=== PATIENT | female | born 1940 | race Caucasian/White ===

== ENCOUNTER 2017-05-02 11:04 | Emergency (ER) | payer MEDICARE ==
--- NOTE | 2017-05-02 12:51 | EDM.PDOC ---
ED HPI GENERAL MEDICAL PROBLEM - General Chief Complaint: Cardiovascular Problem Stated Complaint: HIGH BP/CHEST DISCOMFORT Time Seen by Provider: 05/02/17 11:45 Source of Information: Reports: Patient History Limitations: Reports: No Limitations - History of Present Illness INITIAL COMMENTS - FREE TEXT/NARRATIVE: 77-year-old female who is just had some mild generalized malaise over the past several weeks, having difficulty getting her blood pressure under control and some mild intermittent tinnitus as well as some mild intermittent chest discomfort which she's had for years was sent over from the clinic today because her blood pressure was elevated. She just had an angiogram 6 months ago. No intervention was done. She denies shortness of breath, denies nausea or vomiting, weight loss or weight gain. She was at the clinic this morning for labs including a CBC and Lyme's titer. Onset: Unknown/Unsure Severity: Mild Associated Symptoms: Reports: Chest Pain, Malaise, Weakness. Denies: Cough, Fever/Chills, Headaches, Shortness of Breath Debnies Pain Score (Numeric/FACES): 0 - Related Data Allergies Allergy/AdvReac Type Severity Reaction Status Date / Time venom-honey bee Allergy Difficulty Verified 05/02/17 11:16 [bee venom (honey bee)] Breathing *avocodo Allergy Difficulty Uncoded 05/02/17 11:16 Breathing *salmon Allergy Difficulty Uncoded 05/02/17 11:16 Breathing Home Meds: Home Meds Aspirin [Halfprin] 81 mg PO DAILY 06/18/14 [History] Digoxin 250 mcg PO BEDTIME 06/18/14 [History] Metoprolol Succinate [Toprol Xl] 100 mg PO DAILY 06/18/14 [History] atorvaSTATin [Lipitor] 40 mg PO BEDTIME 06/18/14 [History] Warfarin [Coumadin] 3 mg PO SUTUTHSA 06/19/14 [History] Warfarin [Coumadin] 4.5 mg PO MOWEFR 06/19/14 [History] Lisinopril [Prinivil] 20 mg PO DAILY 07/28/16 [History] Past Medical History HEENT History: Reports: Impaired Vision Cardiovascular History: Reports: Afib, High Cholesterol, Hypertension, [place] 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: Neurological History: Reports: TIA Psychiatric History: Reports: Anxiety - Infectious Disease History Infectious Disease History: Reports: Chicken Pox, Measles - Past Surgical History HEENT Surgical History: Reports: Cataract Surgery Cardiovascular Surgical History: Reports: Coronary Artery Bypass, Other (See Below) Other Cardiovascular Surgeries/Procedures: angiogram aprox 6 momths ago GI Surgical History: Reports: Cholecystectomy, Colonoscopy Female Surgical History: Reports: Hysterectomy Social & Family History - Tobacco Use Smoking Status *Q: Never Smoker Years of Tobacco use: 20 Used Tobacco, but Quit: Yes Month Tobacco Last Used: NOVEMBER Second Hand Smoke Exposure: No - Caffeine Use Caffeine Use: Reports: Coffee, Tea - Alcohol Use Days Per Week of Alcohol Use: 1 Number of Drinks Per Day: 2 Total Drinks Per Week: 2 - Recreational Drug Use Recreational Drug Use: No ED ROS GENERAL - Review of Systems Review Of Systems: See Below Constitutional: Reports: Malaise, Weakness. Denies: Fever, Chills HEENT: Reports: No Symptoms Respiratory: Denies: Shortness of Breath, Cough Cardiovascular: Reports: Chest Pain (Intermittent mild substernal burning, not a new symptom) GI/Abdominal: Denies: Abdominal Pain, Diarrhea, Nausea, Vomiting : Reports: No Symptoms Musculoskeletal: Reports: No Symptoms Skin: Reports: No Symptoms Neurological: Denies: Dizziness, Headache ED EXAM, GENERAL - Physical Exam Exam: See Below Exam Limited By: No Limitations General Appearance: Alert, No Apparent Distress Eye Exam: Bilateral Eye: Normal Inspection Neck: Normal Inspection Respiratory/Chest: No Respiratory Distress, Lungs Clear Cardiovascular: Irregularly Irregular GI/Abdominal: Soft, Non-Tender Extremities: Normal Inspection. No: Pedal Edema Neurological: Alert, Oriented Psychiatric: Normal Affect, Normal Mood Course - Vital Signs Last Recorded V/S: Last Vital Signs Temp 96.9 F 05/02/17 13:07 Pulse 59 L 05/02/17 11:36 Resp 15 05/02/17 13:07 BP 185/102 H 05/02/17 13:07 Pulse Ox 96 05/02/17 13:07 - Orders/Labs/Meds Labs: Laboratory Tests 05/02/17 Range/Units 12:11 Sodium 140 (140-148) mmol/L Potassium 4.4 (3.6-5.2) mmol/L Chloride 106 (100-108) mmol/L Carbon Dioxide 27 (21-32) mmol/L Anion Gap 6.7 (5.0-14.0) mmol/L BUN 14 (7-18) mg/dL Creatinine 0.9 (0.6-1.0) mg/dL Est Cr Clr Drug Dosing 41.74 mL/min Estimated GFR (MDRD) > 60 (>60) Glucose 111 H (74-106) mg/dL Calcium 9.3 (8.5-10.1) mg/dL Troponin I < 0.017 (0.000-0.056) ng/mL Digoxin 1.42 (0.90-2.00) ng/mL - Re-Assessments/Exams Free Text/Narrative Re-Assessment/Exam: 05/02/17 14:54 Patient already had a CBC done at the clinic which was normal. A BMP to check electrolytes, digoxin and troponin were obtained. Her initial blood pressure was 146/96. Her blood pressure at the clinic was somewhat higher with a systolic in the 160s. She did have systolic readings just over 200 several times while I was talking with her. She did not develop any chest pain while in the emergency room. Her BMP, troponin were normal and digoxin level was therapeutic. We reviewed her medications and decided to begin a small dose of diuretic along with her metoprolol and lisinopril, she was given 12.5 mg hydrochlorothiazide daily, 2 weeks' worth. I would like to have her recheck with Dr. Bliss in the next 7-10 days. She can return sooner if worsening or concerns. I strongly encouraged her to avoid any extra salt intake. Departure - Departure Time of Disposition: 13:01 Disposition: Home, Self-Care 01 Condition: Good Clinical Impression: Chest pain Hypertension Qualifiers: Hypertension type: essential hypertension Qualified Code(s): I10 - Essential ( primary) hypertension Instructions: Hypertension, [id number] Referrals: Cipriano Bliss MD [Primary Care Provider] - Forms: ED Department Discharge Care Plan Goals: Continue your current medications, and add the small dose HCTZ in the morning for the next 2 weeks as prescribed. Recheck with Dr. Bliss in 10-14 days or return sooner if worsening or concerns.
[2017-05-02 13:09] VITALS: BP 185/102
== END 2017-05-02 13:08 | disposition home or self-care (01) ==
LOC: JP.ED 11:04
DX: R07.9 Chest pain, unspecified (principal); I10 Essential (primary) hypertension; I48.91 Unspecified atrial fibrillation; E78.00 Pure hypercholesterolemia, unspecified; Z79.82 Long term (current) use of aspirin; Z79.899 Other long term (current) drug therapy; Z91.018 Allergy to other foods; Z91.030 Bee allergy status
CPT/HCPCS: 36415; 80048; 80162; 84484; 99284; 99285

== ENCOUNTER 2017-12-07 09:42 | Emergency (ER) | payer MEDICARE ==
[2017-12-07 10:06] VITALS: BP 190/92
--- NOTE | 2017-12-07 10:12 | EDM.PDOC ---
ED HPI GENERAL MEDICAL PROBLEM - General Chief Complaint: Upper Extremity Injury/Pain Stated Complaint: numbness in RIGHT HAND Time Seen by Provider: 12/07/17 10:00 Source of Information: Reports: Patient, Old Records, RN History Limitations: Reports: No Limitations - History of Present Illness INITIAL COMMENTS - FREE TEXT/NARRATIVE: 77 yo female presents with an hour's duration of pain in the L arm from the elbow to the fingers that began about an hour before arrival while mopping at work. Her pain was not relieved by stopping mopping. Is on warfarin for Afib, but has not had an INR in about 6 weeks. Hand feels cold. Onset: Today Onset Date: 12/07/17 Onset Time: 09:00 Duration: Hour(s): (1), Constant Location: Reports: Upper Extremity, Left Quality: Reports: Ache Severity: Moderate Improves with: Reports: None Worsens with: Reports: None Context: Reports: Other (Afib hx) Associated Symptoms: Reports: No Other Symptoms. 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 (see below) (none) Left Hand Pain Score (Numeric/FACES): 6 - Related Data Allergies Allergy/AdvReac Type Severity Reaction Status Date / Time venom-honey bee Allergy Difficulty Verified 12/07/17 09:53 [bee venom (honey bee)] Breathing *avocodo Allergy Difficulty Uncoded 12/07/17 09:53 Breathing *salmon Allergy Difficulty Uncoded 12/07/17 09:53 Breathing Home Meds: Home Meds Aspirin [Halfprin] 81 mg PO DAILY 06/18/14 [History] Digoxin 250 mcg PO BEDTIME 06/18/14 [History] Metoprolol Succinate [Toprol Xl] 100 mg PO DAILY 06/18/14 [History] atorvaSTATin [Lipitor] 40 mg PO BEDTIME 06/18/14 [History] Warfarin [Coumadin] 3 mg PO SUTUTHSA 06/19/14 [History] Warfarin [Coumadin] 4.5 mg PO MOWEFR 06/19/14 [History] Lisinopril [Prinivil] 20 mg PO DAILY 07/28/16 [History] Past Medical History HEENT History: Reports: Impaired Vision Cardiovascular History: Reports: Afib, High Cholesterol, Hypertension, [place] [employer]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: Neurological History: Reports: TIA Psychiatric History: Reports: Anxiety - Infectious Disease History Infectious Disease History: Reports: Chicken Pox, Measles - Past Surgical History HEENT Surgical History: Reports: Cataract Surgery Cardiovascular Surgical History: Reports: Coronary Artery Bypass, Other (See Below) Other Cardiovascular Surgeries/Procedures: angiogram aprox 6 momths ago GI Surgical History: Reports: Cholecystectomy, Colonoscopy Female Surgical History: Reports: Hysterectomy Social & Family History - Tobacco Use Smoking Status *Q: Never Smoker Second Hand Smoke Exposure: No - Caffeine Use Caffeine Use: Reports: Coffee, Tea - Alcohol Use Days Per Week of Alcohol Use: 2 Number of Drinks Per Day: 2 Total Drinks Per Week: 4 - Recreational Drug Use Recreational Drug Use: No Review of Systems - Review of Systems Review Of Systems: See Below Constitutional: Reports: No Symptoms Eyes: Reports: No Symptoms Ears: Reports: No Symptoms Nose: Reports: No Symptoms Mouth/Throat: Reports: No Symptoms Respiratory: Reports: No Symptoms Cardiovascular: Reports: Irregular Heart Rate (Hx of afib) GI/Abdominal: Reports: No Symptoms Genitourinary: Reports: No Symptoms Musculoskeletal: Reports: Arm Pain (L below the elbow), Hand Pain (Left) Skin: Reports: No Symptoms Neurological: Reports: No Symptoms ED EXAM, GENERAL - Physical Exam Exam: See Below Exam Limited By: No Limitations General Appearance: Alert, WD/WN, No Apparent Distress Eye Exam: Bilateral Eye: Normal Inspection Ears: Normal External Exam, Normal Canal, Hearing Grossly Normal Ear Exam: Bilateral Ear: Auricle Normal, Canal Normal Nose: Normal Inspection, Normal Mucosa, No Blood Throat/Mouth: Normal Inspection, Normal Lips, Normal Oropharynx, Normal Voice, No Airway Compromise Head: Atraumatic, Normocephalic Neck: Normal Inspection, Supple, Non-Tender Respiratory/Chest: No Respiratory Distress, Lungs Clear, Normal Breath Sounds, No Accessory Muscle Use Cardiovascular: Irregularly Irregular GI/Abdominal: Normal Bowel Sounds, Soft, Non-Tender, No Distention Back Exam: Normal Inspection Extremities: Normal Inspection, Normal Range of Motion, Non-Tender, No Pedal Edema, Arm Pain (left), Other (cap refill delayed L hand, no pulse at ulna or radial artery. Weak pulse at elbow. ) Neurological: Alert, Oriented, CN II-XII Intact, Normal Cognition, No Motor/ Sensory Deficits Psychiatric: Normal Affect, Normal Mood Skin Exam: Warm, Dry, Intact, Normal Color, No Rash Lymphatic: No Adenopathy Course - Vital Signs Text/Narrative:: Accepted in transfer by Dr. Marquez, interventional radiology, [facility] @ 1120h Last Recorded V/S: Last Vital Signs Temp 35.9 C 12/07/17 10:04 Pulse 68 12/07/17 10:04 Resp 14 12/07/17 10:04 BP 190/92 H 12/07/17 10:04 Pulse Ox 99 12/07/17 10:04 - Orders/Labs/Meds Orders: Active Orders 24 hr Category Date Time Status Cardiac Monitoring [RC] .As Directed Care 12/07/17 10:07 Active VL Duplex Upr Ext Art Ltd Lt [US] Stat Exams 12/07/17 10:19 Ordered Sodium Chloride 0.9% [Saline Flush] Med 12/07/17 10:07 Active 10 ml FLUSH ASDIRECTED PRN Saline Lock Insert [OM.PC] Routine Oth 12/07/17 10:07 Ordered Medication Orders Sodium Chloride (Saline Flush) 10 ml FLUSH ASDIRECTED PRN PRN Reason: Keep Vein Open Last Admin: 12/07/17 10:19 Dose: 10 ml Labs: Laboratory Tests 12/07/17 Range/Units 10:07 PT 14.4 H (9.5-12.0) sec INR 1.33 H (0.80-1.20) Meds: Medications Generic Name Dose Route Start Last Admin Trade Name Freq PRN Reason Stop Dose Admin Sodium Chloride 10 ml 12/07/17 10:07 12/07/17 10:19 Saline Flush FLUSH 10 ml ASDIRECTED PRN Administration Keep Vein Open - Radiology Interpretation Free Text/Narrative:: Ultrasound LUE vascular study- Departure - Departure Time of Disposition: 11:40 Disposition: DC/Tfer to Acute Hospital 02 Condition: Poor Clinical Impression: Subtherapeutic international normalized ratio (INR), Chronic atrial fibrillation, Arterial embolism of arm HTN (hypertension) Qualifiers: Hypertension type: essential hypertension Qualified Code(s): I10 - Essential ( primary) hypertension - Discharge Information Referrals: Cipriano Bliss MD [Primary Care Provider] - Forms: ED Department Discharge - My Orders Last 24 Hours: My Active Orders 12/07/17 10:07 Cardiac Monitoring [RC] .As Directed Sodium Chloride 0.9% [Saline Flush] 10 ml FLUSH ASDIRECTED PRN Saline Lock Insert [OM.PC] Routine 12/07/17 10:19 VL Duplex Upr Ext Art Ltd Lt [US] Stat - Assessment/Plan Last 24 Hours: My Active Orders 12/07/17 10:07 Cardiac Monitoring [RC] .As Directed Sodium Chloride 0.9% [Saline Flush] 10 ml FLUSH ASDIRECTED PRN Saline Lock Insert [OM.PC] Routine 12/07/17 10:19 VL Duplex Upr Ext Art Ltd Lt [US] Stat
[2017-12-07] MEDS: Sodium Chloride 0.9% 10 ML Syringe FLUSH PRN ×2 (10:19→11:47)
[2017-12-07] MEDS ORDERED: Heparin Sodium 5,000 Units/ML Vial IVPUSH ONE ×2 (11:21→11:48)
[2017-12-07] MEDS ORDERED: hydrALAZINE 20 MG/ML SDV IVPUSH ONE ×2 (11:23→11:56)
[2017-12-07] MEDS ORDERED: Heparin Sodium/D5W 25,000 UNITS/500 ML BAG IV SCH (11:30)
--- NOTE | 2017-12-07 11:31 | US ---
Left upper extremity arterial Doppler The left common carotid artery, left subclavian artery, axillary artery, and brachial artery are all patent. The radial artery is visualized distally at the wrist. The gutierrez arch is intact. The distal portion of the ulnar artery becomes attenuated without evidence of flow distally. No visualized throm bus is demonstrated. The waveform within the radial and gutierrez arteries are monophasic. Impression: 1. The ulnar artery tapers distally with lack of flow at the wrist. 2. The radial and gutierrez arteries are patent at the wrist and hand.
== END 2017-12-07 12:11 ==
LOC: JP.ED 09:42
DX: I74.2 Embolism and thrombosis of arteries of the upper extremities (principal); I10 Essential (primary) hypertension; I48.2 Chronic atrial fibrillation; I25.2 Old myocardial infarction; F41.9 Anxiety disorder, unspecified; R79.1 Abnormal coagulation profile; Z91.02 Food additives allergy status; Z79.82 Long term (current) use of aspirin; Z79.01 Long term (current) use of anticoagulants; Z79.899 Other long term (current) drug therapy; Z91.030 Bee allergy status
CPT/HCPCS: 36415; 85610; 93931; 96374; 96375; 99285; J0360; J1644; J7050

== ENCOUNTER 2017-12-11 14:16 | Emergency (ER) | payer MEDICARE ==
[2017-12-11] MEDS ORDERED: Labetalol 20 MG/4 ML Syringe IVPUSH ONE (15:14)
[2017-12-11] MEDS ORDERED: Sodium Chloride 0.9% 1,000 ML IV SCH (15:15)
[2017-12-11] MEDS ORDERED: Labetalol 100 MG in Sodium Chloride 0.9% 80 ML IV SCH (15:15)
--- NOTE | 2017-12-11 15:15 | EDM.PDOC ---
ED HPI GENERAL MEDICAL PROBLEM - General Chief Complaint: General Stated Complaint: WEAKNESS BLOOD PRESSURE HIGH Time Seen by Provider: 12/11/17 14:55 Source of Information: Reports: Patient, Family History Limitations: Reports: No Limitations - History of Present Illness INITIAL COMMENTS - FREE TEXT/NARRATIVE: pt arrived having a headache and dizziness. This started quite suddenly this afternoon. She was just hospitalized in [place] for a blood clot in her left arm. She is on lovenox shots and is trying to get her inr up. Onset: Today, Other ( Pt had the headche and dizziness. ) Duration: Hour(s): Location: Reports: Head Quality: Reports: Pressure Associated Symptoms: Reports: No Other Symptoms lower abdomen Pain Score (Numeric/FACES): 7 - Related Data Allergies Allergy/AdvReac Type Severity Reaction Status Date / Time venom-honey bee Allergy Difficulty Verified 12/11/17 15:11 [bee venom (honey bee)] Breathing *avocodo Allergy Difficulty Uncoded 12/11/17 15:11 Breathing *salmon Allergy Difficulty Uncoded 12/11/17 15:11 Breathing Home Meds: Home Meds Aspirin [Halfprin] 81 mg PO DAILY 06/18/14 [History] Digoxin 250 mcg PO BEDTIME 06/18/14 [History] Metoprolol Succinate [Toprol Xl] 100 mg PO DAILY 06/18/14 [History] Warfarin [Coumadin] 3 mg PO SUTUTHSA 06/19/14 [History] Warfarin [Coumadin] 4.5 mg PO MOWEFR 06/19/14 [History] Lisinopril [Prinivil] 20 mg PO DAILY 07/28/16 [History] Enoxaparin [Lovenox] 30 mg SUBCUT DAILY 12/11/17 [History] Past Medical History HEENT History: Reports: Impaired Vision Cardiovascular History: Reports: Afib, High Cholesterol, Hypertension, [place]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: Neurological History: Reports: TIA Psychiatric History: Reports: Anxiety - Infectious Disease History Infectious Disease History: Reports: Chicken Pox, Measles - Past Surgical History HEENT Surgical History: Reports: Cataract Surgery Cardiovascular Surgical History: Reports: Coronary Artery Bypass, Other (See Below) Other Cardiovascular Surgeries/Procedures: angiogram aprox 6 momths ago GI Surgical History: Reports: Cholecystectomy, Colonoscopy Female Surgical History: Reports: Hysterectomy Social & Family History - Caffeine Use Caffeine Use: Reports: Coffee, Tea ED ROS GENERAL - Review of Systems Review Of Systems: See Below Constitutional: Reports: No Symptoms HEENT: Reports: No Symptoms Respiratory: Reports: No Symptoms Cardiovascular: Reports: No Symptoms, Other ( She did have a twing of chest pain that was very brief) Endocrine: Reports: No Symptoms GI/Abdominal: Reports: No Symptoms : Reports: No Symptoms Musculoskeletal: Reports: No Symptoms Skin: Reports: No Symptoms Neurological: Reports: Dizziness, Headache, Other ( she felt very fuzzy headed. ) Psychiatric: Reports: No Symptoms ED EXAM, GENERAL - Physical Exam Exam: See Below Free Text/Narrative:: pt arrived with a headache and dizziness . Her bp was 220/110. Exam Limited By: No Limitations General Appearance: Alert, Moderate Distress, Other (pupils equal and reactive. ) Ears: Normal TMs Nose: Normal Inspection Throat/Mouth: Normal Inspection Head: Atraumatic Neck: Normal Inspection Respiratory/Chest: No Respiratory Distress Cardiovascular: Regular Rate, Rhythm, Other ( ekg looks normal. ) GI/Abdominal: Soft, Non-Tender (Female) Exam: Deferred Rectal (Female) Exam: Deferred Back Exam: Normal Inspection Extremities: Normal Inspection Neurological: Alert, Oriented, Normal Cognition Psychiatric: Normal Affect Course - Vital Signs Last Recorded V/S: Last Vital Signs Temp 35.8 C 12/11/17 14:52 Pulse 78 12/11/17 17:46 Resp 16 12/11/17 17:46 BP 165/101 H 12/11/17 17:46 Pulse Ox 98 12/11/17 17:46 Orthostatic Blood Pressure [ 169/112 Standing] Orthostatic Blood Pressure [ 163/111 Sitting] Orthostatic Blood Pressure [ 173/91 Supine] - Orders/Labs/Meds Orders: Active Orders 24 hr Category Date Time Status EKG Documentation Completion [RC] ASDIRECTED Care 12/11/17 17:07 Active Orthostatic Vital Signs [RC] ASDIRECTED Care 12/11/17 16:15 Active Head wo Cont [CT] Stat Exams 12/11/17 15:01 Taken UA W/MICROSCOPIC [URIN] Urgent Lab 12/11/17 15:09 Ordered Sodium Chloride 0.9% [Normal Saline] 1,000 ml Med 12/11/17 15:15 Active IV ASDIRECTED EKG 12 Lead [EK] Routine Ther 12/11/17 17:07 Ordered Medication Orders Sodium Chloride (Normal Saline) 1,000 mls @ 200 mls/hr IV ASDIRECTED [facility] Labs: Laboratory Tests 12/11/17 12/11/17 12/11/17 Range/Units 14:47 14:47 14:48 WBC 9.6 (4.5-11.0) K/uL RBC 4.57 (3.30-5.50) M/uL Hgb 13.8 (12.0-15.0) g/dL Hct 40.0 (36.0-48.0) % MCV 88 (80-98) fL MCH 30 (27-31) pg MCHC 35 (32-36) % Plt Count 198 (150-400) K/uL Neut % (Auto) 49 (36-66) % Lymph % (Auto) 36 (24-44) % Branch % (Auto) 11 H (2-6) % Eos % (Auto) 3 (2-4) % Baso % (Auto) 1 (0-1) % PT 17.4 H (9.5-12.0) sec INR 1.59 H (0.80-1.20) Sodium 140 (140-148) mmol/L Potassium 3.5 L (3.6-5.2) mmol/L Chloride 103 (100-108) mmol/L Carbon Dioxide 27 (21-32) mmol/L Anion Gap 13.5 (5.0-14.0) mmol/L BUN 10 (7-18) mg/dL Creatinine 0.8 (0.6-1.0) mg/dL Est Cr Clr Drug Dosing TNP Estimated GFR (MDRD) > 60 (>60) Glucose 97 (74-106) mg/dL Calcium 8.9 (8.5-10.1) mg/dL Total Bilirubin 0.8 D (0.2-1.0) mg/dL AST 30 (15-37) U/L ALT 35 (12-78) U/L Alkaline Phosphatase 70 (46-116) U/L Troponin I (0.000-0.056) ng/mL Total Protein 7.3 (6.4-8.2) g/dL Albumin 3.7 (3.4-5.0) g/dL Globulin 3.6 H (2.3-3.5) g/dL Albumin/Globulin Ratio 1.0 L (1.2-2.2) Urine Color Urine Appearance Urine pH (4.5-8.0) Ur Specific [place] (1.008-1.030) Urine Protein (NEGATIVE) mg/dL Urine Glucose (UA) (NEGATIVE) mg/dL Urine Ketones (NEGATIVE) mg/dL Urine Occult Blood (NEGATIVE) Urine Nitrite (NEGATIVE) Urine Bilirubin (NEGATIVE) Urine Urobilinogen (NORMAL) mg/dL Ur Leukocyte Esterase (NEGATIVE) Urine RBC (0-5) Urine WBC (0-5) Ur Epithelial Cells Amorphous Sediment Urine Bacteria Urine Mucus Digoxin (0.90-2.00) ng/mL 12/11/17 12/11/17 12/11/17 Range/Units 14:48 15:09 17:07 WBC (4.5-11.0) K/uL RBC (3.30-5.50) M/uL Hgb (12.0-15.0) g/dL Hct (36.0-48.0) % MCV (80-98) fL MCH (27-31) pg MCHC (32-36) % Plt Count (150-400) K/uL Neut % (Auto) (36-66) % Lymph % (Auto) (24-44) % Branch % (Auto) (2-6) % Eos % (Auto) (2-4) % Baso % (Auto) (0-1) % PT (9.5-12.0) sec INR (0.80-1.20) Sodium (140-148) mmol/L Potassium (3.6-5.2) mmol/L Chloride (100-108) mmol/L Carbon Dioxide (21-32) mmol/L Anion Gap (5.0-14.0) mmol/L BUN (7-18) mg/dL Creatinine (0.6-1.0) mg/dL Est Cr Clr Drug Dosing Estimated GFR (MDRD) (>60) Glucose (74-106) mg/dL Calcium (8.5-10.1) mg/dL Total Bilirubin (0.2-1.0) mg/dL AST (15-37) U/L ALT (12-78) U/L Alkaline Phosphatase (46-116) U/L Troponin I < 0.017 (0.000-0.056) ng/mL Total Protein (6.4-8.2) g/dL Albumin (3.4-5.0) g/dL Globulin (2.3-3.5) g/dL Albumin/Globulin Ratio (1.2-2.2) Urine Color Yellow Urine Appearance Clear Urine pH 8.0 (4.5-8.0) Ur Specific [place] 1.010 (1.008-1.030) Urine Protein Negative (NEGATIVE) mg/dL Urine Glucose (UA) Normal (NEGATIVE) mg/dL Urine Ketones Negative (NEGATIVE) mg/dL Urine Occult Blood Negative (NEGATIVE) Urine Nitrite Negative (NEGATIVE) Urine Bilirubin Negative (NEGATIVE) Urine Urobilinogen Normal (NORMAL) mg/dL Ur Leukocyte Esterase Negative (NEGATIVE) Urine RBC 0-5 (0-5) Urine WBC 0-5 (0-5) Ur Epithelial Cells Rare Amorphous Sediment Rare Urine Bacteria Not seen Urine Mucus Not seen Digoxin 0.75 L (0.90-2.00) ng/mL Meds: Medications Generic Name Dose Route Start Last Admin Trade Name Freq PRN Reason Stop Dose Admin Sodium Chloride 1,000 mls @ 200 mls/hr 12/11/17 15:15 Normal Saline IV ASDIRECTED MERCEDEZ Discontinued Medications Generic Name Dose Route Start Last Admin Trade Name Freq PRN Reason Stop Dose Admin Labetalol HCl 100 mg/ Sodium 100 mls @ 30 mls/hr 12/11/17 15:15 Chloride IV TITRATE MERCEDEZ Protocol 0.5 MG/MIN Labetalol HCl 20 mg 12/11/17 15:14 12/11/17 17:45 Normodyne IVPUSH 12/11/17 15:15 Not Given NOW ONE Protocol Lisinopril 5 mg 12/11/17 17:07 12/11/17 17:44 Prinivil PO 12/11/17 17:08 5 mg ONETIME ONE Administration - Re-Assessments/Exams Free Text/Narrative Re-Assessment/Exam: 12/11/17 17:55 ekg and trop are normal. A cat scan of the head was normal. Her bp has come down and is much better. Her lab work looks ok. Her Inr Is 1.56. Departure - Departure Time of Disposition: 17:57 Disposition: Home, Self-Care 01 Condition: Fair Clinical Impression: Hypertension, Arterial embolism of arm - Discharge Information Referrals: Cipriano Bliss MD [Primary Care Provider] - Forms: ED Department Discharge Care Plan Goals: increase lisinopril 20mg in am, lisinopril 5mg in the afternoon follow with regular Dr in 1 week. - My Orders Last 24 Hours: My Active Orders 12/11/17 15:01 Head wo Cont [CT] Stat 12/11/17 15:09 UA W/MICROSCOPIC [URIN] Urgent 12/11/17 15:15 Sodium Chloride 0.9% [Normal Saline] 1,000 ml IV ASDIRECTED 12/11/17 16:15 Orthostatic Vital Signs [RC] ASDIRECTED 12/11/17 17:07 EKG Documentation Completion [RC] ASDIRECTED EKG 12 Lead [EK] Routine - Assessment/Plan Last 24 Hours: My Active Orders 12/11/17 15:01 Head wo Cont [CT] Stat 12/11/17 15:09 UA W/MICROSCOPIC [URIN] Urgent 12/11/17 15:15 Sodium Chloride 0.9% [Normal Saline] 1,000 ml IV ASDIRECTED 12/11/17 16:15 Orthostatic Vital Signs [RC] ASDIRECTED 12/11/17 17:07 EKG Documentation Completion [RC] ASDIRECTED EKG 12 Lead [EK] Routine
[2017-12-11] MEDS ORDERED: Lisinopril 5 MG Tab PO ONE (17:07)
[2017-12-11 17:47] VITALS: BP 165/101
== END 2017-12-11 18:11 | disposition home or self-care (01) ==
LOC: JP.ED 14:16
DX: I10 Essential (primary) hypertension (principal); I74.2 Embolism and thrombosis of arteries of the upper extremities; E78.00 Pure hypercholesterolemia, unspecified; I48.91 Unspecified atrial fibrillation; Z79.82 Long term (current) use of aspirin; Z79.01 Long term (current) use of anticoagulants; Z79.899 Other long term (current) drug therapy; Z91.018 Allergy to other foods; Z91.030 Bee allergy status
CPT/HCPCS: 36415; 70450; 80053; 80162; 81001; 84484; 85025; 85610; 93005; 99285; A9270

== ENCOUNTER 2017-12-16 06:57 | Emergency (ER) | payer MEDICARE ==
--- NOTE | 2017-12-16 07:39 | EDM.PDOC ---
ED HPI GENERAL MEDICAL PROBLEM - General Chief Complaint: Upper Extremity Injury/Pain Stated Complaint: PAIN IN LEFT ARM HAD BLOOD CLOT Time Seen by Provider: 12/16/17 07:38 Source of Information: Reports: Patient History Limitations: Reports: No Limitations - History of Present Illness INITIAL COMMENTS - FREE TEXT/NARRATIVE: pt has increased pain and increased swelling in the left arm. Onset: Other ( The increased pain was in the middle of the nite and has been persistent. ) Duration: Hour(s): Location: Reports: Upper Extremity, Left Associated Symptoms: Reports: No Other Symptoms left; arm Pain Score (Numeric/FACES): 9 - Related Data Allergies Allergy/AdvReac Type Severity Reaction Status Date / Time venom-honey bee Allergy Difficulty Verified 12/16/17 07:22 [bee venom (honey bee)] Breathing *avocodo Allergy Difficulty Uncoded 12/16/17 07:22 Breathing *salmon Allergy Difficulty Uncoded 12/16/17 07:22 Breathing Home Meds: Home Meds Aspirin [Halfprin] 81 mg PO DAILY 06/18/14 [History] Digoxin 250 mcg PO BEDTIME 06/18/14 [History] Metoprolol Succinate [Toprol Xl] 100 mg PO DAILY 06/18/14 [History] Warfarin [Coumadin] 3 mg PO SUTUTHSA 06/19/14 [History] Warfarin [Coumadin] 4.5 mg PO MOWEFR 06/19/14 [History] Lisinopril [Prinivil] 20 mg PO DAILY 07/28/16 [History] Past Medical History HEENT History: Reports: Impaired Vision Cardiovascular History: Reports: Afib, Blood Clots/VTE/DVT, High Cholesterol, Hypertension, [place] [employer] History: Reports: Neurological History: Reports: TIA Psychiatric History: Reports: Anxiety - Infectious Disease History Infectious Disease History: Reports: Chicken Pox, Measles - Past Surgical History HEENT Surgical History: Reports: Cataract Surgery Cardiovascular Surgical History: Reports: Coronary Artery Bypass, Other (See Below) Other Cardiovascular Surgeries/Procedures: angiogram aprox 6 momths ago GI Surgical History: Reports: Cholecystectomy, Colonoscopy Female Surgical History: Reports: Hysterectomy Social & Family History - Tobacco Use Smoking Status *Q: Never Smoker - Caffeine Use Caffeine Use: Reports: Coffee - Recreational Drug Use Recreational Drug Use: No Review of Systems - Review of Systems Review Of Systems: See Below Constitutional: Reports: No Symptoms Eyes: Reports: No Symptoms Ears: Reports: No Symptoms Nose: Reports: No Symptoms Mouth/Throat: Reports: No Symptoms Respiratory: Reports: No Symptoms Cardiovascular: Reports: No Symptoms GI/Abdominal: Reports: No Symptoms Genitourinary: Reports: No Symptoms Musculoskeletal: Reports: Other (increased pain and swelling in the left arm. ) Skin: Reports: No Symptoms ED EXAM, GENERAL - Physical Exam Exam: See Below Free Text/Narrative:: pt arrived with increased pain and swelling in the left forearm. Exam Limited By: No Limitations General Appearance: Alert, Anxious Ears: Normal TMs Nose: Normal Inspection Throat/Mouth: Normal Inspection Head: Atraumatic Neck: Normal Inspection Respiratory/Chest: No Respiratory Distress Cardiovascular: Regular Rate, Rhythm GI/Abdominal: Soft, Non-Tender (Female) Exam: Deferred Rectal (Female) Exam: Deferred Back Exam: Normal Inspection Extremities: Other (Left lower arm is quite swollen and tight. It is very bruised. She does have a good radial pulse present. ) Neurological: Alert, Oriented, Normal Cognition Psychiatric: Normal Affect, Anxious Course - Vital Signs Last Recorded V/S: Last Vital Signs Temp 35.8 C 12/16/17 07:20 Pulse 64 12/16/17 07:20 Resp 16 12/16/17 07:20 BP 180/107 H 12/16/17 07:40 Pulse Ox 94 L 12/16/17 07:20 - Orders/Labs/Meds Orders: Active Orders 24 hr Category Date Time Status Elbow Min 3V Lt [CR] Stat Exams 12/16/17 07:39 Taken Forearm 2V Lt [CR] Stat Exams 12/16/17 07:39 Taken VL Duplex Upr Ext Art Ltd Lt [US] Stat Exams 12/16/17 07:41 Ordered Meds: Medications Discontinued Medications Generic Name Dose Route Start Last Admin Trade Name Freq PRN Reason Stop Dose Admin Hydromorphone HCl 0.5 mg 12/16/17 07:40 12/16/17 07:43 Dilaudid IM 12/16/17 07:41 0.5 mg ONETIME ONE Administration - Re-Assessments/Exams Free Text/Narrative Re-Assessment/Exam: 12/16/17 08:43 pt had a us of the arm which showed her arter\ies to be open . She had no dvt that could be seen. Xrays of the elbow were neg. She feels like she is getting some muscle spasms at nite and she does have tingling in her hand which could indicate that she has some nerve pressure. Departure - Departure Time of Disposition: 08:45 Disposition: Home, Self-Care 01 Condition: Fair Clinical Impression: Hematoma of arm - Discharge Information Referrals: Cipriano Bliss MD [Primary Care Provider] - Forms: ED Department Discharge Care Plan Goals: soak tid and do range of motion on the arm, flexeril 10mg 1/2 qam . and noon and 1 tab hs, norco 5/325 1/2 tab q6h prn for pain , inbetween use plain tylenol - My Orders Last 24 Hours: My Active Orders 12/16/17 07:39 Elbow Min 3V Lt [CR] Stat Forearm 2V Lt [CR] Stat 12/16/17 07:41 VL Duplex Upr Ext Art Ltd Lt [US] Stat - Assessment/Plan Last 24 Hours: My Active Orders 12/16/17 07:39 Elbow Min 3V Lt [CR] Stat Forearm 2V Lt [CR] Stat 12/16/17 07:41 VL Duplex Upr Ext Art Ltd Lt [US] Stat
[2017-12-16] MEDS ORDERED: HYDROmorphone 0.5 MG/0.5 ML Syringe IM ONE (07:40)
[2017-12-16 08:02] VITALS: BP 180/107
--- NOTE | 2017-12-16 08:55 | CR ---
Elbow Min 3V Lt CLINICAL HISTORY: Pain, trauma FINDINGS: No acute fracture or dislocation is noted. The fat pads are in normal position. There is so me minimal periarticular spurring. There is some soft tissue fullness in the antecubital region. Impression: Minimal osteophytic change Soft tissue fullness in the antecubital region may represent hematoma
--- NOTE | 2017-12-16 08:57 | CR ---
Forearm 2V Lt CLINICAL HISTORY: Pain and swelling FINDINGS: There is no acute fracture within the forearm. IMPRESSION: Negative left forearm.
--- NOTE | 2017-12-16 09:46 | US ---
VL Duplex Upr Ext Art Ltd Lt CLINICAL HISTORY: Left arm swelling, pain, absent pulse FINDINGS: Triphasic waveforms are seen in the left common carotid artery and proximal subclavian ubaldo ry. Biphasic waveforms are seen in the mid subclavian. Biphasic waveforms are seen in the axillary and the triphasic waveforms are seen in the brachial ubaldo prieto. Velocities show no significant change at these levels. There are triphasic waveforms in the left ulnar artery. There is a drop-off in velocity at 18.6 cm/s. There are monophasic waveforms in the radial artery with the diminished velocity at 11 cm/s. The pulm onary artery shows monophasic waveforms at 16.3 cm/s. In the left forearm in the region of trauma there is a 3.1 x 4.6 x 2.5 cm heterogeneous complex mass consistent with a hematoma. IMPRESSION: Forearm hematoma described above There is a drop off of velocity in both the radial and ulnar arteries. The possible ulnar artery has triphasic wave forms. Monophasic waveforms are seen in the radial and palmar arteries
== END 2017-12-16 09:01 | disposition home or self-care (01) ==
LOC: JP.ED 06:57
DX: S50.12XA Contusion of left forearm, initial encounter (principal); I10 Essential (primary) hypertension; E78.00 Pure hypercholesterolemia, unspecified; I25.2 Old myocardial infarction; I48.91 Unspecified atrial fibrillation; F41.9 Anxiety disorder, unspecified; Z79.82 Long term (current) use of aspirin; Z79.01 Long term (current) use of anticoagulants; Z79.899 Other long term (current) drug therapy; Z91.030 Bee allergy status; Z91.018 Allergy to other foods; Z86.718 Personal history of other venous thrombosis and embolism; X58.XXXA Exposure to other specified factors, initial encounter
CPT/HCPCS: 73080; 73090; 93931; 96372; 99284; J1170

== ENCOUNTER 2018-07-12 11:17 | Inpatient (IN) | payer MEDICARE ==
--- NOTE | 2018-07-12 12:22 | EDM.PDOC ---
ED HPI GENERAL MEDICAL PROBLEM - General Chief Complaint: Gastrointestinal Problem Stated Complaint: FLU LIKE SYMPTOMS Time Seen by Provider: 07/12/18 12:12 Source of Information: Reports: Patient, RN Notes Reviewed History Limitations: Reports: No Limitations - History of Present Illness INITIAL COMMENTS - FREE TEXT/NARRATIVE: 78-year-old female presents to the emergency department today with complaint of abdominal pain, she states he's had abdominal pain for the last 2 weeks however it is progressively getting worse seems to be located in the right lower quadrant she does have nausea no vomiting and has had diarrhea denies any fevers Right Lower Abdomen Pain Score (Numeric/FACES): 8 - Related Data Allergies Allergy/AdvReac Type Severity Reaction Status Date / Time venom-honey bee Allergy Difficulty Verified 07/12/18 11:29 [bee venom (honey bee)] Breathing *avocodo Allergy Difficulty Uncoded 07/12/18 11:29 Breathing *salmon Allergy Difficulty Uncoded 07/12/18 11:29 Breathing Home Meds: Home Meds Aspirin [Halfprin] 81 mg PO DAILY 06/18/14 [History] Metoprolol Succinate [Toprol Xl] 100 mg PO DAILY 06/18/14 [History] Warfarin [Coumadin] 3 mg PO SUTUTHSA 06/19/14 [History] Warfarin [Coumadin] 4.5 mg PO MOWEFR 06/19/14 [History] Lisinopril [Prinivil] 20 mg PO DAILY 07/28/16 [History] Past Medical History HEENT History: Reports: Impaired Vision Cardiovascular History: Reports: Afib, Blood Clots/VTE/DVT, CAD, High Cholesterol, Hypertension, [place] [employer] History: Reports: Neurological History: Reports: TIA Psychiatric History: Reports: Anxiety - Infectious Disease History Infectious Disease History: Reports: Chicken Pox, Measles, Mumps, Rheumatic Fever - Past Surgical History Head Surgeries/Procedures: Reports: None HEENT Surgical History: Reports: Cataract Surgery Cardiovascular Surgical History: Reports: Coronary Artery Bypass, Other (See Below) Other Cardiovascular Surgeries/Procedures: angiogram GI Surgical History: Reports: Cholecystectomy, Colonoscopy Female Surgical History: Reports: Hysterectomy Neurological Surgical History: Reports: None Dermatological Surgical History: Reports: None Social & Family History - Tobacco Use Smoking Status *Q: Former Smoker Years of Tobacco use: 20 Used Tobacco, but Quit: Yes Month/Year Tobacco Last Used: 1988 - Caffeine Use Caffeine Use: Reports: None - Recreational Drug Use Recreational Drug Use: No ED ROS GENERAL - Review of Systems Review Of Systems: See Below Constitutional: Reports: Decreased Appetite. Denies: Fever, Chills HEENT: Reports: No Symptoms Respiratory: Reports: No Symptoms Cardiovascular: Reports: No Symptoms GI/Abdominal: Reports: Abdominal Pain, Diarrhea, Nausea. Denies: Vomiting : Reports: No Symptoms Musculoskeletal: Reports: No Symptoms Skin: Reports: No Symptoms Neurological: Reports: No Symptoms ED EXAM, GI/ABD - Physical Exam Exam: See Below Exam Limited By: No Limitations General Appearance: Alert, WD/WN, No Apparent Distress Neck: Normal Inspection, Supple, Non-Tender, Full Range of Motion Respiratory/Chest: No Respiratory Distress, Lungs Clear, Normal Breath Sounds, No Accessory Muscle Use Cardiovascular: Regular Rate, Rhythm, No Murmur GI/Abdominal Exam: Soft, No Distention, Guarding, Tender (Tender right lower quadrant) Back Exam: No: CVA Tenderness (R), CVA Tenderness (L) Extremities: Normal Inspection, Normal Range of Motion, Non-Tender, No Pedal Edema Skin Exam: Warm, Dry Course - Vital Signs Last Recorded V/S: Last Vital Signs Temp 95.9 F 07/12/18 11:33 Pulse 94 07/12/18 11:33 Resp 16 07/12/18 11:33 BP 120/65 07/12/18 11:33 Pulse Ox 100 07/12/18 11:33 - Orders/Labs/Meds Orders: Active Orders 24 hr Category Date Time Status Peripheral IV Care [RC] . DIRECTED Care 07/12/18 14:06 Active Iopamidol [Isovue-300 (61%)] Med 07/12/18 14:23 Active 100 ml IV . DIRECTED PRN Lactated Ringers [Ringers, Lactated] 1,000 ml Med 07/12/18 14:06 Active IV BOLUS Sodium Chloride 0.9% [Normal Saline] 80 ml Med 07/12/18 14:30 Active IV ASDIRECTED Sodium Chloride 0.9% [Saline Flush] Med 07/12/18 14:06 Active 10 ml FLUSH ASDIRECTED PRN Peripheral IV Insertion Adult [OM.PC] Urgent Oth 07/12/18 14:06 Ordered Medication Orders Lactated Ringer's (Ringers, Lactated) 1,000 mls @ 999 mls/hr IV BOLUS ONE Stop: 07/12/18 15:06 Sodium Chloride (Normal Saline) 80 mls @ 3 mls/sec IV ASDIRECTED MERCEDEZ Last Admin: 07/12/18 14:36 Dose: 3 mls/sec Iopamidol (Isovue-300 (61%)) 100 ml IV . DIRECTED PRN PRN Reason: RADIOLOGY EXAM Stop: 07/13/18 14:24 Last Admin: 07/12/18 14:36 Dose: 100 ml Sodium Chloride (Saline Flush) 10 ml FLUSH ASDIRECTED PRN PRN Reason: Keep Vein Open Labs: Laboratory Tests 07/12/18 07/12/18 07/12/18 Range/Units 12:32 12:32 12:32 WBC 11.6 H (4.5-11.0) K/uL RBC 4.18 (3.30-5.50) M/uL Hgb 12.6 (12.0-15.0) g/dL Hct 36.6 (36.0-48.0) % MCV 88 (80-98) fL MCH 30 (27-31) pg MCHC 34 (32-36) % Plt Count 276 (150-400) K/uL Neut % (Auto) 72 H (36-66) % Lymph % (Auto) 17 L (24-44) % Day % (Auto) 10 H (2-6) % Eos % (Auto) 1 L (2-4) % Baso % (Auto) 0 (0-1) % PT 20.5 H (9.5-12.0) sec INR 1.93 H (0.80-1.20) Sodium 137 L (140-148) mmol/L Potassium 3.8 (3.6-5.2) mmol/L Chloride 102 (100-108) mmol/L Carbon Dioxide 25 (21-32) mmol/L Anion Gap 13.8 (5.0-14.0) mmol/L BUN 12 (7-18) mg/dL Creatinine 0.9 (0.6-1.0) mg/dL Est Cr Clr Drug Dosing 40.13 mL/min Estimated GFR (MDRD) > 60 (>60) Glucose 109 H (74-106) mg/dL Lactic Acid (0.4-2.0) mmol/L Calcium 9.0 (8.5-10.1) mg/dL Total Bilirubin 0.4 (0.2-1.0) mg/dL AST 18 (15-37) U/L ALT 23 (12-78) U/L Alkaline Phosphatase 85 (46-116) U/L Troponin I (0.000-0.056) ng/mL Total Protein 6.9 (6.4-8.2) g/dL Albumin 2.9 L (3.4-5.0) g/dL Globulin 4.0 H (2.3-3.5) g/dL Albumin/Globulin Ratio 0.7 L (1.2-2.2) Urine Color Urine Appearance Urine pH (4.5-8.0) Ur Specific [place] (1.008-1.030) Urine Protein (NEGATIVE) mg/dL Urine Glucose (UA) (NEGATIVE) mg/dL Urine Ketones (NEGATIVE) mg/dL Urine Occult Blood (NEGATIVE) Urine Nitrite (NEGATIVE) Urine Bilirubin (NEGATIVE) Urine Urobilinogen (NORMAL) mg/dL Ur Leukocyte Esterase (NEGATIVE) Urine RBC (0-5) Urine WBC (0-5) Ur Epithelial Cells Amorphous Sediment Urine Bacteria Urine Mucus 07/12/18 07/12/18 07/12/18 Range/Units 12:32 12:32 13:12 WBC (4.5-11.0) K/uL RBC (3.30-5.50) M/uL Hgb (12.0-15.0) g/dL Hct (36.0-48.0) % MCV (80-98) fL MCH (27-31) pg MCHC (32-36) % Plt Count (150-400) K/uL Neut % (Auto) (36-66) % Lymph % (Auto) (24-44) % Day % (Auto) (2-6) % Eos % (Auto) (2-4) % Baso % (Auto) (0-1) % PT (9.5-12.0) sec INR (0.80-1.20) Sodium (140-148) mmol/L Potassium (3.6-5.2) mmol/L Chloride (100-108) mmol/L Carbon Dioxide (21-32) mmol/L Anion Gap (5.0-14.0) mmol/L BUN (7-18) mg/dL Creatinine (0.6-1.0) mg/dL Est Cr Clr Drug Dosing mL/min Estimated GFR (MDRD) (>60) Glucose (74-106) mg/dL Lactic Acid 1.5 (0.4-2.0) mmol/L Calcium (8.5-10.1) mg/dL Total Bilirubin (0.2-1.0) mg/dL AST (15-37) U/L ALT (12-78) U/L Alkaline Phosphatase (46-116) U/L Troponin I < 0.017 (0.000-0.056) ng/mL Total Protein (6.4-8.2) g/dL Albumin (3.4-5.0) g/dL Globulin (2.3-3.5) g/dL Albumin/Globulin Ratio (1.2-2.2) Urine Color Yellow Urine Appearance Slightly cloudy Urine pH 5.0 (4.5-8.0) Ur Specific [place] 1.020 (1.008-1.030) Urine Protein Negative (NEGATIVE) mg/dL Urine Glucose (UA) Normal (NEGATIVE) mg/dL Urine Ketones Negative (NEGATIVE) mg/dL Urine Occult Blood Moderate (NEGATIVE) Urine Nitrite Negative (NEGATIVE) Urine Bilirubin Negative (NEGATIVE) Urine Urobilinogen Normal (NORMAL) mg/dL Ur Leukocyte Esterase Negative (NEGATIVE) Urine RBC 5-10 H (0-5) Urine WBC 0-5 (0-5) Ur Epithelial Cells Rare Amorphous Sediment Not seen Urine Bacteria Rare Urine Mucus Moderate Meds: Medications Generic Name Dose Route Start Last Admin Trade Name Freq PRN Reason Stop Dose Admin Lactated Ringer's 1,000 mls @ 999 mls/hr 07/12/18 14:06 Ringers, Lactated IV 07/12/18 15:06 BOLUS ONE Sodium Chloride 80 mls @ 3 mls/sec 07/12/18 14:30 07/12/18 14:36 Normal Saline IV 3 mls/sec ASDIRECTED MERCEDEZ Administration Iopamidol 100 ml 07/12/18 14:23 07/12/18 14:36 Isovue-300 (61%) IV 07/13/18 14:24 100 ml . DIRECTED PRN Administration RADIOLOGY EXAM Sodium Chloride 10 ml 07/12/18 14:06 Saline Flush FLUSH ASDIRECTED PRN Keep Vein Open Departure - Departure Time of Disposition: 15:06 Disposition: Admitted As Inpatient 68 Condition: Fair Clinical Impression: Acute appendicitis with appendiceal abscess - Discharge Information Referrals: Cipriano Bliss MD [Primary Care Provider] - Forms: ED Department Discharge - My Orders Last 24 Hours: My Active Orders 07/12/18 14:06 Peripheral IV Care [RC] . DIRECTED Lactated Ringers [Ringers, Lactated] 1,000 ml IV BOLUS Sodium Chloride 0.9% [Saline Flush] 10 ml FLUSH ASDIRECTED PRN Peripheral IV Insertion Adult [OM.PC] Urgent 07/12/18 14:23 Iopamidol [Isovue-300 (61%)] 100 ml IV . DIRECTED PRN 07/12/18 14:30 Sodium Chloride 0.9% [Normal Saline] 80 ml IV ASDIRECTED - Assessment/Plan Last 24 Hours: My Active Orders 07/12/18 14:06 Peripheral IV Care [RC] . DIRECTED Lactated Ringers [Ringers, Lactated] 1,000 ml IV BOLUS Sodium Chloride 0.9% [Saline Flush] 10 ml FLUSH ASDIRECTED PRN Peripheral IV Insertion Adult [OM.PC] Urgent 07/12/18 14:23 Iopamidol [Isovue-300 (61%)] 100 ml IV . DIRECTED PRN 07/12/18 14:30 Sodium Chloride 0.9% [Normal Saline] 80 ml IV ASDIRECTED Plan: Assessment Acuity = acute Site and laterality = acute appendicitis with appendiceal abscess complicated patient with history of anticoagulation for atrial fibrillation Etiology = unclear etiology Manifestations = abdominal pain Location of injury = Home Lab values = CBC CMP unremarkable urinalysis unremarkable CT scan demonstrates acute appendicitis with appendiceal abscess Plan Call discussed case with Dr. Pickard general surgery agreed to evaluate patient hospital, assess hospitalist service could do the admission I therefore discussed case with hospitalist able to evaluate the patient emergency department for admission antibiotics of Azactam and Unasyn have been initiated, hospitalist to manage INR This note was dictated using [employer] voice recognition software please call with any questions on syntax or grammar.
[2018-07-12] MEDS ORDERED: Lactated Ringers 1,000 ML IV ONE (14:06)
[2018-07-12] MEDS ORDERED: Sodium Chloride 0.9% 10 ML Syringe FLUSH PRN (14:06)
[2018-07-12] MEDS ORDERED: Iopamidol 612 MG/ML 100 ML Bottle IV PRN (14:23)
[2018-07-12] MEDS ORDERED: Sodium Chloride 0.9% 80 ML IV SCH (14:30)
--- NOTE | 2018-07-12 14:51 | CT ---
Abdomen Pelvis w Cont HISTORY: Right lower quadrant pain COMPARISON: CT scan 2013. FINDINGS: Fluid collection in the right lower quadrant adjacent to the cecum and just inferior to the ileocecal valve measuring 5.3 cm x 3.6 cm. This is in the region of the appendix. The appendix was seen on prior study. I believe the appendix is seen on axial image 98 and coronal image 24 measuring approximately 10 mm. This abuts the fluid collection favoring appendiceal abscess. There is no free air. No bowel obstruction. The liver, spleen, pancreas, abdominal aorta appear normal. Right adrenal gland appears normal. There is slight prominence to the left adrenal gland unchanged compatible with benign adenoma measuring 1.5 cm The remainder the pelvis is unremarkable. Impression: Findings most compatible with appendicitis with appendiceal abscess. No free air or obstruction seen. These findings were called to the emergency room physician at 2:46PM hours
[2018-07-12] MEDS ORDERED: Ampicillin/Sulbactam Na 3 GM in Sodium Chloride 0.9% 100 ML IV SCH (15:15)
[2018-07-12] MEDS: Aztreonam/Dextrose-Water 1 GM in Premix Bag 1 BAG IV SCH ×2 (16:01→23:24)
--- NOTE | 2018-07-12 16:15 | PCM.HP ---
H&P History of Present Illness - General Date of Service: 07/12/18 Admit Problem/Dx: Admission Diagnosis/Problem Admission Diagnosis/Problem Appendicitis Source of Information: Patient, Provider History Limitations: Reports: No Limitations - History of Present Illness Initial Comments - Free Text/Narative: Elton presents to the emergency room today with 2 weeks of progressive right lower quadrant and generalized abdominal pain. She first noticed a dull achy pain in the right lower quadrant about 2 weeks ago. She has been dealing with progressive pain since that time. The pain seems to wax and wane. The pain gets worse when she is up and moving around. She hasn't taken anything to make it better. She has never had pain like this before. The pain has been slowly getting worse so she thought she better come be evaluated today. She reports loose stools for the past 2 weeks. Pain seems to intensify slightly prior to bowel movements. She's had subjective fevers and chills at home. She has not measured any temperatures. She has not had much of an appetite and has had very little to eat or drink over the past few days. No complaints of chest pain or shortness of breath. Functional status has been good with no limitations in her activities of daily living or work. No complaints of dysuria but she has had increased urinary frequency. Workup in the emergency room revealed mild leukocytosis on blood testing and CT scan of the abdomen and pelvis revealed acute appendicitis with a abscess. Her INR is elevated at 1.9 with her chronic warfarin therapy. She'll be admitted for IV antibiotics and reversal of her INR with surgical intervention planned tomorrow morning. Right Lower Abdomen Pain Score (Numeric/FACES): 8 - Related Data Allergies/Adverse Reactions: Allergies Allergy/AdvReac Type Severity Reaction Status Date / Time venom-honey bee Allergy Difficulty Verified 07/12/18 11:29 [bee venom (honey bee)] Breathing *avocodo Allergy Difficulty Uncoded 07/12/18 11:29 Breathing *salmon Allergy Difficulty Uncoded 07/12/18 11:29 Breathing Home Medications: Home Meds Aspirin [Halfprin] 81 mg PO DAILY 06/18/14 [History] Metoprolol Succinate [Toprol Xl] 100 mg PO DAILY 06/18/14 [History] Warfarin [Coumadin] 3 mg PO SUTUTHSA 06/19/14 [History] Warfarin [Coumadin] 4.5 mg PO MOWEFR 06/19/14 [History] Lisinopril [Prinivil] 20 mg PO DAILY 07/28/16 [History] Past Medical History HEENT History: Reports: Impaired Vision Cardiovascular History: Reports: Afib, Blood Clots/VTE/DVT, CAD, High Cholesterol, Hypertension, [place] [employer] History: Reports: Neurological History: Reports: TIA Psychiatric History: Reports: Anxiety - Infectious Disease History Infectious Disease History: Reports: Chicken Pox, Measles, Mumps, Rheumatic Fever - Past Surgical History Head Surgeries/Procedures: Reports: None HEENT Surgical History: Reports: Cataract Surgery Cardiovascular Surgical History: Reports: Coronary Artery Bypass, Other (See Below) Other Cardiovascular Surgeries/Procedures: angiogram GI Surgical History: Reports: Cholecystectomy, Colonoscopy Female Surgical History: Reports: Hysterectomy Neurological Surgical History: Reports: None Dermatological Surgical History: Reports: None Social & Family History - Family History Cardiac: Reports: CAD (father) - Tobacco Use Smoking Status *Q: Former Smoker Years of Tobacco use: 20 Used Tobacco, but Quit: Yes Month/Year Tobacco Last Used: 1988 - Caffeine Use Caffeine Use: Reports: None - Alcohol Use Alcohol Use History: No - Recreational Drug Use Recreational Drug Use: No H&P Review of Systems - Review of Systems: Review Of Systems: See Below Free Text/Narrative: A complete 12 point review of systems was obtained. Pertinent positives and negatives are noted in the history of present illness. All other systems were reviewed and were negative except as noted. Exam - Exam Exam: See Below - Vital Signs Vital Signs: Last Vital Signs Temp 37.1 C 07/12/18 16:08 Pulse 100 07/12/18 16:08 Resp 16 07/12/18 16:08 BP 146/84 H 07/12/18 16:08 Pulse Ox 97 07/12/18 16:08 Weight: 57.3 kg - Exam Quality Assessment: No: Supplemental Oxygen General: Alert, Oriented, Cooperative. No: Mild Distress HEENT: Conjunctiva Clear, Mucosa Moist & Prien. No: Scleral Icterus Neck: Supple, Trachea Midline. No: Lymphadenopathy Lungs: Clear to Auscultation, Normal Respiratory Effort Cardiovascular: Regular Rate, Irregular Rhythm. No: Systolic Murmur GI/Abdominal Exam: Normal Bowel Sounds, Soft, No Distention, Guarding (Right lower quadrant), Tender (Moderately severe right lower quadrant tenderness) Back Exam: Normal Inspection, Full Range of Motion Extremities: No Pedal Edema. No: Increased Warmth Peripheral Pulses: 2+: Dorsalis Pedis (L), Dorsalis Pedis (R) Skin: Warm, Dry. No: Rash Neuro Extensive - Mental Status: Alert, Oriented x3, Nl Response to Commands Neuro Extensive - Motor, Sensory, Reflexes: CN II-XII Intact. No: Dysarthria, Abnormal Motor, Tremor Psychiatric: Alert, Normal Affect - Patient Data Lab Results Last 24 hrs: Laboratory Results - last 24 hr 07/12/18 07/12/18 07/12/18 Range/Units 12:32 12:32 12:32 WBC 11.6 H (4.5-11.0) K/uL RBC 4.18 (3.30-5.50) M/uL Hgb 12.6 (12.0-15.0) g/dL Hct 36.6 (36.0-48.0) % MCV 88 (80-98) fL MCH 30 (27-31) pg MCHC 34 (32-36) % Plt Count 276 (150-400) K/uL Neut % (Auto) 72 H (36-66) % Lymph % (Auto) 17 L (24-44) % [place] % (Auto) 10 H (2-6) % Eos % (Auto) 1 L (2-4) % Baso % (Auto) 0 (0-1) % PT 20.5 H (9.5-12.0) sec INR 1.93 H (0.80-1.20) Sodium 137 L (140-148) mmol/L Potassium 3.8 (3.6-5.2) mmol/L Chloride 102 (100-108) mmol/L Carbon Dioxide 25 (21-32) mmol/L Anion Gap 13.8 (5.0-14.0) mmol/L BUN 12 (7-18) mg/dL Creatinine 0.9 (0.6-1.0) mg/dL Est Cr Clr Drug Dosing 40.13 mL/min Estimated GFR (MDRD) > 60 (>60) Glucose 109 H (74-106) mg/dL Lactic Acid (0.4-2.0) mmol/L Calcium 9.0 (8.5-10.1) mg/dL Total Bilirubin 0.4 (0.2-1.0) mg/dL AST 18 (15-37) U/L ALT 23 (12-78) U/L Alkaline Phosphatase 85 (46-116) U/L Troponin I (0.000-0.056) ng/mL Total Protein 6.9 (6.4-8.2) g/dL Albumin 2.9 L (3.4-5.0) g/dL Globulin 4.0 H (2.3-3.5) g/dL Albumin/Globulin Ratio 0.7 L (1.2-2.2) Urine Color Urine Appearance Urine pH (4.5-8.0) Ur Specific [place] (1.008-1.030) Urine Protein (NEGATIVE) mg/dL Urine Glucose (UA) (NEGATIVE) mg/dL Urine Ketones (NEGATIVE) mg/dL Urine Occult Blood (NEGATIVE) Urine Nitrite (NEGATIVE) Urine Bilirubin (NEGATIVE) Urine Urobilinogen (NORMAL) mg/dL Ur Leukocyte Esterase (NEGATIVE) Urine RBC (0-5) Urine WBC (0-5) Ur Epithelial Cells Amorphous Sediment Urine Bacteria Urine Mucus 07/12/18 07/12/18 07/12/18 Range/Units 12:32 12:32 13:12 WBC (4.5-11.0) K/uL RBC (3.30-5.50) M/uL Hgb (12.0-15.0) g/dL Hct (36.0-48.0) % MCV (80-98) fL MCH (27-31) pg MCHC (32-36) % Plt Count (150-400) K/uL Neut % (Auto) (36-66) % Lymph % (Auto) (24-44) % [place] % (Auto) (2-6) % Eos % (Auto) (2-4) % Baso % (Auto) (0-1) % PT (9.5-12.0) sec INR (0.80-1.20) Sodium (140-148) mmol/L Potassium (3.6-5.2) mmol/L Chloride (100-108) mmol/L Carbon Dioxide (21-32) mmol/L Anion Gap (5.0-14.0) mmol/L BUN (7-18) mg/dL Creatinine (0.6-1.0) mg/dL Est Cr Clr Drug Dosing mL/min Estimated GFR (MDRD) (>60) Glucose (74-106) mg/dL Lactic Acid 1.5 (0.4-2.0) mmol/L Calcium (8.5-10.1) mg/dL Total Bilirubin (0.2-1.0) mg/dL AST (15-37) U/L ALT (12-78) U/L Alkaline Phosphatase (46-116) U/L Troponin I < 0.017 (0.000-0.056) ng/mL Total Protein (6.4-8.2) g/dL Albumin (3.4-5.0) g/dL Globulin (2.3-3.5) g/dL Albumin/Globulin Ratio (1.2-2.2) Urine Color Yellow Urine Appearance Slightly cloudy Urine pH 5.0 (4.5-8.0) Ur Specific [place] 1.020 (1.008-1.030) Urine Protein Negative (NEGATIVE) mg/dL Urine Glucose (UA) Normal (NEGATIVE) mg/dL Urine Ketones Negative (NEGATIVE) mg/dL Urine Occult Blood Moderate (NEGATIVE) Urine Nitrite Negative (NEGATIVE) Urine Bilirubin Negative (NEGATIVE) Urine Urobilinogen Normal (NORMAL) mg/dL Ur Leukocyte Esterase Negative (NEGATIVE) Urine RBC 5-10 H (0-5) Urine WBC 0-5 (0-5) Ur Epithelial Cells Rare Amorphous Sediment Not seen Urine Bacteria Rare Urine Mucus Moderate Result Diagrams: 07/12/18 12:32 07/12/18 12:32 Imaging Impressions Last 24 hrs: CT scan of the abdomen and pelvis - images personally reviewed - there is evidence for probable appendicitis with abscess noted in the right lower quadrant. There is no free air noted. No evidence for bowel obstruction. No other pathology seen. *Q Meaningful Use (ADM) - VTE *Q VTE Pharmacological Contraindications *Q: Patient Scheduled Surgery - VTE Risk Assess *Q Each Risk Factor Represents 1 Point: None Total Score 1 Point Risk Factors: 0 Each Risk Factor Represents 2 Points: Major surgery greater than 45 minutes Total Score 2 Point Risk Factors: 2 Each Risk Factor Represents 3 Points: Age 75 Years or Greater, History of DVT/PE Total Score 3 Point Risk Factors: 6 Each Risk Factor Represents 5 Points: None Total Score 5 Point Risk Factors: 0 Venous Thromboembolism Risk Factor Score *Q: 8 - Problem List (1) Acute appendicitis with appendiceal abscess SNOMED Code(s): 342270369 ICD Code: K35.33 - ACUTE APPENDICITIS WITH PERF AND LOC PERITONITIS, WITH ABSCS Status: Acute Current Visit: Yes (2) Coronary artery disease SNOMED Code(s): 51377664 ICD Code: I25.10 - ATHSCL HEART DISEASE OF [place] CORONARY ARTERY W/O ANG PCTRS Status: Chronic Current Visit: Yes Qualifiers: Coronary Disease-Associated Artery/Lesion type: [place] artery [place] vs. transplanted heart: [place] heart Associated angina: without angina Qualified Code(s): I25.10 - Atherosclerotic heart disease of [place] coronary artery without angina pectoris (3) Chronic atrial fibrillation SNOMED Code(s): 607124992 ICD Code: I48.2 - CHRONIC ATRIAL FIBRILLATION Status: Chronic Current Visit: No Problem List Initiated/Reviewed/Updated: Yes Orders Last 24hrs: Active Orders 24 hr Category Date Time Status Patient Status Manage Transfer [TRANSFER] Routine ADT 07/12/18 16:04 Ordered Peripheral IV Care [RC] . DIRECTED Care 07/12/18 14:06 Active Ampicillin/Sulbactam Na [Unasyn] 3 gm Med 07/12/18 15:15 Active Sodium Chloride 0.9% [Normal Saline] 100 ml IV Q6H Ampicillin/Sulbactam Na [Unasyn] 3 gm Med 07/12/18 22:00 Active Sodium Chloride 0.9% [Normal Saline] 100 ml IV Q6H Aztreonam/Dextrose-Water [Azactam in Dextrose,Iso- Med 07/12/18 15:30 Active Osmotic 1 GM/50 ML] 1 gm Premix Bag 1 bag IV Q8H Sodium Chloride 0.9% [Saline Flush] Med 07/12/18 14:06 Active 10 ml FLUSH ASDIRECTED PRN Peripheral IV Insertion Adult [OM.PC] Urgent Oth 07/12/18 14:06 Ordered Resuscitation Status Routine Resus Stat 07/12/18 16:05 Ordered Medication Orders Ampicillin Sodium/Sulbactam (Sodium 3 gm/ Sodium Chloride) 100 mls @ 200 mls/ hr IV Q6H [id number] Stop: 07/12/18 17:00 Last Admin: 07/12/18 15:26 Dose: 200 mls/hr Aztreonam/Dextrose 1 gm/ (Premix) 50 mls @ 100 mls/hr IV Q8H [facility] Last Admin: 07/12/18 16:01 Dose: 100 mls/hr Ampicillin Sodium/Sulbactam (Sodium 3 gm/ Sodium Chloride) 100 mls @ 200 mls/ hr IV Q6H [facility] Sodium Chloride (Saline Flush) 10 ml FLUSH ASDIRECTED PRN PRN Reason: Keep Vein Open Last Admin: 07/12/18 15:09 Dose: 10 ml Assessment/Plan Comment:: ASSESSMENT AND PLAN - Acute appendicitis with abscess - symptoms started 2 weeks ago and she has had progressive pain and subjective fevers. CT scan revealed evidence for appendicitis with abscess formation. Her INR is 1.93. Proceed no obvious contraindications for surgery. She has a good functional status. No active cardiopulmonary complaints. No history of difficulty with anesthesia. -IV vitamin K now and recheck INR in the morning -IV antibiotic therapy with Amp/Sulbactam and aztreoman -Pain and nausea control as needed -Surgical consultation for intervention planned in the morning Coronary artery disease status post CABG - Remote history of coronary disease with good functional status and no active anginal symptoms. She is on medical therapy with lisinopril and metoprolol as well as a daily aspirin. -Continue home medications Chronic atrial fibrillation - She is chronically anticoagulated. Excellent rate control at this time. -Discontinue anticoagulation and reverse INR as above -Continue beta bethel Maintenance issues - - DVT prophylaxis - mechanical with planned surgery - GI prophylaxis - not indicated - Nutrition - full liquids this evening and nothing by mouth after midnight - Wood catheter - not indicated CODE STATUS - full code Admission justification - This patient will be admitted for inpatient services and is medically appropriate meeting medical necessity for inpatient admission as outlined in my documentation. I reasonably expect the patient will require inpatient services that span a period time over 2 midnights. I reasonably expect this patient to be discharged or transferred within 96 hours after admission to the [facility]. Disposition - I would anticipate discharge to home after the hospital stay Primary care physician - Dr Izaiah Red M.D.
[2018-07-12] MEDS ORDERED: Ondansetron 4 MG Tab.DIS PO PRN (16:28)
[2018-07-12] MEDS ORDERED: Morphine 2 MG/ML Syringe IVPUSH PRN (16:28)
[2018-07-12] MEDS ORDERED: Lactated Ringers 1,000 ML IV SCH (16:28)
[2018-07-12] MEDS ORDERED: Acetaminophen 325 MG Tab PO PRN (16:28)
[2018-07-12] MEDS ORDERED: Ondansetron 4 MG/2 ML SDV IV PRN (16:28)
[2018-07-12] MEDS ORDERED: oxyCODONE 5 MG Tab PO PRN (16:28)
[2018-07-12] MEDS ORDERED: Phytonadione 5 MG in Sodium Chloride 0.9% 50 ML IV ONE (16:30)
[2018-07-12] MEDS ORDERED: Lisinopril 20 MG Tab PO SCH (21:00)
[2018-07-12] MEDS: Ampicillin/Sulbactam Na 3 GM in Sodium Chloride 0.9% 100 ML IV SCH (21:13)
[2018-07-13] MEDS: Ampicillin/Sulbactam Na 3 GM in Sodium Chloride 0.9% 100 ML IV SCH ×4 (03:51→22:21)
[2018-07-13] MEDS ORDERED: Metoprolol Succinate 50 MG Tab.ER PO SCH (06:00)
[2018-07-13] MEDS ORDERED: HYDROmorphone/Normal Saline 15 MG/30 ML PCA IV PRN (07:04)
[2018-07-13] MEDS ORDERED: Naloxone 0.4 MG/ML SDV IV PRN (07:04)
[2018-07-13] MEDS ORDERED: Tap Block 1 ML BAG NERVRT ONE (07:30)
[2018-07-13] MEDS: Aztreonam/Dextrose-Water 1 GM in Premix Bag 1 BAG IV SCH ×3 (07:38→23:41)
[2018-07-13] MEDS ORDERED: Propofol 200 MG/20 ML SDV ONE (08:31)
[2018-07-13] MEDS ORDERED: Rocuronium 50 MG/5 ML Vial ONE (08:31)
[2018-07-13] MEDS ORDERED: Ondansetron 4 MG/2 ML SDV ONE (08:31)
[2018-07-13] MEDS ORDERED: Glycopyrrolate 0.2 MG/ML 5 ML MDV ONE (08:31)
[2018-07-13] MEDS ORDERED: Neostigmine Methylsulfate 1 MG/ML 5 ML Syringe ONE (08:31)
[2018-07-13] MEDS ORDERED: Dexamethasone 4 MG/ML SDV ONE (08:31)
[2018-07-13] MEDS ORDERED: Succinylcholine 200 MG/10 ML MDV ONE (08:31)
[2018-07-13] MEDS ORDERED: fentaNYL 250 MCG/5 ML SDV ONE ×2 (08:32→12:41)
[2018-07-13] MEDS ORDERED: Meropenem 500 MG SDV ONE (08:38)
[2018-07-13] MEDS: Aspirin 81 MG Tab.EC PO SCH ×2 (09:14→16:03)
--- NOTE | 2018-07-13 10:11 | PCM.PN ---
- General Info Date of Service: 07/13/18 Subjective Update: there were no acute events overnight. She did not have any fevers. Abdominal pain persists but has improved a fair amount since yesterday. She still has mild right lower quadrant pain. No bloody stools overnight. Plan is for surgical intervention early afternoon.INR is down to 1.27. Functional Status: Reports: Pain Controlled - Review of Systems General: Denies: Fever Gastrointestinal: Reports: Abdominal Pain - Patient Data Vitals - Most Recent: Last Vital Signs Temp 36.4 C 07/13/18 07:38 Pulse 80 07/13/18 07:38 Resp 16 07/13/18 07:38 BP 133/81 07/13/18 07:38 Pulse Ox 99 07/13/18 07:38 Weight - Most Recent: 57.289 kg I&O - Last 24 Hours: Intake & Output 07/12/18 07/13/18 07/13/18 22:59 06:59 14:59 Intake Total 150 1214 Output Total 300 1100 Balance -150 114 Lab Results Last 24 Hours: Laboratory Results - last 24 hr 07/12/18 07/12/18 07/12/18 Range/Units 12:32 12:32 12:32 WBC 11.6 H (4.5-11.0) K/uL RBC 4.18 (3.30-5.50) M/uL Hgb 12.6 (12.0-15.0) g/dL Hct 36.6 (36.0-48.0) % MCV 88 (80-98) fL MCH 30 (27-31) pg MCHC 34 (32-36) % Plt Count 276 (150-400) K/uL Neut % (Auto) 72 H (36-66) % Lymph % (Auto) 17 L (24-44) % [place] % (Auto) 10 H (2-6) % Eos % (Auto) 1 L (2-4) % Baso % (Auto) 0 (0-1) % PT 20.5 H (9.5-12.0) sec INR 1.93 H (0.80-1.20) Sodium 137 L (140-148) mmol/L Potassium 3.8 (3.6-5.2) mmol/L Chloride 102 (100-108) mmol/L Carbon Dioxide 25 (21-32) mmol/L Anion Gap 13.8 (5.0-14.0) mmol/L BUN 12 (7-18) mg/dL Creatinine 0.9 (0.6-1.0) mg/dL Est Cr Clr Drug Dosing 40.13 mL/min Estimated GFR (MDRD) > 60 (>60) Glucose 109 H (74-106) mg/dL Lactic Acid (0.4-2.0) mmol/L Calcium 9.0 (8.5-10.1) mg/dL Total Bilirubin 0.4 (0.2-1.0) mg/dL AST 18 (15-37) U/L ALT 23 (12-78) U/L Alkaline Phosphatase 85 (46-116) U/L Troponin I (0.000-0.056) ng/mL Total Protein 6.9 (6.4-8.2) g/dL Albumin 2.9 L (3.4-5.0) g/dL Globulin 4.0 H (2.3-3.5) g/dL Albumin/Globulin Ratio 0.7 L (1.2-2.2) Urine Color Urine Appearance Urine pH (4.5-8.0) Ur Specific [place] (1.008-1.030) Urine Protein (NEGATIVE) mg/dL Urine Glucose (UA) (NEGATIVE) mg/dL Urine Ketones (NEGATIVE) mg/dL Urine Occult Blood (NEGATIVE) Urine Nitrite (NEGATIVE) Urine Bilirubin (NEGATIVE) Urine Urobilinogen (NORMAL) mg/dL Ur Leukocyte Esterase (NEGATIVE) Urine RBC (0-5) Urine WBC (0-5) Ur Epithelial Cells Amorphous Sediment Urine Bacteria Urine Mucus 07/12/18 07/12/18 07/12/18 Range/Units 12:32 12:32 13:12 WBC (4.5-11.0) K/uL RBC (3.30-5.50) M/uL Hgb (12.0-15.0) g/dL Hct (36.0-48.0) % MCV (80-98) fL MCH (27-31) pg MCHC (32-36) % Plt Count (150-400) K/uL Neut % (Auto) (36-66) % Lymph % (Auto) (24-44) % [place] % (Auto) (2-6) % Eos % (Auto) (2-4) % Baso % (Auto) (0-1) % PT (9.5-12.0) sec INR (0.80-1.20) Sodium (140-148) mmol/L Potassium (3.6-5.2) mmol/L Chloride (100-108) mmol/L Carbon Dioxide (21-32) mmol/L Anion Gap (5.0-14.0) mmol/L BUN (7-18) mg/dL Creatinine (0.6-1.0) mg/dL Est Cr Clr Drug Dosing mL/min Estimated GFR (MDRD) (>60) Glucose (74-106) mg/dL Lactic Acid 1.5 (0.4-2.0) mmol/L Calcium (8.5-10.1) mg/dL Total Bilirubin (0.2-1.0) mg/dL AST (15-37) U/L ALT (12-78) U/L Alkaline Phosphatase (46-116) U/L Troponin I < 0.017 (0.000-0.056) ng/mL Total Protein (6.4-8.2) g/dL Albumin (3.4-5.0) g/dL Globulin (2.3-3.5) g/dL Albumin/Globulin Ratio (1.2-2.2) Urine Color Yellow Urine Appearance Slightly cloudy Urine pH 5.0 (4.5-8.0) Ur Specific [place] 1.020 (1.008-1.030) Urine Protein Negative (NEGATIVE) mg/dL Urine Glucose (UA) Normal (NEGATIVE) mg/dL Urine Ketones Negative (NEGATIVE) mg/dL Urine Occult Blood Moderate (NEGATIVE) Urine Nitrite Negative (NEGATIVE) Urine Bilirubin Negative (NEGATIVE) Urine Urobilinogen Normal (NORMAL) mg/dL Ur Leukocyte Esterase Negative (NEGATIVE) Urine RBC 5-10 H (0-5) Urine WBC 0-5 (0-5) Ur Epithelial Cells Rare Amorphous Sediment Not seen Urine Bacteria Rare Urine Mucus Moderate 07/13/18 07/13/18 07/13/18 Range/Units 04:50 04:50 04:50 WBC 11.3 H (4.5-11.0) K/uL RBC 4.16 (3.30-5.50) M/uL Hgb 12.3 (12.0-15.0) g/dL Hct 36.4 (36.0-48.0) % MCV 88 (80-98) fL MCH 30 (27-31) pg MCHC 34 (32-36) % Plt Count 251 (150-400) K/uL Neut % (Auto) (36-66) % Lymph % (Auto) (24-44) % [place] % (Auto) (2-6) % Eos % (Auto) (2-4) % Baso % (Auto) (0-1) % PT 13.8 H (9.5-12.0) sec INR 1.27 H (0.80-1.20) Sodium 139 L (140-148) mmol/L Potassium 3.8 (3.6-5.2) mmol/L Chloride 104 (100-108) mmol/L Carbon Dioxide 24 (21-32) mmol/L Anion Gap 14.8 H (5.0-14.0) mmol/L BUN 8 (7-18) mg/dL Creatinine 0.8 (0.6-1.0) mg/dL Est Cr Clr Drug Dosing 45.14 mL/min Estimated GFR (MDRD) > 60 (>60) Glucose 98 (74-106) mg/dL Lactic Acid (0.4-2.0) mmol/L Calcium 9.0 (8.5-10.1) mg/dL Total Bilirubin (0.2-1.0) mg/dL AST (15-37) U/L ALT (12-78) U/L Alkaline Phosphatase (46-116) U/L Troponin I (0.000-0.056) ng/mL Total Protein (6.4-8.2) g/dL Albumin (3.4-5.0) g/dL Globulin (2.3-3.5) g/dL Albumin/Globulin Ratio (1.2-2.2) Urine Color Urine Appearance Urine pH (4.5-8.0) Ur Specific [place] (1.008-1.030) Urine Protein (NEGATIVE) mg/dL Urine Glucose (UA) (NEGATIVE) mg/dL Urine Ketones (NEGATIVE) mg/dL Urine Occult Blood (NEGATIVE) Urine Nitrite (NEGATIVE) Urine Bilirubin (NEGATIVE) Urine Urobilinogen (NORMAL) mg/dL Ur Leukocyte Esterase (NEGATIVE) Urine RBC (0-5) Urine WBC (0-5) Ur Epithelial Cells Amorphous Sediment Urine Bacteria Urine Mucus Med Orders - Current: Current Medications Acetaminophen (Tylenol) 650 mg PO Q4H PRN PRN Reason: Pain (Mild 1-3)/fever Last Admin: 07/13/18 03:31 Dose: 325 mg Aspirin (Halfprin) 81 mg PO DAILY [facility] Ropivacaine 28 ml/Dexamethasone 8 mg/Epinephrine HCl 0.4 mg/ Sodium Chloride 49.6 ml 0 ml NERVRT ASDIRECTED [facility] Hydromorphone HCl (Dilaudid Property Underwriter 15 Mg In Ns 30 Ml) 0 mg IV ASDIRECTED PRN; Protocol PRN Reason: [employer] SUPER[employer]OR PAIN CONTROL Aztreonam/Dextrose 1 gm/ (Premix) 50 mls @ 100 mls/hr IV Q8H [facility] Last Admin: 07/13/18 07:38 Dose: 100 mls/hr Ampicillin Sodium/Sulbactam (Sodium 3 gm/ Sodium Chloride) 100 mls @ 200 mls/ hr IV Q6H [facility] Last Admin: 07/13/18 09:14 Dose: 200 mls/hr Lactated Ringer's (Ringers, Lactated) 1,000 mls @ 75 mls/hr IV ASDIRECTED [facility] Last Admin: 07/13/18 03:33 Dose: 75 mls/hr Lisinopril (Prinivil) 20 mg PO BEDTIME [facility] Last Admin: 07/12/18 21:12 Dose: 20 mg Metoprolol Succinate (Toprol Xl) 100 mg PO DAILY [facility] Morphine Sulfate (Morphine) 2 mg IVPUSH Q2H PRN PRN Reason: Pain (severe 7-10) Naloxone HCl (Narcan) 0.1 mg IV ASDIRECTED PRN PRN Reason: decreased respiratory rate Ondansetron HCl (Zofran Odt) 4 mg PO Q6H PRN PRN Reason: Nausea able to take PO Ondansetron HCl (Zofran) 4 mg IV Q6H PRN PRN Reason: Nausea/Vomiting Oxycodone HCl (Oxycodone) 5 mg PO Q4H PRN PRN Reason: Pain (moderate 4-6) Sodium Chloride (Saline Flush) 10 ml FLUSH ASDIRECTED PRN PRN Reason: Keep Vein Open Last Admin: 07/12/18 15:09 Dose: 10 ml Discontinued Medications Dexamethasone (Dexamethasone) Confirm Administered Dose 4 mg .ROUTE .STK-MED ONE Stop: 07/13/18 08:32 Fentanyl (Sublimaze) Confirm Administered Dose 250 mcg .ROUTE .STK-MED ONE Stop: 07/13/18 08:33 Glycopyrrolate (Robinul) Confirm Administered Dose 1 mg .ROUTE .STK-MED ONE Stop: 07/13/18 08:32 Lactated Ringer's (Ringers, Lactated) 1,000 mls @ 999 mls/hr IV BOLUS ONE Stop: 07/12/18 15:06 Last Admin: 07/12/18 15:08 Dose: 999 mls/hr Sodium Chloride (Normal Saline) 80 mls @ 3 mls/sec IV ASDIRECTED [facility] Last Admin: 07/12/18 14:36 Dose: 3 mls/sec Ampicillin Sodium/Sulbactam (Sodium 3 gm/ Sodium Chloride) 100 mls @ 200 mls/ hr IV Q6H [facility] Stop: 07/12/18 17:00 Last Admin: 07/12/18 15:26 Dose: 200 mls/hr Aztreonam 1 gm/ Sodium (Chloride) 50 mls @ 100 mls/hr IV Q8H [facility] Phytonadione 5 mg/ Sodium (Chloride) 50.5 mls @ 100 mls/hr IV NOW ONE Stop: 07/12/18 17:00 Last Admin: 07/12/18 17:47 Dose: 100 mls/hr Iopamidol (Isovue-300 (61%)) 100 ml IV . DIRECTED PRN PRN Reason: RADIOLOGY EXAM Stop: 07/13/18 14:24 Last Admin: 07/12/18 14:36 Dose: 100 ml Meropenem (Merrem) Confirm Administered Dose 500 mg .ROUTE .STK-MED ONE Stop: 07/13/18 08:39 Metoprolol Succinate (Toprol Xl) 100 mg PO DAILY [facility] Stop: 07/13/18 06:01 Last Admin: 07/13/18 05:58 Dose: 100 mg Neostigmine Methylsulfate (Neostigmine) Confirm Administered Dose 5 mg .ROUTE .STK-MED ONE Stop: 07/13/18 08:32 Non-Formulary Medication (Tap Block, Pharmacy To Dose) 0 ml NERVRT ONETIME ONE Stop: 07/13/18 07:31 Ondansetron HCl (Zofran) Confirm Administered Dose 4 mg .ROUTE .STK-MED ONE Stop: 07/13/18 08:32 Propofol (Diprivan 20 Ml) Confirm Administered Dose 200 mg .ROUTE .STK-MED ONE Stop: 07/13/18 08:32 Rocuronium [place] (Zemuron) Confirm Administered Dose 50 mg .ROUTE .STK-MED ONE Stop: 07/13/18 08:32 Succinylcholine Chloride (Quelicin) Confirm Administered Dose 200 mg .ROUTE .STK -MED ONE Stop: 07/13/18 08:32 - Exam Quality Assessment: No: Supplemental Oxygen General: Alert, Oriented, Cooperative, No Acute Distress Lungs: Normal Respiratory Effort GI/Abdominal Exam: Soft, No Distention, Tender (mild/mod RLQ). No: Guarding Extremities: No Pedal Edema Skin: Warm, Dry Psy/Mental Status: Alert, Normal Affect - Problem List & Annotations (1) Acute appendicitis with appendiceal abscess SNOMED Code(s): 867260140 Code(s): K35.33 - ACUTE APPENDICITIS WITH PERF AND LOC PERITONITIS, WITH ABSCS Status: Acute Current Visit: Yes (2) Coronary artery disease SNOMED Code(s): 76779599 Code(s): I25.10 - ATHSCL HEART DISEASE OF [place] CORONARY ARTERY W/O ANG PCTRS Status: Chronic Current Visit: Yes Qualifiers: Coronary Disease-Associated Artery/Lesion type: [place] artery [place] vs. transplanted heart: [place] heart Associated angina: without angina Qualified Code(s): I25.10 - Atherosclerotic heart disease of [place] coronary artery without angina pectoris (3) Chronic atrial fibrillation SNOMED Code(s): 257648172 Code(s): I48.2 - CHRONIC ATRIAL FIBRILLATION Status: Chronic Current Visit: No - Problem List Review Problem List Initiated/Reviewed/Updated: Yes - My Orders Last 24 Hours: My Active Orders 07/12/18 16:05 Resuscitation Status Routine 07/12/18 16:28 Patient Status [ADT] Routine Antiembolic Devices [RC] .Routine Intake and Output [RC] ASDIRECTED Notify Provider Consults [RC] ASDIRECTED Notify Provider Vital Signs [RC] ASDIRECTED Oxygen Therapy [RC] .PRN Up With Assistance [RC] ASDIRECTED VTE/DVT Education [RC] Per Unit Routine Vital Signs [RC] Q4H Consult to Physician [CONS] Routine Acetaminophen [Tylenol] 650 mg PO Q4H PRN Lactated Ringers [Ringers, Lactated] 1,000 ml IV ASDIRECTED Morphine 2 mg IVPUSH Q2H PRN Ondansetron [Zofran ODT] 4 mg PO Q6H PRN Ondansetron [Zofran] 4 mg IV Q6H PRN oxyCODONE 5 mg PO Q4H PRN Sequential Compression Device [OM.PC] Per Unit Routine VTE Pharmacological Contraindications [AST] Per Unit Routine 07/12/18 21:00 Lisinopril [Prinivil] 20 mg PO BEDTIME 07/13/18 09:00 Aspirin [Halfprin] 81 mg PO DAILY 07/13/18 Breakfast Nothing per Oral After Midnight Diet [DIET] 07/14/18 05:00 BASIC METABOLIC PANEL,BMP [CHEM] Timed CBC W/O DIFF,HEMOGRAM [HEME] Timed (1) INR,PT,PROTHROMBIN TIME [COAG] Timed 07/14/18 09:00 Metoprolol Succinate [Toprol XL] 100 mg PO DAILY - Plan Plan:: ASSESSMENT AND PLAN - Acute appendicitis with abscess - symptoms started 2 weeks ago and she has had progressive pain and subjective fevers. CT scan revealed evidence for appendicitis with abscess formation. Her INR is down to 1.27. no fevers overnight. Surgical intervention planned later today. -IV antibiotic therapy with Amp/Sulbactam and aztreoman -Pain and nausea control as needed -Surgical consultation for intervention planned later today Coronary artery disease status post CABG - Remote history of coronary disease with good functional status and no active anginal symptoms. She is on medical therapy with lisinopril and metoprolol as well as a daily aspirin. -Continue home medications Chronic atrial fibrillation - Excellent rate control at this time. -Discontinue anticoagulation and reverse INR as above -Continue beta bethel Maintenance issues - - DVT prophylaxis - mechanical with planned surgery - GI prophylaxis - not indicated - Nutrition - nothing by mouth Disposition - I would anticipate discharge to home after the hospital stay Girish Red M.D.
[2018-07-13] MEDS ORDERED: Ropivacaine 28 ML, Dexamethasone 8 MG, EPINEPHrine 0.4 MG, Sodium Chloride 0.9% 49.6 ML NERVRT SCH ×4 (10:15)
--- NOTE | 2018-07-13 10:31 | PN ---
DATE OF SERVICE: 07/13/2018 SUBJECTIVE: Elton is a 78-year-old female who was admitted to the hospital on 07/12/2018 with right lower quadrant abdominal pain for approximately 2 [address] scan did show an abscess with possible mass in right lower quadrant. She is n.p.o. Vital signs have been stable. Pain is, she states, a 2/10, but has not needed to use any pain medication. REVIEW OF SYSTEMS: Remainder of review of systems negative for any pertinent positives or negatives. OBJECTIVE: GENERAL: Elton is a pleasant 78-year-old female. VITAL SIGNS: TPR is 97.5, 80, 16, and blood pressure is 133/81. HEENT: Negative. NECK: Supple. HEART: Regular rate and rhythm. LUNGS: Clear. ABDOMEN: Exam by Dr. Pickard revealed minimal right lower quadrant tenderness. EXTREMITIES: Without peripheral edema. ASSESSMENT: [id number] appendicitis with abscess, right lower quadrant. PLAN: 1. Schedule and have consent signed for exploratory laparotomy with drainage of abscess. 2. Appendectomy with possible bowel resection, general and TAP block. 3. Case to follow, 07/13/2018. Surgeon, Baldomero Pickard MD. After preoperative evaluation and discussion of possible risks and possible complications, the patient wishes to proceed with surgical procedure. Debra Juarez PA-C /[id number]
[2018-07-13] MEDS ORDERED: Labetalol 20 MG/4 ML Syringe ONE (12:44)
[2018-07-13] MEDS ORDERED: Lactated Ringers 1,000 ML ONE (12:45)
[2018-07-13] MEDS: Tranexamic Acid 1,000 MG in Sodium Chloride 0.9% 50 ML IV SCH ×2 (14:44→17:47)
[2018-07-13] MEDS: Pantoprazole 40 MG Vial IVPUSH SCH (16:30)
[2018-07-13] MEDS: Metoprolol Tartrate 5 MG/5 ML SDV IV SCH ×2 (16:47→22:12)
[2018-07-13] MEDS ORDERED: Labetalol 20 MG/4 ML Syringe IVPUSH PRN (17:00)
[2018-07-13] MEDS ORDERED: diphenhydrAMINE 50 MG/ML SDV IVPUSH PRN (17:00)
[2018-07-13] MEDS ORDERED: hydrOXYzine HCl 100 MG/2 ML SDV IM PRN (17:00)
[2018-07-13] MEDS ORDERED: Metoclopramide 10 MG/2 ML SDV IVPUSH PRN (17:00)
[2018-07-13] MEDS ORDERED: MVI, Adult with Vitamin K 10 ML, Thiamine 200 MG, Chromium/Copper/Mang/Selen/Zn 1 ML in... IV SCH ×4 (17:30)
[2018-07-13] MEDS: Ondansetron 4 MG/2 ML SDV IV PRN (19:38)
[2018-07-13] MEDS: Diltiazem 100 MG in Sodium Chloride 0.9% 100 ML IV SCH (23:42)
[2018-07-14] MEDS: Dextrose 5%-Lactated Ringers 1,000 ML IV SCH ×2 (01:11→06:57)
[2018-07-14] MEDS: Ampicillin/Sulbactam Na 3 GM in Sodium Chloride 0.9% 100 ML IV SCH ×4 (04:21→22:18)
[2018-07-14] MEDS: Metoprolol Tartrate 5 MG/5 ML SDV IV SCH (04:28)
[2018-07-14] MEDS: Aztreonam/Dextrose-Water 1 GM in Premix Bag 1 BAG IV SCH ×3 (07:42→23:01)
[2018-07-14] MEDS ORDERED: Metoprolol Succinate 50 MG Tab.ER PO SCH (09:00)
--- NOTE | 2018-07-14 10:30 | PCM.PN ---
- General Info Date of Service: 07/14/18 Subjective Update: Yesterday afternoon the patient had surgery to drain the abscess in the right lower quadrant. There was an inflammatory mass in the area that was resected and resulted in a partial small bowel resection as well as a right hemicolectomy. Postoperatively she went into a rapid atrial fibrillation and ended up in the intensive care unit. She was started on a diltiazem infusion yesterday evening. This morning she is reporting a moderate abdominal pain but better than last night. Heart rate has been fairly well-controlled using the diltiazem infusion. No complaints of nausea. No complaints of shortness of breath. Functional Status: Reports: Pain Controlled - Review of Systems General: Denies: Fever Gastrointestinal: Reports: Abdominal Pain - Patient Data Vitals - Most Recent: Last Vital Signs Temp 36.6 C 07/14/18 07:00 Pulse 110 H 07/14/18 10:00 Resp 19 07/14/18 10:00 BP 162/77 H 07/14/18 10:00 Pulse Ox 99 07/14/18 10:00 Weight - Most Recent: 57.289 kg I&O - Last 24 Hours: Intake & Output 07/13/18 07/14/18 07/14/18 22:59 06:59 14:59 Intake Total 412 2077 50 Output Total 945 910 145 Balance -533 1167 -95 Lab Results Last 24 Hours: Laboratory Results - last 24 hr 07/14/18 07/14/18 07/14/18 Range/Units 04:30 04:30 04:30 WBC 14.8 H (4.5-11.0) K/uL RBC 3.91 (3.30-5.50) M/uL Hgb 11.5 L (12.0-15.0) g/dL Hct 33.9 L (36.0-48.0) % MCV 87 (80-98) fL MCH 29 (27-31) pg MCHC 34 (32-36) % Plt Count 298 (150-400) K/uL PT 12.1 H (9.5-12.0) sec INR 1.11 (0.80-1.20) Sodium 137 L (140-148) mmol/L Potassium 4.0 (3.6-5.2) mmol/L Chloride 103 (100-108) mmol/L Carbon Dioxide 22 (21-32) mmol/L Anion Gap 16.0 H (5.0-14.0) mmol/L BUN 10 (7-18) mg/dL Creatinine 1.0 (0.6-1.0) mg/dL Est Cr Clr Drug Dosing 36.15 mL/min Estimated GFR (MDRD) 54 L (>60) Glucose 305 H (74-106) mg/dL Calcium 8.6 (8.5-10.1) mg/dL Phosphorus 3.0 (2.5-4.9) mg/dL Magnesium 1.7 L (1.8-2.4) mg/dL Total Bilirubin 0.4 (0.2-1.0) mg/dL AST 18 (15-37) U/L ALT 19 (12-78) U/L Alkaline Phosphatase 74 (46-116) U/L NT-Pro-B Natriuret Pep 502 H (5-450) pg/mL Total Protein 6.2 L (6.4-8.2) g/dL Albumin 2.4 L (3.4-5.0) g/dL Globulin 3.8 H (2.3-3.5) g/dL Albumin/Globulin Ratio 0.6 L (1.2-2.2) Lei Results Last 24 Hours: Microbiology 07/13/18 14:11 Gram Stain - Final Abdomen - Abscess Med Orders - Current: Current Medications Diphenhydramine HCl (Benadryl) 50 mg IVPUSH Q4H PRN PRN Reason: ITCHING Hydromorphone HCl (Dilaudid Client Delivery Specialist 15 Mg In Ns 30 Ml) 0 mg IV ASDIRECTED PRN; Protocol 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 Last Admin: 07/13/18 15:11 Dose: 0.2 mg Hydroxyzine HCl (Vistaril) 100 mg IM Q4H PRN PRN Reason: pain Aztreonam/Dextrose 1 gm/ (Premix) 50 mls @ 100 mls/hr IV Q8H [facility] Last Admin: 07/14/18 07:42 Dose: 100 mls/hr Ampicillin Sodium/Sulbactam (Sodium 3 gm/ Sodium Chloride) 100 mls @ 200 mls/ hr IV Q6H [facility] Last Admin: 07/14/18 04:21 Dose: 200 mls/hr Dextrose/Lactated Ringer's (Dextrose 5%-Lactated Ringers) 1,000 mls @ 175.004 mls/hr IV ASDIRECTED [facility] Last Admin: 07/14/18 06:57 Dose: 175.004 mls/hr Multivitamins/Minerals 10 ml/Thiamine HCl 200 mg/ Chromium/Copper/Manganese/ Seleni/Zn 1 ml/ Dextrose/Lactated Ringer's 1,013 mls @ 174.999 mls/hr IV DAILY@ 1600 [facility] Last Admin: 07/13/18 17:47 Dose: 174.999 mls/hr Diltiazem HCl 100 mg/ Sodium (Chloride) 100 mls @ 5 mls/hr IV TITRATE [facility]; Protocol Last Admin: 07/13/18 23:42 Dose: 5 mg/hr, 5 mls/hr Metoclopramide HCl (Reglan) 10 mg IVPUSH Q6H PRN PRN Reason: NAUSEA NOT CONTROL BY ZOFRAN Metoprolol Tartrate (Lopressor) 50 mg PO Q12H [facility] Naloxone HCl (Narcan) 0.1 mg IV ASDIRECTED PRN PRN Reason: decreased respiratory rate Ondansetron HCl (Zofran) 4 mg IV Q4H PRN PRN Reason: Nausea/Vomiting Last Admin: 07/13/18 19:38 Dose: 4 mg Pantoprazole Sodium (Protonix Iv) 40 mg IVPUSH Q24H [facility] Last Admin: 07/13/18 16:30 Dose: 40 mg Discontinued Medications Acetaminophen (Tylenol) 650 mg PO Q4H PRN PRN Reason: Pain (Mild 1-3)/fever Last Admin: 07/13/18 03:31 Dose: 325 mg Aspirin (Halfprin) 81 mg PO DAILY [facility] Last Admin: 07/13/18 16:03 Dose: Not Given Ropivacaine 28 ml/Dexamethasone 8 mg/Epinephrine HCl 0.4 mg/ Sodium Chloride 49.6 ml 0 ml NERVRT ASDIRECTED [facility] Last Admin: 07/13/18 12:40 Dose: 80 syringe Dexamethasone (Dexamethasone) Confirm Administered Dose 4 mg .ROUTE .STK-MED ONE Stop: 07/13/18 08:32 Fentanyl (Sublimaze) Confirm Administered Dose 250 mcg .ROUTE .STK-MED ONE Stop: 07/13/18 08:33 Fentanyl (Sublimaze) Confirm Administered Dose 250 mcg .ROUTE .STK-MED ONE Stop: 07/13/18 12:42 Glycopyrrolate (Robinul) Confirm Administered Dose 1 mg .ROUTE .[facility] ONE Stop: 07/13/18 08:32 Lactated Ringer's (Ringers, Lactated) 1,000 mls @ 999 mls/hr IV BOLUS ONE Stop: 07/12/18 15:06 Last Admin: 07/12/18 15:08 Dose: 999 mls/hr Sodium Chloride (Normal Saline) 80 mls @ 3 mls/sec IV ASDIRECTED [facility] Last Admin: 07/12/18 14:36 Dose: 3 mls/sec Ampicillin Sodium/Sulbactam (Sodium 3 gm/ Sodium Chloride) 100 mls @ 200 mls/ hr IV Q6H [facility] Stop: 07/12/18 17:00 Last Admin: 07/12/18 15:26 Dose: 200 mls/hr Aztreonam 1 gm/ Sodium (Chloride) 50 mls @ 100 mls/hr IV Q8H [facility] Lactated Ringer's (Ringers, Lactated) 1,000 mls @ 75 mls/hr IV ASDIRECTED [facility] Last Admin: 07/13/18 03:33 Dose: 75 mls/hr Phytonadione 5 mg/ Sodium (Chloride) 50.5 mls @ 100 mls/hr IV NOW ONE Stop: 07/12/18 17:00 Last Admin: 07/12/18 17:47 Dose: 100 mls/hr Lactated Ringer's (Ringers, Lactated) Confirm Administered Dose 1,000 mls @ as directed .ROUTE .[facility] ONE Stop: 07/13/18 12:46 Tranexamic Acid 1,000 mg/ (Sodium Chloride) 60 mls @ 240 mls/hr IV Q3H [facility] Stop: 07/13/18 18:14 Last Admin: 07/13/18 17:47 Dose: 240 mls/hr Iopamidol (Isovue-300 (61%)) 100 ml IV . DIRECTED PRN PRN Reason: RADIOLOGY EXAM Stop: 07/13/18 14:24 Last Admin: 07/12/18 14:36 Dose: 100 ml Labetalol HCl (Normodyne) Confirm Administered Dose 20 mg .ROUTE .[facility]-MED ONE Stop: 07/13/18 12:45 Labetalol HCl (Normodyne) 5 mg IVPUSH Q5M PRN PRN Reason: SBP over 160 OR DBP over 95 Last Admin: 07/13/18 19:46 Dose: 5 mg Lisinopril (Prinivil) 20 mg PO BEDTIME [facility] Last Admin: 07/12/18 21:12 Dose: 20 mg Meropenem (Merrem) Confirm Administered Dose 500 mg .ROUTE .STK-MED ONE Stop: 07/13/18 08:39 Last Admin: 07/13/18 13:00 Dose: 500 mg Metoprolol Succinate (Toprol Xl) 100 mg PO DAILY [facility] Stop: 07/13/18 06:01 Last Admin: 07/13/18 05:58 Dose: 100 mg Metoprolol Succinate (Toprol Xl) 100 mg PO DAILY [facility] Metoprolol Tartrate (Lopressor) 5 mg IV Q6H [facility] Last Admin: 07/14/18 04:28 Dose: 5 mg Morphine Sulfate (Morphine) 2 mg IVPUSH Q2H PRN PRN Reason: Pain (severe 7-10) Neostigmine Methylsulfate (Neostigmine) Confirm Administered Dose 5 mg .ROUTE .STK-MED ONE Stop: 07/13/18 08:32 Non-Formulary Medication (Tap Block, Pharmacy To Dose) 0 ml NERVRT ONETIME ONE Stop: 07/13/18 07:31 Last Admin: 07/13/18 13:06 Dose: Not Given Ondansetron HCl (Zofran Odt) 4 mg PO Q6H PRN PRN Reason: Nausea able to take PO Ondansetron HCl (Zofran) 4 mg IV Q6H PRN PRN Reason: Nausea/Vomiting Last Admin: 07/13/18 15:58 Dose: 4 mg Ondansetron HCl (Zofran) Confirm Administered Dose 4 mg .ROUTE .STK-MED ONE Stop: 07/13/18 08:32 Oxycodone HCl (Oxycodone) 5 mg PO Q4H PRN PRN Reason: Pain (moderate 4-6) Propofol (Diprivan 20 Ml) Confirm Administered Dose 200 mg .ROUTE .STK-MED ONE Stop: 07/13/18 08:32 Rocuronium Mcdaniel (Zemuron) Confirm Administered Dose 50 mg .ROUTE .STK-MED ONE Stop: 07/13/18 08:32 Sodium Chloride (Saline Flush) 10 ml FLUSH ASDIRECTED PRN PRN Reason: Keep Vein Open Last Admin: 07/12/18 15:09 Dose: 10 ml Succinylcholine Chloride (Quelicin) Confirm Administered Dose 200 mg .ROUTE .STK -MED ONE Stop: 07/13/18 08:32 - Exam Quality Assessment: No: Supplemental Oxygen General: Alert, Oriented, Cooperative, No Acute Distress Lungs: Clear to Auscultation, Normal Respiratory Effort Cardiovascular: Irregular Rhythm, Tachycardia GI/Abdominal Exam: Soft, No Distention Extremities: No Pedal Edema. No: Increased Warmth Skin: Warm, Dry Psy/Mental Status: Alert, Normal Affect - Problem List & Annotations (1) Acute appendicitis with appendiceal abscess SNOMED Code(s): 294699078 Code(s): K35.33 - ACUTE APPENDICITIS WITH PERF AND LOC PERITONITIS, WITH ABSCS Status: Acute Current Visit: Yes (2) Coronary artery disease SNOMED Code(s): 58715768 Code(s): I25.10 - ATHSCL HEART DISEASE OF [place] CORONARY ARTERY W/O ANG PCTRS Status: Chronic Current Visit: Yes Qualifiers: Coronary Disease-Associated Artery/Lesion type: [place] artery [place] vs. transplanted heart: [place] heart Associated angina: without angina Qualified Code(s): I25.10 - Atherosclerotic heart disease of [place] coronary artery without angina pectoris (3) Chronic atrial fibrillation SNOMED Code(s): 511960821 Code(s): I48.2 - CHRONIC ATRIAL FIBRILLATION Status: Chronic Current Visit: No - Problem List Review Problem List Initiated/Reviewed/Updated: Yes - My Orders Last 24 Hours: My Active Orders 07/13/18 20:00 Ondansetron [Zofran] 4 mg IV Q4H PRN 07/13/18 22:00 Diltiazem [Cardizem] 100 mg Sodium Chloride 0.9% [Normal Saline] 100 ml IV TITRATE 07/14/18 10:30 Metoprolol Tartrate [Lopressor] 50 mg PO Q12H 07/15/18 05:00 BASIC METABOLIC PANEL,BMP [CHEM] Timed CBC W/O DIFF,HEMOGRAM [HEME] Timed (1) - Plan Plan:: ASSESSMENT AND PLAN - Acute appendicitis with abscess - status post surgical drainage that required right hemicolectomy and partial small bowel resection because of a large inflammatory mass surrounding the infection. Cultures are pending. -IV antibiotic therapy with Amp/Sulbactam and aztreoman -Pain and nausea control as needed -Additional postoperative care per surgical team Atrial fibrillation with rapid ventricular response -patient has long-standing history of atrial fibrillation but now has a rapid rate. No significant symptoms and rate control has improved with diltiazem infusion. Metoprolol will be restarted in the oral form rather than the IV form but I plan to use short acting until bowel function returns. Hopefully we can discontinue the diltiazem infusion later today. She is receiving twice daily enoxaparin at a therapeutic level. -Discontinue IV metoprolol and start metoprolol tartrate every 12 hours -Plan to discontinue diltiazem infusion later, may need some oral doses if rate control is suboptimal -Continue systemic anticoagulation and restart warfarin when able postoperatively Coronary artery disease status post CABG - Remote history of coronary disease with good functional status and no active anginal symptoms. She is on medical therapy with lisinopril and metoprolol as well as a daily aspirin. -Continue home medications Maintenance issues - - DVT prophylaxis - enoxaparin - GI prophylaxis - not indicated - Nutrition - nothing by mouth Disposition - I would anticipate discharge to home after the hospital stay Girish Red M.D.
[2018-07-14] MEDS: Metoprolol Tartrate 50 MG Tab PO SCH ×2 (10:36→20:35)
[2018-07-14] MEDS ORDERED: Dextrose 5%-Lactated Ringers 1,000 ML IV SCH (12:15)
[2018-07-14] MEDS: Enoxaparin 60 MG/0.6 ML Syringe SUBCUT SCH (12:44)
[2018-07-14] MEDS: Aspirin 81 MG Tab.EC PO SCH (12:44)
[2018-07-14] MEDS: Lisinopril 20 MG Tab PO SCH (12:44)
[2018-07-14] MEDS: Magnesium Sulfate/Water 2 GM in Premix Bag 1 BAG IV SCH ×2 (14:01→20:33)
[2018-07-14] MEDS: Diltiazem 100 MG in Sodium Chloride 0.9% 100 ML IV SCH (14:39)
[2018-07-14] MEDS ORDERED: MVI, Adult with Vitamin K 10 ML, Thiamine 200 MG, Chromium/Copper/Mang/Zinc 1 ML in Dex... IV SCH ×4 (16:00)
[2018-07-14] MEDS: Pantoprazole 40 MG Vial IVPUSH SCH (16:24)
[2018-07-15] MEDS: Enoxaparin 60 MG/0.6 ML Syringe SUBCUT SCH ×2 (01:05→13:07)
[2018-07-15] MEDS: Magnesium Sulfate/Water 2 GM in Premix Bag 1 BAG IV SCH ×4 (01:05→20:26)
[2018-07-15] MEDS: Ampicillin/Sulbactam Na 3 GM in Sodium Chloride 0.9% 100 ML IV SCH ×4 (03:07→21:45)
[2018-07-15] MEDS ORDERED: Meropenem 500 MG SDV ONE (06:42)
[2018-07-15] MEDS ORDERED: Bupivacaine 0.5% 30 ML SDV ONE (06:43)
[2018-07-15] MEDS ORDERED: Lidocaine 1% with EPINEPHrine 1:100,000 50 ML MDV ONE (06:43)
[2018-07-15] MEDS: Metoprolol Tartrate 50 MG Tab PO SCH ×3 (06:46→20:30)
[2018-07-15] MEDS ORDERED: Propofol 200 MG/20 ML SDV ONE ×2 (07:20→07:57)
[2018-07-15] MEDS ORDERED: fentaNYL 100 MCG/2 ML SDV ONE (07:20)
[2018-07-15] MEDS ORDERED: Ropivacaine 28 ML, Dexamethasone 8 MG, EPINEPHrine 0.4 MG, Sodium Chloride 0.9% 49.6 ML NERVRT SCH ×4 (07:45)
[2018-07-15] MEDS ORDERED: Lactated Ringers 1,000 ML ONE (07:54)
[2018-07-15] MEDS: Aztreonam/Dextrose-Water 1 GM in Premix Bag 1 BAG IV SCH ×3 (08:34→22:57)
[2018-07-15] MEDS ORDERED: Furosemide 20 MG/2 ML VIAL IV ONE (10:00)
[2018-07-15] MEDS: Potassium Chloride 20 MEQ, Lidocaine 1% 2 ML in Sodium Chloride 0.9% 100 ML IV SCH ×3 (10:05→14:17)
--- NOTE | 2018-07-15 10:54 | PCM.PN ---
- General Info Date of Service: 07/15/18 Subjective Update: There were no acute events overnight. Patient did have a slight rise in her heart rate this morning and has been more tachycardic after her delayed primary closure. She is still somewhat sleepy from the anesthesia. Moderate abdominal pain is reported. Some nausea is reported. She does not feel short of breath but does feel some palpitations. She has not had any fevers. She is tolerating her antibiotics. Not passing gas. Functional Status: Reports: Pain Controlled - Review of Systems General: Denies: Fever Gastrointestinal: Reports: Abdominal Pain, Nausea - Patient Data Vitals - Most Recent: Last Vital Signs Temp 35.8 C 07/15/18 08:45 Pulse 135 H 07/15/18 08:45 Resp 11 L 07/15/18 10:30 BP 171/98 H 07/15/18 10:30 Pulse Ox 93 L 07/15/18 10:30 Weight - Most Recent: 57.289 kg I&O - Last 24 Hours: Intake & Output 07/14/18 07/15/18 07/15/18 22:59 06:59 14:59 Intake Total 1317 1850 Output Total 870 1615 950 Balance 447 235 -950 Lab Results Last 24 Hours: Laboratory Results - last 24 hr 07/15/18 07/15/18 Range/Units 05:15 05:15 WBC 21.7 H (4.5-11.0) K/uL RBC 3.91 (3.30-5.50) M/uL Hgb 11.7 L (12.0-15.0) g/dL Hct 34.3 L (36.0-48.0) % MCV 88 (80-98) fL MCH 30 (27-31) pg MCHC 34 (32-36) % Plt Count 337 (150-400) K/uL Sodium 141 (140-148) mmol/L Potassium 3.4 L (3.6-5.2) mmol/L Chloride 104 (100-108) mmol/L Carbon Dioxide 26 (21-32) mmol/L Anion Gap 14.4 H (5.0-14.0) mmol/L BUN 6 L (7-18) mg/dL Creatinine 0.7 (0.6-1.0) mg/dL Est Cr Clr Drug Dosing 51.65 mL/min Estimated GFR (MDRD) > 60 (>60) Glucose 148 H (74-106) mg/dL Calcium 8.4 L (8.5-10.1) mg/dL Lei Results Last 24 Hours: Microbiology 07/13/18 14:11 Gram Stain - Final Abdomen - Abscess Wound Culture - Preliminary Anaerobic Culture - Preliminary NO GROWTH AFTER 1 DAY Med Orders - Current: Current Medications Aspirin (Halfprin) 81 mg PO DAILY [facility] Last Admin: 07/14/18 12:44 Dose: 81 mg Bisacodyl (Dulcolax) 10 mg PO BID [facility] Diltiazem HCl (Cardizem) 45 mg PO Q6HR [facility] Diphenhydramine HCl (Benadryl) 50 mg IVPUSH Q4H PRN PRN Reason: ITCHING Docusate Sodium (Colace) 100 mg PO BID [facility] Enoxaparin Sodium (Lovenox) 60 mg SUBCUT Q12H [facility] Last Admin: 07/15/18 01:05 Dose: 60 mg Hydromorphone HCl (Dilaudid Event Staff Member 15 Mg In Ns 30 Ml) 0 mg IV ASDIRECTED PRN; Protocol PRN Reason: [employer]OL Last Admin: 07/13/18 15:11 Dose: 0.2 mg Hydroxyzine HCl (Vistaril) 100 mg IM Q4H PRN PRN Reason: pain Aztreonam/Dextrose 1 gm/ (Premix) 50 mls @ 100 mls/hr IV Q8H [facility] Last Admin: 07/15/18 08:34 Dose: 100 mls/hr Ampicillin Sodium/Sulbactam (Sodium 3 gm/ Sodium Chloride) 100 mls @ 200 mls/ hr IV Q6H [facility] Last Admin: 07/15/18 10:01 Dose: 200 mls/hr Dextrose/Lactated Ringer's (Dextrose 5%-Lactated Ringers) 1,000 mls @ 125 mls/ hr IV ASDIRECTED [facility] Last Admin: 07/15/18 01:05 Dose: 125 mls/hr Magnesium Sulfate 2 gm/ Premix 50 mls @ 25 mls/hr IV Q6H [facility] Stop: 07/16/18 09:59 Last Admin: 07/15/18 08:46 Dose: 25 mls/hr Multivitamins/Minerals 10 ml/Thiamine HCl 200 mg/ Chromium/Copper/Manganese/ Zinc 1 ml/Dextrose/Lactated Ringer's 1,013 mls @ 125 mls/hr IV DAILY@1600 [facility] Last Admin: 07/14/18 16:17 Dose: 125 mls/hr Potassium Chloride 20 meq/Lidocaine HCl 2 ml/ Sodium Chloride 112 mls @ 56 mls/ hr IV Q2H [facility] Stop: 07/15/18 15:59 Last Admin: 07/15/18 10:05 Dose: 56 mls/hr Lisinopril (Prinivil) 20 mg PO DAILY [facility] Last Admin: 07/14/18 12:44 Dose: 20 mg Metoclopramide HCl (Reglan) 10 mg IVPUSH Q6H PRN PRN Reason: NAUSEA NOT CONTROL BY ZOFRAN Metoprolol Tartrate (Lopressor) 50 mg PO BID [facility] Last Admin: 07/15/18 10:06 Dose: Not Given Naloxone HCl (Narcan) 0.1 mg IV ASDIRECTED PRN PRN Reason: decreased respiratory rate Ondansetron HCl (Zofran) 4 mg IV Q4H PRN PRN Reason: Nausea/Vomiting Last Admin: 07/13/18 19:38 Dose: 4 mg Pantoprazole Sodium (Protonix Iv) 40 mg IVPUSH Q24H [facility] Last Admin: 07/14/18 16:24 Dose: 40 mg Warfarin Sodium 5 mg/ Warfarin (Sodium 1 mg) 6 mg PO ONETIME ONE Stop: 07/15/18 11:01 Discontinued Medications Acetaminophen (Tylenol) 650 mg PO Q4H PRN PRN Reason: Pain (Mild 1-3)/fever Last Admin: 07/13/18 03:31 Dose: 325 mg Aspirin (Halfprin) 81 mg PO DAILY [facility] Last Admin: 07/13/18 16:03 Dose: Not Given Bupivacaine HCl (Marcaine 0.5%) Confirm Administered Dose 30 ml .ROUTE .STK-MED ONE Stop: 07/15/18 06:44 Last Admin: 07/15/18 07:58 Dose: 5 ml Ropivacaine 28 ml/Dexamethasone 8 mg/Epinephrine HCl 0.4 mg/ Sodium Chloride 49.6 ml 0 ml NERVRT ASDIRECTED [facility] Last Admin: 07/13/18 12:40 Dose: 80 syringe Ropivacaine 28 ml/Dexamethasone 8 mg/Epinephrine HCl 0.4 mg/ Sodium Chloride 49.6 ml 0 ml NERVRT ASDIRECTED [facility] Last Admin: 07/15/18 07:14 Dose: 2 syringe Dexamethasone (Dexamethasone) Confirm Administered Dose 4 mg .ROUTE .ST-MED ONE Stop: 07/13/18 08:32 Fentanyl (Sublimaze) Confirm Administered Dose 250 mcg .ROUTE .[facility] ONE Stop: 07/13/18 08:33 Fentanyl (Sublimaze) Confirm Administered Dose 250 mcg .ROUTE .[facility] ONE Stop: 07/13/18 12:42 Fentanyl (Sublimaze) Confirm Administered Dose 100 mcg .ROUTE .[facility] ONE Stop: 07/15/18 07:21 Furosemide (Lasix) 20 mg IV ONETIME ONE Stop: 07/15/18 10:01 Last Admin: 07/15/18 09:37 Dose: 20 mg Glycopyrrolate (Robinul) Confirm Administered Dose 1 mg .ROUTE .[facility] ONE Stop: 07/13/18 08:32 Lactated Ringer's (Ringers, Lactated) 1,000 mls @ 999 mls/hr IV BOLUS ONE Stop: 07/12/18 15:06 Last Admin: 07/12/18 15:08 Dose: 999 mls/hr Sodium Chloride (Normal Saline) 80 mls @ 3 mls/sec IV ASDIRECTED [facility] Last Admin: 07/12/18 14:36 Dose: 3 mls/sec Ampicillin Sodium/Sulbactam (Sodium 3 gm/ Sodium Chloride) 100 mls @ 200 mls/ hr IV Q6H [facility] Stop: 07/12/18 17:00 Last Admin: 07/12/18 15:26 Dose: 200 mls/hr Aztreonam 1 gm/ Sodium (Chloride) 50 mls @ 100 mls/hr IV Q8H [facility] Lactated Ringer's (Ringers, Lactated) 1,000 mls @ 75 mls/hr IV ASDIRECTED [facility] Last Admin: 07/13/18 03:33 Dose: 75 mls/hr Phytonadione 5 mg/ Sodium (Chloride) 50.5 mls @ 100 mls/hr IV NOW ONE Stop: 07/12/18 17:00 Last Admin: 07/12/18 17:47 Dose: 100 mls/hr Lactated Ringer's (Ringers, Lactated) Confirm Administered Dose 1,000 mls @ as directed .ROUTE .[facility]-MED ONE Stop: 07/13/18 12:46 Tranexamic Acid 1,000 mg/ (Sodium Chloride) 60 mls @ 240 mls/hr IV Q3H [facility] Stop: 07/13/18 18:14 Last Admin: 07/13/18 17:47 Dose: 240 mls/hr Dextrose/Lactated Ringer's (Dextrose 5%-Lactated Ringers) 1,000 mls @ 175.004 mls/hr IV ASDIRECTED [facility] Last Admin: 07/14/18 06:57 Dose: 175.004 mls/hr Multivitamins/Minerals 10 ml/Thiamine HCl 200 mg/ Chromium/Copper/Manganese/ Seleni/Zn 1 ml/ Dextrose/Lactated Ringer's 1,013 mls @ 174.999 mls/hr IV DAILY@ 1600 [facility] Last Admin: 07/13/18 17:47 Dose: 174.999 mls/hr Diltiazem HCl 100 mg/ Sodium (Chloride) 100 mls @ 5 mls/hr IV TITRATE [facility]; Protocol Last Admin: 07/14/18 14:39 Dose: 5 mg/hr, 5 mls/hr Lactated Ringer's (Ringers, Lactated) Confirm Administered Dose 1,000 mls @ as directed .ROUTE .STK-MED ONE Stop: 07/15/18 07:55 Iopamidol (Isovue-300 (61%)) 100 ml IV . DIRECTED PRN PRN Reason: RADIOLOGY EXAM Stop: 07/13/18 14:24 Last Admin: 07/12/18 14:36 Dose: 100 ml Labetalol HCl (Normodyne) Confirm Administered Dose 20 mg .ROUTE .STK-MED ONE Stop: 07/13/18 12:45 Labetalol HCl (Normodyne) 5 mg IVPUSH Q5M PRN PRN Reason: SBP over 160 OR DBP over 95 Last Admin: 07/13/18 19:46 Dose: 5 mg Lidocaine/Epinephrine (Xylocaine 1% With Epinephrine 1:100,000) Confirm Administered Dose 50 ml .ROUTE .STK-MED ONE Stop: 07/15/18 06:44 Last Admin: 07/15/18 07:58 Dose: 5 ml Lisinopril (Prinivil) 20 mg PO BEDTIME [facility] Last Admin: 07/12/18 21:12 Dose: 20 mg Meropenem (Merrem) Confirm Administered Dose 500 mg .ROUTE .STK-MED ONE Stop: 07/13/18 08:39 Last Admin: 07/13/18 13:00 Dose: 500 mg Meropenem (Merrem) Confirm Administered Dose 500 mg .ROUTE .STK-MED ONE Stop: 07/15/18 06:43 Last Admin: 07/15/18 07:58 Dose: 500 mg Metoprolol Succinate (Toprol Xl) 100 mg PO DAILY [facility] Stop: 07/13/18 06:01 Last Admin: 07/13/18 05:58 Dose: 100 mg Metoprolol Succinate (Toprol Xl) 100 mg PO DAILY [facility] Metoprolol Tartrate (Lopressor) 5 mg IV Q6H [facility] Last Admin: 07/14/18 04:28 Dose: 5 mg Morphine Sulfate (Morphine) 2 mg IVPUSH Q2H PRN PRN Reason: Pain (severe 7-10) Neostigmine Methylsulfate (Neostigmine) Confirm Administered Dose 5 mg .ROUTE .STK-MED ONE Stop: 07/13/18 08:32 Non-Formulary Medication (Tap Block, Pharmacy To Dose) 0 ml NERVRT ONETIME ONE Stop: 07/13/18 07:31 Last Admin: 07/13/18 13:06 Dose: Not Given Ondansetron HCl (Zofran Odt) 4 mg PO Q6H PRN PRN Reason: Nausea able to take PO Ondansetron HCl (Zofran) 4 mg IV Q6H PRN PRN Reason: Nausea/Vomiting Last Admin: 07/13/18 15:58 Dose: 4 mg Ondansetron HCl (Zofran) Confirm Administered Dose 4 mg .ROUTE .STK-MED ONE Stop: 07/13/18 08:32 Oxycodone HCl (Oxycodone) 5 mg PO Q4H PRN PRN Reason: Pain (moderate 4-6) Propofol (Diprivan 20 Ml) Confirm Administered Dose 200 mg .ROUTE .STK-MED ONE Stop: 07/13/18 08:32 Propofol (Diprivan 20 Ml) Confirm Administered Dose 200 mg .ROUTE .STK-MED ONE Stop: 07/15/18 07:21 Propofol (Diprivan 20 Ml) Confirm Administered Dose 200 mg .ROUTE .STK-MED ONE Stop: 07/15/18 07:58 Rocuronium [place] (Zemuron) Confirm Administered Dose 50 mg .ROUTE .[facility] ONE Stop: 07/13/18 08:32 Sodium Chloride (Saline Flush) 10 ml FLUSH ASDIRECTED PRN PRN Reason: Keep Vein Open Last Admin: 07/12/18 15:09 Dose: 10 ml Succinylcholine Chloride (Quelicin) Confirm Administered Dose 200 mg .ROUTE .[facility] ONE Stop: 07/13/18 08:32 - Exam Quality Assessment: No: Supplemental Oxygen General: Alert, Oriented, Cooperative, No Acute Distress Lungs: Clear to Auscultation, Normal Respiratory Effort Cardiovascular: Irregular Rhythm, Tachycardia GI/Abdominal Exam: Soft, No Distention, Tender, Abnormal Bowel Sounds (mildly hypoactive) Extremities: No Pedal Edema, Other (mild left arm swelling ) Skin: Warm, Dry Psy/Mental Status: Alert, Normal Affect - Problem List & Annotations (1) Acute appendicitis with appendiceal abscess SNOMED Code(s): 477825544 Code(s): K35.33 - ACUTE APPENDICITIS WITH PERF AND LOC PERITONITIS, WITH ABSCS Status: Acute Current Visit: Yes (2) Coronary artery disease SNOMED Code(s): 47347723 Code(s): I25.10 - ATHSCL HEART DISEASE OF [place] CORONARY ARTERY W/O ANG PCTRS Status: Chronic Current Visit: Yes Qualifiers: Coronary Disease-Associated Artery/Lesion type: crow artery [place] vs. transplanted heart: crow heart Associated angina: without angina Qualified Code(s): I25.10 - Atherosclerotic heart disease of [place] coronary artery without angina pectoris (3) Chronic atrial fibrillation SNOMED Code(s): 306556269 Code(s): I48.2 - CHRONIC ATRIAL FIBRILLATION Status: Chronic Current Visit: No - Problem List Review Problem List Initiated/Reviewed/Updated: Yes - My Orders Last 24 Hours: My Active Orders 07/14/18 10:30 Metoprolol Tartrate [Lopressor] 50 mg PO BID 07/15/18 10:30 Diltiazem IR [Cardizem] 45 mg PO Q6HR 07/15/18 16:00 Pantoprazole [ProTONIX] 40 mg PO ACDINNER - Plan Plan:: ASSESSMENT AND PLAN - Acute appendicitis with abscess - status post surgical drainage that required right hemicolectomy and partial small bowel resection because of a large inflammatory mass surrounding the infection. Cultures are pending. -IV antibiotic therapy with Amp/Sulbactam and aztreoman -Pain and nausea control as needed -Additional postoperative care per surgical team Atrial fibrillation with rapid ventricular response - good control with metoprolol until early this morning. She is now more tachycardic after her delayed primary closure. -Continue short acting metoprolol for now, restart long-acting when bowel function returns -Oral diltiazem every 6 hours, titrate as needed -Continue systemic anticoagulation until INR therapeutic -continue cardiac monitoring Hypokalemia - being supplemented this morning. Coronary artery disease status post CABG - Remote history of coronary disease with good functional status and no active anginal symptoms. She is on medical therapy with lisinopril and metoprolol as well as a daily aspirin. -Continue home medications Maintenance issues - - DVT prophylaxis - enoxaparin - GI prophylaxis - not indicated - Nutrition - nothing by mouth Disposition - I would anticipate discharge to home after the hospital stay Girish Red M.D.
[2018-07-15] MEDS: Diltiazem IR 30 MG Tab PO SCH ×3 (11:07→21:45)
[2018-07-15] MEDS: Lisinopril 20 MG Tab PO SCH (11:08)
[2018-07-15] MEDS: Aspirin 81 MG Tab.EC PO SCH (11:08)
[2018-07-15] MEDS: Bisacodyl 5 MG Tab PO SCH ×3 (11:08→20:35)
[2018-07-15] MEDS: Docusate Sodium 100 MG Cap PO SCH ×3 (11:08→20:35)
[2018-07-15] MEDS ORDERED: Dextrose 5%-Lactated Ringers 1,000 ML IV SCH (13:00)
[2018-07-15] MEDS ORDERED: Pantoprazole 40 MG Tab.CR PO SCH (16:00)
[2018-07-15] MEDS: Melatonin 3 MG Tab PO SCH ×2 (20:31→20:36)
[2018-07-16] MEDS: Enoxaparin 60 MG/0.6 ML Syringe SUBCUT SCH ×2 (01:00→12:50)
[2018-07-16] MEDS ORDERED: Metoclopramide 10 MG/2 ML SDV IVPUSH SCH (01:00)
[2018-07-16] MEDS: Magnesium Sulfate/Water 2 GM in Premix Bag 1 BAG IV SCH ×2 (01:42→08:17)
[2018-07-16] MEDS ORDERED: Diltiazem 25 MG/5 ML SDV IVPUSH ONE ×2 (01:56→04:11)
[2018-07-16] MEDS: Diltiazem 100 MG in Sodium Chloride 0.9% 100 ML IV SCH ×3 (02:43→16:18)
[2018-07-16] MEDS: Diltiazem IR 30 MG Tab PO SCH (03:14)
[2018-07-16] MEDS: Ampicillin/Sulbactam Na 3 GM in Sodium Chloride 0.9% 100 ML IV SCH ×2 (03:14→09:34)
[2018-07-16] MEDS ORDERED: Digoxin 500 MCG/2 ML Amp IVPUSH ONE (05:29)
[2018-07-16] MEDS ORDERED: Haloperidol Lactate 5 MG/ML SDV IVPUSH ONE (06:33)
[2018-07-16] MEDS ORDERED: Haloperidol Lactate 5 MG/ML SDV IV PRN (08:14)
[2018-07-16] MEDS: Aztreonam/Dextrose-Water 1 GM in Premix Bag 1 BAG IV SCH ×3 (08:16→22:51)
[2018-07-16] MEDS: Metoclopramide 10 MG/2 ML SDV IVPUSH SCH ×3 (08:21→19:38)
[2018-07-16] MEDS ORDERED: Multivitamins with Iron/Calcium/Folic Acid/Minerals Tab PO SCH (09:00)
--- NOTE | 2018-07-16 09:34 | PCM.PN ---
- General Info Date of Service: 07/16/18 Subjective Update: The patient was admitted on July 12 after an abscess near her appendix was identified on CT scan. She underwent exploratory laparotomy with drainage of the abscess as well as right colectomy and partial small bowel obstruction for inflammatory mass around the appendix abscess on July 13. Her postop course has been complicated by rapid atrial fibrillation. Overnight she had difficulty with nausea and vomiting. She also had difficulty with rapid atrial fibrillation. The nausea and vomiting have resolved now that an NG tube has been replaced. Brownish fluid is being removed via the continuous suction. She does not endorse abdominal pain at this time as long as she is sitting still. She was started on a diltiazem infusion for the atrial fibrillation and has had improvement in her rate control overnight. She has not had any fevers. White blood cell count is elevated again today from yesterday. Functional Status: Reports: Pain Controlled. Denies: Tolerating Diet - Review of Systems General: Denies: Fever Gastrointestinal: Reports: Nausea. Denies: Abdominal Pain, Flatus - Patient Data Vitals - Most Recent: Last Vital Signs Temp 35.9 C 07/16/18 07:00 Pulse 106 H 07/16/18 07:00 Resp 14 07/16/18 09:00 BP 151/95 H 07/16/18 09:00 Pulse Ox 97 07/16/18 09:00 Weight - Most Recent: 57.289 kg I&O - Last 24 Hours: Intake & Output 07/15/18 07/16/18 07/16/18 22:59 06:59 14:59 Intake Total 1052 500 Output Total 251 505 Balance 801 -5 Lab Results Last 24 Hours: Laboratory Results - last 24 hr 07/16/18 07/16/18 Range/Units 04:00 05:20 WBC 25.5 H (4.5-11.0) K/uL RBC 3.81 (3.30-5.50) M/uL Hgb 11.4 L (12.0-15.0) g/dL Hct 32.9 L (36.0-48.0) % MCV 86 (80-98) fL MCH 30 (27-31) pg MCHC 35 (32-36) % Plt Count 530 H (150-400) K/uL Sodium 138 L (140-148) mmol/L Potassium 3.5 L (3.6-5.2) mmol/L Chloride 100 (100-108) mmol/L Carbon Dioxide 26 (21-32) mmol/L Anion Gap 15.5 H (5.0-14.0) mmol/L BUN 21 H D (7-18) mg/dL Creatinine 0.9 (0.6-1.0) mg/dL Est Cr Clr Drug Dosing 40.17 mL/min Estimated GFR (MDRD) > 60 (>60) Glucose 181 H (74-106) mg/dL Calcium 8.8 (8.5-10.1) mg/dL Phosphorus 3.5 (2.5-4.9) mg/dL Total Bilirubin 0.6 (0.2-1.0) mg/dL AST 28 (15-37) U/L ALT 29 (12-78) U/L Alkaline Phosphatase 83 (46-116) U/L NT-Pro-B Natriuret Pep 613 H (5-450) pg/mL Total Protein 7.0 (6.4-8.2) g/dL Albumin 2.8 L (3.4-5.0) g/dL Globulin 4.2 H (2.3-3.5) g/dL Albumin/Globulin Ratio 0.7 L (1.2-2.2) Lei Results Last 24 Hours: Microbiology 07/13/18 14:11 Gram Stain - Final Abdomen - Abscess Wound Culture - Final Viridans Streptococcus Anaerobic Culture - Preliminary NO GROWTH AFTER 2 DAYS Med Orders - Current: Current Medications Diphenhydramine HCl (Benadryl) 50 mg IVPUSH Q4H PRN PRN Reason: ITCHING Enoxaparin Sodium (Lovenox) 60 mg SUBCUT Q12H [facility] Last Admin: 07/16/18 01:00 Dose: Not Given Haloperidol Lactate (Haldol) 2.5 mg IV Q6H PRN PRN Reason: ANXIETY/HALLUCINATIONS Hydromorphone HCl (Dilaudid Associate Application Developer 15 Mg In Ns 30 Ml) 0 mg IV ASDIRECTED PRN; Protocol PRN Reason: [employer] PAIN CONTROL Last Admin: 07/13/18 15:11 Dose: 0.2 mg Hydroxyzine HCl (Vistaril) 100 mg IM Q4H PRN PRN Reason: pain Aztreonam/Dextrose 1 gm/ (Premix) 50 mls @ 100 mls/hr IV Q8H [facility] Last Admin: 07/16/18 08:16 Dose: 100 mls/hr Ampicillin Sodium/Sulbactam (Sodium 3 gm/ Sodium Chloride) 100 mls @ 200 mls/ hr IV Q6H [facility] Last Admin: 07/16/18 03:14 Dose: Not Given Magnesium Sulfate 2 gm/ Premix 50 mls @ 25 mls/hr IV Q6H [facility] Stop: 07/16/18 09:59 Last Admin: 07/16/18 08:17 Dose: 25 mls/hr Dextrose/Lactated Ringer's (Dextrose 5%-Lactated Ringers) 1,000 mls @ 25 mls/ hr IV ASDIRECTED [facility] Diltiazem HCl 100 mg/ Sodium (Chloride) 100 mls @ 5 mls/hr IV TITRATE [facility]; Protocol Last Titration: 07/16/18 04:35 Dose: 15 mg/hr, 15 mls/hr Potassium Phosphate 22.5 mmole (/ Sodium Chloride) 257.5 mls @ 65 mls/hr IV Q4H [facility] Stop: 07/16/18 17:28 Metoclopramide HCl (Reglan) 10 mg IVPUSH Q6H [facility] Last Admin: 07/16/18 08:21 Dose: 10 mg Naloxone HCl (Narcan) 0.1 mg IV ASDIRECTED PRN PRN Reason: decreased respiratory rate Ondansetron HCl (Zofran) 4 mg IV Q4H PRN PRN Reason: Nausea/Vomiting Last Admin: 07/13/18 19:38 Dose: 4 mg Discontinued Medications Acetaminophen (Tylenol) 650 mg PO Q4H PRN PRN Reason: Pain (Mild 1-3)/fever Last Admin: 07/13/18 03:31 Dose: 325 mg Aspirin (Halfprin) 81 mg PO DAILY [facility] Last Admin: 07/13/18 16:03 Dose: Not Given Aspirin (Halfprin) 81 mg PO DAILY [facility] Last Admin: 07/15/18 11:08 Dose: 81 mg Bisacodyl (Dulcolax) 10 mg PO BID [facility] Last Admin: 07/15/18 20:35 Dose: Not Given Bupivacaine HCl (Marcaine 0.5%) Confirm Administered Dose 30 ml .ROUTE .STK-MED ONE Stop: 07/15/18 06:44 Last Admin: 07/15/18 07:58 Dose: 15 ml Ropivacaine 28 ml/Dexamethasone 8 mg/Epinephrine HCl 0.4 mg/ Sodium Chloride 49.6 ml 0 ml NERVRT ASDIRECTED [facility] Last Admin: 07/13/18 12:40 Dose: 80 syringe Ropivacaine 28 ml/Dexamethasone 8 mg/Epinephrine HCl 0.4 mg/ Sodium Chloride 49.6 ml 0 ml NERVRT ASDIRECTED [facility] Last Admin: 07/15/18 07:14 Dose: 2 syringe Dexamethasone (Dexamethasone) Confirm Administered Dose 4 mg .ROUTE .STK-MED ONE Stop: 07/13/18 08:32 Digoxin (Lanoxin) 125 mcg IVPUSH ONETIME ONE Stop: 07/16/18 05:30 Last Admin: 07/16/18 05:46 Dose: 125 mcg Diltiazem HCl (Cardizem) 45 mg PO Q6HR [facility] Last Admin: 07/16/18 03:14 Dose: Not Given Diltiazem HCl (Diltiazem) 15 mg IVPUSH ONETIME ONE Stop: 07/16/18 01:57 Last Admin: 07/16/18 02:13 Dose: 15 mg Diltiazem HCl (Diltiazem) 5 mg IVPUSH ONETIME ONE Stop: 07/16/18 04:12 Last Admin: 07/16/18 04:24 Dose: 5 mg Docusate Sodium (Colace) 100 mg PO BID [facility] Last Admin: 07/15/18 20:35 Dose: Not Given Fentanyl (Sublimaze) Confirm Administered Dose 250 mcg .ROUTE .STK-MED ONE Stop: 07/13/18 08:33 Fentanyl (Sublimaze) Confirm Administered Dose 250 mcg .ROUTE .STK-MED ONE Stop: 07/13/18 12:42 Fentanyl (Sublimaze) Confirm Administered Dose 100 mcg .ROUTE .STK-MED ONE Stop: 07/15/18 07:21 Furosemide (Lasix) 20 mg IV ONETIME ONE Stop: 07/15/18 10:01 Last Admin: 07/15/18 09:37 Dose: 20 mg Glycopyrrolate (Robinul) Confirm Administered Dose 1 mg .ROUTE .STK-MED ONE Stop: 07/13/18 08:32 Haloperidol Lactate (Haldol) 2.5 mg IVPUSH ONETIME ONE Stop: 07/16/18 06:34 Last Admin: 07/16/18 06:51 Dose: 2.5 mg Lactated Ringer's (Ringers, Lactated) 1,000 mls @ 999 mls/hr IV BOLUS ONE Stop: 07/12/18 15:06 Last Admin: 07/12/18 15:08 Dose: 999 mls/hr Sodium Chloride (Normal Saline) 80 mls @ 3 mls/sec IV ASDIRECTED [facility] Last Admin: 07/12/18 14:36 Dose: 3 mls/sec Ampicillin Sodium/Sulbactam (Sodium 3 gm/ Sodium Chloride) 100 mls @ 200 mls/ hr IV Q6H [facility] Stop: 07/12/18 17:00 Last Admin: 07/12/18 15:26 Dose: 200 mls/hr Aztreonam 1 gm/ Sodium (Chloride) 50 mls @ 100 mls/hr IV Q8H [facility] Lactated Ringer's (Ringers, Lactated) 1,000 mls @ 75 mls/hr IV ASDIRECTED [facility] Last Admin: 07/13/18 03:33 Dose: 75 mls/hr Phytonadione 5 mg/ Sodium (Chloride) 50.5 mls @ 100 mls/hr IV NOW ONE Stop: 07/12/18 17:00 Last Admin: 07/12/18 17:47 Dose: 100 mls/hr Lactated Ringer's (Ringers, Lactated) Confirm Administered Dose 1,000 mls @ as directed .ROUTE .STK-MED ONE Stop: 07/13/18 12:46 Tranexamic Acid 1,000 mg/ (Sodium Chloride) 60 mls @ 240 mls/hr IV Q3H [facility] Stop: 07/13/18 18:14 Last Admin: 07/13/18 17:47 Dose: 240 mls/hr Dextrose/Lactated Ringer's (Dextrose 5%-Lactated Ringers) 1,000 mls @ 175.004 mls/hr IV ASDIRECTED [facility] Last Admin: 07/14/18 06:57 Dose: 175.004 mls/hr Multivitamins/Minerals 10 ml/Thiamine HCl 200 mg/ Chromium/Copper/Manganese/ Seleni/Zn 1 ml/ Dextrose/Lactated Ringer's 1,013 mls @ 174.999 mls/hr IV DAILY@ 1600 [facility] Last Admin: 07/13/18 17:47 Dose: 174.999 mls/hr Diltiazem HCl 100 mg/ Sodium (Chloride) 100 mls @ 5 mls/hr IV TITRATE [facility]; Protocol Last Admin: 07/14/18 14:39 Dose: 5 mg/hr, 5 mls/hr Dextrose/Lactated Ringer's (Dextrose 5%-Lactated Ringers) 1,000 mls @ 125 mls/ hr IV ASDIRECTED [facility] Last Admin: 07/15/18 01:05 Dose: 125 mls/hr Multivitamins/Minerals 10 ml/Thiamine HCl 200 mg/ Chromium/Copper/Manganese/ Zinc 1 ml/Dextrose/Lactated Ringer's 1,013 mls @ 125 mls/hr IV DAILY@1600 [facility] Last Admin: 07/14/18 16:17 Dose: 125 mls/hr Lactated Ringer's (Ringers, Lactated) Confirm Administered Dose 1,000 mls @ as directed .ROUTE .STK-MED ONE Stop: 07/15/18 07:55 Potassium Chloride 20 meq/Lidocaine HCl 2 ml/ Sodium Chloride 112 mls @ 56 mls/ hr IV Q2H [facility] Stop: 07/15/18 15:59 Last Admin: 07/15/18 14:17 Dose: 56 mls/hr Iopamidol (Isovue-300 (61%)) 100 ml IV . DIRECTED PRN PRN Reason: RADIOLOGY EXAM Stop: 07/13/18 14:24 Last Admin: 07/12/18 14:36 Dose: 100 ml Labetalol HCl (Normodyne) Confirm Administered Dose 20 mg .ROUTE .STK-MED ONE Stop: 07/13/18 12:45 Labetalol HCl (Normodyne) 5 mg IVPUSH Q5M PRN PRN Reason: SBP over 160 OR DBP over 95 Last Admin: 07/13/18 19:46 Dose: 5 mg Lidocaine/Epinephrine (Xylocaine 1% With Epinephrine 1:100,000) Confirm Administered Dose 50 ml .ROUTE .STK-MED ONE Stop: 07/15/18 06:44 Last Admin: 07/15/18 07:58 Dose: 15 ml Lisinopril (Prinivil) 20 mg PO BEDTIME [facility] Last Admin: 07/12/18 21:12 Dose: 20 mg Lisinopril (Prinivil) 20 mg PO DAILY [facility] Last Admin: 07/15/18 11:08 Dose: 20 mg Melatonin (Melatonin) 9 mg PO BEDTIME [facility] Last Admin: 07/15/18 20:36 Dose: Not Given Meropenem (Merrem) Confirm Administered Dose 500 mg .ROUTE .[facility] ONE Stop: 07/13/18 08:39 Last Admin: 07/13/18 13:00 Dose: 500 mg Meropenem (Merrem) Confirm Administered Dose 500 mg .ROUTE .[facility] ONE Stop: 07/15/18 06:43 Last Admin: 07/15/18 07:58 Dose: 500 mg Metoclopramide HCl (Reglan) 10 mg IVPUSH Q6H PRN PRN Reason: NAUSEA NOT CONTROL BY ZOFRAN Metoclopramide HCl (Reglan) 10 mg IVPUSH Q6H [facility] Last Admin: 07/16/18 01:10 Dose: 10 mg Metoprolol Succinate (Toprol Xl) 100 mg PO DAILY [facility] Stop: 07/13/18 06:01 Last Admin: 07/13/18 05:58 Dose: 100 mg Metoprolol Succinate (Toprol Xl) 100 mg PO DAILY [facility] Metoprolol Tartrate (Lopressor) 5 mg IV Q6H [facility] Last Admin: 07/14/18 04:28 Dose: 5 mg Metoprolol Tartrate (Lopressor) 50 mg PO BID [facility] Last Admin: 07/15/18 20:30 Dose: 50 mg Metoprolol Tartrate (Lopressor) 5 mg IV Q6H [facility] Morphine Sulfate (Morphine) 2 mg IVPUSH Q2H PRN PRN Reason: Pain (severe 7-10) Multivitamins/Minerals (Thera M Plus) 1 tab PO DAILY [facility] Neostigmine Methylsulfate (Neostigmine) Confirm Administered Dose 5 mg .ROUTE .[facility] ONE Stop: 07/13/18 08:32 Non-Formulary Medication (Tap Block, Pharmacy To Dose) 0 ml NERVRT ONETIME ONE Stop: 07/13/18 07:31 Last Admin: 07/13/18 13:06 Dose: Not Given Ondansetron HCl (Zofran Odt) 4 mg PO Q6H PRN PRN Reason: Nausea able to take PO Ondansetron HCl (Zofran) 4 mg IV Q6H PRN PRN Reason: Nausea/Vomiting Last Admin: 07/13/18 15:58 Dose: 4 mg Ondansetron HCl (Zofran) Confirm Administered Dose 4 mg .ROUTE .STK-MED ONE Stop: 07/13/18 08:32 Oxycodone HCl (Oxycodone) 5 mg PO Q4H PRN PRN Reason: Pain (moderate 4-6) Pantoprazole Sodium (Protonix Iv) 40 mg IVPUSH Q24H [facility] Last Admin: 07/14/18 16:24 Dose: 40 mg Pantoprazole Sodium (Protonix) 40 mg PO ACDINNER [facility] Last Admin: 07/15/18 15:14 Dose: 40 mg Propofol (Diprivan 20 Ml) Confirm Administered Dose 200 mg .ROUTE .STK-MED ONE Stop: 07/13/18 08:32 Propofol (Diprivan 20 Ml) Confirm Administered Dose 200 mg .ROUTE .STK-MED ONE Stop: 07/15/18 07:21 Propofol (Diprivan 20 Ml) Confirm Administered Dose 200 mg .ROUTE .STK-MED ONE Stop: 07/15/18 07:58 Rocuronium [place] (Zemuron) Confirm Administered Dose 50 mg .ROUTE .STK-MED ONE Stop: 07/13/18 08:32 Sodium Chloride (Saline Flush) 10 ml FLUSH ASDIRECTED PRN PRN Reason: Keep Vein Open Last Admin: 07/12/18 15:09 Dose: 10 ml Succinylcholine Chloride (Quelicin) Confirm Administered Dose 200 mg .ROUTE .STK -MED ONE Stop: 07/13/18 08:32 Warfarin Sodium 5 mg/ Warfarin (Sodium 1 mg) 6 mg PO ONETIME ONE Stop: 07/15/18 11:01 Last Admin: 07/15/18 11:08 Dose: 6 mg - Exam Quality Assessment: No: Supplemental Oxygen General: Alert, Oriented, Cooperative, No Acute Distress Neck: Other (NG in place) Lungs: Clear to Auscultation, Normal Respiratory Effort Cardiovascular: Irregular Rhythm, Tachycardia GI/Abdominal Exam: Soft, Distended (mild), Abnormal Bowel Sounds (absent) Extremities: No Pedal Edema. No: Increased Warmth Skin: Warm, Dry Psy/Mental Status: Alert, Normal Affect - Problem List & Annotations (1) Acute appendicitis with appendiceal abscess SNOMED Code(s): 942682744 Code(s): K35.33 - ACUTE APPENDICITIS WITH PERF AND LOC PERITONITIS, WITH ABSCS Status: Acute Current Visit: Yes (2) Coronary artery disease SNOMED Code(s): 46733057 Code(s): I25.10 - ATHSCL HEART DISEASE OF [place] CORONARY ARTERY W/O ANG PCTRS Status: Chronic Current Visit: Yes Qualifiers: Coronary Disease-Associated Artery/Lesion type: [place] artery [place] vs. transplanted heart: [place] heart Associated angina: without angina Qualified Code(s): I25.10 - Atherosclerotic heart disease of [place] coronary artery without angina pectoris (3) Chronic atrial fibrillation SNOMED Code(s): 009254765 Code(s): I48.2 - CHRONIC ATRIAL FIBRILLATION Status: Chronic Current Visit: No - Problem List Review Problem List Initiated/Reviewed/Updated: Yes - My Orders Last 24 Hours: My Active Orders 07/15/18 13:00 Dextrose 5%-Lactated Ringers 1,000 ml IV ASDIRECTED 07/16/18 02:00 Diltiazem [Cardizem] 100 mg Sodium Chloride 0.9% [Normal Saline] 100 ml IV TITRATE - Plan Plan:: ASSESSMENT AND PLAN - Acute appendicitis with abscess - status post surgical drainage that required right hemicolectomy and partial small bowel resection because of a large inflammatory mass surrounding the infection. Cultures are growing out strep viridans. Postop course complicated by ileus with vomiting that started overnight. She is feeling better after the NG tube was placed this morning. -IV antibiotic therapy with Mefoxin and aztreonam -Pain and nausea control as needed -Additional postoperative care per surgical team -Flat and upright planned in the morning Atrial fibrillation with rapid ventricular response - suboptimal rate control overnight but better now that a diltiazem infusion has been started. IV metoprolol was considered but blood pressure is too low to allow as of this morning. May not be necessary with the adequate rate control at this time. -Continue diltiazem infusion -IV metoprolol if blood pressure allows and heart rate control is suboptimal -Continue systemic anticoagulation -Warfarin on hold due to nothing by mouth status -continue cardiac monitoring Hypokalemia - being supplemented again this morning. Coronary artery disease status post CABG - Remote history of coronary disease with good functional status and no active anginal symptoms. She is on medical therapy with lisinopril and metoprolol as well as a daily aspirin. -Continue home medications Maintenance issues - - DVT prophylaxis - enoxaparin - GI prophylaxis - PPI - Nutrition - nothing by mouth Disposition - I would anticipate discharge to home after the hospital stay Girish Red M.D.
[2018-07-16] MEDS ORDERED: Metoprolol Tartrate 5 MG/5 ML SDV IV SCH (10:00)
[2018-07-16] MEDS: Potassium Phosphates 22.5 MMOLE in Sodium Chloride 0.9% 250 ML IV SCH ×2 (10:10→14:09)
[2018-07-16] MEDS ORDERED: cefOXitin 1 GM Vial IV SCH (14:30)
[2018-07-17] MEDS: Diltiazem 100 MG in Sodium Chloride 0.9% 100 ML IV SCH ×2 (00:03→06:50)
[2018-07-17] MEDS: Enoxaparin 60 MG/0.6 ML Syringe SUBCUT SCH ×2 (00:06→13:38)
[2018-07-17] MEDS: Metoclopramide 10 MG/2 ML SDV IVPUSH SCH ×4 (01:20→19:44)
[2018-07-17] MEDS: Aztreonam/Dextrose-Water 1 GM in Premix Bag 1 BAG IV SCH ×3 (07:36→22:57)
[2018-07-17] MEDS ORDERED: Digoxin 500 MCG/2 ML Amp IVPUSH ONE ×2 (09:45→15:15)
[2018-07-17] MEDS ORDERED: Lactated Ringers 1,000 ML IV SCH (09:45)
[2018-07-17] MEDS: Potassium Phosphates 20 MMOLE in Sodium Chloride 0.9% 250 ML IV SCH ×3 (10:28→16:35)
--- NOTE | 2018-07-17 10:36 | PCM.PN ---
- General Info Date of Service: 07/17/18 Subjective Update: Ms. Mcdonald is a 78-year-old woman who was admitted with abscess in the right lower quadrant related to appendicitis. She underwent exploratory laparotomy and required partial small and large bowel resection. Course has been complicated by atrial fibrillation with rapid ventricular response. Heart rate has remained intermittently elevated despite ongoing use of IV diltiazem. White blood cell count remained significantly elevated, she has been afebrile and otherwise hemodynamically stable except for the elevated heart rate. - Review of Systems General: Reports: Weakness. Denies: Fever, Chills Pulmonary: Reports: No Symptoms. Denies: Shortness of Breath Cardiovascular: Reports: Palpitations. Denies: Chest Pain, Dyspnea on Exertion , Orthopnea, PND, Edema Gastrointestinal: Reports: Abdominal Pain, Flatus. Denies: Difficulty Swallowing, Nausea, Vomiting - Patient Data Vitals - Most Recent: Last Vital Signs Temp 96.2 F 07/17/18 07:00 Pulse 144 H 07/17/18 09:54 Resp 17 07/17/18 10:00 BP 132/78 07/17/18 10:00 Pulse Ox 95 07/17/18 10:00 Weight - Most Recent: 126 lb 4.81 oz I&O - Last 24 Hours: Intake & Output 07/16/18 07/17/18 07/17/18 22:59 06:59 14:59 Intake Total 1224 550 Output Total 1400 1625 1100 Balance -176 -0385 -1100 Lab Results Last 24 Hours: Laboratory Results - last 24 hr 07/17/18 07/17/18 Range/Units 05:03 05:03 WBC 25.2 H (4.5-11.0) K/uL RBC 3.23 L (3.30-5.50) M/uL Hgb 9.7 L (12.0-15.0) g/dL Hct 28.8 L (36.0-48.0) % MCV 89 (80-98) fL MCH 30 (27-31) pg MCHC 34 (32-36) % Plt Count 474 H (150-400) K/uL Sodium 142 (140-148) mmol/L Potassium 3.4 L (3.6-5.2) mmol/L Chloride 106 (100-108) mmol/L Carbon Dioxide 28 (21-32) mmol/L Anion Gap 11.4 (5.0-14.0) mmol/L BUN 32 H D (7-18) mg/dL Creatinine 0.9 (0.6-1.0) mg/dL Est Cr Clr Drug Dosing 40.17 mL/min Estimated GFR (MDRD) > 60 (>60) Glucose 162 H (74-106) mg/dL Calcium 8.3 L (8.5-10.1) mg/dL Phosphorus 3.0 (2.5-4.9) mg/dL Total Bilirubin 0.4 (0.2-1.0) mg/dL AST 35 (15-37) U/L ALT 36 (12-78) U/L Alkaline Phosphatase 71 (46-116) U/L NT-Pro-B Natriuret Pep 180 (5-450) pg/mL Total Protein 6.2 L (6.4-8.2) g/dL Albumin 2.5 L (3.4-5.0) g/dL Globulin 3.7 H (2.3-3.5) g/dL Albumin/Globulin Ratio 0.7 L (1.2-2.2) Lei Results Last 24 Hours: Microbiology 07/13/18 14:11 Gram Stain - Final Abdomen - Abscess Wound Culture - Final Viridans Streptococcus Anaerobic Culture - Final NO GROWTH AFTER 3 DAYS Med Orders - Current: Current Medications Diphenhydramine HCl (Benadryl) 50 mg IVPUSH Q4H PRN PRN Reason: ITCHING Enoxaparin Sodium (Lovenox) 60 mg SUBCUT Q12H [facility] Last Admin: 07/17/18 00:06 Dose: 60 mg Haloperidol Lactate (Haldol) 2.5 mg IV Q6H PRN PRN Reason: ANXIETY/HALLUCINATIONS Hydromorphone HCl (Dilaudid Bookmaker'S Clerk 15 Mg In Ns 30 Ml) 0 mg IV ASDIRECTED PRN; Protocol PRN Reason: ANTHROPOLOGY PROFESSOR PAIN CONTROL Last Admin: 07/13/18 15:11 Dose: 0.2 mg Hydroxyzine HCl (Vistaril) 100 mg IM Q4H PRN PRN Reason: pain Aztreonam/Dextrose 1 gm/ (Premix) 50 mls @ 100 mls/hr IV Q8H [facility] Last Admin: 07/17/18 07:36 Dose: 100 mls/hr Dextrose/Lactated Ringer's (Dextrose 5%-Lactated Ringers) 1,000 mls @ 25 mls/ hr IV ASDIRECTED [facility] Last Admin: 07/16/18 10:44 Dose: 25 mls/hr Diltiazem HCl 100 mg/ Sodium (Chloride) 100 mls @ 5 mls/hr IV TITRATE [facility]; Protocol Last Admin: 07/17/18 06:50 Dose: 15 mg/hr, 15 mls/hr Cefoxitin Sodium 1 gm/ Sodium (Chloride) 50 mls @ 100 mls/hr IV Q8H [facility] Last Admin: 07/17/18 08:15 Dose: 100 mls/hr Potassium Phosphate 20 mmole/ (Sodium Chloride) 256.6667 mls @ 85 mls/hr IV Q3H [facility] Stop: 07/17/18 18:59 Last Admin: 07/17/18 10:28 Dose: 85 mls/hr Lactated Ringer's (Ringers, Lactated) 1,000 mls @ 500 mls/hr IV ASDIRECTED [facility] Stop: 07/17/18 10:46 Last Admin: 07/17/18 09:41 Dose: 500 mls/hr Metoclopramide HCl (Reglan) 10 mg IVPUSH Q6H [facility] Last Admin: 07/17/18 07:58 Dose: 10 mg Naloxone HCl (Narcan) 0.1 mg IV ASDIRECTED PRN PRN Reason: decreased respiratory rate Ondansetron HCl (Zofran) 4 mg IV Q4H PRN PRN Reason: Nausea/Vomiting Last Admin: 07/13/18 19:38 Dose: 4 mg Discontinued Medications Acetaminophen (Tylenol) 650 mg PO Q4H PRN PRN Reason: Pain (Mild 1-3)/fever Last Admin: 07/13/18 03:31 Dose: 325 mg Aspirin (Halfprin) 81 mg PO DAILY [facility] Last Admin: 07/13/18 16:03 Dose: Not Given Aspirin (Halfprin) 81 mg PO DAILY [facility] Last Admin: 07/15/18 11:08 Dose: 81 mg Bisacodyl (Dulcolax) 10 mg PO BID [facility] Last Admin: 07/15/18 20:35 Dose: Not Given Bupivacaine HCl (Marcaine 0.5%) Confirm Administered Dose 30 ml .ROUTE .[facility] ONE Stop: 07/15/18 06:44 Last Admin: 07/15/18 07:58 Dose: 15 ml Ropivacaine 28 ml/Dexamethasone 8 mg/Epinephrine HCl 0.4 mg/ Sodium Chloride 49.6 ml 0 ml NERVRT ASDIRECTED [facility] Last Admin: 07/13/18 12:40 Dose: 80 syringe Ropivacaine 28 ml/Dexamethasone 8 mg/Epinephrine HCl 0.4 mg/ Sodium Chloride 49.6 ml 0 ml NERVRT ASDIRECTED [facility] Last Admin: 07/15/18 07:14 Dose: 2 syringe Dexamethasone (Dexamethasone) Confirm Administered Dose 4 mg .ROUTE .STK-MED ONE Stop: 07/13/18 08:32 Digoxin (Lanoxin) 125 mcg IVPUSH ONETIME ONE Stop: 07/16/18 05:30 Last Admin: 07/16/18 05:46 Dose: 125 mcg Digoxin (Lanoxin) 250 mcg IVPUSH ONETIME ONE Stop: 07/17/18 09:46 Last Admin: 07/17/18 09:54 Dose: 250 mcg Diltiazem HCl (Cardizem) 45 mg PO Q6HR [facility] Last Admin: 07/16/18 03:14 Dose: Not Given Diltiazem HCl (Diltiazem) 15 mg IVPUSH ONETIME ONE Stop: 07/16/18 01:57 Last Admin: 07/16/18 02:13 Dose: 15 mg Diltiazem HCl (Diltiazem) 5 mg IVPUSH ONETIME ONE Stop: 07/16/18 04:12 Last Admin: 07/16/18 04:24 Dose: 5 mg Docusate Sodium (Colace) 100 mg PO BID [facility] Last Admin: 07/15/18 20:35 Dose: Not Given Fentanyl (Sublimaze) Confirm Administered Dose 250 mcg .ROUTE .STK-MED ONE Stop: 07/13/18 08:33 Fentanyl (Sublimaze) Confirm Administered Dose 250 mcg .ROUTE .STK-MED ONE Stop: 07/13/18 12:42 Fentanyl (Sublimaze) Confirm Administered Dose 100 mcg .ROUTE .STK-MED ONE Stop: 07/15/18 07:21 Furosemide (Lasix) 20 mg IV ONETIME ONE Stop: 07/15/18 10:01 Last Admin: 07/15/18 09:37 Dose: 20 mg Glycopyrrolate (Robinul) Confirm Administered Dose 1 mg .ROUTE .STK-MED ONE Stop: 07/13/18 08:32 Haloperidol Lactate (Haldol) 2.5 mg IVPUSH ONETIME ONE Stop: 07/16/18 06:34 Last Admin: 07/16/18 06:51 Dose: 2.5 mg Lactated Ringer's (Ringers, Lactated) 1,000 mls @ 999 mls/hr IV BOLUS ONE Stop: 07/12/18 15:06 Last Admin: 07/12/18 15:08 Dose: 999 mls/hr Sodium Chloride (Normal Saline) 80 mls @ 3 mls/sec IV ASDIRECTED [facility] Last Admin: 07/12/18 14:36 Dose: 3 mls/sec Ampicillin Sodium/Sulbactam (Sodium 3 gm/ Sodium Chloride) 100 mls @ 200 mls/ hr IV Q6H [facility] Stop: 07/12/18 17:00 Last Admin: 07/12/18 15:26 Dose: 200 mls/hr Aztreonam 1 gm/ Sodium (Chloride) 50 mls @ 100 mls/hr IV Q8H [facility] Ampicillin Sodium/Sulbactam (Sodium 3 gm/ Sodium Chloride) 100 mls @ 200 mls/ hr IV Q6H [facility] Last Admin: 07/16/18 09:34 Dose: 200 mls/hr Lactated Ringer's (Ringers, Lactated) 1,000 mls @ 75 mls/hr IV ASDIRECTED [facility] Last Admin: 07/13/18 03:33 Dose: 75 mls/hr Phytonadione 5 mg/ Sodium (Chloride) 50.5 mls @ 100 mls/hr IV NOW ONE Stop: 07/12/18 17:00 Last Admin: 07/12/18 17:47 Dose: 100 mls/hr Lactated Ringer's (Ringers, Lactated) Confirm Administered Dose 1,000 mls @ as directed .ROUTE .STK-MED ONE Stop: 07/13/18 12:46 Tranexamic Acid 1,000 mg/ (Sodium Chloride) 60 mls @ 240 mls/hr IV Q3H [facility] Stop: 07/13/18 18:14 Last Admin: 07/13/18 17:47 Dose: 240 mls/hr Dextrose/Lactated Ringer's (Dextrose 5%-Lactated Ringers) 1,000 mls @ 175.004 mls/hr IV ASDIRECTED [facility] Last Admin: 07/14/18 06:57 Dose: 175.004 mls/hr Multivitamins/Minerals 10 ml/Thiamine HCl 200 mg/ Chromium/Copper/Manganese/ Seleni/Zn 1 ml/ Dextrose/Lactated Ringer's 1,013 mls @ 174.999 mls/hr IV DAILY@ 1600 [facility] Last Admin: 07/13/18 17:47 Dose: 174.999 mls/hr Diltiazem HCl 100 mg/ Sodium (Chloride) 100 mls @ 5 mls/hr IV TITRATE [facility]; Protocol Last Admin: 07/14/18 14:39 Dose: 5 mg/hr, 5 mls/hr Dextrose/Lactated Ringer's (Dextrose 5%-Lactated Ringers) 1,000 mls @ 125 mls/ hr IV ASDIRECTED [facility] Last Admin: 07/15/18 01:05 Dose: 125 mls/hr Magnesium Sulfate 2 gm/ Premix 50 mls @ 25 mls/hr IV Q6H [facility] Stop: 07/16/18 09:59 Last Admin: 07/16/18 08:17 Dose: 25 mls/hr Multivitamins/Minerals 10 ml/Thiamine HCl 200 mg/ Chromium/Copper/Manganese/ Zinc 1 ml/Dextrose/Lactated Ringer's 1,013 mls @ 125 mls/hr IV DAILY@1600 [facility] Last Admin: 07/14/18 16:17 Dose: 125 mls/hr Lactated Ringer's (Ringers, Lactated) Confirm Administered Dose 1,000 mls @ as directed .ROUTE .STK-MED ONE Stop: 07/15/18 07:55 Potassium Chloride 20 meq/Lidocaine HCl 2 ml/ Sodium Chloride 112 mls @ 56 mls/ hr IV Q2H [facility] Stop: 07/15/18 15:59 Last Admin: 07/15/18 14:17 Dose: 56 mls/hr Potassium Phosphate 22.5 mmole (/ Sodium Chloride) 257.5 mls @ 65 mls/hr IV Q4H [facility] Stop: 07/16/18 17:28 Last Admin: 07/16/18 14:09 Dose: 65 mls/hr Iopamidol (Isovue-300 (61%)) 100 ml IV . DIRECTED PRN PRN Reason: RADIOLOGY EXAM Stop: 07/13/18 14:24 Last Admin: 07/12/18 14:36 Dose: 100 ml Labetalol HCl (Normodyne) Confirm Administered Dose 20 mg .ROUTE .[facility] ONE Stop: 07/13/18 12:45 Labetalol HCl (Normodyne) 5 mg IVPUSH Q5M PRN PRN Reason: SBP over 160 OR DBP over 95 Last Admin: 07/13/18 19:46 Dose: 5 mg Lidocaine/Epinephrine (Xylocaine 1% With Epinephrine 1:100,000) Confirm Administered Dose [address] .[facility] ONE Stop: 07/15/18 06:44 Last Admin: 07/15/18 07:58 Dose: 15 ml Lisinopril (Prinivil) 20 mg PO BEDTIME [facility] Last Admin: 07/12/18 21:12 Dose: 20 mg Lisinopril (Prinivil) 20 mg PO DAILY [facility] Last Admin: 07/15/18 11:08 Dose: 20 mg Melatonin (Melatonin) 9 mg PO BEDTIME [facility] Last Admin: 07/15/18 20:36 Dose: Not Given Meropenem (Merrem) Confirm Administered Dose [address] .[facility] ONE Stop: 07/13/18 08:39 Last Admin: 07/13/18 13:00 Dose: 500 mg Meropenem (Merrem) Confirm Administered Dose [address] ONE Stop: 07/15/18 06:43 Last Admin: 07/15/18 07:58 Dose: 500 mg Metoclopramide HCl (Reglan) 10 mg IVPUSH Q6H PRN PRN Reason: NAUSEA NOT CONTROL BY ZOFRAN Metoclopramide HCl (Reglan) 10 mg IVPUSH Q6H [facility] Last Admin: 07/16/18 01:10 Dose: 10 mg Metoprolol Succinate (Toprol Xl) 100 mg PO DAILY [facility] Stop: 07/13/18 06:01 Last Admin: 07/13/18 05:58 Dose: 100 mg Metoprolol Succinate (Toprol Xl) 100 mg PO DAILY [facility] Metoprolol Tartrate (Lopressor) 5 mg IV Q6H [facility] Last Admin: 07/14/18 04:28 Dose: 5 mg Metoprolol Tartrate (Lopressor) 50 mg PO BID [facility] Last Admin: 07/15/18 20:30 Dose: 50 mg Metoprolol Tartrate (Lopressor) 5 mg IV Q6H [facility] Morphine Sulfate (Morphine) 2 mg IVPUSH Q2H PRN PRN Reason: Pain (severe 7-10) Multivitamins/Minerals (Thera M Plus) 1 tab PO DAILY [facility] Neostigmine Methylsulfate (Neostigmine) Confirm Administered Dose 5 mg .ROUTE .STK-MED ONE Stop: 07/13/18 08:32 Non-Formulary Medication (Tap Block, Pharmacy To Dose) 0 ml NERVRT ONETIME ONE Stop: 07/13/18 07:31 Last Admin: 07/13/18 13:06 Dose: Not Given Ondansetron HCl (Zofran Odt) 4 mg PO Q6H PRN PRN Reason: Nausea able to take PO Ondansetron HCl (Zofran) 4 mg IV Q6H PRN PRN Reason: Nausea/Vomiting Last Admin: 07/13/18 15:58 Dose: 4 mg Ondansetron HCl (Zofran) Confirm Administered Dose 4 mg .ROUTE .STK-MED ONE Stop: 07/13/18 08:32 Oxycodone HCl (Oxycodone) 5 mg PO Q4H PRN PRN Reason: Pain (moderate 4-6) Pantoprazole Sodium (Protonix Iv) 40 mg IVPUSH Q24H [facility] Last Admin: 07/14/18 16:24 Dose: 40 mg Pantoprazole Sodium (Protonix) 40 mg PO ACDINNER [facility] Last Admin: 07/15/18 15:14 Dose: 40 mg Propofol (Diprivan 20 Ml) Confirm Administered Dose 200 mg .ROUTE .STK-MED ONE Stop: 07/13/18 08:32 Propofol (Diprivan 20 Ml) Confirm Administered Dose 200 mg .ROUTE .STK-MED ONE Stop: 07/15/18 07:21 Propofol (Diprivan 20 Ml) Confirm Administered Dose 200 mg .ROUTE .STK-MED ONE Stop: 07/15/18 07:58 Rocuronium [place] (Zemuron) Confirm Administered Dose 50 mg .ROUTE .STK-MED ONE Stop: 07/13/18 08:32 Sodium Chloride (Saline Flush) 10 ml FLUSH ASDIRECTED PRN PRN Reason: Keep Vein Open Last Admin: 07/12/18 15:09 Dose: 10 ml Succinylcholine Chloride (Quelicin) Confirm Administered Dose 200 mg .ROUTE .STK -MED ONE Stop: 07/13/18 08:32 Warfarin Sodium 5 mg/ Warfarin (Sodium 1 mg) 6 mg PO ONETIME ONE Stop: 07/15/18 11:01 Last Admin: 07/15/18 11:08 Dose: 6 mg - Exam Quality Assessment: Supplemental Oxygen, DVT Prophylaxis General: Alert, Oriented, Cooperative, Moderate Distress Lungs: Clear to Auscultation, Normal Respiratory Effort, Decreased Breath Sounds. No: Wheezing Cardiovascular: Irregular Rhythm, Tachycardia. No: Murmurs, Gallops GI/Abdominal Exam: Soft, No Organomegaly, Tender. No: Distended, Guarding, Rigid, Rebound Extremities: Non-Tender, No Pedal Edema Skin: Warm, Dry - Problem List Review Problem List Initiated/Reviewed/Updated: Yes - My Orders Last 24 Hours: My Active Orders 07/17/18 09:45 Lactated Ringers [Ringers, Lactated] 1,000 ml IV ASDIRECTED - Plan Plan:: ASSESSMENT AND PLAN - Acute appendicitis with abscess - status post surgical drainage that required right hemicolectomy and partial small bowel resection because of a large inflammatory mass surrounding the infection. Cultures are growing out strep viridans. Postop course complicated by ileus, NG tube remains in place -IV antibiotic therapy with Mefoxin and aztreonam -Pain and nausea control as needed -Additional postoperative care per surgical team -Flat and upright planned in the morning Atrial fibrillation with rapid ventricular response - suboptimal rate control overnight, despite ongoing use of IV diltiazem. The line is elevated disproportionately to creatinine suggesting possible intravascular volume depletion. -Continue diltiazem infusion -Lactated Ringer's 500 mL IV now -Digoxin 0.25 mg IV now -Continue systemic anticoagulation -Warfarin on hold due to nothing by mouth status -continue cardiac monitoring Hypokalemia - being supplemented again this morning. Coronary artery disease status post CABG - Remote history of coronary disease with good functional status and no active anginal symptoms. She is on medical therapy with lisinopril and metoprolol as well as a daily aspirin. -Continue home medications Maintenance issues - - DVT prophylaxis - enoxaparin - GI prophylaxis - PPI - Nutrition - nothing by mouth Disposition - I would anticipate discharge to home after the hospital stay
[2018-07-17] MEDS ORDERED: Lactated Ringers 1,000 ML IV ONE (11:40)
--- NOTE | 2018-07-17 12:54 | CR ---
2 view abdomen There is a nasogastric tube with the tip in the region of the stomach. Surgical sutures are seen in the right lower quadrant. There are mildly prominent loops of large and small bowel. There are a few air-fluid levels seen within the large bowel. There is no free air. The findings are most consistent with a probable postoperative ileus.
[2018-07-17] MEDS: Diltiazem 125 MG in Sodium Chloride 0.9% 100 ML IV SCH ×2 (13:36→22:03)
[2018-07-17] MEDS: Meropenem 1 GM in Sodium Chloride 0.9% 100 ML IV SCH ×2 (14:39→21:58)
[2018-07-17] MEDS: Esmolol/Normal Saline 2.5 GM/250 ML BAG IV SCH (17:43)
[2018-07-18] MEDS: Enoxaparin 60 MG/0.6 ML Syringe SUBCUT SCH ×2 (00:05→12:30)
[2018-07-18] MEDS: Metoclopramide 10 MG/2 ML SDV IVPUSH SCH ×4 (01:54→19:57)
[2018-07-18] MEDS: Meropenem 1 GM in Sodium Chloride 0.9% 100 ML IV SCH ×3 (05:36→22:37)
[2018-07-18] MEDS: Diltiazem 125 MG in Sodium Chloride 0.9% 100 ML IV SCH (06:18)
[2018-07-18] MEDS ORDERED: Lactated Ringers 500 ML IV ONE (07:30)
[2018-07-18] MEDS: Aztreonam/Dextrose-Water 1 GM in Premix Bag 1 BAG IV SCH ×3 (07:53→23:43)
[2018-07-18] MEDS: Esmolol/Normal Saline 2.5 GM/250 ML BAG IV SCH (08:46)
--- NOTE | 2018-07-18 09:38 | CR ---
NG tube with distal tip in the stomach. Side-port at GE junction. Would consider advancement. There is some mild gaseous distention of colon on the left without dilated loops of small bowel.
--- NOTE | 2018-07-18 09:42 | PCM.PN ---
- General Info Date of Service: 07/18/18 Subjective Update: Ms. Mcdonald has improved since yesterday, heart rate under better control with use of IV Esmolol and white blood cell count has normalized. She feels improved, NG tube removed, and she has been started on a clear liquid diet. Functional Status: Reports: Pain Controlled, Tolerating Diet, Urinating - Review of Systems General: Reports: Weakness. Denies: Fever, Chills Pulmonary: Reports: No Symptoms Cardiovascular: Reports: No Symptoms Gastrointestinal: Reports: Abdominal Pain, Flatus. Denies: Difficulty Swallowing, Nausea, Vomiting - Patient Data Vitals - Most Recent: Last Vital Signs Temp 98.1 F 07/18/18 07:00 Pulse 107 H 07/18/18 08:00 Resp 25 H 07/18/18 07:00 BP 166/77 H 07/18/18 07:00 Pulse Ox 93 L 07/18/18 06:00 Weight - Most Recent: 126 lb 4.81 oz I&O - Last 24 Hours: Intake & Output 07/17/18 07/18/18 07/18/18 22:59 06:59 14:59 Intake Total 3136 1195 Output Total 1925 2125 Balance 1211 -930 Lab Results Last 24 Hours: Laboratory Results - last 24 hr 07/17/18 07/17/18 07/18/18 Range/Units 16:52 16:52 04:32 WBC 21.4 H 8.4 (4.5-11.0) K/uL RBC 2.92 L 3.35 (3.30-5.50) M/uL Hgb 8.7 L 9.6 L (12.0-15.0) g/dL Hct 26.2 L 29.9 L (36.0-48.0) % MCV 90 89 (80-98) fL MCH 30 29 (27-31) pg MCHC 33 32 (32-36) % Plt Count 419 H 314 (150-400) K/uL Neut % (Auto) 74 H (36-66) % Lymph % (Auto) 16 L (24-44) % Wilkin % (Auto) 8 H (2-6) % Eos % (Auto) 2 (2-4) % Baso % (Auto) 0 (0-1) % Sodium 146 (140-148) mmol/L Potassium 4.0 (3.6-5.2) mmol/L Chloride 110 H (100-108) mmol/L Carbon Dioxide 26 (21-32) mmol/L Anion Gap 14.0 (5.0-14.0) mmol/L BUN 24 H (7-18) mg/dL Creatinine 0.7 (0.6-1.0) mg/dL Est Cr Clr Drug Dosing 51.65 mL/min Estimated GFR (MDRD) > 60 (>60) Glucose 122 H (74-106) mg/dL Calcium 8.1 L (8.5-10.1) mg/dL Phosphorus (2.5-4.9) mg/dL Magnesium (1.8-2.4) mg/dL Total Bilirubin (0.2-1.0) mg/dL AST (15-37) U/L ALT (12-78) U/L Alkaline Phosphatase (46-116) U/L NT-Pro-B Natriuret Pep (5-450) pg/mL Total Protein (6.4-8.2) g/dL Albumin (3.4-5.0) g/dL Globulin (2.3-3.5) g/dL Albumin/Globulin Ratio (1.2-2.2) Digoxin (0.90-2.00) ng/mL 07/18/18 07/18/18 Range/Units 04:32 04:32 WBC (4.5-11.0) K/uL RBC (3.30-5.50) M/uL Hgb (12.0-15.0) g/dL Hct (36.0-48.0) % MCV (80-98) fL MCH (27-31) pg MCHC (32-36) % Plt Count (150-400) K/uL Neut % (Auto) (36-66) % Lymph % (Auto) (24-44) % Wilkin % (Auto) (2-6) % Eos % (Auto) (2-4) % Baso % (Auto) (0-1) % Sodium 145 (140-148) mmol/L Potassium 4.1 (3.6-5.2) mmol/L Chloride 110 H (100-108) mmol/L Carbon Dioxide 26 (21-32) mmol/L Anion Gap 13.1 (5.0-14.0) mmol/L BUN 22 H (7-18) mg/dL Creatinine 0.7 (0.6-1.0) mg/dL Est Cr Clr Drug Dosing 51.65 mL/min Estimated GFR (MDRD) > 60 (>60) Glucose 134 H (74-106) mg/dL Calcium 8.2 L (8.5-10.1) mg/dL Phosphorus 3.0 (2.5-4.9) mg/dL Magnesium 1.9 (1.8-2.4) mg/dL Total Bilirubin 0.3 (0.2-1.0) mg/dL AST 30 (15-37) U/L ALT 38 (12-78) U/L Alkaline Phosphatase 60 (46-116) U/L NT-Pro-B Natriuret Pep 650 H (5-450) pg/mL Total Protein 5.5 L (6.4-8.2) g/dL Albumin 2.3 L (3.4-5.0) g/dL Globulin 3.2 (2.3-3.5) g/dL Albumin/Globulin Ratio 0.7 L (1.2-2.2) Digoxin 0.68 L (0.90-2.00) ng/mL Lei Results Last 24 Hours: Microbiology 07/13/18 14:11 Gram Stain - Final Abdomen - Abscess Wound Culture - Final Viridans Streptococcus Anaerobic Culture - Final NO GROWTH AFTER 3 DAYS Med Orders - Current: Current Medications Diphenhydramine HCl (Benadryl) 50 mg IVPUSH Q4H PRN PRN Reason: ITCHING Enoxaparin Sodium (Lovenox) 60 mg SUBCUT Q12H [facility] Last Admin: 07/18/18 00:05 Dose: 60 mg Haloperidol Lactate (Haldol) 2.5 mg IV Q6H PRN PRN Reason: ANXIETY/HALLUCINATIONS Hydromorphone HCl (Dilaudid Proof Load Mechanic 15 Mg In Ns 30 Ml) 0 mg IV ASDIRECTED PRN; Protocol PRN Reason: [employer] PAIN CONTROL Last Admin: 07/13/18 15:11 Dose: 0.2 mg Hydroxyzine HCl (Vistaril) 100 mg IM Q4H PRN PRN Reason: pain Aztreonam/Dextrose 1 gm/ (Premix) 50 mls @ 100 mls/hr IV Q8H [facility] Last Admin: 07/18/18 07:53 Dose: 100 mls/hr Diltiazem HCl 125 mg/ Sodium (Chloride) 125 mls @ 5 mls/hr IV TITRATE [facility]; Protocol Last Titration: 07/18/18 06:19 Dose: 5 mg/hr, 5 mls/hr Meropenem 1 gm/ Sodium (Chloride) 100 mls @ 200 mls/hr IV Q8H [facility] Last Admin: 07/18/18 05:36 Dose: 200 mls/hr Potassium Phosphate 15 mmole/ (Sodium Chloride) 255 mls @ 125 mls/hr IV Q2H [facility] Stop: 07/18/18 13:59 Dextrose/Lactated Ringer's (Dextrose 5%-Lactated Ringers) 1,000 mls @ 100 mls/ hr IV ASDIRECTED [facility] Metoclopramide HCl (Reglan) 10 mg IVPUSH Q6H [facility] Last Admin: 07/18/18 07:54 Dose: 10 mg Metoprolol Succinate (Toprol Xl) 100 mg PO DAILY [facility] Naloxone HCl (Narcan) 0.1 mg IV ASDIRECTED PRN PRN Reason: decreased respiratory rate Ondansetron HCl (Zofran) 4 mg IV Q4H PRN PRN Reason: Nausea/Vomiting Last Admin: 07/13/18 19:38 Dose: 4 mg Discontinued Medications Acetaminophen (Tylenol) 650 mg PO Q4H PRN PRN Reason: Pain (Mild 1-3)/fever Last Admin: 07/13/18 03:31 Dose: 325 mg Aspirin (Halfprin) 81 mg PO DAILY [facility] Last Admin: 07/13/18 16:03 Dose: Not Given Aspirin (Halfprin) 81 mg PO DAILY [facility] Last Admin: 07/15/18 11:08 Dose: 81 mg Bisacodyl (Dulcolax) 10 mg PO BID [facility] Last Admin: 07/15/18 20:35 Dose: Not Given Bupivacaine HCl (Marcaine 0.5%) Confirm Administered Dose 30 ml .ROUTE .STK-MED ONE Stop: 07/15/18 06:44 Last Admin: 07/15/18 07:58 Dose: 15 ml Ropivacaine 28 ml/Dexamethasone 8 mg/Epinephrine HCl 0.4 mg/ Sodium Chloride 49.6 ml 0 ml NERVRT ASDIRECTED [facility] Last Admin: 07/13/18 12:40 Dose: 80 syringe Ropivacaine 28 ml/Dexamethasone 8 mg/Epinephrine HCl 0.4 mg/ Sodium Chloride 49.6 ml 0 ml NERVRT ASDIRECTED [facility] Last Admin: 07/15/18 07:14 Dose: 2 syringe Dexamethasone (Dexamethasone) Confirm Administered Dose 4 mg .ROUTE .STK-MED ONE Stop: 07/13/18 08:32 Digoxin (Lanoxin) 125 mcg IVPUSH ONETIME ONE Stop: 07/16/18 05:30 Last Admin: 07/16/18 05:46 Dose: 125 mcg Digoxin (Lanoxin) 250 mcg IVPUSH ONETIME ONE Stop: 07/17/18 09:46 Last Admin: 07/17/18 09:54 Dose: 250 mcg Digoxin (Lanoxin) 250 mcg IVPUSH ONETIME ONE Stop: 07/17/18 15:16 Last Admin: 07/17/18 15:15 Dose: 250 mcg Diltiazem HCl (Cardizem) 45 mg PO Q6HR [facility] Last Admin: 07/16/18 03:14 Dose: Not Given Diltiazem HCl (Diltiazem) 15 mg IVPUSH ONETIME ONE Stop: 07/16/18 01:57 Last Admin: 07/16/18 02:13 Dose: 15 mg Diltiazem HCl (Diltiazem) 5 mg IVPUSH ONETIME ONE Stop: 07/16/18 04:12 Last Admin: 07/16/18 04:24 Dose: 5 mg Docusate Sodium (Colace) 100 mg PO BID [facility] Last Admin: 07/15/18 20:35 Dose: Not Given Fentanyl (Sublimaze) Confirm Administered Dose 250 mcg .ROUTE .STK-MED ONE Stop: 07/13/18 08:33 Fentanyl (Sublimaze) Confirm Administered Dose 250 mcg .ROUTE .STK-MED ONE Stop: 07/13/18 12:42 Fentanyl (Sublimaze) Confirm Administered Dose 100 mcg .ROUTE .STK-MED ONE Stop: 07/15/18 07:21 Furosemide (Lasix) 20 mg IV ONETIME ONE Stop: 07/15/18 10:01 Last Admin: 07/15/18 09:37 Dose: 20 mg Glycopyrrolate (Robinul) Confirm Administered Dose 1 mg .ROUTE .STK-MED ONE Stop: 07/13/18 08:32 Haloperidol Lactate (Haldol) 2.5 mg IVPUSH ONETIME ONE Stop: 07/16/18 06:34 Last Admin: 07/16/18 06:51 Dose: 2.5 mg Lactated Ringer's (Ringers, Lactated) 1,000 mls @ 999 mls/hr IV BOLUS ONE Stop: 07/12/18 15:06 Last Admin: 07/12/18 15:08 Dose: 999 mls/hr Sodium Chloride (Normal Saline) 80 mls @ 3 mls/sec IV ASDIRECTED [facility] Last Admin: 07/12/18 14:36 Dose: 3 mls/sec Ampicillin Sodium/Sulbactam (Sodium 3 gm/ Sodium Chloride) 100 mls @ 200 mls/ hr IV Q6H [facility] Stop: 07/12/18 17:00 Last Admin: 07/12/18 15:26 Dose: 200 mls/hr Aztreonam 1 gm/ Sodium (Chloride) 50 mls @ 100 mls/hr IV Q8H [facility] Ampicillin Sodium/Sulbactam (Sodium 3 gm/ Sodium Chloride) 100 mls @ 200 mls/ hr IV Q6H [facility] Last Admin: 07/16/18 09:34 Dose: 200 mls/hr Lactated Ringer's (Ringers, Lactated) 1,000 mls @ 75 mls/hr IV ASDIRECTED [facility] Last Admin: 07/13/18 03:33 Dose: 75 mls/hr Phytonadione 5 mg/ Sodium (Chloride) 50.5 mls @ 100 mls/hr IV NOW ONE Stop: 07/12/18 17:00 Last Admin: 07/12/18 17:47 Dose: 100 mls/hr Lactated Ringer's (Ringers, Lactated) Confirm Administered Dose 1,000 mls @ as directed .ROUTE .STK-MED ONE Stop: 07/13/18 12:46 Tranexamic Acid 1,000 mg/ (Sodium Chloride) 60 mls @ 240 mls/hr IV Q3H [facility] Stop: 07/13/18 18:14 Last Admin: 07/13/18 17:47 Dose: 240 mls/hr Dextrose/Lactated Ringer's (Dextrose 5%-Lactated Ringers) 1,000 mls @ 175.004 mls/hr IV ASDIRECTED [facility] Last Admin: 07/14/18 06:57 Dose: 175.004 mls/hr Multivitamins/Minerals 10 ml/Thiamine HCl 200 mg/ Chromium/Copper/Manganese/ Seleni/Zn 1 ml/ Dextrose/Lactated Ringer's 1,013 mls @ 174.999 mls/hr IV DAILY@ 1600 [facility] Last Admin: 07/13/18 17:47 Dose: 174.999 mls/hr Diltiazem HCl 100 mg/ Sodium (Chloride) 100 mls @ 5 mls/hr IV TITRATE [facility]; Protocol Last Admin: 07/14/18 14:39 Dose: 5 mg/hr, 5 mls/hr Dextrose/Lactated Ringer's (Dextrose 5%-Lactated Ringers) 1,000 mls @ 125 mls/ hr IV ASDIRECTED [facility] Last Admin: 07/15/18 01:05 Dose: 125 mls/hr Magnesium Sulfate 2 gm/ Premix 50 mls @ 25 mls/hr IV Q6H [facility] Stop: 07/16/18 09:59 Last Admin: 07/16/18 08:17 Dose: 25 mls/hr Multivitamins/Minerals 10 ml/Thiamine HCl 200 mg/ Chromium/Copper/Manganese/ Zinc 1 ml/Dextrose/Lactated Ringer's 1,013 mls @ 125 mls/hr IV DAILY@1600 [facility] Last Admin: 07/14/18 16:17 Dose: 125 mls/hr Lactated Ringer's (Ringers, Lactated) Confirm Administered Dose 1,000 mls @ as directed .ROUTE .STK-MED ONE Stop: 07/15/18 07:55 Potassium Chloride 20 meq/Lidocaine HCl 2 ml/ Sodium Chloride 112 mls @ 56 mls/ hr IV Q2H [facility] Stop: 07/15/18 15:59 Last Admin: 07/15/18 14:17 Dose: 56 mls/hr Dextrose/Lactated Ringer's (Dextrose 5%-Lactated Ringers) 1,000 mls @ 25 mls/ hr IV ASDIRECTED [facility] Last Admin: 07/16/18 10:44 Dose: 25 mls/hr Diltiazem HCl 100 mg/ Sodium (Chloride) 100 mls @ 5 mls/hr IV TITRATE [facility]; Protocol Stop: 07/17/18 12:55 Last Admin: 07/17/18 06:50 Dose: 15 mg/hr, 15 mls/hr Potassium Phosphate 22.5 mmole (/ Sodium Chloride) 257.5 mls @ 65 mls/hr IV Q4H [facility] Stop: 07/16/18 17:28 Last Admin: 07/16/18 14:09 Dose: 65 mls/hr Cefoxitin Sodium 1 gm/ Sodium (Chloride) 50 mls @ 100 mls/hr IV Q8H [facility] Last Admin: 07/17/18 08:15 Dose: 100 mls/hr Potassium Phosphate 20 mmole/ (Sodium Chloride) 256.6667 mls @ 85 mls/hr IV Q3H [facility] Stop: 07/17/18 18:59 Last Admin: 07/17/18 16:35 Dose: 85 mls/hr Lactated Ringer's (Ringers, Lactated) 1,000 mls @ 500 mls/hr IV ASDIRECTED [facility] Stop: 07/17/18 10:46 Last Admin: 07/17/18 09:41 Dose: 500 mls/hr Lactated Ringer's (Ringers, Lactated) 1,000 mls @ 250 mls/hr IV ONETIME ONE Stop: 07/17/18 15:39 Last Admin: 07/17/18 11:37 Dose: 250 mls/hr Esmolol HCl (Brevibloc In Ns Premix) 2.5 gm in 250 mls @ 17.187 mls/hr IV TITRATE [facility]; Protocol Last Admin: 07/18/18 08:46 Dose: 50 mcg/kg/min, 17.187 mls/hr Lactated Ringer's (Ringers, Lactated) 500 mls @ 500 mls/hr IV ONETIME ONE Stop: 07/18/18 08:29 Last Admin: 07/18/18 07:44 Dose: 500 mls/hr Iopamidol (Isovue-300 (61%)) 100 ml IV . DIRECTED PRN PRN Reason: RADIOLOGY EXAM Stop: 07/13/18 14:24 Last Admin: 07/12/18 14:36 Dose: 100 ml Labetalol HCl (Normodyne) Confirm Administered Dose 20 mg .ROUTE .STK-MED ONE Stop: 07/13/18 12:45 Labetalol HCl (Normodyne) 5 mg IVPUSH Q5M PRN PRN Reason: SBP over 160 OR DBP over 95 Last Admin: 07/13/18 19:46 Dose: 5 mg Lidocaine/Epinephrine (Xylocaine 1% With Epinephrine 1:100,000) Confirm Administered Dose 50 ml .ROUTE .[facility] Stop: 07/15/18 06:44 Last Admin: 07/15/18 07:58 Dose: 15 ml Lisinopril (Prinivil) 20 mg PO BEDTIME [facility] Last Admin: 07/12/18 21:12 Dose: 20 mg Lisinopril (Prinivil) 20 mg PO DAILY [facility] Last Admin: 07/15/18 11:08 Dose: 20 mg Melatonin (Melatonin) 9 mg PO BEDTIME [facility] Last Admin: 07/15/18 20:36 Dose: Not Given Meropenem (Merrem) Confirm Administered Dose 500 mg .ROUTE .[facility] Stop: 07/13/18 08:39 Last Admin: 07/13/18 13:00 Dose: 500 mg Meropenem (Merrem) Confirm Administered Dose 500 mg .ROUTE .[facility] ONE Stop: 07/15/18 06:43 Last Admin: 07/15/18 07:58 Dose: 500 mg Metoclopramide HCl (Reglan) 10 mg IVPUSH Q6H PRN PRN Reason: NAUSEA NOT CONTROL BY ZOFRAN Metoclopramide HCl (Reglan) 10 mg IVPUSH Q6H [facility] Last Admin: 07/16/18 01:10 Dose: 10 mg Metoprolol Succinate (Toprol Xl) 100 mg PO DAILY [facility] Stop: 07/13/18 06:01 Last Admin: 07/13/18 05:58 Dose: 100 mg Metoprolol Succinate (Toprol Xl) 100 mg PO DAILY [facility] Metoprolol Tartrate (Lopressor) 5 mg IV Q6H [facility] Last Admin: 07/14/18 04:28 Dose: 5 mg Metoprolol Tartrate (Lopressor) 50 mg PO BID [facility] Last Admin: 07/15/18 20:30 Dose: 50 mg Metoprolol Tartrate (Lopressor) 5 mg IV Q6H [facility] Morphine Sulfate (Morphine) 2 mg IVPUSH Q2H PRN PRN Reason: Pain (severe 7-10) Multivitamins/Minerals (Thera M Plus) 1 tab PO DAILY [facility] Neostigmine Methylsulfate (Neostigmine) Confirm Administered Dose 5 mg .ROUTE .[facility] ONE Stop: 07/13/18 08:32 Non-Formulary Medication (Tap Block, Pharmacy To Dose) 0 ml NERVRT ONETIME ONE Stop: 07/13/18 07:31 Last Admin: 07/13/18 13:06 Dose: Not Given Ondansetron HCl (Zofran Odt) 4 mg PO Q6H PRN PRN Reason: Nausea able to take PO Ondansetron HCl (Zofran) 4 mg IV Q6H PRN PRN Reason: Nausea/Vomiting Last Admin: 07/13/18 15:58 Dose: 4 mg Ondansetron HCl (Zofran) Confirm Administered Dose 4 mg .ROUTE .STK-MED ONE Stop: 07/13/18 08:32 Oxycodone HCl (Oxycodone) 5 mg PO Q4H PRN PRN Reason: Pain (moderate 4-6) Pantoprazole Sodium (Protonix Iv) 40 mg IVPUSH Q24H [facility] Last Admin: 07/14/18 16:24 Dose: 40 mg Pantoprazole Sodium (Protonix) 40 mg PO ACDINNER [facility] Last Admin: 07/15/18 15:14 Dose: 40 mg Propofol (Diprivan 20 Ml) Confirm Administered Dose 200 mg .ROUTE .STK-MED ONE Stop: 07/13/18 08:32 Propofol (Diprivan 20 Ml) Confirm Administered Dose 200 mg .ROUTE .STK-MED ONE Stop: 07/15/18 07:21 Propofol (Diprivan 20 Ml) Confirm Administered Dose 200 mg .ROUTE .STK-MED ONE Stop: 07/15/18 07:58 Rocuronium [place] (Zemuron) Confirm Administered Dose 50 mg .ROUTE .STK-MED ONE Stop: 07/13/18 08:32 Sodium Chloride (Saline Flush) 10 ml FLUSH ASDIRECTED PRN PRN Reason: Keep Vein Open Last Admin: 07/12/18 15:09 Dose: 10 ml Succinylcholine Chloride (Quelicin) Confirm Administered Dose 200 mg .ROUTE .STK -MED ONE Stop: 07/13/18 08:32 Warfarin Sodium 5 mg/ Warfarin (Sodium 1 mg) 6 mg PO ONETIME ONE Stop: 07/15/18 11:01 Last Admin: 07/15/18 11:08 Dose: 6 mg - Exam Quality Assessment: DVT Prophylaxis General: Alert, Oriented, Cooperative, Mild Distress Lungs: Clear to Auscultation, Normal Respiratory Effort Cardiovascular: Regular Rate, No Murmurs, Irregular Rhythm GI/Abdominal Exam: Soft, Non-Tender, No Organomegaly, No Distention - Problem List Review Problem List Initiated/Reviewed/Updated: Yes - My Orders Last 24 Hours: My Active Orders 07/17/18 14:30 Meropenem [Merrem] 1 gm Sodium Chloride 0.9% [Normal Saline] 100 ml IV Q8H 07/18/18 09:45 Metoprolol Succinate [Toprol XL] 100 mg PO DAILY - Plan Plan:: ASSESSMENT AND PLAN - Acute appendicitis with abscess - status post surgical drainage that required right hemicolectomy and partial small bowel resection because of a large inflammatory mass surrounding the infection. Cultures are growing out strep viridans. She has been passing gas and stool, NG tube removed, started on a clear liquid diet. -IV antibiotic therapy with meropenem and aztreonam -Pain and nausea control as needed -Additional postoperative care per surgical team -Flat and upright planned in the morning Atrial fibrillation with rapid ventricular response - rate control improved in the last 24 hours with use of Esmolol in addition to diltiazem -Continue diltiazem infusion -Discontinue IV Esmolol -Resume metoprolol XL 100 mg by mouth daily -Continue systemic anticoagulation -Warfarin on hold due to nothing by mouth status -continue cardiac monitoring Hypokalemia Coronary artery disease status post CABG - Remote history of coronary disease with good functional status and no active anginal symptoms. She is on medical therapy with lisinopril and metoprolol as well as a daily aspirin. -Continue home medications Maintenance issues - - DVT prophylaxis - enoxaparin - GI prophylaxis - PPI - Nutrition - nothing by mouth Disposition - I would anticipate discharge to home after the hospital stay
[2018-07-18] MEDS: Metoprolol Succinate 50 MG Tab.ER PO SCH (10:01)
[2018-07-18] MEDS: Potassium Phosphates 15 MMOLE in Sodium Chloride 0.9% 250 ML IV SCH ×2 (10:01→12:27)
[2018-07-18] MEDS: Dextrose 5%-Lactated Ringers 1,000 ML IV SCH (17:24)
[2018-07-18] MEDS: Ondansetron 4 MG/2 ML SDV IV PRN ×2 (18:39→23:49)
[2018-07-19] MEDS: Metoclopramide 10 MG/2 ML SDV IVPUSH SCH (01:42)
[2018-07-19] MEDS: Enoxaparin 60 MG/0.6 ML Syringe SUBCUT SCH ×2 (01:43→12:46)
[2018-07-19] MEDS: ESMOLOL IV SCH ×2 (02:04→16:47)
[2018-07-19] MEDS: Dextrose 5%-Lactated Ringers 1,000 ML IV SCH ×2 (03:42→19:14)
[2018-07-19] MEDS: Meropenem 1 GM in Sodium Chloride 0.9% 100 ML IV SCH ×3 (05:54→22:04)
[2018-07-19] MEDS: Diltiazem 125 MG in Sodium Chloride 0.9% 100 ML IV SCH (05:55)
[2018-07-19] MEDS ORDERED: Sodium Chloride 0.9% 10 ML Syringe FLUSH PRN (08:19)
[2018-07-19] MEDS ORDERED: Iopamidol 612 MG/ML 100 ML Bottle IV PRN (08:19)
[2018-07-19] MEDS: Aztreonam/Dextrose-Water 1 GM in Premix Bag 1 BAG IV SCH ×3 (08:26→23:09)
[2018-07-19] MEDS: Ondansetron 4 MG/2 ML SDV IV PRN ×2 (08:28→13:19)
--- NOTE | 2018-07-19 09:19 | CR ---
Findings: Increasing dilated loops of large and small bowel with air-fluid levels concerning for obstruction.
[2018-07-19] MEDS: Metoprolol Succinate 50 MG Tab.ER PO SCH (09:32)
--- NOTE | 2018-07-19 09:35 | CT ---
CT abdomen and pelvis with contrast. Indication: Right colectomy. Comparison: 07/12/2018. Findings: 9-10 nodular density directly above the right hemidiaphragm which is increased compared to 06/18/2014. No other focal consolidation. Bilateral indeterminate adrenal gland nodules that have increased in size compared to 06/18/2014. Largest the left is 14 mm. Fatty infiltration of the liver. Prior cholecystectomy change pancreas within normal limits. Spleen within normal limits. Numerous tiny hypodensities scattered within both kidneys with the no evidence for contrast enhancing mass. No hydronephrosis. Mild-moderate amount of ascites fluid right upper quadrant. Diffuse dilatation of small bowel loops with air-fluid levels throughout the abdomen and pelvis. There is some postsurgical change to small bowel loops within the right upper quadrant. Posterior changes of a left hemicolectomy. Fluid-filled colon distal to the anastomosis. There is only some decompression of the descending colon. There is some narrowing at the anastomosis at the right hemicolectomy site. No gross evidence for ring-enhancing fluid collection. There is air within the bladder. No bladder wall thickening. Atherosclerotic, nonaneurysmal aorta. Air within the bladder anteriorly. Impression: 1. Numerous dilated loops of small bowel. Distal to the right hemicolectomy anastomosis the colon is distended with fluid. Only some decompression. Would favor ileus cannot exclude a partial obstruction at the right hemicolectomy site. Consider CT follow-up. 2. No evidence for abscess collection. 3. Nodular density right lung base. Consider CT follow-up in 3-[address] follow-up. 4. Adrenal adenomas could be confirmed with a CT abdomen and adrenal gland protocol. 5. Air within the bladder likely relates to instrumentation and catheterization however correlate for infection.
[2018-07-19] MEDS: Magnesium Sulfate/Water 2 GM in Premix Bag 1 BAG IV SCH ×3 (09:36→21:24)
--- NOTE | 2018-07-19 09:40 | PCM.PN ---
- General Info Date of Service: 07/19/18 Subjective Update: Ms. Mcdonald is been hemodynamically stable and afebrile over the last 24 hours. She remains fairly weak and has had difficulty tolerating liquids because of ongoing symptoms of nausea. In the last 24 hours is also developed diarrhea, C. difficile has been obtained and found to be negative. Rate remains well controlled with use of IV diltiazem and Esmolol. - Review of Systems General: Reports: Weakness. Denies: Fever, Chills Pulmonary: Reports: No Symptoms Cardiovascular: Reports: No Symptoms Gastrointestinal: Reports: Decreased Appetite, Diarrhea, Flatus, Nausea. Denies : Abdominal Pain, Constipation, Vomiting - Patient Data Vitals - Most Recent: Last Vital Signs Temp 97.4 F 07/19/18 07:00 Pulse 97 07/19/18 09:32 Resp 19 07/19/18 07:00 BP 150/90 H 07/19/18 09:32 Pulse Ox 98 07/19/18 07:00 Weight - Most Recent: 126 lb 4.81 oz I&O - Last 24 Hours: Intake & Output 07/18/18 07/19/18 07/19/18 22:59 06:59 14:59 Intake Total 2404 1513 Output Total 102 550 Balance 2302 963 Lab Results Last 24 Hours: Laboratory Results - last 24 hr 07/19/18 07/19/18 Range/Units 04:36 04:36 WBC 25.7 H (4.5-11.0) K/uL RBC 2.64 L (3.30-5.50) M/uL Hgb 8.2 L (12.0-15.0) g/dL Hct 24.7 L (36.0-48.0) % MCV 94 (80-98) fL MCH 31 (27-31) pg MCHC 33 (32-36) % Plt Count 439 H (150-400) K/uL Sodium 142 (140-148) mmol/L Potassium 4.0 (3.6-5.2) mmol/L Chloride 108 (100-108) mmol/L Carbon Dioxide 25 (21-32) mmol/L Anion Gap 9.0 (5.0-14.0) mmol/L BUN 16 (7-18) mg/dL Creatinine 0.8 (0.6-1.0) mg/dL Est Cr Clr Drug Dosing 45.19 mL/min Estimated GFR (MDRD) > 60 (>60) Glucose 185 H (74-106) mg/dL Calcium 8.4 L (8.5-10.1) mg/dL Phosphorus 2.8 (2.5-4.9) mg/dL Magnesium 1.7 L (1.8-2.4) mg/dL Total Bilirubin 0.3 (0.2-1.0) mg/dL AST 27 (15-37) U/L ALT 40 (12-78) U/L Alkaline Phosphatase 65 (46-116) U/L NT-Pro-B Natriuret Pep 929 H (5-450) pg/mL Total Protein 5.8 L (6.4-8.2) g/dL Albumin 2.4 L (3.4-5.0) g/dL Globulin 3.4 (2.3-3.5) g/dL Albumin/Globulin Ratio 0.7 L (1.2-2.2) Lei Results Last 24 Hours: Microbiology 07/19/18 02:08 Clostridium difficile (PCR) - Final Stool / Feces - Stool, Liquid NEGATIVE CDIFF TOXIN Med Orders - Current: Current Medications Diphenhydramine HCl (Benadryl) 50 mg IVPUSH Q4H PRN PRN Reason: ITCHING Enoxaparin Sodium (Lovenox) 60 mg SUBCUT Q12H [facility] Last Admin: 07/19/18 01:43 Dose: 60 mg Furosemide (Lasix) 10 mg IVPUSH ONETIME ONE Stop: 07/19/18 12:01 Haloperidol Lactate (Haldol) 2.5 mg IV Q6H PRN PRN Reason: ANXIETY/HALLUCINATIONS Hydroxyzine HCl (Vistaril) 100 mg IM Q4H PRN PRN Reason: pain Aztreonam/Dextrose 1 gm/ (Premix) 50 mls @ 100 mls/hr IV Q8H [facility] Last Admin: 07/19/18 08:26 Dose: 100 mls/hr Diltiazem HCl 125 mg/ Sodium (Chloride) 125 mls @ 5 mls/hr IV TITRATE [facility]; Protocol Last Admin: 07/19/18 05:55 Dose: 5 mg/hr, 5 mls/hr Meropenem 1 gm/ Sodium (Chloride) 100 mls @ 200 mls/hr IV Q8H [facility] Last Admin: 07/19/18 05:54 Dose: 200 mls/hr Dextrose/Lactated Ringer's (Dextrose 5%-Lactated Ringers) 1,000 mls @ 100 mls/ hr IV ASDIRECTED [facility] Last Admin: 07/19/18 03:42 Dose: 100 mls/hr Esmolol HCl 2,500 mg/ Premix 250 mls @ 17.18 mls/hr IV TITRATE [facility]; Protocol Last Admin: 07/19/18 02:04 Dose: 50 mcg/kg/min, 17.18 mls/hr Potassium Phosphate 22.5 mmole (/ Sodium Chloride) 257.5 mls @ 65 mls/hr IV Q4H [facility] Stop: 07/19/18 17:58 Magnesium Sulfate 2 gm/ Premix 50 mls @ 25 mls/hr IV Q6H [facility] Stop: 07/21/18 05:59 Sodium Chloride (Normal Saline) 70 mls @ 3 mls/sec IV ASDIRECTED [facility] Last Admin: 07/19/18 08:49 Dose: 3 mls/sec Iopamidol (Isovue-300 (61%)) 86 ml IV . DIRECTED PRN PRN Reason: RADIOLOGY EXAM Stop: 07/20/18 08:20 Last Admin: 07/19/18 08:49 Dose: 86 ml Metoprolol Succinate (Toprol Xl) 100 mg PO DAILY [facility] Last Admin: 07/19/18 09:32 Dose: 100 mg Ondansetron HCl (Zofran) 4 mg IV Q4H PRN PRN Reason: Nausea/Vomiting Last Admin: 07/19/18 08:28 Dose: 4 mg Sodium Chloride (Saline Flush) 10 ml FLUSH ONETIME PRN PRN Reason: per radiology protocol Last Admin: 07/19/18 08:49 Dose: 10 ml Discontinued Medications Acetaminophen (Tylenol) 650 mg PO Q4H PRN PRN Reason: Pain (Mild 1-3)/fever Last Admin: 07/13/18 03:31 Dose: 325 mg Aspirin (Halfprin) 81 mg PO DAILY [facility] Last Admin: 07/13/18 16:03 Dose: Not Given Aspirin (Halfprin) 81 mg PO DAILY [facility] Last Admin: 07/15/18 11:08 Dose: 81 mg Bisacodyl (Dulcolax) 10 mg PO BID [facility] Last Admin: 07/15/18 20:35 Dose: Not Given Bupivacaine HCl (Marcaine 0.5%) Confirm Administered Dose 30 ml .ROUTE .STK-MED ONE Stop: 07/15/18 06:44 Last Admin: 07/15/18 07:58 Dose: 15 ml Ropivacaine 28 ml/Dexamethasone 8 mg/Epinephrine HCl 0.4 mg/ Sodium Chloride 49.6 ml 0 ml NERVRT ASDIRECTED [facility] Last Admin: 07/13/18 12:40 Dose: 80 syringe Ropivacaine 28 ml/Dexamethasone 8 mg/Epinephrine HCl 0.4 mg/ Sodium Chloride 49.6 ml 0 ml NERVRT ASDIRECTED [facility] Last Admin: 07/15/18 07:14 Dose: 2 syringe Dexamethasone (Dexamethasone) Confirm Administered Dose 4 mg .ROUTE .STK-MED ONE Stop: 07/13/18 08:32 Digoxin (Lanoxin) 125 mcg IVPUSH ONETIME ONE Stop: 07/16/18 05:30 Last Admin: 07/16/18 05:46 Dose: 125 mcg Digoxin (Lanoxin) 250 mcg IVPUSH ONETIME ONE Stop: 07/17/18 09:46 Last Admin: 07/17/18 09:54 Dose: 250 mcg Digoxin (Lanoxin) 250 mcg IVPUSH ONETIME ONE Stop: 07/17/18 15:16 Last Admin: 07/17/18 15:15 Dose: 250 mcg Diltiazem HCl (Cardizem) 45 mg PO Q6HR [facility] Last Admin: 07/16/18 03:14 Dose: Not Given Diltiazem HCl (Diltiazem) 15 mg IVPUSH ONETIME ONE Stop: 07/16/18 01:57 Last Admin: 07/16/18 02:13 Dose: 15 mg Diltiazem HCl (Diltiazem) 5 mg IVPUSH ONETIME ONE Stop: 07/16/18 04:12 Last Admin: 07/16/18 04:24 Dose: 5 mg Docusate Sodium (Colace) 100 mg PO BID [facility] Last Admin: 07/15/18 20:35 Dose: Not Given Fentanyl (Sublimaze) Confirm Administered Dose 250 mcg .ROUTE .STK-MED ONE Stop: 07/13/18 08:33 Fentanyl (Sublimaze) Confirm Administered Dose 250 mcg .ROUTE .STK-MED ONE Stop: 07/13/18 12:42 Fentanyl (Sublimaze) Confirm Administered Dose 100 mcg .ROUTE .STK-MED ONE Stop: 07/15/18 07:21 Furosemide (Lasix) 20 mg IV ONETIME ONE Stop: 07/15/18 10:01 Last Admin: 07/15/18 09:37 Dose: 20 mg Glycopyrrolate (Robinul) Confirm Administered Dose 1 mg .ROUTE .STK-MED ONE Stop: 07/13/18 08:32 Haloperidol Lactate (Haldol) 2.5 mg IVPUSH ONETIME ONE Stop: 07/16/18 06:34 Last Admin: 07/16/18 06:51 Dose: 2.5 mg Hydromorphone HCl (Dilaudid Assigner 15 Mg In Ns 30 Ml) 0 mg IV ASDIRECTED PRN; Protocol PRN Reason: [employer] MACHINE [employer] PAIN CONTROL Last Admin: 07/13/18 15:11 Dose: 0.2 mg Lactated Ringer's (Ringers, Lactated) 1,000 mls @ 999 mls/hr IV BOLUS ONE Stop: 07/12/18 15:06 Last Admin: 07/12/18 15:08 Dose: 999 mls/hr Sodium Chloride (Normal Saline) 80 mls @ 3 mls/sec IV ASDIRECTED [facility] Last Admin: 07/12/18 14:36 Dose: 3 mls/sec Ampicillin Sodium/Sulbactam (Sodium 3 gm/ Sodium Chloride) 100 mls @ 200 mls/ hr IV Q6H [facility] Stop: 07/12/18 17:00 Last Admin: 07/12/18 15:26 Dose: 200 mls/hr Aztreonam 1 gm/ Sodium (Chloride) 50 mls @ 100 mls/hr IV Q8H [facility] Ampicillin Sodium/Sulbactam (Sodium 3 gm/ Sodium Chloride) 100 mls @ 200 mls/ hr IV Q6H [facility] Last Admin: 07/16/18 09:34 Dose: 200 mls/hr Lactated Ringer's (Ringers, Lactated) 1,000 mls @ 75 mls/hr IV ASDIRECTED [facility] Last Admin: 07/13/18 03:33 Dose: 75 mls/hr Phytonadione 5 mg/ Sodium (Chloride) 50.5 mls @ 100 mls/hr IV NOW ONE Stop: 07/12/18 17:00 Last Admin: 07/12/18 17:47 Dose: 100 mls/hr Lactated Ringer's (Ringers, Lactated) Confirm Administered Dose 1,000 mls @ as directed .ROUTE .STK-MED ONE Stop: 07/13/18 12:46 Tranexamic Acid 1,000 mg/ (Sodium Chloride) 60 mls @ 240 mls/hr IV Q3H [facility] Stop: 07/13/18 18:14 Last Admin: 07/13/18 17:47 Dose: 240 mls/hr Dextrose/Lactated Ringer's (Dextrose 5%-Lactated Ringers) 1,000 mls @ 175.004 mls/hr IV ASDIRECTED [facility] Last Admin: 07/14/18 06:57 Dose: 175.004 mls/hr Multivitamins/Minerals 10 ml/Thiamine HCl 200 mg/ Chromium/Copper/Manganese/ Seleni/Zn 1 ml/ Dextrose/Lactated Ringer's 1,013 mls @ 174.999 mls/hr IV DAILY@ 1600 [facility] Last Admin: 07/13/18 17:47 Dose: 174.999 mls/hr Diltiazem HCl 100 mg/ Sodium (Chloride) 100 mls @ 5 mls/hr IV TITRATE [facility]; Protocol Last Admin: 07/14/18 14:39 Dose: 5 mg/hr, 5 mls/hr Dextrose/Lactated Ringer's (Dextrose 5%-Lactated Ringers) 1,000 mls @ 125 mls/ hr IV ASDIRECTED [facility] Last Admin: 07/15/18 01:05 Dose: 125 mls/hr Magnesium Sulfate 2 gm/ Premix 50 mls @ 25 mls/hr IV Q6H [facility] Stop: 07/16/18 09:59 Last Admin: 07/16/18 08:17 Dose: 25 mls/hr Multivitamins/Minerals 10 ml/Thiamine HCl 200 mg/ Chromium/Copper/Manganese/ Zinc 1 ml/Dextrose/Lactated Ringer's 1,013 mls @ 125 mls/hr IV DAILY@1600 [facility] Last Admin: 07/14/18 16:17 Dose: 125 mls/hr Lactated Ringer's (Ringers, Lactated) Confirm Administered Dose 1,000 mls @ as directed .ROUTE .STK-MED ONE Stop: 07/15/18 07:55 Potassium Chloride 20 meq/Lidocaine HCl 2 ml/ Sodium Chloride 112 mls @ 56 mls/ hr IV Q2H [facility] Stop: 07/15/18 15:59 Last Admin: 07/15/18 14:17 Dose: 56 mls/hr Dextrose/Lactated Ringer's (Dextrose 5%-Lactated Ringers) 1,000 mls @ 25 mls/ hr IV ASDIRECTED [facility] Last Admin: 07/16/18 10:44 Dose: 25 mls/hr Diltiazem HCl 100 mg/ Sodium (Chloride) 100 mls @ 5 mls/hr IV TITRATE [facility]; Protocol Stop: 07/17/18 12:55 Last Admin: 07/17/18 06:50 Dose: 15 mg/hr, 15 mls/hr Potassium Phosphate 22.5 mmole (/ Sodium Chloride) 257.5 mls @ 65 mls/hr IV Q4H [facility] Stop: 07/16/18 17:28 Last Admin: 07/16/18 14:09 Dose: 65 mls/hr Cefoxitin Sodium 1 gm/ Sodium (Chloride) 50 mls @ 100 mls/hr IV Q8H [facility] Last Admin: 07/17/18 08:15 Dose: 100 mls/hr Potassium Phosphate 20 mmole/ (Sodium Chloride) 256.6667 mls @ 85 mls/hr IV Q3H [facility] Stop: 07/17/18 18:59 Last Admin: 07/17/18 16:35 Dose: 85 mls/hr Lactated Ringer's (Ringers, Lactated) 1,000 mls @ 500 mls/hr IV ASDIRECTED [facility] Stop: 07/17/18 10:46 Last Admin: 07/17/18 09:41 Dose: 500 mls/hr Lactated Ringer's (Ringers, Lactated) 1,000 mls @ 250 mls/hr IV ONETIME ONE Stop: 07/17/18 15:39 Last Admin: 07/17/18 11:37 Dose: 250 mls/hr Esmolol HCl (Brevibloc In Ns Premix) 2.5 gm in 250 mls @ 17.187 mls/hr IV TITRATE [facility]; Protocol Last Admin: 07/18/18 08:46 Dose: 50 mcg/kg/min, 17.187 mls/hr Potassium Phosphate 15 mmole/ (Sodium Chloride) 255 mls @ 125 mls/hr IV Q2H [facility] Stop: 07/18/18 13:59 Last Admin: 07/18/18 12:27 Dose: 125 mls/hr Lactated Ringer's (Ringers, Lactated) 500 mls @ 500 mls/hr IV ONETIME ONE Stop: 07/18/18 08:29 Last Admin: 07/18/18 07:44 Dose: 500 mls/hr Iopamidol (Isovue-300 (61%)) 100 ml IV . DIRECTED PRN PRN Reason: RADIOLOGY EXAM Stop: 07/13/18 14:24 Last Admin: 07/12/18 14:36 Dose: 100 ml Labetalol HCl (Normodyne) Confirm Administered Dose 20 mg .ROUTE .STK-MED ONE Stop: 07/13/18 12:45 Labetalol HCl (Normodyne) 5 mg IVPUSH Q5M PRN PRN Reason: SBP over 160 OR DBP over 95 Last Admin: 07/13/18 19:46 Dose: 5 mg Lidocaine/Epinephrine (Xylocaine 1% With Epinephrine 1:100,000) Confirm Administered Dose 50 ml .ROUTE .STK-MED ONE Stop: 07/15/18 06:44 Last Admin: 07/15/18 07:58 Dose: 15 ml Lisinopril (Prinivil) 20 mg PO BEDTIME [facility] Last Admin: 07/12/18 21:12 Dose: 20 mg Lisinopril (Prinivil) 20 mg PO DAILY [facility] Last Admin: 07/15/18 11:08 Dose: 20 mg Melatonin (Melatonin) 9 mg PO BEDTIME [facility] Last Admin: 07/15/18 20:36 Dose: Not Given Meropenem (Merrem) Confirm Administered Dose 500 mg .ROUTE .STK-MED ONE Stop: 07/13/18 08:39 Last Admin: 07/13/18 13:00 Dose: 500 mg Meropenem (Merrem) Confirm Administered Dose 500 mg .ROUTE .STK-MED ONE Stop: 07/15/18 06:43 Last Admin: 07/15/18 07:58 Dose: 500 mg Metoclopramide HCl (Reglan) 10 mg IVPUSH Q6H PRN PRN Reason: NAUSEA NOT CONTROL BY ZOFRAN Metoclopramide HCl (Reglan) 10 mg IVPUSH Q6H [facility] Last Admin: 07/16/18 01:10 Dose: 10 mg Metoclopramide HCl (Reglan) 10 mg IVPUSH Q6H [facility] Last Admin: 07/19/18 01:42 Dose: 10 mg Metoprolol Succinate (Toprol Xl) 100 mg PO DAILY [facility] Stop: 07/13/18 06:01 Last Admin: 07/13/18 05:58 Dose: 100 mg Metoprolol Succinate (Toprol Xl) 100 mg PO DAILY [facility] Metoprolol Tartrate (Lopressor) 5 mg IV Q6H [facility] Last Admin: 07/14/18 04:28 Dose: 5 mg Metoprolol Tartrate (Lopressor) 50 mg PO BID [facility] Last Admin: 07/15/18 20:30 Dose: 50 mg Metoprolol Tartrate (Lopressor) 5 mg IV Q6H [facility] Morphine Sulfate (Morphine) 2 mg IVPUSH Q2H PRN PRN Reason: Pain (severe 7-10) Multivitamins/Minerals (Thera M Plus) 1 tab PO DAILY [facility] Naloxone HCl (Narcan) 0.1 mg IV ASDIRECTED PRN PRN Reason: decreased respiratory rate Neostigmine Methylsulfate (Neostigmine) Confirm Administered Dose 5 mg .ROUTE .STK-MED ONE Stop: 07/13/18 08:32 Non-Formulary Medication (Tap Block, Pharmacy To Dose) 0 ml NERVRT ONETIME ONE Stop: 07/13/18 07:31 Last Admin: 07/13/18 13:06 Dose: Not Given Ondansetron HCl (Zofran Odt) 4 mg PO Q6H PRN PRN Reason: Nausea able to take PO Ondansetron HCl (Zofran) 4 mg IV Q6H PRN PRN Reason: Nausea/Vomiting Last Admin: 07/13/18 15:58 Dose: 4 mg Ondansetron HCl (Zofran) Confirm Administered Dose 4 mg .ROUTE .STK-MED ONE Stop: 07/13/18 08:32 Oxycodone HCl (Oxycodone) 5 mg PO Q4H PRN PRN Reason: Pain (moderate 4-6) Pantoprazole Sodium (Protonix Iv) 40 mg IVPUSH Q24H [facility] Last Admin: 07/14/18 16:24 Dose: 40 mg Pantoprazole Sodium (Protonix) 40 mg PO ACDINNER [facility] Last Admin: 07/15/18 15:14 Dose: 40 mg Propofol (Diprivan 20 Ml) Confirm Administered Dose 200 mg .ROUTE .STK-MED ONE Stop: 07/13/18 08:32 Propofol (Diprivan 20 Ml) Confirm Administered Dose 200 mg .ROUTE .STK-MED ONE Stop: 07/15/18 07:21 Propofol (Diprivan 20 Ml) Confirm Administered Dose 200 mg .ROUTE .STK-MED ONE Stop: 07/15/18 07:58 Rocuronium [place] (Zemuron) Confirm Administered Dose 50 mg .ROUTE .STK-MED ONE Stop: 07/13/18 08:32 Sodium Chloride (Saline Flush) 10 ml FLUSH ASDIRECTED PRN PRN Reason: Keep Vein Open Last Admin: 07/12/18 15:09 Dose: 10 ml Succinylcholine Chloride (Quelicin) Confirm Administered Dose 200 mg .ROUTE .STK -MED ONE Stop: 07/13/18 08:32 Warfarin Sodium 5 mg/ Warfarin (Sodium 1 mg) 6 mg PO ONETIME ONE Stop: 07/15/18 11:01 Last Admin: 07/15/18 11:08 Dose: 6 mg - Exam Quality Assessment: DVT Prophylaxis General: Alert, Oriented, Cooperative, Mild Distress Lungs: Clear to Auscultation, Normal Respiratory Effort Cardiovascular: Regular Rate, No Murmurs, Irregular Rhythm GI/Abdominal Exam: Soft, No Organomegaly, Tender. No: Distended, Guarding, Rigid, Rebound Extremities: Non-Tender, No Pedal Edema - Problem List Review Problem List Initiated/Reviewed/Updated: Yes - My Orders Last 24 Hours: My Active Orders 07/18/18 09:45 Metoprolol Succinate [Toprol XL] 100 mg PO DAILY 07/18/18 16:30 Esmolol 2,500 mg Premix Bag 1 bag IV TITRATE - Plan Plan:: ASSESSMENT AND PLAN - Acute appendicitis with abscess - status post surgical drainage that required right hemicolectomy and partial small bowel resection because of a large inflammatory mass surrounding the infection. Cultures are growing out strep viridans. She has been passing gas and stool, NG tube removed, started on a clear liquid diet. Ongoing difficulty with nausea and diarrhea. White blood count elevated again today and CT scan of the abdomen and pelvis has been ordered -IV antibiotic therapy with meropenem and aztreonam -CT scan abdomen pelvis pending -Pain and nausea control as needed -Additional postoperative care per surgical team -Flat and upright planned in the morning Atrial fibrillation with rapid ventricular response - rate control stable over the past 24 hours -Toprolol XL 100 mg by mouth daily -Continue IV esmolol, pending CT results -Continue IV diltiazem pending CT results -Continue systemic anticoagulation -Warfarin on hold due to nothing by mouth status -continue cardiac monitoring Hypokalemia Coronary artery disease status post CABG - Remote history of coronary disease with good functional status and no active anginal symptoms. She is on medical therapy with lisinopril and metoprolol as well as a daily aspirin. -Continue home medications Maintenance issues - - DVT prophylaxis - enoxaparin - GI prophylaxis - PPI - Nutrition - nothing by mouth Disposition - I would anticipate discharge to home after the hospital stay
[2018-07-19] MEDS: Potassium Phosphates 22.5 MMOLE in Sodium Chloride 0.9% 250 ML IV SCH ×2 (09:52→14:16)
[2018-07-19] MEDS: Lactobacillus Rhamnosus GG (Probiotic) Cap PO SCH ×2 (09:59→20:29)
[2018-07-19] MEDS ORDERED: Furosemide 20 MG/2 ML VIAL IVPUSH ONE (12:00)
--- NOTE | 2018-07-19 12:31 | LETTER ---
07/19/2018 Family Member of Patient, Carlos Manuel Mdconald RE: CARLOS MANUEL MCDONALD : 1940 To Whom It May Concern: This letter regards statement of the patient's condition and description of appropriate medical care for a family medical leave requested by Bessie Lewis. Ms. Lewis's mother is Carlos Manuel Mcdonald, who is currently hospitalized in [facility] in [place], [place]. Ms. Mcdonald was admitted on the 12 of July with appendicitis and probable abscess. 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 Her postoperative course has been complicated by weakness, as well as atrial fibrillation with rapid ventricular response and persistent elevation in white blood cell count at the time of this dictation. CT scan has been performed, and it is expected that she will require several more days of hospitalization. If there are any further questions concerning this issue, please feel free to contact me. Sincerely, Michael Yarbrough M.D. /[id number] MTDD
[2018-07-20] MEDS: Enoxaparin 60 MG/0.6 ML Syringe SUBCUT SCH ×2 (00:07→13:07)
[2018-07-20] MEDS: Magnesium Sulfate/Water 2 GM in Premix Bag 1 BAG IV SCH ×4 (03:02→22:01)
[2018-07-20] MEDS: Meropenem 1 GM in Sodium Chloride 0.9% 100 ML IV SCH ×3 (05:32→22:33)
[2018-07-20] MEDS ORDERED: LORazepam 2 MG/ML SDV IVPUSH ONE ×2 (06:24→07:30)
[2018-07-20] MEDS: Diltiazem 125 MG in Sodium Chloride 0.9% 100 ML IV SCH (07:11)
[2018-07-20] MEDS: ESMOLOL IV SCH (07:51)
[2018-07-20] MEDS: Aztreonam/Dextrose-Water 1 GM in Premix Bag 1 BAG IV SCH ×3 (07:57→23:24)
[2018-07-20] MEDS ORDERED: Furosemide 20 MG/2 ML VIAL IVPUSH ONE (09:00)
--- NOTE | 2018-07-20 09:13 | PCM.PN ---
- General Info Date of Service: 07/20/18 Subjective Update: Ms. Mcdonald has had ongoing difficulty with nausea and evidence of persistent ileus. NG tube has been placed this morning and a PICC line will be placed later in the morning to initiate TPN. CT scan showed no evidence of significant abscess or other source of infection within the abdomen. She denies any increase in abdominal pain and has not had significant shortness of breath. Heart rate remains under good control with current management. Functional Status: Reports: Pain Controlled, Urinating - Review of Systems General: Reports: Weakness. Denies: Fever, Chills Pulmonary: Reports: No Symptoms Cardiovascular: Reports: No Symptoms Gastrointestinal: Reports: Abdominal Pain, Diarrhea, Flatus, Nausea. Denies: Difficulty Swallowing, Vomiting - Patient Data Vitals - Most Recent: Last Vital Signs Temp 97.1 F 07/20/18 04:00 Pulse 84 07/20/18 05:58 Resp 11 L 07/20/18 05:58 BP 101/61 07/20/18 05:58 Pulse Ox 92 L 07/20/18 05:58 Weight - Most Recent: 126 lb 4.81 oz I&O - Last 24 Hours: Intake & Output 07/19/18 07/20/18 07/20/18 22:59 06:59 14:59 Intake Total 1849 1688 Output Total 2650 300 Balance -801 1388 Lab Results Last 24 Hours: Laboratory Results - last 24 hr 07/19/18 07/20/18 07/20/18 Range/Units 07:55 04:00 04:00 WBC 30.5 H* (4.5-11.0) K/uL RBC 3.19 L (3.30-5.50) M/uL Hgb 9.6 L (12.0-15.0) g/dL Hct 28.4 L (36.0-48.0) % MCV 89 (80-98) fL MCH 30 (27-31) pg MCHC 34 (32-36) % Plt Count 419 H (150-400) K/uL Sodium 137 L (140-148) mmol/L Potassium 3.4 L (3.6-5.2) mmol/L Chloride 102 (100-108) mmol/L Carbon Dioxide 25 (21-32) mmol/L Anion Gap 13.4 (5.0-14.0) mmol/L BUN 11 (7-18) mg/dL Creatinine 0.7 (0.6-1.0) mg/dL Est Cr Clr Drug Dosing 51.65 mL/min Estimated GFR (MDRD) > 60 (>60) Glucose 145 H (74-106) mg/dL Calcium 8.1 L (8.5-10.1) mg/dL Phosphorus 2.5 (2.5-4.9) mg/dL Total Bilirubin 0.5 D (0.2-1.0) mg/dL AST 36 (15-37) U/L ALT 47 (12-78) U/L Alkaline Phosphatase 65 (46-116) U/L NT-Pro-B Natriuret Pep 1140 H (5-450) pg/mL Total Protein 5.7 L (6.4-8.2) g/dL Albumin 2.5 L (3.4-5.0) g/dL Globulin 3.2 (2.3-3.5) g/dL Albumin/Globulin Ratio 0.8 L (1.2-2.2) Blood Type A NEGATIVE Gel Antibody Screen Negative Crossmatch See Detail Lei Results Last 24 Hours: Microbiology 07/19/18 02:08 Clostridium difficile (PCR) - Final Stool / Feces - Stool, Liquid NEGATIVE CDIFF TOXIN Med Orders - Current: Current Medications Diphenhydramine HCl (Benadryl) 50 mg IVPUSH Q4H PRN PRN Reason: ITCHING Enoxaparin Sodium (Lovenox) 60 mg SUBCUT Q12H [facility] Last Admin: 07/20/18 00:07 Dose: 60 mg Haloperidol Lactate (Haldol) 2.5 mg IV Q6H PRN PRN Reason: ANXIETY/HALLUCINATIONS Hydroxyzine HCl (Vistaril) 100 mg IM Q4H PRN PRN Reason: pain Aztreonam/Dextrose 1 gm/ (Premix) 50 mls @ 100 mls/hr IV Q8H [facility] Last Admin: 07/20/18 07:57 Dose: 100 mls/hr Diltiazem HCl 125 mg/ Sodium (Chloride) 125 mls @ 5 mls/hr IV TITRATE [facility]; Protocol Last Admin: 07/20/18 07:11 Dose: 5 mg/hr, 5 mls/hr Meropenem 1 gm/ Sodium (Chloride) 100 mls @ 200 mls/hr IV Q8H [facility] Last Admin: 07/20/18 05:32 Dose: 200 mls/hr Dextrose/Lactated Ringer's (Dextrose 5%-Lactated Ringers) 1,000 mls @ 100 mls/ hr IV ASDIRECTED [facility] Last Admin: 07/19/18 19:14 Dose: 100 mls/hr Esmolol HCl 2,500 mg/ Premix 250 mls @ 17.18 mls/hr IV TITRATE [facility]; Protocol Last Admin: 07/20/18 07:51 Dose: 50 mcg/kg/min, 17.18 mls/hr Magnesium Sulfate 2 gm/ Premix 50 mls @ 25 mls/hr IV Q6H [facility] Stop: 07/21/18 05:59 Last Admin: 07/20/18 03:02 Dose: 25 mls/hr Sodium Chloride (Normal Saline) 70 mls @ 3 mls/sec IV ASDIRECTED [facility] Last Admin: 07/19/18 08:49 Dose: 3 mls/sec Lactobacillus Rhamnosus (Culturelle) 2 cap PO BID [facility] Last Admin: 07/19/18 20:29 Dose: Not Given Metoprolol Succinate (Toprol Xl) 100 mg PO DAILY [facility] Last Admin: 07/19/18 09:32 Dose: 100 mg Ondansetron HCl (Zofran) 4 mg IV Q4H PRN PRN Reason: Nausea/Vomiting Last Admin: 07/19/18 13:19 Dose: 4 mg Sodium Chloride (Saline Flush) 10 ml FLUSH ONETIME PRN PRN Reason: per radiology protocol Last Admin: 07/19/18 08:49 Dose: 10 ml Discontinued Medications Acetaminophen (Tylenol) 650 mg PO Q4H PRN PRN Reason: Pain (Mild 1-3)/fever Last Admin: 07/13/18 03:31 Dose: 325 mg Aspirin (Halfprin) 81 mg PO DAILY [facility] Last Admin: 07/13/18 16:03 Dose: Not Given Aspirin (Halfprin) 81 mg PO DAILY [facility] Last Admin: 07/15/18 11:08 Dose: 81 mg Bisacodyl (Dulcolax) 10 mg PO BID [facility] Last Admin: 07/15/18 20:35 Dose: Not Given Bupivacaine HCl (Marcaine 0.5%) Confirm Administered Dose 30 ml .ROUTE .STK-MED ONE Stop: 07/15/18 06:44 Last Admin: 07/15/18 07:58 Dose: 15 ml Ropivacaine 28 ml/Dexamethasone 8 mg/Epinephrine HCl 0.4 mg/ Sodium Chloride 49.6 ml 0 ml NERVRT ASDIRECTED [facility] Last Admin: 07/13/18 12:40 Dose: 80 syringe Ropivacaine 28 ml/Dexamethasone 8 mg/Epinephrine HCl 0.4 mg/ Sodium Chloride 49.6 ml 0 ml NERVRT ASDIRECTED [facility] Last Admin: 07/15/18 07:14 Dose: 2 syringe Dexamethasone (Dexamethasone) Confirm Administered Dose 4 mg .ROUTE .STK-MED ONE Stop: 07/13/18 08:32 Digoxin (Lanoxin) 125 mcg IVPUSH ONETIME ONE Stop: 07/16/18 05:30 Last Admin: 07/16/18 05:46 Dose: 125 mcg Digoxin (Lanoxin) 250 mcg IVPUSH ONETIME ONE Stop: 07/17/18 09:46 Last Admin: 07/17/18 09:54 Dose: 250 mcg Digoxin (Lanoxin) 250 mcg IVPUSH ONETIME ONE Stop: 07/17/18 15:16 Last Admin: 07/17/18 15:15 Dose: 250 mcg Diltiazem HCl (Cardizem) 45 mg PO Q6HR [facility] Last Admin: 07/16/18 03:14 Dose: Not Given Diltiazem HCl (Diltiazem) 15 mg IVPUSH ONETIME ONE Stop: 07/16/18 01:57 Last Admin: 07/16/18 02:13 Dose: 15 mg Diltiazem HCl (Diltiazem) 5 mg IVPUSH ONETIME ONE Stop: 07/16/18 04:12 Last Admin: 07/16/18 04:24 Dose: 5 mg Docusate Sodium (Colace) 100 mg PO BID [facility] Last Admin: 07/15/18 20:35 Dose: Not Given Fentanyl (Sublimaze) Confirm Administered Dose 250 mcg .ROUTE .STK-MED ONE Stop: 07/13/18 08:33 Fentanyl (Sublimaze) Confirm Administered Dose 250 mcg .ROUTE .STK-MED ONE Stop: 07/13/18 12:42 Fentanyl (Sublimaze) Confirm Administered Dose 100 mcg .ROUTE .STK-MED ONE Stop: 07/15/18 07:21 Furosemide (Lasix) 20 mg IV ONETIME ONE Stop: 07/15/18 10:01 Last Admin: 07/15/18 09:37 Dose: 20 mg Furosemide (Lasix) 10 mg IVPUSH ONETIME ONE Stop: 07/19/18 12:01 Last Admin: 07/19/18 14:25 Dose: 10 mg Furosemide (Lasix) 10 mg IVPUSH ONETIME ONE Stop: 07/20/18 09:01 Glycopyrrolate (Robinul) Confirm Administered Dose 1 mg .ROUTE .STK-MED ONE Stop: 07/13/18 08:32 Haloperidol Lactate (Haldol) 2.5 mg IVPUSH ONETIME ONE Stop: 07/16/18 06:34 Last Admin: 07/16/18 06:51 Dose: 2.5 mg Hydromorphone HCl (Dilaudid Globe Tester 15 Mg In Ns 30 Ml) 0 mg IV ASDIRECTED PRN; Protocol PRN Reason: TAX EXAMINER 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 Last Admin: 07/13/18 15:11 Dose: 0.2 mg Lactated Ringer's (Ringers, Lactated) 1,000 mls @ 999 mls/hr IV BOLUS ONE Stop: 07/12/18 15:06 Last Admin: 07/12/18 15:08 Dose: 999 mls/hr Sodium Chloride (Normal Saline) 80 mls @ 3 mls/sec IV ASDIRECTED [facility] Last Admin: 07/12/18 14:36 Dose: 3 mls/sec Ampicillin Sodium/Sulbactam (Sodium 3 gm/ Sodium Chloride) 100 mls @ 200 mls/ hr IV Q6H [facility] Stop: 07/12/18 17:00 Last Admin: 07/12/18 15:26 Dose: 200 mls/hr Aztreonam 1 gm/ Sodium (Chloride) 50 mls @ 100 mls/hr IV Q8H [facility] Ampicillin Sodium/Sulbactam (Sodium 3 gm/ Sodium Chloride) 100 mls @ 200 mls/ hr IV Q6H [facility] Last Admin: 07/16/18 09:34 Dose: 200 mls/hr Lactated Ringer's (Ringers, Lactated) 1,000 mls @ 75 mls/hr IV ASDIRECTED [facility] Last Admin: 07/13/18 03:33 Dose: 75 mls/hr Phytonadione 5 mg/ Sodium (Chloride) 50.5 mls @ 100 mls/hr IV NOW ONE Stop: 07/12/18 17:00 Last Admin: 07/12/18 17:47 Dose: 100 mls/hr Lactated Ringer's (Ringers, Lactated) Confirm Administered Dose 1,000 mls @ as directed .ROUTE .STK-MED ONE Stop: 07/13/18 12:46 Tranexamic Acid 1,000 mg/ (Sodium Chloride) 60 mls @ 240 mls/hr IV Q3H [facility] Stop: 07/13/18 18:14 Last Admin: 07/13/18 17:47 Dose: 240 mls/hr Dextrose/Lactated Ringer's (Dextrose 5%-Lactated Ringers) 1,000 mls @ 175.004 mls/hr IV ASDIRECTED [facility] Last Admin: 07/14/18 06:57 Dose: 175.004 mls/hr Multivitamins/Minerals 10 ml/Thiamine HCl 200 mg/ Chromium/Copper/Manganese/ Seleni/Zn 1 ml/ Dextrose/Lactated Ringer's 1,013 mls @ 174.999 mls/hr IV DAILY@ 1600 [facility] Last Admin: 07/13/18 17:47 Dose: 174.999 mls/hr Diltiazem HCl 100 mg/ Sodium (Chloride) 100 mls @ 5 mls/hr IV TITRATE [facility]; Protocol Last Admin: 07/14/18 14:39 Dose: 5 mg/hr, 5 mls/hr Dextrose/Lactated Ringer's (Dextrose 5%-Lactated Ringers) 1,000 mls @ 125 mls/ hr IV ASDIRECTED [facility] Last Admin: 07/15/18 01:05 Dose: 125 mls/hr Magnesium Sulfate 2 gm/ Premix 50 mls @ 25 mls/hr IV Q6H [facility] Stop: 07/16/18 09:59 Last Admin: 07/16/18 08:17 Dose: 25 mls/hr Multivitamins/Minerals 10 ml/Thiamine HCl 200 mg/ Chromium/Copper/Manganese/ Zinc 1 ml/Dextrose/Lactated Ringer's 1,013 mls @ 125 mls/hr IV DAILY@1600 [facility] Last Admin: 07/14/18 16:17 Dose: 125 mls/hr Lactated Ringer's (Ringers, Lactated) Confirm Administered Dose 1,000 mls @ as directed .ROUTE .STK-MED ONE Stop: 07/15/18 07:55 Potassium Chloride 20 meq/Lidocaine HCl 2 ml/ Sodium Chloride 112 mls @ 56 mls/ hr IV Q2H [facility] Stop: 07/15/18 15:59 Last Admin: 07/15/18 14:17 Dose: 56 mls/hr Dextrose/Lactated Ringer's (Dextrose 5%-Lactated Ringers) 1,000 mls @ 25 mls/ hr IV ASDIRECTED [facility] Last Admin: 07/16/18 10:44 Dose: 25 mls/hr Diltiazem HCl 100 mg/ Sodium (Chloride) 100 mls @ 5 mls/hr IV TITRATE [facility]; Protocol Stop: 07/17/18 12:55 Last Admin: 07/17/18 06:50 Dose: 15 mg/hr, 15 mls/hr Potassium Phosphate 22.5 mmole (/ Sodium Chloride) 257.5 mls @ 65 mls/hr IV Q4H [facility] Stop: 07/16/18 17:28 Last Admin: 07/16/18 14:09 Dose: 65 mls/hr Cefoxitin Sodium 1 gm/ Sodium (Chloride) 50 mls @ 100 mls/hr IV Q8H [facility] Last Admin: 07/17/18 08:15 Dose: 100 mls/hr Potassium Phosphate 20 mmole/ (Sodium Chloride) 256.6667 mls @ 85 mls/hr IV Q3H [facility] Stop: 07/17/18 18:59 Last Admin: 07/17/18 16:35 Dose: 85 mls/hr Lactated Ringer's (Ringers, Lactated) 1,000 mls @ 500 mls/hr IV ASDIRECTED [facility] Stop: 07/17/18 10:46 Last Admin: 07/17/18 09:41 Dose: 500 mls/hr Lactated Ringer's (Ringers, Lactated) 1,000 mls @ 250 mls/hr IV ONETIME ONE Stop: 07/17/18 15:39 Last Admin: 07/17/18 11:37 Dose: 250 mls/hr Esmolol HCl (Brevibloc In Ns Premix) 2.5 gm in 250 mls @ 17.187 mls/hr IV TITRATE [facility]; Protocol Last Admin: 07/18/18 08:46 Dose: 50 mcg/kg/min, 17.187 mls/hr Potassium Phosphate 15 mmole/ (Sodium Chloride) 255 mls @ 125 mls/hr IV Q2H [facility] Stop: 07/18/18 13:59 Last Admin: 07/18/18 12:27 Dose: 125 mls/hr Lactated Ringer's (Ringers, Lactated) 500 mls @ 500 mls/hr IV ONETIME ONE Stop: 07/18/18 08:29 Last Admin: 07/18/18 07:44 Dose: 500 mls/hr Potassium Phosphate 22.5 mmole (/ Sodium Chloride) 257.5 mls @ 65 mls/hr IV Q4H [facility] Stop: 07/19/18 17:58 Last Admin: 07/19/18 14:16 Dose: 65 mls/hr Iopamidol (Isovue-300 (61%)) 100 ml IV . DIRECTED PRN PRN Reason: RADIOLOGY EXAM Stop: 07/13/18 14:24 Last Admin: 07/12/18 14:36 Dose: 100 ml Iopamidol (Isovue-300 (61%)) 86 ml IV . DIRECTED PRN PRN Reason: RADIOLOGY EXAM Stop: 07/20/18 08:20 Last Admin: 07/19/18 08:49 Dose: 86 ml Labetalol HCl (Normodyne) Confirm Administered Dose 20 mg .ROUTE .STK-MED ONE Stop: 07/13/18 12:45 Labetalol HCl (Normodyne) 5 mg IVPUSH Q5M PRN PRN Reason: SBP over 160 OR DBP over 95 Last Admin: 07/13/18 19:46 Dose: 5 mg Lidocaine/Epinephrine (Xylocaine 1% With Epinephrine 1:100,000) Confirm Administered Dose 50 ml .ROUTE .STK-MED ONE Stop: 07/15/18 06:44 Last Admin: 07/15/18 07:58 Dose: 15 ml Lisinopril (Prinivil) 20 mg PO BEDTIME [facility] Last Admin: 07/12/18 21:12 Dose: 20 mg Lisinopril (Prinivil) 20 mg PO DAILY [facility] Last Admin: 07/15/18 11:08 Dose: 20 mg Lorazepam (Ativan) 0.5 mg IVPUSH ONETIME ONE Stop: 07/20/18 06:25 Last Admin: 07/20/18 08:34 Dose: Not Given Lorazepam (Ativan) 0.5 mg IVPUSH ONETIME ONE Stop: 07/20/18 07:31 Last Admin: 07/20/18 08:24 Dose: 0.5 mg Melatonin (Melatonin) 9 mg PO BEDTIME [facility] Last Admin: 07/15/18 20:36 Dose: Not Given Meropenem (Merrem) Confirm Administered Dose 500 mg .ROUTE .STK-MED ONE Stop: 07/13/18 08:39 Last Admin: 07/13/18 13:00 Dose: 500 mg Meropenem (Merrem) Confirm Administered Dose 500 mg .ROUTE .STK-MED ONE Stop: 07/15/18 06:43 Last Admin: 07/15/18 07:58 Dose: 500 mg Metoclopramide HCl (Reglan) 10 mg IVPUSH Q6H PRN PRN Reason: NAUSEA NOT CONTROL BY ZOFRAN Metoclopramide HCl (Reglan) 10 mg IVPUSH Q6H [facility] Last Admin: 07/16/18 01:10 Dose: 10 mg Metoclopramide HCl (Reglan) 10 mg IVPUSH Q6H [facility] Last Admin: 07/19/18 01:42 Dose: 10 mg Metoprolol Succinate (Toprol Xl) 100 mg PO DAILY [facility] Stop: 07/13/18 06:01 Last Admin: 07/13/18 05:58 Dose: 100 mg Metoprolol Succinate (Toprol Xl) 100 mg PO DAILY [facility] Metoprolol Tartrate (Lopressor) 5 mg IV Q6H [facility] Last Admin: 07/14/18 04:28 Dose: 5 mg Metoprolol Tartrate (Lopressor) 50 mg PO BID [facility] Last Admin: 07/15/18 20:30 Dose: 50 mg Metoprolol Tartrate (Lopressor) 5 mg IV Q6H [facility] Morphine Sulfate (Morphine) 2 mg IVPUSH Q2H PRN PRN Reason: Pain (severe 7-10) Multivitamins/Minerals (Thera M Plus) 1 tab PO DAILY [facility] Naloxone HCl (Narcan) 0.1 mg IV ASDIRECTED PRN PRN Reason: decreased respiratory rate Neostigmine Methylsulfate (Neostigmine) Confirm Administered Dose 5 mg .ROUTE .STK-MED ONE Stop: 07/13/18 08:32 Non-Formulary Medication (Tap Block, Pharmacy To Dose) 0 ml NERVRT ONETIME ONE Stop: 07/13/18 07:31 Last Admin: 07/13/18 13:06 Dose: Not Given Ondansetron HCl (Zofran Odt) 4 mg PO Q6H PRN PRN Reason: Nausea able to take PO Ondansetron HCl (Zofran) 4 mg IV Q6H PRN PRN Reason: Nausea/Vomiting Last Admin: 07/13/18 15:58 Dose: 4 mg Ondansetron HCl (Zofran) Confirm Administered Dose 4 mg .ROUTE .STK-MED ONE Stop: 07/13/18 08:32 Oxycodone HCl (Oxycodone) 5 mg PO Q4H PRN PRN Reason: Pain (moderate 4-6) Pantoprazole Sodium (Protonix Iv) 40 mg IVPUSH Q24H [facility] Last Admin: 07/14/18 16:24 Dose: 40 mg Pantoprazole Sodium (Protonix) 40 mg PO ACDINNER [facility] Last Admin: 07/15/18 15:14 Dose: 40 mg Propofol (Diprivan 20 Ml) Confirm Administered Dose 200 mg .ROUTE .STK-MED ONE Stop: 07/13/18 08:32 Propofol (Diprivan 20 Ml) Confirm Administered Dose 200 mg .ROUTE .STK-MED ONE Stop: 07/15/18 07:21 Propofol (Diprivan 20 Ml) Confirm Administered Dose 200 mg .ROUTE .STK-MED ONE Stop: 07/15/18 07:58 Rocuronium [place] (Zemuron) Confirm Administered Dose 50 mg .ROUTE .STK-MED ONE Stop: 07/13/18 08:32 Sodium Chloride (Saline Flush) 10 ml FLUSH ASDIRECTED PRN PRN Reason: Keep Vein Open Last Admin: 07/12/18 15:09 Dose: 10 ml Succinylcholine Chloride (Quelicin) Confirm Administered Dose 200 mg .ROUTE .STK -MED ONE Stop: 07/13/18 08:32 Warfarin Sodium 5 mg/ Warfarin (Sodium 1 mg) 6 mg PO ONETIME ONE Stop: 07/15/18 11:01 Last Admin: 07/15/18 11:08 Dose: 6 mg - Exam Quality Assessment: DVT Prophylaxis General: Alert, Oriented, Cooperative, Mild Distress Lungs: Clear to Auscultation, Normal Respiratory Effort Cardiovascular: Regular Rate, Regular Rhythm, No Murmurs GI/Abdominal Exam: Soft, No Organomegaly, Tender. No: Distended, Guarding, Rigid, Rebound Extremities: Non-Tender, No Pedal Edema - Problem List Review Problem List Initiated/Reviewed/Updated: Yes - My Orders Last 24 Hours: My Active Orders 07/19/18 10:00 Lactobacillus Rhamnosus GG [Culturelle] 2 cap PO BID - Plan Plan:: ASSESSMENT AND PLAN - Acute appendicitis with abscess - status post surgical drainage that required right hemicolectomy and partial small bowel resection because of a large inflammatory mass surrounding the infection. Cultures are growing out strep viridans. She has been passing gas and stool, NG tube removed, started on a clear liquid diet. CT scan shows evidence of ileus versus possible obstruction at the anastomosis. No obvious intra-abdominal source of infection has been identified. -IV antibiotic therapy with meropenem and aztreonam -Pain and nausea control as needed -Additional postoperative care per surgical team Atrial fibrillation with rapid ventricular response - rate control stable over the past 24 hours -Toprolol XL 100 mg by mouth daily -Continue IV esmolol, pending CT results -Continue IV diltiazem pending CT results -Continue systemic anticoagulation -Warfarin on hold due to nothing by mouth status -continue cardiac monitoring Hypokalemia Coronary artery disease status post CABG - Remote history of coronary disease with good functional status and no active anginal symptoms. She is on medical therapy with lisinopril and metoprolol as well as a daily aspirin. -Continue home medications Maintenance issues - - DVT prophylaxis - enoxaparin - GI prophylaxis - PPI - Nutrition - nothing by mouth Disposition - I would anticipate discharge to home after the hospital stay
--- NOTE | 2018-07-20 09:42 | CR ---
Abdomen. Findings: NG tube with distal tip near the GE junction. Would advance 7-8 cm.
[2018-07-20] MEDS: Lactobacillus Rhamnosus GG (Probiotic) Cap PO SCH ×2 (10:00→21:46)
[2018-07-20] MEDS: Metoprolol Succinate 50 MG Tab.ER PO SCH (10:10)
[2018-07-20] MEDS: Potassium Phosphates 20 MMOLE in Sodium Chloride 0.9% 100 ML IV SCH ×2 (15:59→18:58)
[2018-07-20] MEDS: 1: AA 5%/Calcium/D15W/Lytes 1,000 ML with MVI, Adult with Vitamin K 10 ML, Chromium/Copp IV SCH ×3 (17:33)
[2018-07-20] MEDS: Esmolol/Normal Saline 2.5 GM/250 ML BAG IV SCH (21:53)
[2018-07-21] MEDS: Potassium Phosphates 20 MMOLE in Sodium Chloride 0.9% 100 ML IV SCH (00:12)
[2018-07-21] MEDS: Enoxaparin 60 MG/0.6 ML Syringe SUBCUT SCH ×2 (02:09→13:13)
[2018-07-21] MEDS: Dextrose 5%-Lactated Ringers 1,000 ML IV SCH (02:35)
[2018-07-21] MEDS: Magnesium Sulfate/Water 2 GM in Premix Bag 1 BAG IV SCH (04:42)
[2018-07-21] MEDS: Meropenem 1 GM in Sodium Chloride 0.9% 100 ML IV SCH ×3 (07:00→22:15)
[2018-07-21] MEDS: 1: AA 5%/Calcium/D15W/Lytes 1,000 ML with MVI, Adult with Vitamin K 10 ML, Chromium/Copp IV SCH ×6 (07:01→19:59)
[2018-07-21] MEDS: Aztreonam/Dextrose-Water 1 GM in Premix Bag 1 BAG IV SCH ×3 (08:25→22:55)
--- NOTE | 2018-07-21 09:02 | PN ---
DATE OF SERVICE: 07/14/2018 The patient has been afebrile with stable vital signs. Urine output has been satisfactory. Has no significant problems, other than slightly low magnesium. The plan will be to discontinue the NG tube, as the output has been quite negligible. We will restart some of her oral pain medicine. Continue the IV metoprolol as replacement of the Toprol XL to ensure that is on board. With her history of DVT, we will begin some Lovenox today as well. Didn't start Coumadin as of yet and will probably begin that tomorrow. She will have delayed primary closure of abdominal incision tomorrow as well. We will take the Wood catheter out at that time. Baldomero Pickard MD /[id number]
[2018-07-21] MEDS: Diltiazem 125 MG in Sodium Chloride 0.9% 100 ML IV SCH ×2 (09:17→16:55)
[2018-07-21] MEDS: Lactobacillus Rhamnosus GG (Probiotic) Cap PO SCH ×2 (09:25→20:25)
[2018-07-21] MEDS: Metoprolol Succinate 50 MG Tab.ER PO SCH (09:26)
--- NOTE | 2018-07-21 09:32 | PCM.PN ---
- General Info Date of Service: 07/21/18 Subjective Update: Crep is improved over the last 24 hours, NG output is been relatively low and diarrhea seems to be improved. White blood cell count has improved to 17, 000 and she has remained afebrile. Heart rate remains under good control and energy level seems to be improving. Functional Status: Reports: Pain Controlled, Urinating - Review of Systems General: Reports: Weakness. Denies: Fever, Chills Pulmonary: Reports: No Symptoms Cardiovascular: Reports: No Symptoms Gastrointestinal: Reports: Diarrhea, Flatus. Denies: Abdominal Pain, Difficulty Swallowing, Nausea, Vomiting - Patient Data Vitals - Most Recent: Last Vital Signs Temp 96.6 F 07/21/18 09:20 Pulse 90 07/21/18 09:26 Resp 14 07/21/18 09:20 BP 119/74 07/21/18 09:26 Pulse Ox 94 L 07/21/18 06:00 Weight - Most Recent: 126 lb 4.81 oz I&O - Last 24 Hours: Intake & Output 07/20/18 07/21/18 07/21/18 22:59 06:59 14:59 Intake Total 1972 2499 40 Output Total 500 Balance 1472 2499 40 Lab Results Last 24 Hours: Laboratory Results - last 24 hr 07/19/18 07/21/18 07/21/18 Range/Units 07:55 04:00 04:31 WBC 17.0 H (4.5-11.0) K/uL RBC 2.68 L (3.30-5.50) M/uL Hgb 8.1 L (12.0-15.0) g/dL Hct 24.6 L (36.0-48.0) % MCV 92 (80-98) fL MCH 30 (27-31) pg MCHC 33 (32-36) % Plt Count 295 (150-400) K/uL Neut % (Auto) 70 H (36-66) % Lymph % (Auto) 17 L (24-44) % Jay % (Auto) 9 H (2-6) % Eos % (Auto) 4 (2-4) % Baso % (Auto) 0 (0-1) % Sodium (140-148) mmol/L Potassium (3.6-5.2) mmol/L Chloride (100-108) mmol/L Carbon Dioxide (21-32) mmol/L Anion Gap (5.0-14.0) mmol/L BUN (7-18) mg/dL Creatinine (0.6-1.0) mg/dL Est Cr Clr Drug Dosing mL/min Estimated GFR (MDRD) (>60) Glucose (74-106) mg/dL Calcium (8.5-10.1) mg/dL Phosphorus (2.5-4.9) mg/dL Total Bilirubin (0.2-1.0) mg/dL AST (15-37) U/L ALT (12-78) U/L Alkaline Phosphatase (46-116) U/L NT-Pro-B Natriuret Pep (5-450) pg/mL Total Protein (6.4-8.2) g/dL Albumin (3.4-5.0) g/dL Globulin (2.3-3.5) g/dL Albumin/Globulin Ratio (1.2-2.2) TSH, Ultra Sensitive 1.651 (0.358-3.740) uIU/mL Blood Type A NEGATIVE Gel Antibody Screen Negative Crossmatch See Detail 07/21/18 Range/Units 04:31 WBC (4.5-11.0) K/uL RBC (3.30-5.50) M/uL Hgb (12.0-15.0) g/dL Hct (36.0-48.0) % MCV (80-98) fL MCH (27-31) pg MCHC (32-36) % Plt Count (150-400) K/uL Neut % (Auto) (36-66) % Lymph % (Auto) (24-44) % Jay % (Auto) (2-6) % Eos % (Auto) (2-4) % Baso % (Auto) (0-1) % Sodium 140 (140-148) mmol/L Potassium 3.5 L (3.6-5.2) mmol/L Chloride 105 (100-108) mmol/L Carbon Dioxide 27 (21-32) mmol/L Anion Gap 11.5 (5.0-14.0) mmol/L BUN 12 (7-18) mg/dL Creatinine 0.7 (0.6-1.0) mg/dL Est Cr Clr Drug Dosing 51.65 mL/min Estimated GFR (MDRD) > 60 (>60) Glucose 143 H (74-106) mg/dL Calcium 7.5 L (8.5-10.1) mg/dL Phosphorus 3.2 (2.5-4.9) mg/dL Total Bilirubin 0.4 (0.2-1.0) mg/dL AST 24 (15-37) U/L ALT 38 (12-78) U/L Alkaline Phosphatase 53 (46-116) U/L NT-Pro-B Natriuret Pep 396 (5-450) pg/mL Total Protein 4.7 L (6.4-8.2) g/dL Albumin 2.0 L (3.4-5.0) g/dL Globulin 2.7 (2.3-3.5) g/dL Albumin/Globulin Ratio 0.7 L (1.2-2.2) TSH, Ultra Sensitive (0.358-3.740) uIU/mL Blood Type Gel Antibody Screen Crossmatch Med Orders - Current: Current Medications Diphenhydramine HCl (Benadryl) 50 mg IVPUSH Q4H PRN PRN Reason: ITCHING Enoxaparin Sodium (Lovenox) 60 mg SUBCUT Q12H [facility] Last Admin: 07/21/18 02:09 Dose: 60 mg Furosemide (Lasix) 10 mg IVPUSH ONETIME ONE Stop: 07/21/18 11:01 Haloperidol Lactate (Haldol) 2.5 mg IV Q6H PRN PRN Reason: ANXIETY/HALLUCINATIONS Hydroxyzine HCl (Vistaril) 100 mg IM Q4H PRN PRN Reason: pain Aztreonam/Dextrose 1 gm/ (Premix) 50 mls @ 100 mls/hr IV Q8H [facility] Last Admin: 07/21/18 08:25 Dose: 100 mls/hr Diltiazem HCl 125 mg/ Sodium (Chloride) 125 mls @ 5 mls/hr IV TITRATE [facility]; Protocol Last Admin: 07/21/18 09:17 Dose: 5 mg/hr, 5 mls/hr Meropenem 1 gm/ Sodium (Chloride) 100 mls @ 200 mls/hr IV Q8H [facility] Last Admin: 07/21/18 07:00 Dose: 200 mls/hr Multivitamins/Minerals 10 ml/Chromium/Copper/Manganese/Seleni/Zn 1 ml/ Amino Ac/ Electrol/Dextrose/Calcium 1,011 mls @ 75 mls/hr IV .BY DURATION [facility] Last Admin: 07/20/18 17:33 Dose: 75 mls/hr Amino Ac/Electrol/Dextrose/Calcium (Clinimix E 11/22) 1,000 mls @ 75 mls/hr IV .BY DURATION [facility] Last Admin: 07/21/18 07:01 Dose: 75 mls/hr Dextrose/Lactated Ringer's (Dextrose 5%-Lactated Ringers) 1,000 mls @ 30 mls/ hr IV ASDIRECTED [facility] Last Admin: 07/21/18 02:35 Dose: 30 mls/hr Esmolol HCl (Brevibloc In Ns Premix) 2.5 gm in 250 mls @ 17.187 mls/hr IV TITRATE [facility]; Protocol Last Admin: 07/20/18 21:53 Dose: 50 mcg/kg/min, 17.187 mls/hr Potassium Phosphate 22.5 mmole (/ Sodium Chloride) 107.5 mls @ 20 mls/hr IV Q6H [facility] Stop: 07/21/18 21:23 Lactobacillus Rhamnosus (Culturelle) 2 cap PO BID [facility] Last Admin: 07/21/18 09:25 Dose: 2 cap Metoprolol Succinate (Toprol Xl) 100 mg PO DAILY [facility] Last Admin: 07/21/18 09:26 Dose: 100 mg Ondansetron HCl (Zofran) 4 mg IV Q4H PRN PRN Reason: Nausea/Vomiting Last Admin: 07/19/18 13:19 Dose: 4 mg Discontinued Medications Acetaminophen (Tylenol) 650 mg PO Q4H PRN PRN Reason: Pain (Mild 1-3)/fever Last Admin: 07/13/18 03:31 Dose: 325 mg Aspirin (Halfprin) 81 mg PO DAILY [facility] Last Admin: 07/13/18 16:03 Dose: Not Given Aspirin (Halfprin) 81 mg PO DAILY [facility] Last Admin: 07/15/18 11:08 Dose: 81 mg Bisacodyl (Dulcolax) 10 mg PO BID [facility] Last Admin: 07/15/18 20:35 Dose: Not Given Bupivacaine HCl (Marcaine 0.5%) Confirm Administered Dose 30 ml .ROUTE .STK-MED ONE Stop: 07/15/18 06:44 Last Admin: 07/15/18 07:58 Dose: 15 ml Ropivacaine 28 ml/Dexamethasone 8 mg/Epinephrine HCl 0.4 mg/ Sodium Chloride 49.6 ml 0 ml NERVRT ASDIRECTED [facility] Last Admin: 07/13/18 12:40 Dose: 80 syringe Ropivacaine 28 ml/Dexamethasone 8 mg/Epinephrine HCl 0.4 mg/ Sodium Chloride 49.6 ml 0 ml NERVRT ASDIRECTED [facility] Last Admin: 07/15/18 07:14 Dose: 2 syringe Dexamethasone (Dexamethasone) Confirm Administered Dose 4 mg .ROUTE .STK-MED ONE Stop: 07/13/18 08:32 Digoxin (Lanoxin) 125 mcg IVPUSH ONETIME ONE Stop: 07/16/18 05:30 Last Admin: 07/16/18 05:46 Dose: 125 mcg Digoxin (Lanoxin) 250 mcg IVPUSH ONETIME ONE Stop: 07/17/18 09:46 Last Admin: 07/17/18 09:54 Dose: 250 mcg Digoxin (Lanoxin) 250 mcg IVPUSH ONETIME ONE Stop: 07/17/18 15:16 Last Admin: 07/17/18 15:15 Dose: 250 mcg Diltiazem HCl (Cardizem) 45 mg PO Q6HR [facility] Last Admin: 07/16/18 03:14 Dose: Not Given Diltiazem HCl (Diltiazem) 15 mg IVPUSH ONETIME ONE Stop: 07/16/18 01:57 Last Admin: 07/16/18 02:13 Dose: 15 mg Diltiazem HCl (Diltiazem) 5 mg IVPUSH ONETIME ONE Stop: 07/16/18 04:12 Last Admin: 07/16/18 04:24 Dose: 5 mg Docusate Sodium (Colace) 100 mg PO BID [facility] Last Admin: 07/15/18 20:35 Dose: Not Given Fentanyl (Sublimaze) Confirm Administered Dose 250 mcg .ROUTE .STK-MED ONE Stop: 07/13/18 08:33 Fentanyl (Sublimaze) Confirm Administered Dose 250 mcg .ROUTE .STK-MED ONE Stop: 07/13/18 12:42 Fentanyl (Sublimaze) Confirm Administered Dose 100 mcg .ROUTE .STK-MED ONE Stop: 07/15/18 07:21 Furosemide (Lasix) 20 mg IV ONETIME ONE Stop: 07/15/18 10:01 Last Admin: 07/15/18 09:37 Dose: 20 mg Furosemide (Lasix) 10 mg IVPUSH ONETIME ONE Stop: 07/19/18 12:01 Last Admin: 07/19/18 14:25 Dose: 10 mg Furosemide (Lasix) 10 mg IVPUSH ONETIME ONE Stop: 07/20/18 09:01 Last Admin: 07/20/18 09:50 Dose: 10 mg Glycopyrrolate (Robinul) Confirm Administered Dose 1 mg .ROUTE .STK-MED ONE Stop: 07/13/18 08:32 Haloperidol Lactate (Haldol) 2.5 mg IVPUSH ONETIME ONE Stop: 07/16/18 06:34 Last Admin: 07/16/18 06:51 Dose: 2.5 mg Hydromorphone HCl (Dilaudid [employer] 15 Mg In Ns 30 Ml) 0 mg IV ASDIRECTED PRN; Protocol PRN Reason: ANIME ARTIST PAIN CONTROL Last Admin: 07/13/18 15:11 Dose: 0.2 mg Lactated Ringer's (Ringers, Lactated) 1,000 mls @ 999 mls/hr IV BOLUS ONE Stop: 07/12/18 15:06 Last Admin: 07/12/18 15:08 Dose: 999 mls/hr Sodium Chloride (Normal Saline) 80 mls @ 3 mls/sec IV ASDIRECTED [facility] Last Admin: 07/12/18 14:36 Dose: 3 mls/sec Ampicillin Sodium/Sulbactam (Sodium 3 gm/ Sodium Chloride) 100 mls @ 200 mls/ hr IV Q6H [facility] Stop: 07/12/18 17:00 Last Admin: 07/12/18 15:26 Dose: 200 mls/hr Aztreonam 1 gm/ Sodium (Chloride) 50 mls @ 100 mls/hr IV Q8H [facility] Ampicillin Sodium/Sulbactam (Sodium 3 gm/ Sodium Chloride) 100 mls @ 200 mls/ hr IV Q6H [facility] Last Admin: 07/16/18 09:34 Dose: 200 mls/hr Lactated Ringer's (Ringers, Lactated) 1,000 mls @ 75 mls/hr IV ASDIRECTED [facility] Last Admin: 07/13/18 03:33 Dose: 75 mls/hr Phytonadione 5 mg/ Sodium (Chloride) 50.5 mls @ 100 mls/hr IV NOW ONE Stop: 07/12/18 17:00 Last Admin: 07/12/18 17:47 Dose: 100 mls/hr Lactated Ringer's (Ringers, Lactated) Confirm Administered Dose 1,000 mls @ as directed .ROUTE .STK-MED ONE Stop: 07/13/18 12:46 Tranexamic Acid 1,000 mg/ (Sodium Chloride) 60 mls @ 240 mls/hr IV Q3H [facility] Stop: 07/13/18 18:14 Last Admin: 07/13/18 17:47 Dose: 240 mls/hr Dextrose/Lactated Ringer's (Dextrose 5%-Lactated Ringers) 1,000 mls @ 175.004 mls/hr IV ASDIRECTED [facility] Last Admin: 07/14/18 06:57 Dose: 175.004 mls/hr Multivitamins/Minerals 10 ml/Thiamine HCl 200 mg/ Chromium/Copper/Manganese/ Seleni/Zn 1 ml/ Dextrose/Lactated Ringer's 1,013 mls @ 174.999 mls/hr IV DAILY@ 1600 [facility] Last Admin: 07/13/18 17:47 Dose: 174.999 mls/hr Diltiazem HCl 100 mg/ Sodium (Chloride) 100 mls @ 5 mls/hr IV TITRATE [facility]; Protocol Last Admin: 07/14/18 14:39 Dose: 5 mg/hr, 5 mls/hr Dextrose/Lactated Ringer's (Dextrose 5%-Lactated Ringers) 1,000 mls @ 125 mls/ hr IV ASDIRECTED [facility] Last Admin: 07/15/18 01:05 Dose: 125 mls/hr Magnesium Sulfate 2 gm/ Premix 50 mls @ 25 mls/hr IV Q6H [facility] Stop: 07/16/18 09:59 Last Admin: 07/16/18 08:17 Dose: 25 mls/hr Multivitamins/Minerals 10 ml/Thiamine HCl 200 mg/ Chromium/Copper/Manganese/ Zinc 1 ml/Dextrose/Lactated Ringer's 1,013 mls @ 125 mls/hr IV DAILY@1600 [facility] Last Admin: 07/14/18 16:17 Dose: 125 mls/hr Lactated Ringer's (Ringers, Lactated) Confirm Administered Dose 1,000 mls @ as directed .ROUTE .STK-MED ONE Stop: 07/15/18 07:55 Potassium Chloride 20 meq/Lidocaine HCl 2 ml/ Sodium Chloride 112 mls @ 56 mls/ hr IV Q2H [facility] Stop: 07/15/18 15:59 Last Admin: 07/15/18 14:17 Dose: 56 mls/hr Dextrose/Lactated Ringer's (Dextrose 5%-Lactated Ringers) 1,000 mls @ 25 mls/ hr IV ASDIRECTED [facility] Last Admin: 07/16/18 10:44 Dose: 25 mls/hr Diltiazem HCl 100 mg/ Sodium (Chloride) 100 mls @ 5 mls/hr IV TITRATE [facility]; Protocol Stop: 07/17/18 12:55 Last Admin: 07/17/18 06:50 Dose: 15 mg/hr, 15 mls/hr Potassium Phosphate 22.5 mmole (/ Sodium Chloride) 257.5 mls @ 65 mls/hr IV Q4H [facility] Stop: 07/16/18 17:28 Last Admin: 07/16/18 14:09 Dose: 65 mls/hr Cefoxitin Sodium 1 gm/ Sodium (Chloride) 50 mls @ 100 mls/hr IV Q8H [facility] Last Admin: 07/17/18 08:15 Dose: 100 mls/hr Potassium Phosphate 20 mmole/ (Sodium Chloride) 256.6667 mls @ 85 mls/hr IV Q3H [facility] Stop: 07/17/18 18:59 Last Admin: 07/17/18 16:35 Dose: 85 mls/hr Lactated Ringer's (Ringers, Lactated) 1,000 mls @ 500 mls/hr IV ASDIRECTED [facility] Stop: 07/17/18 10:46 Last Admin: 07/17/18 09:41 Dose: 500 mls/hr Lactated Ringer's (Ringers, Lactated) 1,000 mls @ 250 mls/hr IV ONETIME ONE Stop: 07/17/18 15:39 Last Admin: 07/17/18 11:37 Dose: 250 mls/hr Esmolol HCl (Brevibloc In Ns Premix) 2.5 gm in 250 mls @ 17.187 mls/hr IV TITRATE [facility]; Protocol Last Admin: 07/18/18 08:46 Dose: 50 mcg/kg/min, 17.187 mls/hr Potassium Phosphate 15 mmole/ (Sodium Chloride) 255 mls @ 125 mls/hr IV Q2H [facility] Stop: 07/18/18 13:59 Last Admin: 07/18/18 12:27 Dose: 125 mls/hr Dextrose/Lactated Ringer's (Dextrose 5%-Lactated Ringers) 1,000 mls @ 100 mls/ hr IV ASDIRECTED [facility] Stop: 07/20/18 17:59 Last Admin: 07/19/18 19:14 Dose: 100 mls/hr Lactated Ringer's (Ringers, Lactated) 500 mls @ 500 mls/hr IV ONETIME ONE Stop: 07/18/18 08:29 Last Admin: 07/18/18 07:44 Dose: 500 mls/hr Esmolol HCl 2,500 mg/ Premix 250 mls @ 17.18 mls/hr IV TITRATE [facility]; Protocol Stop: 07/20/18 21:59 Last Admin: 07/20/18 07:51 Dose: 50 mcg/kg/min, 17.18 mls/hr Potassium Phosphate 22.5 mmole (/ Sodium Chloride) 257.5 mls @ 65 mls/hr IV Q4H [facility] Stop: 07/19/18 17:58 Last Admin: 07/19/18 14:16 Dose: 65 mls/hr Magnesium Sulfate 2 gm/ Premix 50 mls @ 25 mls/hr IV Q6H [facility] Stop: 07/21/18 05:59 Last Admin: 07/21/18 04:42 Dose: 25 mls/hr Sodium Chloride (Normal Saline) 70 mls @ 3 mls/sec IV ASDIRECTED [facility] Last Admin: 07/19/18 08:49 Dose: 3 mls/sec Potassium Phosphate 20 mmole/ (Sodium Chloride) 106.6667 mls @ 36 mls/hr IV Q3H [facility] Stop: 07/21/18 00:58 Last Admin: 07/21/18 00:12 Dose: 36 mls/hr Iopamidol (Isovue-300 (61%)) 100 ml IV . DIRECTED PRN PRN Reason: RADIOLOGY EXAM Stop: 07/13/18 14:24 Last Admin: 07/12/18 14:36 Dose: 100 ml Iopamidol (Isovue-300 (61%)) 86 ml IV . DIRECTED PRN PRN Reason: RADIOLOGY EXAM Stop: 07/20/18 08:20 Last Admin: 07/19/18 08:49 Dose: 86 ml Labetalol HCl (Normodyne) Confirm Administered Dose 20 mg .ROUTE .STK-MED ONE Stop: 07/13/18 12:45 Labetalol HCl (Normodyne) 5 mg IVPUSH Q5M PRN PRN Reason: SBP over 160 OR DBP over 95 Last Admin: 07/13/18 19:46 Dose: 5 mg Lidocaine/Epinephrine (Xylocaine 1% With Epinephrine 1:100,000) Confirm Administered Dose 50 ml .ROUTE .STK-MED ONE Stop: 07/15/18 06:44 Last Admin: 07/15/18 07:58 Dose: 15 ml Lisinopril (Prinivil) 20 mg PO BEDTIME [facility] Last Admin: 07/12/18 21:12 Dose: 20 mg Lisinopril (Prinivil) 20 mg PO DAILY [facility] Last Admin: 07/15/18 11:08 Dose: 20 mg Lorazepam (Ativan) 0.5 mg IVPUSH ONETIME ONE Stop: 07/20/18 06:25 Last Admin: 07/20/18 08:34 Dose: Not Given Lorazepam (Ativan) 0.5 mg IVPUSH ONETIME ONE Stop: 07/20/18 07:31 Last Admin: 07/20/18 08:24 Dose: 0.5 mg Melatonin (Melatonin) 9 mg PO BEDTIME [facility] Last Admin: 07/15/18 20:36 Dose: Not Given Meropenem (Merrem) Confirm Administered Dose 500 mg .ROUTE .STK-MED ONE Stop: 07/13/18 08:39 Last Admin: 07/13/18 13:00 Dose: 500 mg Meropenem (Merrem) Confirm Administered Dose 500 mg .ROUTE .STK-MED ONE Stop: 07/15/18 06:43 Last Admin: 07/15/18 07:58 Dose: 500 mg Metoclopramide HCl (Reglan) 10 mg IVPUSH Q6H PRN PRN Reason: NAUSEA NOT CONTROL BY ZOFRAN Metoclopramide HCl (Reglan) 10 mg IVPUSH Q6H [facility] Last Admin: 07/16/18 01:10 Dose: 10 mg Metoclopramide HCl (Reglan) 10 mg IVPUSH Q6H [facility] Last Admin: 07/19/18 01:42 Dose: 10 mg Metoprolol Succinate (Toprol Xl) 100 mg PO DAILY [facility] Stop: 07/13/18 06:01 Last Admin: 07/13/18 05:58 Dose: 100 mg Metoprolol Succinate (Toprol Xl) 100 mg PO DAILY [facility] Metoprolol Tartrate (Lopressor) 5 mg IV Q6H [facility] Last Admin: 07/14/18 04:28 Dose: 5 mg Metoprolol Tartrate (Lopressor) 50 mg PO BID [facility] Last Admin: 07/15/18 20:30 Dose: 50 mg Metoprolol Tartrate (Lopressor) 5 mg IV Q6H [facility] Morphine Sulfate (Morphine) 2 mg IVPUSH Q2H PRN PRN Reason: Pain (severe 7-10) Multivitamins/Minerals (Thera M Plus) 1 tab PO DAILY [facility] Naloxone HCl (Narcan) 0.1 mg IV ASDIRECTED PRN PRN Reason: decreased respiratory rate Neostigmine Methylsulfate (Neostigmine) Confirm Administered Dose 5 mg .ROUTE .STK-MED ONE Stop: 07/13/18 08:32 Non-Formulary Medication (Tap Block, Pharmacy To Dose) 0 ml NERVRT ONETIME ONE Stop: 07/13/18 07:31 Last Admin: 07/13/18 13:06 Dose: Not Given Ondansetron HCl (Zofran Odt) 4 mg PO Q6H PRN PRN Reason: Nausea able to take PO Ondansetron HCl (Zofran) 4 mg IV Q6H PRN PRN Reason: Nausea/Vomiting Last Admin: 07/13/18 15:58 Dose: 4 mg Ondansetron HCl (Zofran) Confirm Administered Dose 4 mg .ROUTE .STK-MED ONE Stop: 07/13/18 08:32 Oxycodone HCl (Oxycodone) 5 mg PO Q4H PRN PRN Reason: Pain (moderate 4-6) Pantoprazole Sodium (Protonix Iv) 40 mg IVPUSH Q24H [facility] Last Admin: 07/14/18 16:24 Dose: 40 mg Pantoprazole Sodium (Protonix) 40 mg PO ACDINNER [facility] Last Admin: 07/15/18 15:14 Dose: 40 mg Propofol (Diprivan 20 Ml) Confirm Administered Dose 200 mg .ROUTE .STK-MED ONE Stop: 07/13/18 08:32 Propofol (Diprivan 20 Ml) Confirm Administered Dose 200 mg .ROUTE .STK-MED ONE Stop: 07/15/18 07:21 Propofol (Diprivan 20 Ml) Confirm Administered Dose 200 mg .ROUTE .STK-MED ONE Stop: 07/15/18 07:58 Rocuronium [place] (Zemuron) Confirm Administered Dose 50 mg .ROUTE .STK-MED ONE Stop: 07/13/18 08:32 Sodium Chloride (Saline Flush) 10 ml FLUSH ASDIRECTED PRN PRN Reason: Keep Vein Open Last Admin: 07/12/18 15:09 Dose: 10 ml Sodium Chloride (Saline Flush) 10 ml FLUSH ONETIME PRN PRN Reason: per radiology protocol Last Admin: 07/19/18 08:49 Dose: 10 ml Succinylcholine Chloride (Quelicin) Confirm Administered Dose 200 mg .ROUTE .STK -MED ONE Stop: 07/13/18 08:32 Warfarin Sodium 5 mg/ Warfarin (Sodium 1 mg) 6 mg PO ONETIME ONE Stop: 07/15/18 11:01 Last Admin: 07/15/18 11:08 Dose: 6 mg - Exam Quality Assessment: DVT Prophylaxis General: Alert, Oriented, Cooperative, Mild Distress Lungs: Clear to Auscultation, Normal Respiratory Effort Cardiovascular: Regular Rate, Regular Rhythm, No Murmurs GI/Abdominal Exam: Soft, Non-Tender, No Organomegaly, No Distention Extremities: Non-Tender, No Pedal Edema - Problem List Review Problem List Initiated/Reviewed/Updated: Yes - My Orders Last 24 Hours: My Active Orders 07/20/18 14:47 OR PCXR-No Charge-PICC/Central [CR] Routine 07/20/18 14:57 OR PCXR-No Charge-PICC/Central [CR] Routine 07/20/18 15:02 OR PCXR-No Charge-PICC/Central [CR] Routine 07/20/18 15:12 OR PCXR-No Charge-PICC/Central [CR] Routine 07/20/18 22:00 Esmolol/Normal Saline [Brevibloc in NS Premix] 2.5 gm in 250 ml IV TITRATE 07/21/18 Breakfast Nothing Per Oral Diet [DIET] - Plan Plan:: ASSESSMENT AND PLAN - Acute appendicitis with abscess - improvement noted over the last 24 hours, white blood cell count better and she has remained afebrile with stable vital signs. NG tube remains in place but output has been relatively low. -IV antibiotic therapy with meropenem and aztreonam -Pain and nausea control as needed -Additional postoperative care per surgical team Atrial fibrillation with rapid ventricular response - rate control stable over the past 24 hours -Toprolol XL 100 mg by mouth daily -Continue IV esmolol, pending CT results -Continue IV diltiazem pending CT results -Continue systemic anticoagulation -Warfarin on hold due to nothing by mouth status -continue cardiac monitoring Hypokalemia Coronary artery disease status post CABG - Remote history of coronary disease with good functional status and no active anginal symptoms. She is on medical therapy with lisinopril and metoprolol as well as a daily aspirin. -Continue home medications Maintenance issues - - DVT prophylaxis - enoxaparin - GI prophylaxis - PPI - Nutrition - nothing by mouth Disposition - I would anticipate discharge to home after the hospital stay
[2018-07-21] MEDS: Potassium Phosphates 22.5 MMOLE in Sodium Chloride 0.9% 100 ML IV SCH ×2 (09:43→16:19)
--- NOTE | 2018-07-21 10:09 | CR ---
Abdomen 2V AP Flat Upright INDICATION: Follow-up ileus. FINDINGS: There is a nasogastric tube positioned within the stomach. There continues to be mild gaseous distention of loops of large and small bowel. There are scattered air-fluid levels. There is no free air. There is no significant interval change from the previous day. Impression: 1. NG tube advanced into the stomach. 2. Postoperative ileus without significant change in appearance.
--- NOTE | 2018-07-21 10:48 | PN ---
DATE OF SERVICE: 07/21/2018 The patient has been afebrile with stable vital signs overnight with esmolol and a low-dose Cardizem. Heart rates in the upper 60s to 80s with continuation of atrial fibrillation. She did have the NG tube placed yesterday and had around 300 out for the dayshift and 200 for the nightshift, which is a quite a bit less than what it had been previously. She still has a fair bit of dilated small bowel loops in the right upper and mid abdomen, which is probably proximal to the small bowel to colon anastomosis, but there is also a large amount of air in the remainder of the colon and rectum, and she continues to move her bowels. We did check her TSH today. We will make sure that is not something referring with her GERD or her GI motility (potential hypothyroidism) that was 1.65, which is in the normal range. Otherwise, she is up and moving and quite comfortable with actual white count down to 17,000 from 30,500 yesterday. Hemoglobin was down to 8.1. I am not seeing any signs of bleeding, and there is probably some fluid shifting primary, but we will give 1 unit of packed RBCs today. Otherwise, potassium and phosphate are marginally low and we will supplement those. Her BNP is down to 396 today. We will give her one dose of Lasix after the transfusion. I think we leave the NG tube in for today. We will recheck abdominal x-rays tomorrow and perhaps get that out tomorrow. She does have the TPN started with the PICC line placed after placement of the tip in the upper right atrium. We will continue the TPN today as well and, otherwise, maximize activity. Continue with present antibiotics. Baldomero Pickard MD /[id number]
--- NOTE | 2018-07-21 10:48 | PN ---
DATE OF SERVICE: 07/20/2018 The patient remains afebrile. The heart rate now, with a small infusion in a relatively low dose of Cardizem, is running in primarily the 70s to 80s. Blood pressure is satisfactory, and again she has been afebrile. She is alert and easily communicative. Overnight, the patient did have some emesis. We attempted to convince her to have an NG tube placed yesterday evening, but she refused. This morning, she is agreeable, and an NG tube will be placed. This I think will be helpful in terms of decompressing the GI tract, and the CT scan yesterday showed more of an ileus pattern with there only being some degree of narrowing at the small bowel colon anastomosis, but quite a bit of air and fluid distal to that, indicating lack of overt obstruction, and she continues to move her bowels. Respiratory status appears to be fairly good. Abdomen is mildly to moderately distended but without significant tenderness away from the incision. Somewhat bothersome is her white count, as it remains high at 30,500. Hemoglobin is up to 9.6 after the transfusion yesterday. The chemistries show marginally low potassium and phosphate at the lower end of normal, and we will replace some potassium and phosphate. She continues to receive magnesium replacement. Again, we will place the NG tube, continue the present antibiotics, and we will place a PICC line and start some TPN later today as well. I met with the patient's daughter yesterday, who appears to understand the overall course. The patient's clinical course is somewhat puzzling. It is possible there may be some focal infection at the anastomosis, which at this point is not obstructive per se, and one would expect, if that were the case, that it would reasonably heal, as a focal diverticulitis would with antibiotics. We will continue the present management as above. Recheck some abdominal x-rays tomorrow morning as well, along with followup labs. Baldomero Pickard MD /[id number]
[2018-07-21] MEDS ORDERED: Furosemide 20 MG/2 ML VIAL IVPUSH ONE (11:00)
--- NOTE | 2018-07-21 11:03 | PN ---
DATE OF SERVICE: 07/17/2018 The patient has been afebrile. Her heart rate remains fairly high at times. The patient is on a Cardizem drip along with the IV metoprolol with the underlying atrial fib. Her mental status has improved dramatically, and she has been cooperative. NG output remains quite high, although she has moved her bowels, which couple of bowel movements were somewhat bloody. I suspect there is some old blood. Otherwise, abdominal x-ray and exam are consistent with some degree of persistent ileus. With the high NG output, we will leave that in place for today. Her potassium and phosphate remain marginally low, those will be supplemented today. We will ask Dr. Yarbrough to follow up on the patient regarding the heart rate. She may benefit from a little high beta-bethel dose. She has more or less maxed out on the Cardizem drip at this point, but maintaining adequate blood pressures. Continue the present antibiotics based on the cultures. Baldomero Pickard MD /[id number]
--- NOTE | 2018-07-21 11:15 | PN ---
DATE OF SERVICE: 07/15/2018 The patient has been afebrile. She is still having some issues of intermittent tachycardia with underlying atrial fibrillation with heart rates in the 100-130 range. This has not been associated with any significant hemodynamic instability. She did have a fairly high pulse pressure, and we gave her a single dose of Lasix this morning as well. Then, I asked Dr. Red to look at the medical regimen. We may need to be increasing the Toprol dose somewhat. Her wound was closed without event and otherwise begin some bowel stimulation today. Continue present antibiotics. Nothing is growing out on the cultures thus far, so with the mixed gram-positive cocci and gram negative rods, we will continue the Unasyn- Azactam combination. We will continue the Lovenox today as well and then begin coumadinizing the patient today. When she initially moves her bowels, we will begin some diet and recheck some labs in the morning. Baldomero Pickard MD /[id number]
--- NOTE | 2018-07-21 11:17 | PN ---
DATE OF SERVICE: 07/19/2018 The patient has been afebrile and, otherwise, stable vital signs. Heart rate with the esmolol infusion is around 100. She still complains of nausea, but she is having frequent loose bowel movements. She has C. difficile enterotoxin which was tested, which was negative. She is on Reglan, which may be contributing to this. We will discontinue Reglan. Her abdominal x-ray and then subsequent CT scan were consistent with some degree of an ileus with there being some air fluid levels in both the large and small bowel. The majority of the ileus is in the large bowel and at this point, we will just simply go with kind of a relatively minimal clear liquid diet, adding some Ensure Clear. Her hemoglobin has dropped a little bit, which I think is probably due to fluid shifting. CT scan did not show any evidence of postoperative bleeding with hemoglobin of 8.2 and some underlying obvious cardiovascular disease. We will give her 1 unit of packed RBCs, followed by a single dose of Lasix today. Otherwise, potassium and phosphate are marginally low. We will supplement once again and magnesium also is low and that will be supplemented. We will recheck some labs tomorrow. Baldomero Pickard MD /[id number]
--- NOTE | 2018-07-21 11:20 | OR ---
DATE OF PROCEDURE: 07/15/2018 PREOPERATIVE DIAGNOSIS: Open abdominal incision. POSTOPERATIVE DIAGNOSIS: Open abdominal incision. PROCEDURE: Delayed primary closure of open abdominal incision. ANESTHESIA: Local plus IV sedation. 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 Pathology on this is still pending. Because of the contamination inherent in the procedure, she was felt to be high risk for wound infection if primary closure was undertaken. Given this, a delayed primary closure will be done at this time. Potential risks including bleeding and infection were reviewed, and the patient wishes to proceed. DETAILS OF PROCEDURE: The patient was taken to the operating room and was placed in the supine position, sitting the patient somewhat upward to minimize aspiration risk. Bilateral transversus abdominis plane blocks were then placed using ultrasound guidance, and the abdomen was then prepped and draped. After the wound was inspected and found to be clean, the wound was irrigated with antibiotic-containing saline solution and then anesthetized with 1% lidocaine mixed with Marcaine. This was a long midline incision and was closed at the subcutaneous tissue level with 3-0 Vicryl stitch and the skin with tammy. Dressing was applied. The patient was taken to the recovery room in satisfactory condition. Baldomero Pickard MD /[id number]
--- NOTE | 2018-07-21 12:15 | PN ---
DATE OF SERVICE: 07/18/2018 The patient has been afebrile with stable vital signs. She has had 2 episodes of V-tach briefly overnight. Electrolytes do not look too abnormal with potasium being 4.1, chloride 110, bicarb of 26, magnesium 1.9, and phosphate of 3.0. We will give her some K-Phos to bump the potassium up a little bit presently. Otherwise, her heart rate is running around 100 with now esmolol infusion and Cardizem with the Cardizem being weaned down presently. She was also digitalized yesterday, as dig level was 0.68. Otherwise, her NG output was adequate. She has been taking in quite a bit of liquids, but I think she is probably a little bit dry, and will give her LR bolus and then increase her IV rate somewhat this morning. Her abdominal x-ray looks quite good with virtually no air in the small bowel, and the transverse and left colon and the rectum all have a large amount of air. She is continuing to move her bowels, so we will discontinue the NG tube and then try to back down a little bit in terms of how much oral intake she is taking. We will repeat abdominal x-ray tomorrow and I think we will probably be able to begin feeding her tomorrow. Otherwise, continue present antibiotics, which were altered somewhat per Dr. Yarbrough yesterday. It is notable that her white count today has come down to 8.4, so I think from a sepsis standpoint, things are quite a bit improved. Baldomero Pickard MD /[id number]
[2018-07-21] MEDS: Esmolol/Normal Saline 2.5 GM/250 ML BAG IV SCH (12:19)
--- NOTE | 2018-07-21 13:03 | CR ---
Portable chests for PICC line placement. The final image demonstrates the tip of the right-sided PICC line to be descending down into the SVC. The tip is located near the junction of the SVC and right atrium. There is a nasogastric tube extending into the stomach. There are no infiltrates or effusions.
--- NOTE | 2018-07-21 13:20 | PN ---
DATE OF SERVICE: 07/16/2018 SUBJECTIVE: The patient has been afebrile. Did develop quite a bit of confusion during the night, was willing to take her oral medications, but then began having some emesis and clinically probably has a degree of ileus. She does have a fair bit of abdominal distention. Given this, we will place an NG tube. She has some Haldol IV to help with management of the mental status and switch over to IV metoprolol, and the patient is on a Cardizem drip, which is likely to control the heart rate reasonably well. Her white count is up a little bit this morning, but I think that is probably a reaction to the overall process ongoing, and potassium and phosphate are in the low levels, and we will supplement those today. Check an abdominal x-ray tomorrow morning. Baldomero Pickard MD /[id number]
[2018-07-22] MEDS: Enoxaparin 60 MG/0.6 ML Syringe SUBCUT SCH ×2 (00:28→13:51)
[2018-07-22] MEDS: Meropenem 1 GM in Sodium Chloride 0.9% 100 ML IV SCH ×3 (05:52→22:25)
[2018-07-22] MEDS: Aztreonam/Dextrose-Water 1 GM in Premix Bag 1 BAG IV SCH ×3 (08:03→22:54)
[2018-07-22] MEDS: Lactobacillus Rhamnosus GG (Probiotic) Cap PO SCH ×2 (08:35→20:35)
[2018-07-22] MEDS: Metoprolol Succinate 50 MG Tab.ER PO SCH (08:36)
--- NOTE | 2018-07-22 09:21 | PCM.PN ---
- General Info Date of Service: 07/22/18 Subjective Update: Ms. Mcdonald has continued to do well and show slow improvement. NG output has remained fairly low, current plan is to leave this in place 1 additional day. She has been having some bowel movements and reports that she is feeling better with increased strength. Heart rate remains well controlled with current management. Functional Status: Reports: Pain Controlled, Ambulating, Urinating - Review of Systems General: Reports: Weakness. Denies: Fever, Chills Pulmonary: Reports: No Symptoms Cardiovascular: Reports: No Symptoms Gastrointestinal: Reports: No Symptoms - Patient Data Vitals - Most Recent: Last Vital Signs Temp 97.6 F 07/22/18 08:30 Pulse 101 H 07/22/18 08:36 Resp 16 07/22/18 08:30 BP 155/100 H 07/22/18 08:36 Pulse Ox 100 07/22/18 08:30 Weight - Most Recent: 126 lb 4.81 oz I&O - Last 24 Hours: Intake & Output 07/21/18 07/22/18 07/22/18 22:59 06:59 14:59 Intake Total 1743 1632 Output Total 350 1800 Balance 1393 -168 Lab Results Last 24 Hours: Laboratory Results - last 24 hr 07/19/18 07/22/18 07/22/18 Range/Units 07:55 03:35 03:35 WBC 18.3 H (4.5-11.0) K/uL RBC 3.55 (3.30-5.50) M/uL Hgb 10.8 L D (12.0-15.0) g/dL Hct 32.2 L (36.0-48.0) % MCV 91 (80-98) fL MCH 30 (27-31) pg MCHC 34 (32-36) % Plt Count 261 (150-400) K/uL Neut % (Auto) 74 H (36-66) % Lymph % (Auto) 13 L (24-44) % Sargent % (Auto) 9 H (2-6) % Eos % (Auto) 4 (2-4) % Baso % (Auto) 0 (0-1) % Sodium 140 (140-148) mmol/L Potassium 3.6 (3.6-5.2) mmol/L Chloride 104 (100-108) mmol/L Carbon Dioxide 26 (21-32) mmol/L Anion Gap 9.6 (5.0-14.0) mmol/L BUN 14 (7-18) mg/dL Creatinine 0.7 (0.6-1.0) mg/dL Est Cr Clr Drug Dosing 51.65 mL/min Estimated GFR (MDRD) > 60 (>60) Glucose 149 H (74-106) mg/dL Calcium 8.1 L (8.5-10.1) mg/dL Phosphorus 2.6 (2.5-4.9) mg/dL Magnesium 1.9 (1.8-2.4) mg/dL Total Bilirubin 0.5 (0.2-1.0) mg/dL AST 28 (15-37) U/L ALT 39 (12-78) U/L Alkaline Phosphatase 69 (46-116) U/L NT-Pro-B Natriuret Pep 184 (5-450) pg/mL Total Protein 5.8 L (6.4-8.2) g/dL Albumin 2.4 L (3.4-5.0) g/dL Globulin 3.4 (2.3-3.5) g/dL Albumin/Globulin Ratio 0.7 L (1.2-2.2) Crossmatch See Detail Lei Results Last 24 Hours: Microbiology 07/21/18 10:25 Shiga Toxin I - Final Stool / Feces NEGATIVE FOR SHIGA TOXIN 1 Shiga Toxin II - Final NEGATIVE FOR SHIGA TOXIN 2 Med Orders - Current: Current Medications Diphenhydramine HCl (Benadryl) 50 mg IVPUSH Q4H PRN PRN Reason: ITCHING Enoxaparin Sodium (Lovenox) 60 mg SUBCUT Q12H [facility] Last Admin: 07/22/18 00:28 Dose: 60 mg Haloperidol Lactate (Haldol) 2.5 mg IV Q6H PRN PRN Reason: ANXIETY/HALLUCINATIONS Hydroxyzine HCl (Vistaril) 100 mg IM Q4H PRN PRN Reason: pain Aztreonam/Dextrose 1 gm/ (Premix) 50 mls @ 100 mls/hr IV Q8H [facility] Last Admin: 07/22/18 08:03 Dose: 100 mls/hr Diltiazem HCl 125 mg/ Sodium (Chloride) 125 mls @ 5 mls/hr IV TITRATE [facility]; Protocol Last Admin: 07/21/18 16:55 Dose: 5 mg/hr, 5 mls/hr Meropenem 1 gm/ Sodium (Chloride) 100 mls @ 200 mls/hr IV Q8H [facility] Last Admin: 07/22/18 05:52 Dose: 200 mls/hr Multivitamins/Minerals 10 ml/Chromium/Copper/Manganese/Seleni/Zn 1 ml/ Amino Ac/ Electrol/Dextrose/Calcium 1,011 mls @ 75 mls/hr IV .BY DURATION [facility] Last Admin: 07/21/18 19:59 Dose: 75 mls/hr Amino Ac/Electrol/Dextrose/Calcium (Clinimix E 5/15) 1,000 mls @ 75 mls/hr IV .BY DURATION [facility] Last Admin: 07/21/18 07:01 Dose: 75 mls/hr Dextrose/Lactated Ringer's (Dextrose 5%-Lactated Ringers) 1,000 mls @ 30 mls/ hr IV ASDIRECTED [facility] Last Admin: 07/21/18 02:35 Dose: 30 mls/hr Esmolol HCl (Esmolol Hcl In Sterile Water 2,500 Mg/250 Ml) 250 mls @ 17.187 mls /hr IV TITRATE [facility]; Protocol Last Admin: 07/22/18 02:57 Dose: 50 mcg/kg/min, 17.187 mls/hr Potassium Phosphate 15 mmole/ (Sodium Chloride) 105 mls @ 45 mls/hr IV Q2H [facility] Stop: 07/22/18 15:29 Lactobacillus Rhamnosus (Culturelle) 2 cap PO BID [facility] Last Admin: 07/22/18 08:35 Dose: 2 cap Metoprolol Succinate (Toprol Xl) 100 mg PO DAILY [facility] Last Admin: 07/22/18 08:36 Dose: 100 mg Ondansetron HCl (Zofran) 4 mg IV Q4H PRN PRN Reason: Nausea/Vomiting Last Admin: 07/19/18 13:19 Dose: 4 mg Discontinued Medications Acetaminophen (Tylenol) 650 mg PO Q4H PRN PRN Reason: Pain (Mild 1-3)/fever Last Admin: 07/13/18 03:31 Dose: 325 mg Aspirin (Halfprin) 81 mg PO DAILY [facility] Last Admin: 07/13/18 16:03 Dose: Not Given Aspirin (Halfprin) 81 mg PO DAILY [facility] Last Admin: 07/15/18 11:08 Dose: 81 mg Bisacodyl (Dulcolax) 10 mg PO BID [facility] Last Admin: 07/15/18 20:35 Dose: Not Given Bupivacaine HCl (Marcaine 0.5%) Confirm Administered Dose 30 ml .ROUTE .STK-MED ONE Stop: 07/15/18 06:44 Last Admin: 07/15/18 07:58 Dose: 15 ml Ropivacaine 28 ml/Dexamethasone 8 mg/Epinephrine HCl 0.4 mg/ Sodium Chloride 49.6 ml 0 ml NERVRT ASDIRECTED [facility] Last Admin: 07/13/18 12:40 Dose: 80 syringe Ropivacaine 28 ml/Dexamethasone 8 mg/Epinephrine HCl 0.4 mg/ Sodium Chloride 49.6 ml 0 ml NERVRT ASDIRECTED [facility] Last Admin: 07/15/18 07:14 Dose: 2 syringe Dexamethasone (Dexamethasone) Confirm Administered Dose 4 mg .ROUTE .[facility] ONE Stop: 07/13/18 08:32 Digoxin (Lanoxin) 125 mcg IVPUSH ONETIME ONE Stop: 07/16/18 05:30 Last Admin: 07/16/18 05:46 Dose: 125 mcg Digoxin (Lanoxin) 250 mcg IVPUSH ONETIME ONE Stop: 07/17/18 09:46 Last Admin: 07/17/18 09:54 Dose: 250 mcg Digoxin (Lanoxin) 250 mcg IVPUSH ONETIME ONE Stop: 07/17/18 15:16 Last Admin: 07/17/18 15:15 Dose: 250 mcg Diltiazem HCl (Cardizem) 45 mg PO Q6HR [facility] Last Admin: 07/16/18 03:14 Dose: Not Given Diltiazem HCl (Diltiazem) 15 mg IVPUSH ONETIME ONE Stop: 07/16/18 01:57 Last Admin: 07/16/18 02:13 Dose: 15 mg Diltiazem HCl (Diltiazem) 5 mg IVPUSH ONETIME ONE Stop: 07/16/18 04:12 Last Admin: 07/16/18 04:24 Dose: 5 mg Docusate Sodium (Colace) 100 mg PO BID [facility] Last Admin: 07/15/18 20:35 Dose: Not Given Fentanyl (Sublimaze) Confirm Administered Dose 250 mcg .ROUTE .STK-MED ONE Stop: 07/13/18 08:33 Fentanyl (Sublimaze) Confirm Administered Dose 250 mcg .ROUTE .STK-MED ONE Stop: 07/13/18 12:42 Fentanyl (Sublimaze) Confirm Administered Dose 100 mcg .ROUTE .STK-MED ONE Stop: 07/15/18 07:21 Furosemide (Lasix) 20 mg IV ONETIME ONE Stop: 07/15/18 10:01 Last Admin: 07/15/18 09:37 Dose: 20 mg Furosemide (Lasix) 10 mg IVPUSH ONETIME ONE Stop: 07/19/18 12:01 Last Admin: 07/19/18 14:25 Dose: 10 mg Furosemide (Lasix) 10 mg IVPUSH ONETIME ONE Stop: 07/20/18 09:01 Last Admin: 07/20/18 09:50 Dose: 10 mg Furosemide (Lasix) 10 mg IVPUSH ONETIME ONE Stop: 07/21/18 11:01 Last Admin: 07/21/18 11:29 Dose: 10 mg Glycopyrrolate (Robinul) Confirm Administered Dose 1 mg .ROUTE .STK-MED ONE Stop: 07/13/18 08:32 Haloperidol Lactate (Haldol) 2.5 mg IVPUSH ONETIME ONE Stop: 07/16/18 06:34 Last Admin: 07/16/18 06:51 Dose: 2.5 mg Hydromorphone HCl (Dilaudid Securities Dealer 15 Mg In Ns 30 Ml) 0 mg IV ASDIRECTED PRN; Protocol PRN Reason: [employer] PAIN CONTROL Last Admin: 07/13/18 15:11 Dose: 0.2 mg Lactated Ringer's (Ringers, Lactated) 1,000 mls @ 999 mls/hr IV BOLUS ONE Stop: 07/12/18 15:06 Last Admin: 07/12/18 15:08 Dose: 999 mls/hr Sodium Chloride (Normal Saline) 80 mls @ 3 mls/sec IV ASDIRECTED [facility] Last Admin: 07/12/18 14:36 Dose: 3 mls/sec Ampicillin Sodium/Sulbactam (Sodium 3 gm/ Sodium Chloride) 100 mls @ 200 mls/ hr IV Q6H [facility] Stop: 07/12/18 17:00 Last Admin: 07/12/18 15:26 Dose: 200 mls/hr Aztreonam 1 gm/ Sodium (Chloride) 50 mls @ 100 mls/hr IV Q8H [facility] Ampicillin Sodium/Sulbactam (Sodium 3 gm/ Sodium Chloride) 100 mls @ 200 mls/ hr IV Q6H [facility] Last Admin: 07/16/18 09:34 Dose: 200 mls/hr Lactated Ringer's (Ringers, Lactated) 1,000 mls @ 75 mls/hr IV ASDIRECTED [facility] Last Admin: 07/13/18 03:33 Dose: 75 mls/hr Phytonadione 5 mg/ Sodium (Chloride) 50.5 mls @ 100 mls/hr IV NOW ONE Stop: 07/12/18 17:00 Last Admin: 07/12/18 17:47 Dose: 100 mls/hr Lactated Ringer's (Ringers, Lactated) Confirm Administered Dose 1,000 mls @ as directed .ROUTE .K-MED ONE Stop: 07/13/18 12:46 Tranexamic Acid 1,000 mg/ (Sodium Chloride) 60 mls @ 240 mls/hr IV Q3H [facility] Stop: 07/13/18 18:14 Last Admin: 07/13/18 17:47 Dose: 240 mls/hr Dextrose/Lactated Ringer's (Dextrose 5%-Lactated Ringers) 1,000 mls @ 175.004 mls/hr IV ASDIRECTED [facility] Last Admin: 07/14/18 06:57 Dose: 175.004 mls/hr Multivitamins/Minerals 10 ml/Thiamine HCl 200 mg/ Chromium/Copper/Manganese/ Seleni/Zn 1 ml/ Dextrose/Lactated Ringer's 1,013 mls @ 174.999 mls/hr IV DAILY@ 1600 [facility] Last Admin: 07/13/18 17:47 Dose: 174.999 mls/hr Diltiazem HCl 100 mg/ Sodium (Chloride) 100 mls @ 5 mls/hr IV TITRATE [facility]; Protocol Last Admin: 07/14/18 14:39 Dose: 5 mg/hr, 5 mls/hr Dextrose/Lactated Ringer's (Dextrose 5%-Lactated Ringers) 1,000 mls @ 125 mls/ hr IV ASDIRECTED [facility] Last Admin: 07/15/18 01:05 Dose: 125 mls/hr Magnesium Sulfate 2 gm/ Premix 50 mls @ 25 mls/hr IV Q6H [facility] Stop: 07/16/18 09:59 Last Admin: 07/16/18 08:17 Dose: 25 mls/hr Multivitamins/Minerals 10 ml/Thiamine HCl 200 mg/ Chromium/Copper/Manganese/ Zinc 1 ml/Dextrose/Lactated Ringer's 1,013 mls @ 125 mls/hr IV DAILY@1600 [facility] Last Admin: 07/14/18 16:17 Dose: 125 mls/hr Lactated Ringer's (Ringers, Lactated) Confirm Administered Dose 1,000 mls @ as directed .ROUTE .STK-MED ONE Stop: 07/15/18 07:55 Potassium Chloride 20 meq/Lidocaine HCl 2 ml/ Sodium Chloride 112 mls @ 56 mls/ hr IV Q2H [facility] Stop: 07/15/18 15:59 Last Admin: 07/15/18 14:17 Dose: 56 mls/hr Dextrose/Lactated Ringer's (Dextrose 5%-Lactated Ringers) 1,000 mls @ 25 mls/ hr IV ASDIRECTED [facility] Last Admin: 07/16/18 10:44 Dose: 25 mls/hr Diltiazem HCl 100 mg/ Sodium (Chloride) 100 mls @ 5 mls/hr IV TITRATE [facility]; Protocol Stop: 07/17/18 12:55 Last Admin: 07/17/18 06:50 Dose: 15 mg/hr, 15 mls/hr Potassium Phosphate 22.5 mmole (/ Sodium Chloride) 257.5 mls @ 65 mls/hr IV Q4H [facility] Stop: 07/16/18 17:28 Last Admin: 07/16/18 14:09 Dose: 65 mls/hr Cefoxitin Sodium 1 gm/ Sodium (Chloride) 50 mls @ 100 mls/hr IV Q8H [facility] Last Admin: 07/17/18 08:15 Dose: 100 mls/hr Potassium Phosphate 20 mmole/ (Sodium Chloride) 256.6667 mls @ 85 mls/hr IV Q3H [facility] Stop: 07/17/18 18:59 Last Admin: 07/17/18 16:35 Dose: 85 mls/hr Lactated Ringer's (Ringers, Lactated) 1,000 mls @ 500 mls/hr IV ASDIRECTED [facility] Stop: 07/17/18 10:46 Last Admin: 07/17/18 09:41 Dose: 500 mls/hr Lactated Ringer's (Ringers, Lactated) 1,000 mls @ 250 mls/hr IV ONETIME ONE Stop: 07/17/18 15:39 Last Admin: 07/17/18 11:37 Dose: 250 mls/hr Esmolol HCl (Brevibloc In Ns Premix) 2.5 gm in 250 mls @ 17.187 mls/hr IV TITRATE [facility]; Protocol Last Admin: 07/18/18 08:46 Dose: 50 mcg/kg/min, 17.187 mls/hr Potassium Phosphate 15 mmole/ (Sodium Chloride) 255 mls @ 125 mls/hr IV Q2H [facility] Stop: 07/18/18 13:59 Last Admin: 07/18/18 12:27 Dose: 125 mls/hr Dextrose/Lactated Ringer's (Dextrose 5%-Lactated Ringers) 1,000 mls @ 100 mls/ hr IV ASDIRECTED [facility] Stop: 07/20/18 17:59 Last Admin: 07/19/18 19:14 Dose: 100 mls/hr Lactated Ringer's (Ringers, Lactated) 500 mls @ 500 mls/hr IV ONETIME ONE Stop: 07/18/18 08:29 Last Admin: 07/18/18 07:44 Dose: 500 mls/hr Esmolol HCl 2,500 mg/ Premix 250 mls @ 17.18 mls/hr IV TITRATE [facility]; Protocol Stop: 07/20/18 21:59 Last Admin: 07/20/18 07:51 Dose: 50 mcg/kg/min, 17.18 mls/hr Potassium Phosphate 22.5 mmole (/ Sodium Chloride) 257.5 mls @ 65 mls/hr IV Q4H [facility] Stop: 07/19/18 17:58 Last Admin: 07/19/18 14:16 Dose: 65 mls/hr Magnesium Sulfate 2 gm/ Premix 50 mls @ 25 mls/hr IV Q6H [facility] Stop: 07/21/18 05:59 Last Admin: 07/21/18 04:42 Dose: 25 mls/hr Sodium Chloride (Normal Saline) 70 mls @ 3 mls/sec IV ASDIRECTED [facility] Last Admin: 07/19/18 08:49 Dose: 3 mls/sec Potassium Phosphate 20 mmole/ (Sodium Chloride) 106.6667 mls @ 36 mls/hr IV Q3H [facility] Stop: 07/21/18 00:58 Last Admin: 07/21/18 00:12 Dose: 36 mls/hr Esmolol HCl (Brevibloc In Ns Premix) 2.5 gm in 250 mls @ 17.187 mls/hr IV TITRATE [facility]; Protocol Stop: 07/21/18 23:59 Last Admin: 07/21/18 12:19 Dose: 50 mcg/kg/min, 17.187 mls/hr Potassium Phosphate 22.5 mmole (/ Sodium Chloride) 107.5 mls @ 20 mls/hr IV Q6H [facility] Stop: 07/21/18 21:23 Last Admin: 07/21/18 16:19 Dose: 20 mls/hr Iopamidol (Isovue-300 (61%)) 100 ml IV . DIRECTED PRN PRN Reason: RADIOLOGY EXAM Stop: 07/13/18 14:24 Last Admin: 07/12/18 14:36 Dose: 100 ml Iopamidol (Isovue-300 (61%)) 86 ml IV . DIRECTED PRN PRN Reason: RADIOLOGY EXAM Stop: 07/20/18 08:20 Last Admin: 07/19/18 08:49 Dose: 86 ml Labetalol HCl (Normodyne) Confirm Administered Dose 20 mg .ROUTE .STK-MED ONE Stop: 07/13/18 12:45 Labetalol HCl (Normodyne) 5 mg IVPUSH Q5M PRN PRN Reason: SBP over 160 OR DBP over 95 Last Admin: 07/13/18 19:46 Dose: 5 mg Lidocaine/Epinephrine (Xylocaine 1% With Epinephrine 1:100,000) Confirm Administered Dose 50 ml .ROUTE .STK-MED ONE Stop: 07/15/18 06:44 Last Admin: 07/15/18 07:58 Dose: 15 ml Lisinopril (Prinivil) 20 mg PO BEDTIME [facility] Last Admin: 07/12/18 21:12 Dose: 20 mg Lisinopril (Prinivil) 20 mg PO DAILY [facility] Last Admin: 07/15/18 11:08 Dose: 20 mg Lorazepam (Ativan) 0.5 mg IVPUSH ONETIME ONE Stop: 07/20/18 06:25 Last Admin: 07/20/18 08:34 Dose: Not Given Lorazepam (Ativan) 0.5 mg IVPUSH ONETIME ONE Stop: 07/20/18 07:31 Last Admin: 07/20/18 08:24 Dose: 0.5 mg Melatonin (Melatonin) 9 mg PO BEDTIME [facility] Last Admin: 07/15/18 20:36 Dose: Not Given Meropenem (Merrem) Confirm Administered Dose 500 mg .ROUTE .STK-MED ONE Stop: 07/13/18 08:39 Last Admin: 07/13/18 13:00 Dose: 500 mg Meropenem (Merrem) Confirm Administered Dose 500 mg .ROUTE .STK-MED ONE Stop: 07/15/18 06:43 Last Admin: 07/15/18 07:58 Dose: 500 mg Metoclopramide HCl (Reglan) 10 mg IVPUSH Q6H PRN PRN Reason: NAUSEA NOT CONTROL BY ZOFRAN Metoclopramide HCl (Reglan) 10 mg IVPUSH Q6H [facility] Last Admin: 07/16/18 01:10 Dose: 10 mg Metoclopramide HCl (Reglan) 10 mg IVPUSH Q6H [facility] Last Admin: 07/19/18 01:42 Dose: 10 mg Metoprolol Succinate (Toprol Xl) 100 mg PO DAILY [facility] Stop: 07/13/18 06:01 Last Admin: 07/13/18 05:58 Dose: 100 mg Metoprolol Succinate (Toprol Xl) 100 mg PO DAILY [facility] Metoprolol Tartrate (Lopressor) 5 mg IV Q6H [facility] Last Admin: 07/14/18 04:28 Dose: 5 mg Metoprolol Tartrate (Lopressor) 50 mg PO BID [facility] Last Admin: 07/15/18 20:30 Dose: 50 mg Metoprolol Tartrate (Lopressor) 5 mg IV Q6H [facility] Morphine Sulfate (Morphine) 2 mg IVPUSH Q2H PRN PRN Reason: Pain (severe 7-10) Multivitamins/Minerals (Thera M Plus) 1 tab PO DAILY [facility] Naloxone HCl (Narcan) 0.1 mg IV ASDIRECTED PRN PRN Reason: decreased respiratory rate Neostigmine Methylsulfate (Neostigmine) Confirm Administered Dose 5 mg .ROUTE .STK-MED ONE Stop: 07/13/18 08:32 Non-Formulary Medication (Tap Block, Pharmacy To Dose) 0 ml NERVRT ONETIME ONE Stop: 07/13/18 07:31 Last Admin: 07/13/18 13:06 Dose: Not Given Ondansetron HCl (Zofran Odt) 4 mg PO Q6H PRN PRN Reason: Nausea able to take PO Ondansetron HCl (Zofran) 4 mg IV Q6H PRN PRN Reason: Nausea/Vomiting Last Admin: 07/13/18 15:58 Dose: 4 mg Ondansetron HCl (Zofran) Confirm Administered Dose 4 mg .ROUTE .STK-MED ONE Stop: 07/13/18 08:32 Oxycodone HCl (Oxycodone) 5 mg PO Q4H PRN PRN Reason: Pain (moderate 4-6) Pantoprazole Sodium (Protonix Iv) 40 mg IVPUSH Q24H [facility] Last Admin: 07/14/18 16:24 Dose: 40 mg Pantoprazole Sodium (Protonix) 40 mg PO ACDINNER [facility] Last Admin: 07/15/18 15:14 Dose: 40 mg Propofol (Diprivan 20 Ml) Confirm Administered Dose 200 mg .ROUTE .STK-MED ONE Stop: 07/13/18 08:32 Propofol (Diprivan 20 Ml) Confirm Administered Dose 200 mg .ROUTE .STK-MED ONE Stop: 07/15/18 07:21 Propofol (Diprivan 20 Ml) Confirm Administered Dose 200 mg .ROUTE .STK-MED ONE Stop: 07/15/18 07:58 Rocuronium [place] (Zemuron) Confirm Administered Dose 50 mg .ROUTE .STK-MED ONE Stop: 07/13/18 08:32 Sodium Chloride (Saline Flush) 10 ml FLUSH ASDIRECTED PRN PRN Reason: Keep Vein Open Last Admin: 07/12/18 15:09 Dose: 10 ml Sodium Chloride (Saline Flush) 10 ml FLUSH ONETIME PRN PRN Reason: per radiology protocol Last Admin: 07/19/18 08:49 Dose: 10 ml Succinylcholine Chloride (Quelicin) Confirm Administered Dose 200 mg .ROUTE .STK -MED ONE Stop: 07/13/18 08:32 Warfarin Sodium 5 mg/ Warfarin (Sodium 1 mg) 6 mg PO ONETIME ONE Stop: 07/15/18 11:01 Last Admin: 07/15/18 11:08 Dose: 6 mg - Exam Quality Assessment: DVT Prophylaxis General: Alert, Oriented, Cooperative, Mild Distress Lungs: Clear to Auscultation, Normal Respiratory Effort Cardiovascular: Regular Rate, No Murmurs, Irregular Rhythm GI/Abdominal Exam: Soft, Non-Tender, No Organomegaly, No Distention - Problem List Review Problem List Initiated/Reviewed/Updated: Yes - My Orders Last 24 Hours: My Active Orders 07/22/18 01:00 Esmolol HCL in Sterile Water [Esmolol HCL in Sterile Water 2,500 MG/250 ML] 250 ml IV TITRATE - Plan Plan:: ASSESSMENT AND PLAN - Acute appendicitis with abscess - improvement noted over the last 24 hours, white blood cell count stable from yesterday. Slow improvement in energy level, taking regular walks in the hallways with staff. NG tube remains in place, hopefully can be removed tomorrow. -IV antibiotic therapy with meropenem and aztreonam -Pain and nausea control as needed -Additional postoperative care per surgical team Atrial fibrillation with rapid ventricular response - rate control stable over the past 24 hours -Toprolol XL 100 mg by mouth daily -Continue IV esmolol, pending CT results -Continue IV diltiazem pending CT results -Plan transition to oral medications when NG tube has been removed and she is placed on a liquid diet. -Continue systemic anticoagulation -Warfarin on hold due to nothing by mouth status -continue cardiac monitoring Hypokalemia-resolved Coronary artery disease status post CABG - Remote history of coronary disease with good functional status and no active anginal symptoms. She is on medical therapy with lisinopril and metoprolol as well as a daily aspirin. -Continue home medications Maintenance issues - - DVT prophylaxis - enoxaparin - GI prophylaxis - PPI - Nutrition - nothing by mouth Disposition - I would anticipate discharge to home after the hospital stay
[2018-07-22] MEDS: Potassium Phosphates 15 MMOLE in Sodium Chloride 0.9% 100 ML IV SCH ×3 (09:36→14:48)
[2018-07-22] MEDS: 1: AA 5%/Calcium/D15W/Lytes 1,000 ML with MVI, Adult with Vitamin K 10 ML, Chromium/Copp IV SCH ×6 (09:40→22:56)
[2018-07-22] MEDS: Dextrose 5%-Lactated Ringers 1,000 ML IV SCH (14:43)
[2018-07-22] MEDS: Diltiazem 125 MG in Sodium Chloride 0.9% 100 ML IV SCH (17:30)
[2018-07-23] MEDS: Enoxaparin 60 MG/0.6 ML Syringe SUBCUT SCH ×2 (00:51→13:55)
[2018-07-23] MEDS: Meropenem 1 GM in Sodium Chloride 0.9% 100 ML IV SCH ×3 (05:52→22:07)
[2018-07-23] MEDS: Aztreonam/Dextrose-Water 1 GM in Premix Bag 1 BAG IV SCH ×3 (07:57→23:31)
--- NOTE | 2018-07-23 09:10 | PCM.PN ---
- General Info Date of Service: 07/23/18 Subjective Update: Ms. Mcdonald has been stable over the last 24 hours, stable vital signs with no significant temperature elevation. Continues to slowly regain strength and doing well ambulating in the hallways. NG tube was removed today by Dr. Pickard, he is still concerned that there is still an element of ileus present. Heart rate remains under good control on current therapy. Functional Status: Reports: Pain Controlled, Ambulating, Urinating - Review of Systems General: Reports: Weakness. Denies: Fever, Chills Pulmonary: Reports: No Symptoms Cardiovascular: Reports: No Symptoms Gastrointestinal: Reports: No Symptoms - Patient Data Vitals - Most Recent: Last Vital Signs Temp 97.5 F 07/23/18 08:00 Pulse 91 07/23/18 08:42 Resp 15 07/23/18 08:42 BP 136/86 07/23/18 08:42 Pulse Ox 100 07/23/18 08:42 Weight - Most Recent: 126 lb 4.81 oz I&O - Last 24 Hours: Intake & Output 07/22/18 07/23/18 07/23/18 22:59 06:59 14:59 Intake Total 1840 Output Total 300 1250 250 Balance 1540 -1250 -250 Lab Results Last 24 Hours: Laboratory Results - last 24 hr 07/23/18 07/23/18 Range/Units 04:34 04:34 WBC 17.5 H (4.5-11.0) K/uL RBC 3.60 (3.30-5.50) M/uL Hgb 11.0 L (12.0-15.0) g/dL Hct 33.6 L (36.0-48.0) % MCV 93 (80-98) fL MCH 31 (27-31) pg MCHC 33 (32-36) % Plt Count 237 (150-400) K/uL Sodium 139 L (140-148) mmol/L Potassium 4.2 (3.6-5.2) mmol/L Chloride 104 (100-108) mmol/L Carbon Dioxide 27 (21-32) mmol/L Anion Gap 12.2 (5.0-14.0) mmol/L BUN 14 (7-18) mg/dL Creatinine 0.6 (0.6-1.0) mg/dL Est Cr Clr Drug Dosing 60.26 mL/min Estimated GFR (MDRD) > 60 (>60) Glucose 140 H (74-106) mg/dL Calcium 8.5 (8.5-10.1) mg/dL Phosphorus 2.7 (2.5-4.9) mg/dL Magnesium 1.9 (1.8-2.4) mg/dL Total Bilirubin 0.5 (0.2-1.0) mg/dL AST 43 H (15-37) U/L ALT 60 (12-78) U/L Alkaline Phosphatase 85 (46-116) U/L NT-Pro-B Natriuret Pep 110 (5-450) pg/mL Total Protein 5.9 L (6.4-8.2) g/dL Albumin 2.4 L (3.4-5.0) g/dL Globulin 3.5 (2.3-3.5) g/dL Albumin/Globulin Ratio 0.7 L (1.2-2.2) Lei Results Last 24 Hours: Microbiology 07/21/18 10:25 Stool Culture - Preliminary Stool / Feces Yeast Isolated Shiga Toxin I - Final NEGATIVE FOR SHIGA TOXIN 1 Shiga Toxin II - Final NEGATIVE FOR SHIGA TOXIN 2 Med Orders - Current: Current Medications Diphenhydramine HCl (Benadryl) 50 mg IVPUSH Q4H PRN PRN Reason: ITCHING Enoxaparin Sodium (Lovenox) 60 mg SUBCUT Q12H [facility] Last Admin: 07/23/18 00:51 Dose: 60 mg Haloperidol Lactate (Haldol) 2.5 mg IV Q6H PRN PRN Reason: ANXIETY/HALLUCINATIONS Hydroxyzine HCl (Vistaril) 100 mg IM Q4H PRN PRN Reason: pain Aztreonam/Dextrose 1 gm/ (Premix) 50 mls @ 100 mls/hr IV Q8H [facility] Last Admin: 07/23/18 07:57 Dose: 100 mls/hr Diltiazem HCl 125 mg/ Sodium (Chloride) 125 mls @ 5 mls/hr IV TITRATE [facility]; Protocol Last Admin: 07/22/18 17:30 Dose: 5 mg/hr, 5 mls/hr Meropenem 1 gm/ Sodium (Chloride) 100 mls @ 200 mls/hr IV Q8H [facility] Last Admin: 07/23/18 05:52 Dose: 200 mls/hr Multivitamins/Minerals 10 ml/Chromium/Copper/Manganese/Seleni/Zn 1 ml/ Amino Ac/ Electrol/Dextrose/Calcium 1,011 mls @ 75 mls/hr IV .BY DURATION [facility] Last Admin: 07/22/18 22:56 Dose: 75 mls/hr Amino Ac/Electrol/Dextrose/Calcium (Clinimix E 5/15) 1,000 mls @ 75 mls/hr IV .BY DURATION [facility] Last Admin: 07/22/18 09:40 Dose: 75 mls/hr Dextrose/Lactated Ringer's (Dextrose 5%-Lactated Ringers) 1,000 mls @ 30 mls/ hr IV ASDIRECTED [facility] Last Admin: 07/22/18 14:43 Dose: 30 mls/hr Esmolol HCl (Esmolol Hcl In Sterile Water 2,500 Mg/250 Ml) 250 mls @ 17.187 mls /hr IV TITRATE [facility]; Protocol Last Admin: 07/23/18 07:58 Dose: 50 mcg/kg/min, 17.187 mls/hr Fluconazole/Sodium Chloride (200 mg/ Premix) 100 mls @ 100 mls/hr IV Q24H [facility] Lactobacillus Rhamnosus (Culturelle) 2 cap PO BID [facility] Last Admin: 07/22/18 20:35 Dose: 2 cap Metoclopramide HCl (Reglan) 5 mg IVPUSH Q6H [facility] Metoprolol Succinate (Toprol Xl) 100 mg PO DAILY [facility] Last Admin: 07/22/18 08:36 Dose: 100 mg Ondansetron HCl (Zofran) 4 mg IV Q4H PRN PRN Reason: Nausea/Vomiting Last Admin: 07/19/18 13:19 Dose: 4 mg Discontinued Medications Acetaminophen (Tylenol) 650 mg PO Q4H PRN PRN Reason: Pain (Mild 1-3)/fever Last Admin: 07/13/18 03:31 Dose: 325 mg Aspirin (Halfprin) 81 mg PO DAILY [facility] Last Admin: 07/13/18 16:03 Dose: Not Given Aspirin (Halfprin) 81 mg PO DAILY [facility] Last Admin: 07/15/18 11:08 Dose: 81 mg Bisacodyl (Dulcolax) 10 mg PO BID [facility] Last Admin: 07/15/18 20:35 Dose: Not Given Bupivacaine HCl (Marcaine 0.5%) Confirm Administered Dose 30 ml .ROUTE .STK-MED ONE Stop: 07/15/18 06:44 Last Admin: 07/15/18 07:58 Dose: 15 ml Ropivacaine 28 ml/Dexamethasone 8 mg/Epinephrine HCl 0.4 mg/ Sodium Chloride 49.6 ml 0 ml NERVRT ASDIRECTED [facility] Last Admin: 07/13/18 12:40 Dose: 80 syringe Ropivacaine 28 ml/Dexamethasone 8 mg/Epinephrine HCl 0.4 mg/ Sodium Chloride 49.6 ml 0 ml NERVRT ASDIRECTED [facility] Last Admin: 07/15/18 07:14 Dose: 2 syringe Dexamethasone (Dexamethasone) Confirm Administered Dose 4 mg .ROUTE .STK-MED ONE Stop: 07/13/18 08:32 Digoxin (Lanoxin) 125 mcg IVPUSH ONETIME ONE Stop: 07/16/18 05:30 Last Admin: 07/16/18 05:46 Dose: 125 mcg Digoxin (Lanoxin) 250 mcg IVPUSH ONETIME ONE Stop: 07/17/18 09:46 Last Admin: 07/17/18 09:54 Dose: 250 mcg Digoxin (Lanoxin) 250 mcg IVPUSH ONETIME ONE Stop: 07/17/18 15:16 Last Admin: 07/17/18 15:15 Dose: 250 mcg Diltiazem HCl (Cardizem) 45 mg PO Q6HR [facility] Last Admin: 07/16/18 03:14 Dose: Not Given Diltiazem HCl (Diltiazem) 15 mg IVPUSH ONETIME ONE Stop: 07/16/18 01:57 Last Admin: 07/16/18 02:13 Dose: 15 mg Diltiazem HCl (Diltiazem) 5 mg IVPUSH ONETIME ONE Stop: 07/16/18 04:12 Last Admin: 07/16/18 04:24 Dose: 5 mg Docusate Sodium (Colace) 100 mg PO BID [facility] Last Admin: 07/15/18 20:35 Dose: Not Given Fentanyl (Sublimaze) Confirm Administered Dose 250 mcg .ROUTE .STK-MED ONE Stop: 07/13/18 08:33 Fentanyl (Sublimaze) Confirm Administered Dose 250 mcg .ROUTE .STK-MED ONE Stop: 07/13/18 12:42 Fentanyl (Sublimaze) Confirm Administered Dose 100 mcg .ROUTE .STK-MED ONE Stop: 07/15/18 07:21 Furosemide (Lasix) 20 mg IV ONETIME ONE Stop: 07/15/18 10:01 Last Admin: 07/15/18 09:37 Dose: 20 mg Furosemide (Lasix) 10 mg IVPUSH ONETIME ONE Stop: 07/19/18 12:01 Last Admin: 07/19/18 14:25 Dose: 10 mg Furosemide (Lasix) 10 mg IVPUSH ONETIME ONE Stop: 07/20/18 09:01 Last Admin: 07/20/18 09:50 Dose: 10 mg Furosemide (Lasix) 10 mg IVPUSH ONETIME ONE Stop: 07/21/18 11:01 Last Admin: 07/21/18 11:29 Dose: 10 mg Glycopyrrolate (Robinul) Confirm Administered Dose 1 mg .ROUTE .[facility]-MED ONE Stop: 07/13/18 08:32 Haloperidol Lactate (Haldol) 2.5 mg IVPUSH ONETIME ONE Stop: 07/16/18 06:34 Last Admin: 07/16/18 06:51 Dose: 2.5 mg Hydromorphone HCl (Dilaudid Environmental Remediation Engineer 15 Mg In Ns 30 Ml) 0 mg IV ASDIRECTED PRN; Protocol PRN Reason: [employer] PAIN CONTROL Last Admin: 07/13/18 15:11 Dose: 0.2 mg Lactated Ringer's (Ringers, Lactated) 1,000 mls @ 999 mls/hr IV BOLUS ONE Stop: 07/12/18 15:06 Last Admin: 07/12/18 15:08 Dose: 999 mls/hr Sodium Chloride (Normal Saline) 80 mls @ 3 mls/sec IV ASDIRECTED [facility] Last Admin: 07/12/18 14:36 Dose: 3 mls/sec Ampicillin Sodium/Sulbactam (Sodium 3 gm/ Sodium Chloride) 100 mls @ 200 mls/ hr IV Q6H [facility] Stop: 07/12/18 17:00 Last Admin: 07/12/18 15:26 Dose: 200 mls/hr Aztreonam 1 gm/ Sodium (Chloride) 50 mls @ 100 mls/hr IV Q8H [facility] Ampicillin Sodium/Sulbactam (Sodium 3 gm/ Sodium Chloride) 100 mls @ 200 mls/ hr IV Q6H [facility] Last Admin: 07/16/18 09:34 Dose: 200 mls/hr Lactated Ringer's (Ringers, Lactated) 1,000 mls @ 75 mls/hr IV ASDIRECTED [facility] Last Admin: 07/13/18 03:33 Dose: 75 mls/hr Phytonadione 5 mg/ Sodium (Chloride) 50.5 mls @ 100 mls/hr IV NOW ONE Stop: 07/12/18 17:00 Last Admin: 07/12/18 17:47 Dose: 100 mls/hr Lactated Ringer's (Ringers, Lactated) Confirm Administered Dose 1,000 mls @ as directed .ROUTE .STK-MED ONE Stop: 07/13/18 12:46 Tranexamic Acid 1,000 mg/ (Sodium Chloride) 60 mls @ 240 mls/hr IV Q3H [facility] Stop: 07/13/18 18:14 Last Admin: 07/13/18 17:47 Dose: 240 mls/hr Dextrose/Lactated Ringer's (Dextrose 5%-Lactated Ringers) 1,000 mls @ 175.004 mls/hr IV ASDIRECTED [facility] Last Admin: 07/14/18 06:57 Dose: 175.004 mls/hr Multivitamins/Minerals 10 ml/Thiamine HCl 200 mg/ Chromium/Copper/Manganese/ Seleni/Zn 1 ml/ Dextrose/Lactated Ringer's 1,013 mls @ 174.999 mls/hr IV DAILY@ 1600 [facility] Last Admin: 07/13/18 17:47 Dose: 174.999 mls/hr Diltiazem HCl 100 mg/ Sodium (Chloride) 100 mls @ 5 mls/hr IV TITRATE [facility]; Protocol Last Admin: 07/14/18 14:39 Dose: 5 mg/hr, 5 mls/hr Dextrose/Lactated Ringer's (Dextrose 5%-Lactated Ringers) 1,000 mls @ 125 mls/ hr IV ASDIRECTED [facility] Last Admin: 07/15/18 01:05 Dose: 125 mls/hr Magnesium Sulfate 2 gm/ Premix 50 mls @ 25 mls/hr IV Q6H [facility] Stop: 07/16/18 09:59 Last Admin: 07/16/18 08:17 Dose: 25 mls/hr Multivitamins/Minerals 10 ml/Thiamine HCl 200 mg/ Chromium/Copper/Manganese/ Zinc 1 ml/Dextrose/Lactated Ringer's 1,013 mls @ 125 mls/hr IV DAILY@1600 [facility] Last Admin: 07/14/18 16:17 Dose: 125 mls/hr Lactated Ringer's (Ringers, Lactated) Confirm Administered Dose 1,000 mls @ as directed .ROUTE .STK-MED ONE Stop: 07/15/18 07:55 Potassium Chloride 20 meq/Lidocaine HCl 2 ml/ Sodium Chloride 112 mls @ 56 mls/ hr IV Q2H [facility] Stop: 07/15/18 15:59 Last Admin: 07/15/18 14:17 Dose: 56 mls/hr Dextrose/Lactated Ringer's (Dextrose 5%-Lactated Ringers) 1,000 mls @ 25 mls/ hr IV ASDIRECTED [facility] Last Admin: 07/16/18 10:44 Dose: 25 mls/hr Diltiazem HCl 100 mg/ Sodium (Chloride) 100 mls @ 5 mls/hr IV TITRATE [facility]; Protocol Stop: 07/17/18 12:55 Last Admin: 07/17/18 06:50 Dose: 15 mg/hr, 15 mls/hr Potassium Phosphate 22.5 mmole (/ Sodium Chloride) 257.5 mls @ 65 mls/hr IV Q4H [facility] Stop: 07/16/18 17:28 Last Admin: 07/16/18 14:09 Dose: 65 mls/hr Cefoxitin Sodium 1 gm/ Sodium (Chloride) 50 mls @ 100 mls/hr IV Q8H [facility] Last Admin: 07/17/18 08:15 Dose: 100 mls/hr Potassium Phosphate 20 mmole/ (Sodium Chloride) 256.6667 mls @ 85 mls/hr IV Q3H [facility] Stop: 07/17/18 18:59 Last Admin: 07/17/18 16:35 Dose: 85 mls/hr Lactated Ringer's (Ringers, Lactated) 1,000 mls @ 500 mls/hr IV ASDIRECTED [facility] Stop: 07/17/18 10:46 Last Admin: 07/17/18 09:41 Dose: 500 mls/hr Lactated Ringer's (Ringers, Lactated) 1,000 mls @ 250 mls/hr IV ONETIME ONE Stop: 07/17/18 15:39 Last Admin: 07/17/18 11:37 Dose: 250 mls/hr Esmolol HCl (Brevibloc In Ns Premix) 2.5 gm in 250 mls @ 17.187 mls/hr IV TITRATE [facility]; Protocol Last Admin: 07/18/18 08:46 Dose: 50 mcg/kg/min, 17.187 mls/hr Potassium Phosphate 15 mmole/ (Sodium Chloride) 255 mls @ 125 mls/hr IV Q2H [facility] Stop: 07/18/18 13:59 Last Admin: 07/18/18 12:27 Dose: 125 mls/hr Dextrose/Lactated Ringer's (Dextrose 5%-Lactated Ringers) 1,000 mls @ 100 mls/ hr IV ASDIRECTED [facility] Stop: 07/20/18 17:59 Last Admin: 07/19/18 19:14 Dose: 100 mls/hr Lactated Ringer's (Ringers, Lactated) 500 mls @ 500 mls/hr IV ONETIME ONE Stop: 07/18/18 08:29 Last Admin: 07/18/18 07:44 Dose: 500 mls/hr Esmolol HCl 2,500 mg/ Premix 250 mls @ 17.18 mls/hr IV TITRATE [facility]; Protocol Stop: 07/20/18 21:59 Last Admin: 07/20/18 07:51 Dose: 50 mcg/kg/min, 17.18 mls/hr Potassium Phosphate 22.5 mmole (/ Sodium Chloride) 257.5 mls @ 65 mls/hr IV Q4H [facility] Stop: 07/19/18 17:58 Last Admin: 07/19/18 14:16 Dose: 65 mls/hr Magnesium Sulfate 2 gm/ Premix 50 mls @ 25 mls/hr IV Q6H [facility] Stop: 07/21/18 05:59 Last Admin: 07/21/18 04:42 Dose: 25 mls/hr Sodium Chloride (Normal Saline) 70 mls @ 3 mls/sec IV ASDIRECTED [facility] Last Admin: 07/19/18 08:49 Dose: 3 mls/sec Potassium Phosphate 20 mmole/ (Sodium Chloride) 106.6667 mls @ 36 mls/hr IV Q3H [facility] Stop: 07/21/18 00:58 Last Admin: 07/21/18 00:12 Dose: 36 mls/hr Esmolol HCl (Brevibloc In Ns Premix) 2.5 gm in 250 mls @ 17.187 mls/hr IV TITRATE [facility]; Protocol Stop: 07/21/18 23:59 Last Admin: 07/21/18 12:19 Dose: 50 mcg/kg/min, 17.187 mls/hr Potassium Phosphate 22.5 mmole (/ Sodium Chloride) 107.5 mls @ 20 mls/hr IV Q6H [facility] Stop: 07/21/18 21:23 Last Admin: 07/21/18 16:19 Dose: 20 mls/hr Potassium Phosphate 15 mmole/ (Sodium Chloride) 105 mls @ 45 mls/hr IV Q2H [facility] Stop: 07/22/18 15:29 Last Admin: 07/22/18 14:48 Dose: 45 mls/hr Iopamidol (Isovue-300 (61%)) 100 ml IV . DIRECTED PRN PRN Reason: RADIOLOGY EXAM Stop: 07/13/18 14:24 Last Admin: 07/12/18 14:36 Dose: 100 ml Iopamidol (Isovue-300 (61%)) 86 ml IV . DIRECTED PRN PRN Reason: RADIOLOGY EXAM Stop: 07/20/18 08:20 Last Admin: 07/19/18 08:49 Dose: 86 ml Labetalol HCl (Normodyne) Confirm Administered Dose 20 mg .ROUTE .STK-MED ONE Stop: 07/13/18 12:45 Labetalol HCl (Normodyne) 5 mg IVPUSH Q5M PRN PRN Reason: SBP over 160 OR DBP over 95 Last Admin: 07/13/18 19:46 Dose: 5 mg Lidocaine/Epinephrine (Xylocaine 1% With Epinephrine 1:100,000) Confirm Administered Dose 50 ml .ROUTE .STK-MED ONE Stop: 07/15/18 06:44 Last Admin: 07/15/18 07:58 Dose: 15 ml Lisinopril (Prinivil) 20 mg PO BEDTIME [facility] Last Admin: 07/12/18 21:12 Dose: 20 mg Lisinopril (Prinivil) 20 mg PO DAILY [facility] Last Admin: 07/15/18 11:08 Dose: 20 mg Lorazepam (Ativan) 0.5 mg IVPUSH ONETIME ONE Stop: 07/20/18 06:25 Last Admin: 07/20/18 08:34 Dose: Not Given Lorazepam (Ativan) 0.5 mg IVPUSH ONETIME ONE Stop: 07/20/18 07:31 Last Admin: 07/20/18 08:24 Dose: 0.5 mg Melatonin (Melatonin) 9 mg PO BEDTIME [facility] Last Admin: 07/15/18 20:36 Dose: Not Given Meropenem (Merrem) Confirm Administered Dose 500 mg .ROUTE .STK-MED ONE Stop: 07/13/18 08:39 Last Admin: 07/13/18 13:00 Dose: 500 mg Meropenem (Merrem) Confirm Administered Dose 500 mg .ROUTE .STK-MED ONE Stop: 07/15/18 06:43 Last Admin: 07/15/18 07:58 Dose: 500 mg Metoclopramide HCl (Reglan) 10 mg IVPUSH Q6H PRN PRN Reason: NAUSEA NOT CONTROL BY ZOFRAN Metoclopramide HCl (Reglan) 10 mg IVPUSH Q6H [facility] Last Admin: 07/16/18 01:10 Dose: 10 mg Metoclopramide HCl (Reglan) 10 mg IVPUSH Q6H [facility] Last Admin: 07/19/18 01:42 Dose: 10 mg Metoprolol Succinate (Toprol Xl) 100 mg PO DAILY [facility] Stop: 07/13/18 06:01 Last Admin: 07/13/18 05:58 Dose: 100 mg Metoprolol Succinate (Toprol Xl) 100 mg PO DAILY [facility] Metoprolol Tartrate (Lopressor) 5 mg IV Q6H [facility] Last Admin: 07/14/18 04:28 Dose: 5 mg Metoprolol Tartrate (Lopressor) 50 mg PO BID [facility] Last Admin: 07/15/18 20:30 Dose: 50 mg Metoprolol Tartrate (Lopressor) 5 mg IV Q6H [facility] Morphine Sulfate (Morphine) 2 mg IVPUSH Q2H PRN PRN Reason: Pain (severe 7-10) Multivitamins/Minerals (Thera M Plus) 1 tab PO DAILY [facility] Naloxone HCl (Narcan) 0.1 mg IV ASDIRECTED PRN PRN Reason: decreased respiratory rate Neostigmine Methylsulfate (Neostigmine) Confirm Administered Dose 5 mg .ROUTE .STK-MED ONE Stop: 07/13/18 08:32 Non-Formulary Medication (Tap Block, Pharmacy To Dose) 0 ml NERVRT ONETIME ONE Stop: 07/13/18 07:31 Last Admin: 07/13/18 13:06 Dose: Not Given Ondansetron HCl (Zofran Odt) 4 mg PO Q6H PRN PRN Reason: Nausea able to take PO Ondansetron HCl (Zofran) 4 mg IV Q6H PRN PRN Reason: Nausea/Vomiting Last Admin: 07/13/18 15:58 Dose: 4 mg Ondansetron HCl (Zofran) Confirm Administered Dose 4 mg .ROUTE .STK-MED ONE Stop: 07/13/18 08:32 Oxycodone HCl (Oxycodone) 5 mg PO Q4H PRN PRN Reason: Pain (moderate 4-6) Pantoprazole Sodium (Protonix Iv) 40 mg IVPUSH Q24H [facility] Last Admin: 07/14/18 16:24 Dose: 40 mg Pantoprazole Sodium (Protonix) 40 mg PO ACDINNER [facility] Last Admin: 07/15/18 15:14 Dose: 40 mg Propofol (Diprivan 20 Ml) Confirm Administered Dose 200 mg .ROUTE .STK-MED ONE Stop: 07/13/18 08:32 Propofol (Diprivan 20 Ml) Confirm Administered Dose 200 mg .ROUTE .STK-MED ONE Stop: 07/15/18 07:21 Propofol (Diprivan 20 Ml) Confirm Administered Dose 200 mg .ROUTE .STK-MED ONE Stop: 07/15/18 07:58 Rocuronium [place] (Zemuron) Confirm Administered Dose 50 mg .ROUTE .STK-MED ONE Stop: 07/13/18 08:32 Sodium Chloride (Saline Flush) 10 ml FLUSH ASDIRECTED PRN PRN Reason: Keep Vein Open Last Admin: 07/12/18 15:09 Dose: 10 ml Sodium Chloride (Saline Flush) 10 ml FLUSH ONETIME PRN PRN Reason: per radiology protocol Last Admin: 07/19/18 08:49 Dose: 10 ml Succinylcholine Chloride (Quelicin) Confirm Administered Dose 200 mg .ROUTE .STK -MED ONE Stop: 07/13/18 08:32 Warfarin Sodium 5 mg/ Warfarin (Sodium 1 mg) 6 mg PO ONETIME ONE Stop: 07/15/18 11:01 Last Admin: 07/15/18 11:08 Dose: 6 mg - Exam General: Alert, Oriented, Cooperative, No Acute Distress Lungs: Clear to Auscultation, Normal Respiratory Effort Cardiovascular: Regular Rate, No Murmurs, Irregular Rhythm GI/Abdominal Exam: Soft, Non-Tender, No Organomegaly, No Distention Extremities: Non-Tender, No Pedal Edema - Problem List Review Problem List Initiated/Reviewed/Updated: Yes - My Orders Last 24 Hours: My Active Orders 07/24/18 05:00 CBC WITH AUTO DIFF [HEME] Timed - Plan Plan:: ASSESSMENT AND PLAN - Acute appendicitis with abscess -slow continuous improvement, NG removed today. Still some evidence of ongoing ileus so she has not been started on a diet at this point. White blood cell count remains elevated at 17,000, no significant temperature elevation last 24 hours. -IV antibiotic therapy with meropenem and aztreonam -Pain and nausea control as needed -Additional postoperative care per surgical team Atrial fibrillation with rapid ventricular response - rate control stable over the past 24 hours -Toprolol XL 100 mg by mouth daily -Continue IV esmolol until started on a diet -Continue IV diltiazem until started on a diet -Plan transition to oral medications when NG tube has been removed and she is placed on a liquid diet. -Continue systemic anticoagulation -Warfarin on hold due to nothing by mouth status -continue cardiac monitoring Hypokalemia-resolved Coronary artery disease status post CABG - Remote history of coronary disease with good functional status and no active anginal symptoms. She is on medical therapy with lisinopril and metoprolol as well as a daily aspirin. -Continue home medications Maintenance issues - - DVT prophylaxis - enoxaparin - GI prophylaxis - PPI - Nutrition - nothing by mouth Disposition - I would anticipate discharge to home after the hospital stay
[2018-07-23] MEDS: Metoprolol Succinate 50 MG Tab.ER PO SCH (09:24)
[2018-07-23] MEDS: Lactobacillus Rhamnosus GG (Probiotic) Cap PO SCH ×2 (09:24→20:41)
[2018-07-23] MEDS: Metoclopramide 10 MG/2 ML SDV IVPUSH SCH ×3 (09:39→22:07)
[2018-07-23] MEDS: Fluconazole/Normal Saline 200 MG in Premix Bag 1 BAG IV SCH (09:43)
[2018-07-23] MEDS: 1: AA 5%/Calcium/D15W/Lytes 1,000 ML with MVI, Adult with Vitamin K 10 ML, Chromium/Copp IV SCH ×3 (13:05)
[2018-07-23] MEDS: Diltiazem 125 MG in Sodium Chloride 0.9% 100 ML IV SCH (17:30)
[2018-07-24] MEDS: Enoxaparin 60 MG/0.6 ML Syringe SUBCUT SCH ×2 (00:12→13:43)
[2018-07-24] MEDS: 1: AA 5%/Calcium/D15W/Lytes 1,000 ML with MVI, Adult with Vitamin K 10 ML, Chromium/Copp IV SCH ×6 (02:33→15:37)
[2018-07-24] MEDS: Dextrose 5%-Lactated Ringers 1,000 ML IV SCH (02:44)
[2018-07-24] MEDS: Metoclopramide 10 MG/2 ML SDV IVPUSH SCH ×4 (04:03→21:42)
[2018-07-24] MEDS: Meropenem 1 GM in Sodium Chloride 0.9% 100 ML IV SCH ×3 (05:30→21:42)
[2018-07-24] MEDS: Aztreonam/Dextrose-Water 1 GM in Premix Bag 1 BAG IV SCH ×2 (07:54→15:36)
--- NOTE | 2018-07-24 09:08 | CR ---
Abdomen 2V AP Flat Upright CLINICAL HISTORY: Postop ileus FINDINGS: NG tube remains in the upper stomach. There is persistent small bowel distention predominantly in the right abdomen. There is some gas seen throughout the colon. Appearance is similar to the prior study IMPRESSION: NG tube is just beyond the gastroesophageal esophageal junction Persistent small bowel distention most consistent with postoperative ileus
--- NOTE | 2018-07-24 09:11 | CR ---
Abdomen 2V AP Flat Upright CLINICAL HISTORY: Postop ileus FINDINGS: NG tube remains in place just beyond the GE junction. There is persistent small bowel distention. There is some gas within the colon. Appearance is similar to prior study IMPRESSION: Postop ileus No significant change in appearance since prior study
--- NOTE | 2018-07-24 09:12 | CR ---
Abdomen 2V AP Flat Upright CLINICAL HISTORY: Postop ileus FINDINGS: NG tube is been removed. There is a decrease in small bowel distention since prior study. There is gas and feces throughout the colon IMPRESSION: Nasogastric extubation Decrease in small bowel distention since prior study
--- NOTE | 2018-07-24 10:29 | PCM.PN ---
- General Info Date of Service: 07/24/18 Subjective Update: There were no acute events overnight. Patient has not had any fevers. White blood cell count continues to trend down. Abdominal pain has been well- controlled. Heart rate has been well-controlled using a combination of diltiazem and esmolol. She is having some liquid stool. Tolerating clear liquids. Functional Status: Reports: Pain Controlled, Tolerating Diet - Review of Systems General: Denies: Fever Pulmonary: Denies: Shortness of Breath Gastrointestinal: Reports: Abdominal Pain - Patient Data Vitals - Most Recent: Last Vital Signs Temp 36.1 C 07/24/18 08:00 Pulse 72 07/24/18 08:00 Resp 16 07/24/18 08:00 BP 144/74 H 07/24/18 08:00 Pulse Ox 100 07/24/18 08:00 Weight - Most Recent: 57.289 kg I&O - Last 24 Hours: Intake & Output 07/23/18 07/24/18 07/24/18 22:59 06:59 14:59 Intake Total 1591 1756 Output Total 1500 1900 Balance 91 -144 Lab Results Last 24 Hours: Laboratory Results - last 24 hr 07/24/18 Range/Units 04:35 WBC 13.4 H (4.5-11.0) K/uL RBC 3.38 (3.30-5.50) M/uL Hgb 10.3 L (12.0-15.0) g/dL Hct 31.9 L (36.0-48.0) % MCV 94 (80-98) fL MCH 31 (27-31) pg MCHC 32 (32-36) % Plt Count 199 (150-400) K/uL Neut % (Auto) 72 H (36-66) % Lymph % (Auto) 14 L (24-44) % [place] % (Auto) 10 H (2-6) % Eos % (Auto) 4 (2-4) % Baso % (Auto) 0 (0-1) % Lei Results Last 24 Hours: Microbiology 07/21/18 10:25 Stool Culture - Final Stool / Feces Yeast Isolated Shiga Toxin I - Final NEGATIVE FOR SHIGA TOXIN 1 Shiga Toxin II - Final NEGATIVE FOR SHIGA TOXIN 2 Med Orders - Current: Current Medications Diphenhydramine HCl (Benadryl) 50 mg IVPUSH Q4H PRN PRN Reason: ITCHING Enoxaparin Sodium (Lovenox) 60 mg SUBCUT Q12H [facility] Last Admin: 07/24/18 00:12 Dose: 60 mg Haloperidol Lactate (Haldol) 2.5 mg IV Q6H PRN PRN Reason: ANXIETY/HALLUCINATIONS Hydroxyzine HCl (Vistaril) 100 mg IM Q4H PRN PRN Reason: pain Aztreonam/Dextrose 1 gm/ (Premix) 50 mls @ 100 mls/hr IV Q8H [facility] Last Admin: 07/24/18 07:54 Dose: 100 mls/hr Diltiazem HCl 125 mg/ Sodium (Chloride) 125 mls @ 5 mls/hr IV TITRATE [facility]; Protocol Last Admin: 07/23/18 17:30 Dose: 5 mg/hr, 5 mls/hr Meropenem 1 gm/ Sodium (Chloride) 100 mls @ 200 mls/hr IV Q8H [facility] Last Admin: 07/24/18 05:30 Dose: 200 mls/hr Multivitamins/Minerals 10 ml/Chromium/Copper/Manganese/Seleni/Zn 1 ml/ Amino Ac/ Electrol/Dextrose/Calcium 1,011 mls @ 75 mls/hr IV .BY DURATION [facility] Last Admin: 07/24/18 02:33 Dose: 75 mls/hr Amino Ac/Electrol/Dextrose/Calcium (Clinimix E 11/22) 1,000 mls @ 75 mls/hr IV .BY DURATION [facility] Last Admin: 07/23/18 13:05 Dose: 75 mls/hr Dextrose/Lactated Ringer's (Dextrose 5%-Lactated Ringers) 1,000 mls @ 30 mls/ hr IV ASDIRECTED [facility] Last Admin: 07/24/18 02:44 Dose: 30 mls/hr Esmolol HCl (Esmolol Hcl In Sterile Water 2,500 Mg/250 Ml) 250 mls @ 17.187 mls /hr IV TITRATE [facility]; Protocol Last Titration: 07/23/18 20:45 Dose: 50 mcg/kg/min, 17.187 mls/hr Fluconazole/Sodium Chloride (200 mg/ Premix) 100 mls @ 100 mls/hr IV Q24H [facility] Last Admin: 07/23/18 09:43 Dose: 100 mls/hr Inulin (Fiber Choice) 3 gm PO BID [facility] Lactobacillus Rhamnosus (Culturelle) 2 cap PO BID [facility] Last Admin: 07/23/18 20:41 Dose: 2 cap Metoclopramide HCl (Reglan) 5 mg IVPUSH Q6H [facility] Last Admin: 07/24/18 04:03 Dose: 5 mg Metoprolol Succinate (Toprol Xl) 100 mg PO DAILY [facility] Last Admin: 07/23/18 09:24 Dose: 100 mg Ondansetron HCl (Zofran) 4 mg IV Q4H PRN PRN Reason: Nausea/Vomiting Last Admin: 07/19/18 13:19 Dose: 4 mg Discontinued Medications Acetaminophen (Tylenol) 650 mg PO Q4H PRN PRN Reason: Pain (Mild 1-3)/fever Last Admin: 07/13/18 03:31 Dose: 325 mg Aspirin (Halfprin) 81 mg PO DAILY [facility] Last Admin: 07/13/18 16:03 Dose: Not Given Aspirin (Halfprin) 81 mg PO DAILY [facility] Last Admin: 07/15/18 11:08 Dose: 81 mg Bisacodyl (Dulcolax) 10 mg PO BID [facility] Last Admin: 07/15/18 20:35 Dose: Not Given Bupivacaine HCl (Marcaine 0.5%) Confirm Administered Dose 30 ml .ROUTE .STK-MED ONE Stop: 07/15/18 06:44 Last Admin: 07/15/18 07:58 Dose: 15 ml Ropivacaine 28 ml/Dexamethasone 8 mg/Epinephrine HCl 0.4 mg/ Sodium Chloride 49.6 ml 0 ml NERVRT ASDIRECTED [facility] Last Admin: 07/13/18 12:40 Dose: 80 syringe Ropivacaine 28 ml/Dexamethasone 8 mg/Epinephrine HCl 0.4 mg/ Sodium Chloride 49.6 ml 0 ml NERVRT ASDIRECTED [facility] Last Admin: 07/15/18 07:14 Dose: 2 syringe Dexamethasone (Dexamethasone) Confirm Administered Dose 4 mg .ROUTE .STK-MED ONE Stop: 07/13/18 08:32 Digoxin (Lanoxin) 125 mcg IVPUSH ONETIME ONE Stop: 07/16/18 05:30 Last Admin: 07/16/18 05:46 Dose: 125 mcg Digoxin (Lanoxin) 250 mcg IVPUSH ONETIME ONE Stop: 07/17/18 09:46 Last Admin: 07/17/18 09:54 Dose: 250 mcg Digoxin (Lanoxin) 250 mcg IVPUSH ONETIME ONE Stop: 07/17/18 15:16 Last Admin: 07/17/18 15:15 Dose: 250 mcg Diltiazem HCl (Cardizem) 45 mg PO Q6HR [facility] Last Admin: 07/16/18 03:14 Dose: Not Given Diltiazem HCl (Diltiazem) 15 mg IVPUSH ONETIME ONE Stop: 07/16/18 01:57 Last Admin: 07/16/18 02:13 Dose: 15 mg Diltiazem HCl (Diltiazem) 5 mg IVPUSH ONETIME ONE Stop: 07/16/18 04:12 Last Admin: 07/16/18 04:24 Dose: 5 mg Docusate Sodium (Colace) 100 mg PO BID [facility] Last Admin: 07/15/18 20:35 Dose: Not Given Fentanyl (Sublimaze) Confirm Administered Dose 250 mcg .ROUTE .STK-MED ONE Stop: 07/13/18 08:33 Fentanyl (Sublimaze) Confirm Administered Dose 250 mcg .ROUTE .STK-MED ONE Stop: 07/13/18 12:42 Fentanyl (Sublimaze) Confirm Administered Dose 100 mcg .ROUTE .STK-MED ONE Stop: 07/15/18 07:21 Furosemide (Lasix) 20 mg IV ONETIME ONE Stop: 07/15/18 10:01 Last Admin: 07/15/18 09:37 Dose: 20 mg Furosemide (Lasix) 10 mg IVPUSH ONETIME ONE Stop: 07/19/18 12:01 Last Admin: 07/19/18 14:25 Dose: 10 mg Furosemide (Lasix) 10 mg IVPUSH ONETIME ONE Stop: 07/20/18 09:01 Last Admin: 07/20/18 09:50 Dose: 10 mg Furosemide (Lasix) 10 mg IVPUSH ONETIME ONE Stop: 07/21/18 11:01 Last Admin: 07/21/18 11:29 Dose: 10 mg Glycopyrrolate (Robinul) Confirm Administered Dose 1 mg .ROUTE .STK-MED ONE Stop: 07/13/18 08:32 Haloperidol Lactate (Haldol) 2.5 mg IVPUSH ONETIME ONE Stop: 07/16/18 06:34 Last Admin: 07/16/18 06:51 Dose: 2.5 mg Hydromorphone HCl (Dilaudid [employer] 15 Mg In Ns 30 Ml) 0 mg IV ASDIRECTED PRN; Protocol PRN Reason: [employer] PAIN CONTROL Last Admin: 07/13/18 15:11 Dose: 0.2 mg Lactated Ringer's (Ringers, Lactated) 1,000 mls @ 999 mls/hr IV BOLUS ONE Stop: 07/12/18 15:06 Last Admin: 07/12/18 15:08 Dose: 999 mls/hr Sodium Chloride (Normal Saline) 80 mls @ 3 mls/sec IV ASDIRECTED [facility] Last Admin: 07/12/18 14:36 Dose: 3 mls/sec Ampicillin Sodium/Sulbactam (Sodium 3 gm/ Sodium Chloride) 100 mls @ 200 mls/ hr IV Q6H [facility] Stop: 07/12/18 17:00 Last Admin: 07/12/18 15:26 Dose: 200 mls/hr Aztreonam 1 gm/ Sodium (Chloride) 50 mls @ 100 mls/hr IV Q8H [facility] Ampicillin Sodium/Sulbactam (Sodium 3 gm/ Sodium Chloride) 100 mls @ 200 mls/ hr IV Q6H [facility] Last Admin: 07/16/18 09:34 Dose: 200 mls/hr Lactated Ringer's (Ringers, Lactated) 1,000 mls @ 75 mls/hr IV ASDIRECTED [facility] Last Admin: 07/13/18 03:33 Dose: 75 mls/hr Phytonadione 5 mg/ Sodium (Chloride) 50.5 mls @ 100 mls/hr IV NOW ONE Stop: 07/12/18 17:00 Last Admin: 07/12/18 17:47 Dose: 100 mls/hr Lactated Ringer's (Ringers, Lactated) Confirm Administered Dose 1,000 mls @ as directed .ROUTE .STK-MED ONE Stop: 07/13/18 12:46 Tranexamic Acid 1,000 mg/ (Sodium Chloride) 60 mls @ 240 mls/hr IV Q3H [facility] Stop: 07/13/18 18:14 Last Admin: 07/13/18 17:47 Dose: 240 mls/hr Dextrose/Lactated Ringer's (Dextrose 5%-Lactated Ringers) 1,000 mls @ 175.004 mls/hr IV ASDIRECTED [facility] Last Admin: 07/14/18 06:57 Dose: 175.004 mls/hr Multivitamins/Minerals 10 ml/Thiamine HCl 200 mg/ Chromium/Copper/Manganese/ Seleni/Zn 1 ml/ Dextrose/Lactated Ringer's 1,013 mls @ 174.999 mls/hr IV DAILY@ 1600 [facility] Last Admin: 07/13/18 17:47 Dose: 174.999 mls/hr Diltiazem HCl 100 mg/ Sodium (Chloride) 100 mls @ 5 mls/hr IV TITRATE [facility]; Protocol Last Admin: 07/14/18 14:39 Dose: 5 mg/hr, 5 mls/hr Dextrose/Lactated Ringer's (Dextrose 5%-Lactated Ringers) 1,000 mls @ 125 mls/ hr IV ASDIRECTED [facility] Last Admin: 07/15/18 01:05 Dose: 125 mls/hr Magnesium Sulfate 2 gm/ Premix 50 mls @ 25 mls/hr IV Q6H [facility] Stop: 07/16/18 09:59 Last Admin: 07/16/18 08:17 Dose: 25 mls/hr Multivitamins/Minerals 10 ml/Thiamine HCl 200 mg/ Chromium/Copper/Manganese/ Zinc 1 ml/Dextrose/Lactated Ringer's 1,013 mls @ 125 mls/hr IV DAILY@1600 [facility] Last Admin: 07/14/18 16:17 Dose: 125 mls/hr Lactated Ringer's (Ringers, Lactated) Confirm Administered Dose 1,000 mls @ as directed .ROUTE .STK-MED ONE Stop: 07/15/18 07:55 Potassium Chloride 20 meq/Lidocaine HCl 2 ml/ Sodium Chloride 112 mls @ 56 mls/ hr IV Q2H [facility] Stop: 07/15/18 15:59 Last Admin: 07/15/18 14:17 Dose: 56 mls/hr Dextrose/Lactated Ringer's (Dextrose 5%-Lactated Ringers) 1,000 mls @ 25 mls/ hr IV ASDIRECTED [facility] Last Admin: 07/16/18 10:44 Dose: 25 mls/hr Diltiazem HCl 100 mg/ Sodium (Chloride) 100 mls @ 5 mls/hr IV TITRATE [facility]; Protocol Stop: 07/17/18 12:55 Last Admin: 07/17/18 06:50 Dose: 15 mg/hr, 15 mls/hr Potassium Phosphate 22.5 mmole (/ Sodium Chloride) 257.5 mls @ 65 mls/hr IV Q4H [facility] Stop: 07/16/18 17:28 Last Admin: 07/16/18 14:09 Dose: 65 mls/hr Cefoxitin Sodium 1 gm/ Sodium (Chloride) 50 mls @ 100 mls/hr IV Q8H [facility] Last Admin: 07/17/18 08:15 Dose: 100 mls/hr Potassium Phosphate 20 mmole/ (Sodium Chloride) 256.6667 mls @ 85 mls/hr IV Q3H [facility] Stop: 07/17/18 18:59 Last Admin: 07/17/18 16:35 Dose: 85 mls/hr Lactated Ringer's (Ringers, Lactated) 1,000 mls @ 500 mls/hr IV ASDIRECTED [facility] Stop: 07/17/18 10:46 Last Admin: 07/17/18 09:41 Dose: 500 mls/hr Lactated Ringer's (Ringers, Lactated) 1,000 mls @ 250 mls/hr IV ONETIME ONE Stop: 07/17/18 15:39 Last Admin: 07/17/18 11:37 Dose: 250 mls/hr Esmolol HCl (Brevibloc In Ns Premix) 2.5 gm in 250 mls @ 17.187 mls/hr IV TITRATE [facility]; Protocol Last Admin: 07/18/18 08:46 Dose: 50 mcg/kg/min, 17.187 mls/hr Potassium Phosphate 15 mmole/ (Sodium Chloride) 255 mls @ 125 mls/hr IV Q2H [facility] Stop: 07/18/18 13:59 Last Admin: 07/18/18 12:27 Dose: 125 mls/hr Dextrose/Lactated Ringer's (Dextrose 5%-Lactated Ringers) 1,000 mls @ 100 mls/ hr IV ASDIRECTED [facility] Stop: 07/20/18 17:59 Last Admin: 07/19/18 19:14 Dose: 100 mls/hr Lactated Ringer's (Ringers, Lactated) 500 mls @ 500 mls/hr IV ONETIME ONE Stop: 07/18/18 08:29 Last Admin: 07/18/18 07:44 Dose: 500 mls/hr Esmolol HCl 2,500 mg/ Premix 250 mls @ 17.18 mls/hr IV TITRATE [facility]; Protocol Stop: 07/20/18 21:59 Last Admin: 07/20/18 07:51 Dose: 50 mcg/kg/min, 17.18 mls/hr Potassium Phosphate 22.5 mmole (/ Sodium Chloride) 257.5 mls @ 65 mls/hr IV Q4H [facility] Stop: 07/19/18 17:58 Last Admin: 07/19/18 14:16 Dose: 65 mls/hr Magnesium Sulfate 2 gm/ Premix 50 mls @ 25 mls/hr IV Q6H [facility] Stop: 07/21/18 05:59 Last Admin: 07/21/18 04:42 Dose: 25 mls/hr Sodium Chloride (Normal Saline) 70 mls @ 3 mls/sec IV ASDIRECTED [facility] Last Admin: 07/19/18 08:49 Dose: 3 mls/sec Potassium Phosphate 20 mmole/ (Sodium Chloride) 106.6667 mls @ 36 mls/hr IV Q3H [facility] Stop: 07/21/18 00:58 Last Admin: 07/21/18 00:12 Dose: 36 mls/hr Esmolol HCl (Brevibloc In Ns Premix) 2.5 gm in 250 mls @ 17.187 mls/hr IV TITRATE [facility]; Protocol Stop: 07/21/18 23:59 Last Admin: 07/21/18 12:19 Dose: 50 mcg/kg/min, 17.187 mls/hr Potassium Phosphate 22.5 mmole (/ Sodium Chloride) 107.5 mls @ 20 mls/hr IV Q6H [facility] Stop: 07/21/18 21:23 Last Admin: 07/21/18 16:19 Dose: 20 mls/hr Potassium Phosphate 15 mmole/ (Sodium Chloride) 105 mls @ 45 mls/hr IV Q2H [facility] Stop: 07/22/18 15:29 Last Admin: 07/22/18 14:48 Dose: 45 mls/hr Iopamidol (Isovue-300 (61%)) 100 ml IV . DIRECTED PRN PRN Reason: RADIOLOGY EXAM Stop: 07/13/18 14:24 Last Admin: 07/12/18 14:36 Dose: 100 ml Iopamidol (Isovue-300 (61%)) 86 ml IV . DIRECTED PRN PRN Reason: RADIOLOGY EXAM Stop: 07/20/18 08:20 Last Admin: 07/19/18 08:49 Dose: 86 ml Labetalol HCl (Normodyne) Confirm Administered Dose 20 mg .ROUTE .STK-MED ONE Stop: 07/13/18 12:45 Labetalol HCl (Normodyne) 5 mg IVPUSH Q5M PRN PRN Reason: SBP over 160 OR DBP over 95 Last Admin: 07/13/18 19:46 Dose: 5 mg Lidocaine/Epinephrine (Xylocaine 1% With Epinephrine 1:100,000) Confirm Administered Dose 50 ml .ROUTE .[facility]-MED ONE Stop: 07/15/18 06:44 Last Admin: 07/15/18 07:58 Dose: 15 ml Lisinopril (Prinivil) 20 mg PO BEDTIME [facility] Last Admin: 07/12/18 21:12 Dose: 20 mg Lisinopril (Prinivil) 20 mg PO DAILY [facility] Last Admin: 07/15/18 11:08 Dose: 20 mg Lorazepam (Ativan) 0.5 mg IVPUSH ONETIME ONE Stop: 07/20/18 06:25 Last Admin: 07/20/18 08:34 Dose: Not Given Lorazepam (Ativan) 0.5 mg IVPUSH ONETIME ONE Stop: 07/20/18 07:31 Last Admin: 07/20/18 08:24 Dose: 0.5 mg Melatonin (Melatonin) 9 mg PO BEDTIME [facility] Last Admin: 07/15/18 20:36 Dose: Not Given Meropenem (Merrem) Confirm Administered Dose 500 mg .ROUTE .STK-MED ONE Stop: 07/13/18 08:39 Last Admin: 07/13/18 13:00 Dose: 500 mg Meropenem (Merrem) Confirm Administered Dose 500 mg .ROUTE .[facility]-MED ONE Stop: 07/15/18 06:43 Last Admin: 07/15/18 07:58 Dose: 500 mg Metoclopramide HCl (Reglan) 10 mg IVPUSH Q6H PRN PRN Reason: NAUSEA NOT CONTROL BY ZOFRAN Metoclopramide HCl (Reglan) 10 mg IVPUSH Q6H [facility] Last Admin: 07/16/18 01:10 Dose: 10 mg Metoclopramide HCl (Reglan) 10 mg IVPUSH Q6H [facility] Last Admin: 07/19/18 01:42 Dose: 10 mg Metoprolol Succinate (Toprol Xl) 100 mg PO DAILY [facility] Stop: 07/13/18 06:01 Last Admin: 07/13/18 05:58 Dose: 100 mg Metoprolol Succinate (Toprol Xl) 100 mg PO DAILY [facility] Metoprolol Tartrate (Lopressor) 5 mg IV Q6H [facility] Last Admin: 07/14/18 04:28 Dose: 5 mg Metoprolol Tartrate (Lopressor) 50 mg PO BID [facility] Last Admin: 07/15/18 20:30 Dose: 50 mg Metoprolol Tartrate (Lopressor) 5 mg IV Q6H [facility] Morphine Sulfate (Morphine) 2 mg IVPUSH Q2H PRN PRN Reason: Pain (severe 7-10) Multivitamins/Minerals (Thera M Plus) 1 tab PO DAILY [facility] Naloxone HCl (Narcan) 0.1 mg IV ASDIRECTED PRN PRN Reason: decreased respiratory rate Neostigmine Methylsulfate (Neostigmine) Confirm Administered Dose 5 mg .ROUTE .STK-MED ONE Stop: 07/13/18 08:32 Non-Formulary Medication (Tap Block, Pharmacy To Dose) 0 ml NERVRT ONETIME ONE Stop: 07/13/18 07:31 Last Admin: 07/13/18 13:06 Dose: Not Given Ondansetron HCl (Zofran Odt) 4 mg PO Q6H PRN PRN Reason: Nausea able to take PO Ondansetron HCl (Zofran) 4 mg IV Q6H PRN PRN Reason: Nausea/Vomiting Last Admin: 07/13/18 15:58 Dose: 4 mg Ondansetron HCl (Zofran) Confirm Administered Dose 4 mg .ROUTE .STK-MED ONE Stop: 07/13/18 08:32 Oxycodone HCl (Oxycodone) 5 mg PO Q4H PRN PRN Reason: Pain (moderate 4-6) Pantoprazole Sodium (Protonix Iv) 40 mg IVPUSH Q24H [facility] Last Admin: 07/14/18 16:24 Dose: 40 mg Pantoprazole Sodium (Protonix) 40 mg PO ACDINNER [facility] Last Admin: 07/15/18 15:14 Dose: 40 mg Propofol (Diprivan 20 Ml) Confirm Administered Dose 200 mg .ROUTE .STK-MED ONE Stop: 07/13/18 08:32 Propofol (Diprivan 20 Ml) Confirm Administered Dose 200 mg .ROUTE .STK-MED ONE Stop: 07/15/18 07:21 Propofol (Diprivan 20 Ml) Confirm Administered Dose 200 mg .ROUTE .STK-MED ONE Stop: 07/15/18 07:58 Rocuronium [place] (Zemuron) Confirm Administered Dose 50 mg .ROUTE .STK-MED ONE Stop: 07/13/18 08:32 Sodium Chloride (Saline Flush) 10 ml FLUSH ASDIRECTED PRN PRN Reason: Keep Vein Open Last Admin: 07/12/18 15:09 Dose: 10 ml Sodium Chloride (Saline Flush) 10 ml FLUSH ONETIME PRN PRN Reason: per radiology protocol Last Admin: 07/19/18 08:49 Dose: 10 ml Succinylcholine Chloride (Quelicin) Confirm Administered Dose 200 mg .ROUTE .STK -MED ONE Stop: 07/13/18 08:32 Warfarin Sodium 5 mg/ Warfarin (Sodium 1 mg) 6 mg PO ONETIME ONE Stop: 07/15/18 11:01 Last Admin: 07/15/18 11:08 Dose: 6 mg - Exam Quality Assessment: No: Supplemental Oxygen General: Alert, Oriented, Cooperative, No Acute Distress Lungs: Clear to Auscultation, Normal Respiratory Effort Cardiovascular: Regular Rate, Irregular Rhythm GI/Abdominal Exam: Soft, No Distention, Abnormal Bowel Sounds (slightly hypoactive ) Extremities: No Pedal Edema. No: Increased Warmth Skin: Warm, Dry Psy/Mental Status: Alert, Normal Affect - Problem List & Annotations (1) Acute appendicitis with appendiceal abscess SNOMED Code(s): 578944007 Code(s): K35.33 - ACUTE APPENDICITIS WITH PERF AND LOC PERITONITIS, WITH ABSCS Status: Acute Current Visit: Yes (2) Coronary artery disease SNOMED Code(s): 92359794 Code(s): I25.10 - ATHSCL HEART DISEASE OF [place] CORONARY ARTERY W/O ANG PCTRS Status: Chronic Current Visit: Yes Qualifiers: Coronary Disease-Associated Artery/Lesion type: [place] artery [place] vs. transplanted heart: [place] heart Associated angina: without angina Qualified Code(s): I25.10 - Atherosclerotic heart disease of [place] coronary artery without angina pectoris (3) Chronic atrial fibrillation SNOMED Code(s): 826355273 Code(s): I48.2 - CHRONIC ATRIAL FIBRILLATION Status: Chronic Current Visit: No - Problem List Review Problem List Initiated/Reviewed/Updated: Yes - My Orders Last 24 Hours: My Active Orders 07/24/18 10:30 Diltiazem IR [Cardizem] 30 mg PO Q6HR - Plan Plan:: ASSESSMENT AND PLAN - Acute appendicitis with abscess - complicated by prolonged postoperative ileus. slow but steady improvement in white blood cell count continues to trend down. No fevers. Pain fairly well controlled. Tolerated clear liquids and will be advanced to full liquids today. -IV antibiotic therapy with meropenem -Pain and nausea control as needed -Additional postoperative care per surgical team Atrial fibrillation with rapid ventricular response - rate control stable over the past 48 hours. -Toprolol XL 100 mg by mouth daily -Start oral diltiazem and give a single dose of digoxin -Discontinue IV diltiazem and IV esmolol -Continue systemic anticoagulation -Restart warfarin tomorrow -continue cardiac monitoring Hypokalemia-resolved Coronary artery disease status post CABG - Remote history of coronary disease with good functional status and no active anginal symptoms. She is on medical therapy with lisinopril and metoprolol as well as a daily aspirin. -Continue home medications Maintenance issues - - DVT prophylaxis - enoxaparin - GI prophylaxis - PPI - Nutrition - full liquids Disposition - I would anticipate discharge to home after the hospital stay Girish Red M.D.
[2018-07-24] MEDS: Inulin 1.5 GM Chewable Tab PO SCH ×2 (10:43→20:47)
[2018-07-24] MEDS: Lactobacillus Rhamnosus GG (Probiotic) Cap PO SCH ×2 (10:43→20:47)
[2018-07-24] MEDS: Metoprolol Succinate 50 MG Tab.ER PO SCH (10:44)
[2018-07-24] MEDS: Fluconazole/Normal Saline 200 MG in Premix Bag 1 BAG IV SCH (10:46)
[2018-07-24] MEDS: Diltiazem IR 30 MG Tab PO SCH ×3 (10:47→21:42)
--- NOTE | 2018-07-24 13:39 | PN ---
DATE OF SERVICE: 07/24/2018 The patient has been afebrile with stable vital signs. She has not had any significant nausea since the removal of the NG-tube yesterday and the abdominal x-ray looks quite good. The grouping of small bowel in the right abdomen has largely dissipated. There is a large amount of air in the colon and no obvious gastric distention on the x-ray. Otherwise, she appears to be diuresing well. The I's and O's were difficult to assess due to her urinating with frequent loose bowel movements. Today, we will plan to begin a full liquid diet . Continue TPN and it should be okay at this point for cardiac medications to be switched over to oral form. These medications being used for the rate control. We will have the hospitalist make that adjustment. Baldomero Pickard MD /[id number]
--- NOTE | 2018-07-24 15:06 | OR ---
DATE OF PROCEDURE: 07/13/2018 PREOPERATIVE DIAGNOSIS: Probable complicated appendicitis with periappendiceal abscess. POSTOPERATIVE DIAGNOSES: 1. Large cecal mass associated with pericolonic abscess. 2. Segment of small bowel adherent to the cecal mass. 3. Peritoneal nodule involving the right upper lateral abdominal wall. OPERATIVE PROCEDURES: Exploratory laparotomy with: 1. Right colectomy (77645). 2. Drainage of pericolonic abscess (96963). 3. Small bowel resection (95311). 4. Excision of peritoneal nodule of right upper quadrant anterior abdominal wall (38242). ANESTHESIA: General. ASSISTANTS: Debra Juarez PA-C, and SHANA Hoyt3. INDICATION FOR PROCEDURE: This is a 78-year-old female presenting with roughly 2 weeks of abdominal pain. By history, this may be even in a longer duration. Interestingly, she has not had any significant fever or white count since being seen in the emergency room and subsequently hospitalized. CT scan shows what appears to be an abscess in the area of the cecum, was associated with possible appendicitis. The plan is to proceed with an exploratory laparotomy because if this is an inflammatory process, everything is probably too densely adherent to safely do laparoscopically as well as possibility that this presentation represents some underlying malignancy given this atypical presentation and we wouldn't want to get out of the area of involvement in a manner not resulting in any potential malignant contamination of the peritoneal cavity. Potential risks including bleeding, infection, injury to underlying viscera, possible leaks from GI tract closures, as well as possibility of cardiopulmonary, septic, or hemorrhagic complications leading to were all discussed with the patient and she wishes to proceed. DETAILS OF PROCEDURE: The patient was taken to the operating room and after general endotracheal anesthesia was induced, a Wood catheter was inserted and the abdomen prepped and draped. A midline incision was made beginning from the umbilicus and extending roughly a handsbreadth toward the pubis. This eventually then extended roughly a handsbreadth above the umbilicus with the xiphoid. As I entered the peritoneal cavity, there was no evident significant peritoneal fluid other than some small amount of serous fluid within the depths of the pelvis. In the right upper quadrant anterior abdominal wall, a roughly 2 mm peritoneal nodule was present. This was excised for histologic evaluation. At this point, the area of the cecum was identified. The roll out of post presentation was that of a large cecal mass, which may either be inflammatory or malignant. A loop of small bowel was densely adherent to this. This was taken down and the area was deserosalized. This area was then initially resected with the bowel proximal and distal being divided with ELTON holden loads and the underlying mesentery with mesenteric loads and the small bowel continuity then re-established with a [id number] enteroenterostomy between the 2 portions of the small bowel with internal firing of the ELTON 60 mm stapler, common opening was then closed transversely with a 60 mm stapler as well, and the angles anastomosed and mesenteric defect approximated with some 3-0 Vicryl stitch. Attention was then taken to the cecal mass. As one began dissecting around this, the abscess was identified. This was evacuated and cultures obtained. This abscess was adjacent to the junction of the cecum and ascending colon. Without knowing whether or not there is any underlying malignancy involved this case, we then proceed with a right colectomy. The peritoneal reflection of the distal small bowel, cecum, and ascending colon were all divided. Some omental attachments to the hepatic flexure of the colon were then divided with ELTON tammy and this then allowed medial mobilization of the cecum and right colon. The inflammation extended well into the retroperitoneum and the plane of dissection uncovered the underlying right ureter, which we were subsequently careful to avoid injury to and at the conclusion of the dissection, this was confirmed to be intact as was the underlying duodenum. At that point, the distal small bowel was divided with ELTON holden load and the transverse colon just to the right of the middle colic vessels with a ELTON purple load. The mesentery along the ileocecal vessels was then divided flush with final takeoff from the superior mesenteric vein and artery with the ELTON stapler and the remaining mesentery was then divided with ELTON mesenteric tammy and the specimen delivered from the field. Off the field, the specimen was opened. There did not appear to be any mucosal tumor present. There were some diverticula within the area of the cecum so this could either be some sort of a complicated diverticular disease, the tumor involving the submucosal region, or possibly appendicitis that may be more or less eroded into the cecal area causing the above-noted presentation. At this point, the ileocolic anastomosis was accomplished with 2 internal firings of the Endo-ELTON 60 mm stapler, common opening was closed transversely with 60 mm stapler as well and the angles anastomosed, and mesenteric defect approximated with some 3-0 Vicryl stitch. The abdomen was then irrigated with antibiotic-containing saline solution. A Denver-Kim drain was taken out through a stab wound in the right upper quadrant and placed along the right colic gutter and from there into the pelvis. Some fibrin sealant was applied to the anastomosis, which was then covered with some omentum as well. The midline fascia was then approximated with #2 Vicryl stitch. The skin and subcutaneous tissue were felt to be high risk for a wound infection if a primary closure was undertaken and these were packed open with Iodoform gauze for planned delayed primary closure in 48 hours. The patient was taken to the recovery room in satisfactory condition. Physician instructional assistant, Debra Juarez, played an essential role in assisting in this case, helping to position the patient, retract structures as needed, as well as suturing and cutting sutures when indicated. Her presence improved the patient's safety and decreased the operative time. Baldomero Pickard MD /[id number]
--- NOTE | 2018-07-24 15:20 | PN ---
DATE OF SERVICE: 07/23/2018 The patient has had temperatures running in the 97 to 98 range, heart rate is in the 70s, on the esmolol infusion and low-dose Cardizem. Her NG output over the last 24 hours was 500 mL, although she has taken quite a bit of ice chips in. Does continue to move her bowels. Abdominal x-ray shows some continued dilated loops of small bowel in the right upper and mid abdomen. Again, quite a bit of air in the large bowel, and if the patient continues to move her bowels try and get the NG tube out today, limit her oral intake. Otherwise, continue the TPN and present antibiotics, maximize activity, and work with pulmonary toilet. Baldomero Pickard MD /[id number]
[2018-07-25] MEDS: Enoxaparin 60 MG/0.6 ML Syringe SUBCUT SCH ×2 (01:06→14:23)
[2018-07-25] MEDS: Diltiazem IR 30 MG Tab PO SCH (04:00)
[2018-07-25] MEDS: Metoclopramide 10 MG/2 ML SDV IVPUSH SCH ×4 (04:00→21:39)
[2018-07-25] MEDS: 1: AA 5%/Calcium/D15W/Lytes 1,000 ML with MVI, Adult with Vitamin K 10 ML, Chromium/Copp IV SCH ×3 (04:19)
[2018-07-25] MEDS: Meropenem 1 GM in Sodium Chloride 0.9% 100 ML IV SCH (06:18)
--- NOTE | 2018-07-25 09:28 | PCM.PN ---
- General Info Date of Service: 07/25/18 Subjective Update: There were no acute events overnight. The patient has had essentially no abdominal pain. She has not had any fevers. Appetite slowly improving. She continues to have watery diarrhea but thinks it's getting a little bit thicker. She has continued to have good rate control with her atrial fibrillation after the transition to oral medications yesterday. Functional Status: Reports: Pain Controlled, Tolerating Diet - Review of Systems General: Denies: Fever - Patient Data Vitals - Most Recent: Last Vital Signs Temp 36.4 C 07/25/18 01:13 Pulse 83 07/25/18 08:00 Resp 20 07/25/18 08:00 BP 123/54 L 07/25/18 08:00 Pulse Ox 100 07/25/18 08:00 Weight - Most Recent: 57.289 kg I&O - Last 24 Hours: Intake & Output 07/24/18 07/25/18 07/25/18 22:59 06:59 14:59 Intake Total 1391 1329 420 Output Total 1100 2000 600 Balance 291 -671 -180 Lab Results Last 24 Hours: Laboratory Results - last 24 hr 07/19/18 07/25/18 07/25/18 Range/Units 07:55 04:00 04:00 WBC 11.2 H (4.5-11.0) K/uL RBC 3.16 L (3.30-5.50) M/uL Hgb 9.6 L (12.0-15.0) g/dL Hct 29.9 L (36.0-48.0) % MCV 95 (80-98) fL MCH 30 (27-31) pg MCHC 32 (32-36) % Plt Count 166 (150-400) K/uL Neut % (Auto) 72 H (36-66) % Lymph % (Auto) 13 L (24-44) % [place] % (Auto) 11 H (2-6) % Eos % (Auto) 5 H (2-4) % Baso % (Auto) 0 (0-1) % Sodium 139 L (140-148) mmol/L Potassium 4.3 (3.6-5.2) mmol/L Chloride 105 (100-108) mmol/L Carbon Dioxide 26 (21-32) mmol/L Anion Gap 12.3 (5.0-14.0) mmol/L BUN 16 (7-18) mg/dL Creatinine 0.6 (0.6-1.0) mg/dL Est Cr Clr Drug Dosing 60.26 mL/min Estimated GFR (MDRD) > 60 (>60) Glucose 146 H (74-106) mg/dL Calcium 8.3 L (8.5-10.1) mg/dL Phosphorus 2.8 (2.5-4.9) mg/dL Magnesium 2.0 (1.8-2.4) mg/dL Total Bilirubin 0.4 (0.2-1.0) mg/dL AST 35 (15-37) U/L ALT 63 (12-78) U/L Alkaline Phosphatase 87 (46-116) U/L NT-Pro-B Natriuret Pep 67 (5-450) pg/mL Total Protein 5.8 L (6.4-8.2) g/dL Albumin 2.4 L (3.4-5.0) g/dL Globulin 3.4 (2.3-3.5) g/dL Albumin/Globulin Ratio 0.7 L (1.2-2.2) Crossmatch See Detail Lei Results Last 24 Hours: Microbiology 07/21/18 10:25 Stool Culture - Final Stool / Feces Yeast Isolated Shiga Toxin I - Final NEGATIVE FOR SHIGA TOXIN 1 Shiga Toxin II - Final NEGATIVE FOR SHIGA TOXIN 2 Med Orders - Current: Current Medications Diltiazem HCl (Cardizem Cd) 120 mg PO DAILY [facility] Diphenhydramine HCl (Benadryl) 50 mg IVPUSH Q4H PRN PRN Reason: ITCHING Enoxaparin Sodium (Lovenox) 60 mg SUBCUT Q12H [facility] Last Admin: 07/25/18 01:06 Dose: 60 mg Hydroxyzine HCl (Vistaril) 100 mg IM Q4H PRN PRN Reason: pain Meropenem 1 gm/ Sodium (Chloride) 100 mls @ 200 mls/hr IV Q8H [facility] Last Admin: 07/25/18 06:18 Dose: 200 mls/hr Multivitamins/Minerals 10 ml/Chromium/Copper/Manganese/Seleni/Zn 1 ml/ Amino Ac/ Electrol/Dextrose/Calcium 1,011 mls @ 75 mls/hr IV .BY DURATION [facility] Stop: 07/25/18 17:00 Last Admin: 07/25/18 04:19 Dose: 75 mls/hr Amino Ac/Electrol/Dextrose/Calcium (Clinimix E 5/15) 1,000 mls @ 75 mls/hr IV .BY DURATION [facility] Stop: 07/25/18 17:00 Last Admin: 07/24/18 15:37 Dose: 75 mls/hr Dextrose/Lactated Ringer's (Dextrose 5%-Lactated Ringers) 1,000 mls @ 30 mls/ hr IV ASDIRECTED [facility] Last Admin: 07/24/18 02:44 Dose: 30 mls/hr Fluconazole/Sodium Chloride (200 mg/ Premix) 100 mls @ 100 mls/hr IV Q24H [facility] Last Admin: 07/24/18 10:46 Dose: 100 mls/hr Multivitamins/Minerals 10 ml/Chromium/Copper/Manganese/Seleni/Zn 1 ml/ Amino Ac/ Electrol/Dextrose/Calcium 1,011 mls @ 40 mls/hr IV .BY DURATION [facility] Amino Ac/Electrol/Dextrose/Calcium (Clinimix E 5/15) 1,000 mls @ 40 mls/hr IV .BY DURATION [facility] Inulin (Fiber Choice) 3 gm PO BID [facility] Last Admin: 07/24/18 20:47 Dose: 3 gm Lactobacillus Rhamnosus (Culturelle) 2 cap PO BID [facility] Last Admin: 07/24/18 20:47 Dose: 2 cap Metoclopramide HCl (Reglan) 5 mg IVPUSH Q6H [facility] Last Admin: 07/25/18 04:00 Dose: 5 mg Metoprolol Succinate (Toprol Xl) 100 mg PO DAILY [facility] Last Admin: 07/24/18 10:44 Dose: 100 mg Ondansetron HCl (Zofran) 4 mg IV Q4H PRN PRN Reason: Nausea/Vomiting Last Admin: 07/19/18 13:19 Dose: 4 mg Warfarin Sodium 5 mg/ Warfarin (Sodium 3 mg) 8 mg PO ONETIME ONE Stop: 07/25/18 10:01 Discontinued Medications Acetaminophen (Tylenol) 650 mg PO Q4H PRN PRN Reason: Pain (Mild 1-3)/fever Last Admin: 07/13/18 03:31 Dose: 325 mg Aspirin (Halfprin) 81 mg PO DAILY [facility] Last Admin: 07/13/18 16:03 Dose: Not Given Aspirin (Halfprin) 81 mg PO DAILY [facility] Last Admin: 07/15/18 11:08 Dose: 81 mg Bisacodyl (Dulcolax) 10 mg PO BID [facility] Last Admin: 07/15/18 20:35 Dose: Not Given Bupivacaine HCl (Marcaine 0.5%) Confirm Administered Dose 30 ml .ROUTE .[facility] ONE Stop: 07/15/18 06:44 Last Admin: 07/15/18 07:58 Dose: 15 ml Ropivacaine 28 ml/Dexamethasone 8 mg/Epinephrine HCl 0.4 mg/ Sodium Chloride 49.6 ml 0 ml NERVRT ASDIRECTED [facility] Last Admin: 07/13/18 12:40 Dose: 80 syringe Ropivacaine 28 ml/Dexamethasone 8 mg/Epinephrine HCl 0.4 mg/ Sodium Chloride 49.6 ml 0 ml NERVRT ASDIRECTED [facility] Last Admin: 07/15/18 07:14 Dose: 2 syringe Dexamethasone (Dexamethasone) Confirm Administered Dose 4 mg .ROUTE .[facility] ONE Stop: 07/13/18 08:32 Digoxin (Lanoxin) 125 mcg IVPUSH ONETIME ONE Stop: 07/16/18 05:30 Last Admin: 07/16/18 05:46 Dose: 125 mcg Digoxin (Lanoxin) 250 mcg IVPUSH ONETIME ONE Stop: 07/17/18 09:46 Last Admin: 07/17/18 09:54 Dose: 250 mcg Digoxin (Lanoxin) 250 mcg IVPUSH ONETIME ONE Stop: 07/17/18 15:16 Last Admin: 07/17/18 15:15 Dose: 250 mcg Diltiazem HCl (Cardizem) 45 mg PO Q6HR [facility] Last Admin: 07/16/18 03:14 Dose: Not Given Diltiazem HCl (Diltiazem) 15 mg IVPUSH ONETIME ONE Stop: 07/16/18 01:57 Last Admin: 07/16/18 02:13 Dose: 15 mg Diltiazem HCl (Diltiazem) 5 mg IVPUSH ONETIME ONE Stop: 07/16/18 04:12 Last Admin: 07/16/18 04:24 Dose: 5 mg Diltiazem HCl (Cardizem) 30 mg PO Q6HR [facility] Last Admin: 07/25/18 04:00 Dose: 30 mg Docusate Sodium (Colace) 100 mg PO BID [facility] Last Admin: 07/15/18 20:35 Dose: Not Given Fentanyl (Sublimaze) Confirm Administered Dose 250 mcg .ROUTE .STK-MED ONE Stop: 07/13/18 08:33 Fentanyl (Sublimaze) Confirm Administered Dose 250 mcg .ROUTE .STK-MED ONE Stop: 07/13/18 12:42 Fentanyl (Sublimaze) Confirm Administered Dose 100 mcg .ROUTE .[facility] ONE Stop: 07/15/18 07:21 Furosemide (Lasix) 20 mg IV ONETIME ONE Stop: 07/15/18 10:01 Last Admin: 07/15/18 09:37 Dose: 20 mg Furosemide (Lasix) 10 mg IVPUSH ONETIME ONE Stop: 07/19/18 12:01 Last Admin: 07/19/18 14:25 Dose: 10 mg Furosemide (Lasix) 10 mg IVPUSH ONETIME ONE Stop: 07/20/18 09:01 Last Admin: 07/20/18 09:50 Dose: 10 mg Furosemide (Lasix) 10 mg IVPUSH ONETIME ONE Stop: 07/21/18 11:01 Last Admin: 07/21/18 11:29 Dose: 10 mg Glycopyrrolate (Robinul) Confirm Administered Dose 1 mg .ROUTE .[facility] ONE Stop: 07/13/18 08:32 Haloperidol Lactate (Haldol) 2.5 mg IVPUSH ONETIME ONE Stop: 07/16/18 06:34 Last Admin: 07/16/18 06:51 Dose: 2.5 mg Haloperidol Lactate (Haldol) 2.5 mg IV Q6H PRN PRN Reason: ANXIETY/HALLUCINATIONS Hydromorphone HCl (Dilaudid [place] 15 Mg In Ns 30 Ml) 0 mg IV ASDIRECTED PRN; Protocol PRN Reason: [employer] PAIN CONTROL Last Admin: 07/13/18 15:11 Dose: 0.2 mg Lactated Ringer's (Ringers, Lactated) 1,000 mls @ 999 mls/hr IV [facility] ONE Stop: 07/12/18 15:06 Last Admin: 07/12/18 15:08 Dose: 999 mls/hr Sodium Chloride (Normal Saline) 80 mls @ 3 mls/sec IV ASDIRECTED [facility] Last Admin: 07/12/18 14:36 Dose: 3 mls/sec Ampicillin Sodium/Sulbactam (Sodium 3 gm/ Sodium Chloride) 100 mls @ 200 mls/ hr IV Q6H [facility] Stop: 07/12/18 17:00 Last Admin: 07/12/18 15:26 Dose: 200 mls/hr Aztreonam 1 gm/ Sodium (Chloride) 50 mls @ 100 mls/hr IV Q8H [facility] Aztreonam/Dextrose 1 gm/ (Premix) 50 mls @ 100 mls/hr IV Q8H [facility] Last Admin: 07/24/18 15:36 Dose: 100 mls/hr Ampicillin Sodium/Sulbactam (Sodium 3 gm/ Sodium Chloride) 100 mls @ 200 mls/ hr IV Q6H [facility] Last Admin: 07/16/18 09:34 Dose: 200 mls/hr Lactated Ringer's (Ringers, Lactated) 1,000 mls @ 75 mls/hr IV ASDIRECTED [facility] Last Admin: 07/13/18 03:33 Dose: 75 mls/hr Phytonadione 5 mg/ Sodium (Chloride) 50.5 mls @ 100 mls/hr IV NOW ONE Stop: 07/12/18 17:00 Last Admin: 07/12/18 17:47 Dose: 100 mls/hr Lactated Ringer's (Ringers, Lactated) Confirm Administered Dose 1,000 mls @ as directed .ROUTE .STK-MED ONE Stop: 07/13/18 12:46 Tranexamic Acid 1,000 mg/ (Sodium Chloride) 60 mls @ 240 mls/hr IV Q3H [facility] Stop: 07/13/18 18:14 Last Admin: 07/13/18 17:47 Dose: 240 mls/hr Dextrose/Lactated Ringer's (Dextrose 5%-Lactated Ringers) 1,000 mls @ 175.004 mls/hr IV ASDIRECTED [facility] Last Admin: 07/14/18 06:57 Dose: 175.004 mls/hr Multivitamins/Minerals 10 ml/Thiamine HCl 200 mg/ Chromium/Copper/Manganese/ Seleni/Zn 1 ml/ Dextrose/Lactated Ringer's 1,013 mls @ 174.999 mls/hr IV DAILY@ 1600 [facility] Last Admin: 07/13/18 17:47 Dose: 174.999 mls/hr Diltiazem HCl 100 mg/ Sodium (Chloride) 100 mls @ 5 mls/hr IV TITRATE [facility]; Protocol Last Admin: 07/14/18 14:39 Dose: 5 mg/hr, 5 mls/hr Dextrose/Lactated Ringer's (Dextrose 5%-Lactated Ringers) 1,000 mls @ 125 mls/ hr IV ASDIRECTED [facility] Last Admin: 07/15/18 01:05 Dose: 125 mls/hr Magnesium Sulfate 2 gm/ Premix 50 mls @ 25 mls/hr IV Q6H [facility] Stop: 07/16/18 09:59 Last Admin: 07/16/18 08:17 Dose: 25 mls/hr Multivitamins/Minerals 10 ml/Thiamine HCl 200 mg/ Chromium/Copper/Manganese/ Zinc 1 ml/Dextrose/Lactated Ringer's 1,013 mls @ 125 mls/hr IV DAILY@1600 [facility] Last Admin: 07/14/18 16:17 Dose: 125 mls/hr Lactated Ringer's (Ringers, Lactated) Confirm Administered Dose 1,000 mls @ as directed .ROUTE .STK-MED ONE Stop: 07/15/18 07:55 Potassium Chloride 20 meq/Lidocaine HCl 2 ml/ Sodium Chloride 112 mls @ 56 mls/ hr IV Q2H [facility] Stop: 07/15/18 15:59 Last Admin: 07/15/18 14:17 Dose: 56 mls/hr Dextrose/Lactated Ringer's (Dextrose 5%-Lactated Ringers) 1,000 mls @ 25 mls/ hr IV ASDIRECTED [facility] Last Admin: 07/16/18 10:44 Dose: 25 mls/hr Diltiazem HCl 100 mg/ Sodium (Chloride) 100 mls @ 5 mls/hr IV TITRATE [facility]; Protocol Stop: 07/17/18 12:55 Last Admin: 07/17/18 06:50 Dose: 15 mg/hr, 15 mls/hr Potassium Phosphate 22.5 mmole (/ Sodium Chloride) 257.5 mls @ 65 mls/hr IV Q4H [facility] Stop: 07/16/18 17:28 Last Admin: 07/16/18 14:09 Dose: 65 mls/hr Cefoxitin Sodium 1 gm/ Sodium (Chloride) 50 mls @ 100 mls/hr IV Q8H [facility] Last Admin: 07/17/18 08:15 Dose: 100 mls/hr Potassium Phosphate 20 mmole/ (Sodium Chloride) 256.6667 mls @ 85 mls/hr IV Q3H [facility] Stop: 07/17/18 18:59 Last Admin: 07/17/18 16:35 Dose: 85 mls/hr Lactated Ringer's (Ringers, Lactated) 1,000 mls @ 500 mls/hr IV ASDIRECTED [facility] Stop: 07/17/18 10:46 Last Admin: 07/17/18 09:41 Dose: 500 mls/hr Lactated Ringer's (Ringers, Lactated) 1,000 mls @ 250 mls/hr IV ONETIME ONE Stop: 07/17/18 15:39 Last Admin: 07/17/18 11:37 Dose: 250 mls/hr Diltiazem HCl 125 mg/ Sodium (Chloride) 125 mls @ 5 mls/hr IV TITRATE [facility]; Protocol Last Titration: 07/24/18 11:45 Dose: 0 mg/hr, 0 mls/hr Esmolol HCl (Brevibloc In Ns Premix) 2.5 gm in 250 mls @ 17.187 mls/hr IV TITRATE [facility]; Protocol Last Admin: 07/18/18 08:46 Dose: 50 mcg/kg/min, 17.187 mls/hr Potassium Phosphate 15 mmole/ (Sodium Chloride) 255 mls @ 125 mls/hr IV Q2H [facility] Stop: 07/18/18 13:59 Last Admin: 07/18/18 12:27 Dose: 125 mls/hr Dextrose/Lactated Ringer's (Dextrose 5%-Lactated Ringers) 1,000 mls @ 100 mls/ hr IV ASDIRECTED [facility] Stop: 07/20/18 17:59 Last Admin: 07/19/18 19:14 Dose: 100 mls/hr Lactated Ringer's (Ringers, Lactated) 500 mls @ 500 mls/hr IV ONETIME ONE Stop: 07/18/18 08:29 Last Admin: 07/18/18 07:44 Dose: 500 mls/hr Esmolol HCl 2,500 mg/ Premix 250 mls @ 17.18 mls/hr IV TITRATE [facility]; Protocol Stop: 07/20/18 21:59 Last Admin: 07/20/18 07:51 Dose: 50 mcg/kg/min, 17.18 mls/hr Potassium Phosphate 22.5 mmole (/ Sodium Chloride) 257.5 mls @ 65 mls/hr IV Q4H [facility] Stop: 07/19/18 17:58 Last Admin: 07/19/18 14:16 Dose: 65 mls/hr Magnesium Sulfate 2 gm/ Premix 50 mls @ 25 mls/hr IV Q6H [facility] Stop: 07/21/18 05:59 Last Admin: 07/21/18 04:42 Dose: 25 mls/hr Sodium Chloride (Normal Saline) 70 mls @ 3 mls/sec IV ASDIRECTED [facility] Last Admin: 07/19/18 08:49 Dose: 3 mls/sec Potassium Phosphate 20 mmole/ (Sodium Chloride) 106.6667 mls @ 36 mls/hr IV Q3H [facility] Stop: 07/21/18 00:58 Last Admin: 07/21/18 00:12 Dose: 36 mls/hr Esmolol HCl (Brevibloc In Ns Premix) 2.5 gm in 250 mls @ 17.187 mls/hr IV TITRATE [facility]; Protocol Stop: 07/21/18 23:59 Last Admin: 07/21/18 12:19 Dose: 50 mcg/kg/min, 17.187 mls/hr Potassium Phosphate 22.5 mmole (/ Sodium Chloride) 107.5 mls @ 20 mls/hr IV Q6H [facility] Stop: 07/21/18 21:23 Last Admin: 07/21/18 16:19 Dose: 20 mls/hr Esmolol HCl (Esmolol Hcl In Sterile Water 2,500 Mg/250 Ml) 250 mls @ 17.187 mls /hr IV TITRATE [facility]; Protocol Last Titration: 07/24/18 11:00 Dose: Infused Potassium Phosphate 15 mmole/ (Sodium Chloride) 105 mls @ 45 mls/hr IV Q2H [facility] Stop: 07/22/18 15:29 Last Admin: 07/22/18 14:48 Dose: 45 mls/hr Iopamidol (Isovue-300 (61%)) 100 ml IV . DIRECTED PRN PRN Reason: RADIOLOGY EXAM Stop: 07/13/18 14:24 Last Admin: 07/12/18 14:36 Dose: 100 ml Iopamidol (Isovue-300 (61%)) 86 ml IV . DIRECTED PRN PRN Reason: RADIOLOGY EXAM Stop: 07/20/18 08:20 Last Admin: 07/19/18 08:49 Dose: 86 ml Labetalol HCl (Normodyne) Confirm Administered Dose 20 mg .ROUTE .STK-MED ONE Stop: 07/13/18 12:45 Labetalol HCl (Normodyne) 5 mg IVPUSH Q5M PRN PRN Reason: SBP over 160 OR DBP over 95 Last Admin: 07/13/18 19:46 Dose: 5 mg Lidocaine/Epinephrine (Xylocaine 1% With Epinephrine 1:100,000) Confirm Administered Dose 50 ml .ROUTE .ST-MED ONE Stop: 07/15/18 06:44 Last Admin: 07/15/18 07:58 Dose: 15 ml Lisinopril (Prinivil) 20 mg PO BEDTIME [facility] Last Admin: 07/12/18 21:12 Dose: 20 mg Lisinopril (Prinivil) 20 mg PO DAILY [facility] Last Admin: 07/15/18 11:08 Dose: 20 mg Lorazepam (Ativan) 0.5 mg IVPUSH ONETIME ONE Stop: 07/20/18 06:25 Last Admin: 07/20/18 08:34 Dose: Not Given Lorazepam (Ativan) 0.5 mg IVPUSH ONETIME ONE Stop: 07/20/18 07:31 Last Admin: 07/20/18 08:24 Dose: 0.5 mg Melatonin (Melatonin) 9 mg PO BEDTIME [facility] Last Admin: 07/15/18 20:36 Dose: Not Given Meropenem (Merrem) Confirm Administered Dose 500 mg .ROUTE .STK-MED ONE Stop: 07/13/18 08:39 Last Admin: 07/13/18 13:00 Dose: 500 mg Meropenem (Merrem) Confirm Administered Dose 500 mg .ROUTE .STK-MED ONE Stop: 07/15/18 06:43 Last Admin: 07/15/18 07:58 Dose: 500 mg Metoclopramide HCl (Reglan) 10 mg IVPUSH Q6H PRN PRN Reason: NAUSEA NOT CONTROL BY ZOFRAN Metoclopramide HCl (Reglan) 10 mg IVPUSH Q6H [facility] Last Admin: 07/16/18 01:10 Dose: 10 mg Metoclopramide HCl (Reglan) 10 mg IVPUSH Q6H [facility] Last Admin: 07/19/18 01:42 Dose: 10 mg Metoprolol Succinate (Toprol Xl) 100 mg PO DAILY [facility] Stop: 07/13/18 06:01 Last Admin: 07/13/18 05:58 Dose: 100 mg Metoprolol Succinate (Toprol Xl) 100 mg PO DAILY [facility] Metoprolol Tartrate (Lopressor) 5 mg IV Q6H [facility] Last Admin: 07/14/18 04:28 Dose: 5 mg Metoprolol Tartrate (Lopressor) 50 mg PO BID [facility] Last Admin: 07/15/18 20:30 Dose: 50 mg Metoprolol Tartrate (Lopressor) 5 mg IV Q6H [facility] Morphine Sulfate (Morphine) 2 mg IVPUSH Q2H PRN PRN Reason: Pain (severe 7-10) Multivitamins/Minerals (Thera M Plus) 1 tab PO DAILY [facility] Naloxone HCl (Narcan) 0.1 mg IV ASDIRECTED PRN PRN Reason: decreased respiratory rate Neostigmine Methylsulfate (Neostigmine) Confirm Administered Dose 5 mg .ROUTE .STK-MED ONE Stop: 07/13/18 08:32 Non-Formulary Medication (Tap Block, Pharmacy To Dose) 0 ml NERVRT ONETIME ONE Stop: 07/13/18 07:31 Last Admin: 07/13/18 13:06 Dose: Not Given Ondansetron HCl (Zofran Odt) 4 mg PO Q6H PRN PRN Reason: Nausea able to take PO Ondansetron HCl (Zofran) 4 mg IV Q6H PRN PRN Reason: Nausea/Vomiting Last Admin: 07/13/18 15:58 Dose: 4 mg Ondansetron HCl (Zofran) Confirm Administered Dose 4 mg .ROUTE .STK-MED ONE Stop: 07/13/18 08:32 Oxycodone HCl (Oxycodone) 5 mg PO Q4H PRN PRN Reason: Pain (moderate 4-6) Pantoprazole Sodium (Protonix Iv) 40 mg IVPUSH Q24H [facility] Last Admin: 07/14/18 16:24 Dose: 40 mg Pantoprazole Sodium (Protonix) 40 mg PO ACDINNER [facility] Last Admin: 07/15/18 15:14 Dose: 40 mg Propofol (Diprivan 20 Ml) Confirm Administered Dose 200 mg .ROUTE .STK-MED ONE Stop: 07/13/18 08:32 Propofol (Diprivan 20 Ml) Confirm Administered Dose 200 mg .ROUTE .STK-MED ONE Stop: 07/15/18 07:21 Propofol (Diprivan 20 Ml) Confirm Administered Dose 200 mg .ROUTE .STK-MED ONE Stop: 07/15/18 07:58 Rocuronium [place] (Zemuron) Confirm Administered Dose 50 mg .ROUTE .STK-MED ONE Stop: 07/13/18 08:32 Sodium Chloride (Saline Flush) 10 ml FLUSH ASDIRECTED PRN PRN Reason: Keep Vein Open Last Admin: 07/12/18 15:09 Dose: 10 ml Sodium Chloride (Saline Flush) 10 ml FLUSH ONETIME PRN PRN Reason: per radiology protocol Last Admin: 07/19/18 08:49 Dose: 10 ml Succinylcholine Chloride (Quelicin) Confirm Administered Dose 200 mg .ROUTE .STK -MED ONE Stop: 07/13/18 08:32 Warfarin Sodium 5 mg/ Warfarin (Sodium 1 mg) 6 mg PO ONETIME ONE Stop: 07/15/18 11:01 Last Admin: 07/15/18 11:08 Dose: 6 mg - Exam Quality Assessment: No: Supplemental Oxygen General: Alert, Oriented, Cooperative, No Acute Distress Lungs: Clear to Auscultation, Normal Respiratory Effort Cardiovascular: Regular Rate, Irregular Rhythm GI/Abdominal Exam: Soft, No Distention Extremities: No Pedal Edema Psy/Mental Status: Alert, Normal Affect - Problem List & Annotations (1) Acute appendicitis with appendiceal abscess SNOMED Code(s): 090594083 Code(s): K35.33 - ACUTE APPENDICITIS WITH PERF AND LOC PERITONITIS, WITH ABSCS Status: Acute Current Visit: Yes (2) Coronary artery disease SNOMED Code(s): 34627830 Code(s): I25.10 - ATHSCL HEART DISEASE OF [place] CORONARY ARTERY W/O ANG PCTRS Status: Chronic Current Visit: Yes Qualifiers: Coronary Disease-Associated Artery/Lesion type: [place] artery [place] vs. transplanted heart: [place] heart Associated angina: without angina Qualified Code(s): I25.10 - Atherosclerotic heart disease of [place] coronary artery without angina pectoris (3) Chronic atrial fibrillation SNOMED Code(s): 765860423 Code(s): I48.2 - CHRONIC ATRIAL FIBRILLATION Status: Chronic Current Visit: No - Problem List Review Problem List Initiated/Reviewed/Updated: Yes - My Orders Last 24 Hours: My Active Orders 07/25/18 09:30 Diltiazem [Cardizem CD] 120 mg PO DAILY - Plan Plan:: ASSESSMENT AND PLAN - Acute appendicitis with abscess - complicated by prolonged postoperative ileus. slow but steady improvement in white blood cell count continues to trend down. No fevers. No pain. Tolerating diet. Currently receiving nutritional support from TPN. -Discontinue antibiotics -Pain and nausea control as needed -Additional postoperative care per surgical team Atrial fibrillation with rapid ventricular response - rate control stable over the past 48 hours and tolerated transition to oral medications from IV infusions yesterday. -Toprolol XL 100 mg by mouth daily -Transition to long-acting diltiazem -Continue systemic anticoagulation -Continue warfarin -continue cardiac monitoring Hypokalemia-resolved Coronary artery disease status post CABG - Remote history of coronary disease with good functional status and no active anginal symptoms. She is on medical therapy with lisinopril and metoprolol as well as a daily aspirin. -Continue home medications Maintenance issues - - DVT prophylaxis - enoxaparin - GI prophylaxis - PPI - Nutrition - starting regular diet Disposition - I would anticipate discharge to home after the hospital stay Girish Red M.D.
[2018-07-25] MEDS: Lactobacillus Rhamnosus GG (Probiotic) Cap PO SCH ×2 (09:35→21:38)
[2018-07-25] MEDS: Fluconazole/Normal Saline 200 MG in Premix Bag 1 BAG IV SCH (09:36)
[2018-07-25] MEDS: Inulin 1.5 GM Chewable Tab PO SCH ×2 (09:36→21:38)
[2018-07-25] MEDS: Metoprolol Succinate 50 MG Tab.ER PO SCH (09:36)
[2018-07-25] MEDS: Diltiazem 120 MG Cap.CD PO SCH (09:37)
[2018-07-25] MEDS: Dextrose 5%-Lactated Ringers 1,000 ML IV SCH (16:21)
[2018-07-26] MEDS ORDERED: 1: AA 5%/Calcium/D15W/Lytes 1,000 ML with MVI, Adult with Vitamin K 10 ML, Chromium/Copp IV SCH ×6 (01:00)
[2018-07-26] MEDS: Enoxaparin 60 MG/0.6 ML Syringe SUBCUT SCH (01:38)
[2018-07-26] MEDS: Metoclopramide 10 MG/2 ML SDV IVPUSH SCH ×2 (05:01→10:03)
[2018-07-26 07:21] VITALS: BP 133/85
[2018-07-26] MEDS ORDERED: Warfarin 5 MG Tab PO ONE (07:27)
[2018-07-26] MEDS: Lactobacillus Rhamnosus GG (Probiotic) Cap PO SCH (08:07)
[2018-07-26] MEDS: Metoprolol Succinate 50 MG Tab.ER PO SCH (08:08)
[2018-07-26] MEDS: Inulin 1.5 GM Chewable Tab PO SCH (08:08)
[2018-07-26] MEDS: Diltiazem 120 MG Cap.CD PO SCH (08:08)
[2018-07-26] MEDS: Fluconazole/Normal Saline 200 MG in Premix Bag 1 BAG IV SCH (10:02)
[2018-07-26] MEDS ORDERED: Enoxaparin 80 MG/0.8 ML Syringe SUBCUT ONE (13:00)
--- NOTE | 2018-07-26 13:34 | DISCH ---
ADMISSION DIAGNOSES: 1. Right lower quadrant abdominal pain. 2. Chronic anticoagulation therapy. 3. History of deep vein thrombosis. 4. Atrial fibrillation. 5. Coronary artery disease. 6. Hypercholesterolemia. 7. Hypertension. 8. History of myocardial infarction. 9. Transient ischemic attack. 10.Anxiety. DISCHARGE DIAGNOSES: 1. Exploratory laparotomy with: a. Right colectomy. b. Drainage of pericolonic abscess. c. Small-bowel resection. d. 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 Date of surgery: 07/13/2018. Surgeon: Baldomero Pickard MD. 2. Delayed primary closure for open abdominal incision on 07/15/2018. 3. Atrial fibrillation with rapid response. 4. Postop ileus. HISTORY: Elton Mcdonald is a pleasant 78-year-old female who presented with an approximate 2- week history of abdominal pain. After preoperative evaluation and discussion of possible risks and possible complications, she wished to proceed with surgical procedure. HOSPITAL COURSE: Elton had her surgery on 07/13/2018 with delayed primary closure on 07/15/2018. On 07/14/2018, she was restarted on her oral medication. With history of deep vein thrombosis, she was started on Lovenox. On 07/15/2018, she remained febrile, had issues of intermittent tachycardia and underlying atrial fibrillation with heart rates in 100 to 130. She was given Lasix, and hospitalist, Dr. Girish Red was consulted. She also was given some bowel stimulation. She was continued on the antibiotics of Unasyn and Azactam combination. On 07/16/2018, she developed some confusion, began to have emesis, and NG was placed. Started on Haldol IV to manage mental status and she was changed to IV medication and a Cardizem drip for atrial fibrillation. On 07/17/2018, heart rate remained fairly high at times. She continued with the Cardizem drip and IV metoprolol. She had 2 bowel movements which were somewhat bloody, then thought to be old blood prior to surgery, persistent ileus. Potassium and phosphate were low and these were both replaced. On 07/18/2018, afebrile, had 2 episodes of ventricular tachycardia overnight. Electrolytes were normal. Potassium was 4.1. She was given K phosphate. Pulse was running in the 100. Cardizem was weaned down a little bit. She also was given an LR bolus. NG discontinued. On 07/19/2018, afebrile, heart rate around 100. Reports nausea. Has had frequent loose bowel movements. Clostridium difficile was negative. Abdominal x-ray and the CT were done and showed a consistent ileus. She was given 1 unit of packed red blood cells followed by Lasix, and potassium and phosphate were supplemented. On 07/21/2018, heart rate had improved. Small infusion of relatively low dose of Cardizem. Heart rate was in the 70s to 80s. Blood pressure was normal. She refused an NG. White count was as high as 30,500, hemoglobin was 9.6. On 07/22/2018, she did consent to having an NG put in, it was 500 mL output, but most of it was thought to be ice chips. NG was removed then on 07/23/2018. On 07/24/2018, vital signs were stable. She had known nausea. Abdominal x-ray improved. Diuresing good. Started on a full liquid diet. Throughout this time, she was on TPN. On 07/25/2018, she was moved to [address] [place] [address] and able to be discharged on 08/26/2018. Labs on day of discharge, hemoglobin 9.8, hematocrit 30.1, white count 9.8. Potassium was 4.2, glucose 117. Abdominal abscess showed viridans Streptococcus, adequately treated with IV antibiotics. PHYSICAL EXAMINATION: GENERAL: Elton Mcdonald is a 78-year-old female. VITAL SIGNS: Height is 5 feet 1.02 inches, weight is 126 pounds. TPR is 97.6, 122, 18, blood pressure 133/85. HEENT: Negative. NECK: Supple. HEART: Regular rate and rhythm. LUNGS: Clear. ABDOMEN: [place] intact. Abdominal binder is on. EXTREMITIES: Without peripheral edema. DISPOSITION: Discharged to home. CONDITION: Stable and improving. FOLLOWUP APPOINTMENT: Debra Juarez PA-C, on 08/01/2017 at 9:45 a.m. Check PT and INR at 9:30 a.m. before clinic appointment. NEW PRESCRIPTIONS: 1. Cardizem 120 mg p.o. daily, #90. 2. Lovenox 80 mg subcu daily for 4 days, start tomorrow. She is to resume home medication: 1. Aspirin 81 mg daily. 2. Lisinopril 20 mg oral daily. 3. Metoprolol-XL 100 mg oral daily. 4. Warfarin (Coumadin 3 mg oral every Tuesday, Tuesday, , Tuesday) and warfarin (Coumadin 4.5 mg oral every Tuesday, Tuesday, and Tuesday). DISCHARGE DIET: Usual diet as tolerated. Drink 8 to 10 glasses of water a day. ACTIVITY: No lifting greater than 10 pounds for 6 weeks. Other activity, walk at least 6 times daily inside your home. Driving: Do not drive for 1 week. Shower/bathing, may shower. DISCHARGE INSTRUCTIONS: Notify provider if any fever, increased pain, nausea, or vomiting. Keep site clean and dry. Wear abdominal binder for 6 weeks and then as tolerated. SPECIAL INSTRUCTIONS: Use incentive spirometer 10 times every hour while awake.
--- NOTE | 2018-07-27 14:40 | PN ---
DATE OF SERVICE: 07/25/2018 The patient has been afebrile with stable vital signs. Rythm appears to be fairly good at this point. Having still some loose bowel movements will add some Banana Flakes. Regular diet. Begin backing down on the TPN. We will restart coumadinizing her. She will be transferred to 2nd floor today. Baldomero Pcikard MD /[id number]
== END 2018-07-26 11:55 | disposition home or self-care (01) | DRG 330 ==
LOC: JP.ED 11:17 → JP.MS 16:04 → JP.ICU 07-13 15:40 → JP.MS 07-25 10:00
PROVIDERS: ADMIT Internal Medicine; ATTEND Internal Medicine
PROC: 0DBF0ZZ Excision of Right Large Intestine, Open Approach (ICD-10-PCS; principal; 2018-07-13)
PROC: 0WBF0ZZ Excision of Abdominal Wall, Open Approach (ICD-10-PCS; 2018-07-13)
PROC: 0DB80ZX Excision of Small Intestine, Open Approach, Diagnostic (ICD-10-PCS; 2018-07-13)
PROC: 0D9W0ZX Drainage of Peritoneum, Open Approach, Diagnostic (ICD-10-PCS; 2018-07-13)
PROC: 0WQF0ZZ Repair Abdominal Wall, Open Approach (ICD-10-PCS; 2018-07-15)
PROC: 30233N1 Transfusion of Nonautologous Red Blood Cells into Peripheral Vein, Percutaneous Approach (ICD-10-PCS; 2018-07-19)
PROC: 02HV33Z Insertion of Infusion Device into Superior Vena Cava, Percutaneous Approach (ICD-10-PCS; 2018-07-20)
PROC: B548ZZA Ultrasonography of Superior Vena Cava, Guidance (ICD-10-PCS; 2018-07-20)
PROC: 30233N1 Transfusion of Nonautologous Red Blood Cells into Peripheral Vein, Percutaneous Approach (ICD-10-PCS; 2018-07-21)
DX: K35.33 Acute appendicitis with perforation, localized peritonitis, and gangrene, with abscess (principal); D68.8 Other specified coagulation defects; K56.7 Ileus, unspecified; I10 Essential (primary) hypertension; I48.2 Chronic atrial fibrillation; Z86.718 Personal history of other venous thrombosis and embolism; I25.10 Atherosclerotic heart disease of native coronary artery without angina pectoris; Z86.73 Personal history of transient ischemic attack (TIA), and cerebral infarction without residual deficits; Z87.891 Personal history of nicotine dependence; R10.31 Right lower quadrant pain; R10.84 Generalized abdominal pain; Z79.01 Long term (current) use of anticoagulants; Z48.1 Encounter for planned postprocedural wound closure; K66.0 Peritoneal adhesions (postprocedural) (postinfection); K66.8 Other specified disorders of peritoneum; B95.4 Other streptococcus as the cause of diseases classified elsewhere; D64.9 Anemia, unspecified; Z95.1 Presence of aortocoronary bypass graft; I25.2 Old myocardial infarction; E87.6 Hypokalemia; R19.7 Diarrhea, unspecified; E83.42 Hypomagnesemia; E83.39 Other disorders of phosphorus metabolism; R41.0 Disorientation, unspecified; E78.00 Pure hypercholesterolemia, unspecified; H54.7 Unspecified visual loss; Z79.82 Long term (current) use of aspirin; Z91.030 Bee allergy status; Z91.018 Allergy to other foods; F41.9 Anxiety disorder, unspecified; Z90.710 Acquired absence of both cervix and uterus; Z90.49 Acquired absence of other specified parts of digestive tract
CPT/HCPCS: 36415; 74177 ×2; 80053; 81001; 83605; 84484; 85025; 85610; 96365; 96367; 99284; 99285; C1751 ×2; J0295; J7030 ×2; J7120; Q9967; 36430; 36600; 74018; 74018-26; 74019; 74019-26; 74021; 74021-26; 80048; 80162; 83735; 83880; 84100; 84443; 85027; 86850; 86900; 86901; 86920; 86922; 87046; 87070; 87075; 87077; 87205; 87493; 87899; 88305; 88307; 88341; 88342; 94762; 97110-GP; 97116-GP; 97162-GP; 97530-GP; 97535-GP; A9270-GY; C9113; J0171; J0330; J0694; J1100; J1160; J1170; J1450; J1630; J1650; J1940; J2060; J2185; J2405; J2704; J2710; J2765; J2795; J3010; J3411; J3430; J3475; J3480; J3490; J7042; J7050; P9016

== ENCOUNTER 2019-12-10 11:30 | Emergency (ER) | payer MEDICARE ==
--- NOTE | 2019-12-10 11:44 | EDM.PDOC ---
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 She then left in her car , the son called his sister, the patient's daughter, to get her and bring her to the hospital. She was driving this morning without problem, and she claims she was able to do the books and mathematical figures but is having significant expressive aphasia. There is also obvious right facial droop. She has chronic atrial fibrillation and is on Coumadin. Last known normal was yesterday. Patient denies any symptoms such as headache, palpitations, shortness of breath , nausea or vomiting, no visual complaints. Onset: Unknown/Unsure Associated Symptoms: Reports: Confusion, Weakness. Denies: Headaches, Loss of Appetite - Related Data Allergies Allergy/AdvReac Type Severity Reaction Status Date / Time venom-honey bee Allergy Severe Difficulty Verified 12/10/19 11:42 [bee venom (honey bee)] Breathing *avocodo Allergy Severe Difficulty Uncoded 12/10/19 11:42 Breathing *salmon Allergy Severe Difficulty Uncoded 12/10/19 11:42 Breathing Home Meds: Home Meds Aspirin [Halfprin] 81 mg PO DAILY 06/18/14 [History] Metoprolol Succinate [Toprol Xl] 100 mg PO DAILY 06/18/14 [History] Warfarin [Coumadin] 3 mg PO SUTUTHSA 06/19/14 [History] Warfarin [Coumadin] 4.5 mg PO MOWEFR 06/19/14 [History] Lisinopril [Prinivil] 20 mg PO DAILY 07/28/16 [History] Diltiazem [Cardizem CD] 120 mg PO DAILY #90 cap.cd 07/26/18 [Rx] Enoxaparin Sodium [Lovenox] 80 mg SQ DAILY #4 ml 07/26/18 [Rx] Past Medical History HEENT History: Reports: Impaired Vision Cardiovascular History: Reports: Afib, Blood Clots/VTE/DVT, CAD, High Cholesterol, Hypertension, 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: Neurological History: Reports: TIA Psychiatric History: Reports: Anxiety - Infectious Disease History Infectious Disease History: Reports: Chicken Pox, Measles, Mumps, Rheumatic Fever - Past Surgical History Head Surgeries/Procedures: Reports: None HEENT Surgical History: Reports: Cataract Surgery Cardiovascular Surgical History: Reports: Coronary Artery Bypass, Other (See Below) Other Cardiovascular Surgeries/Procedures: angiogram GI Surgical History: Reports: Cholecystectomy, Colonoscopy Female Surgical History: Reports: Hysterectomy Neurological Surgical History: Reports: None Dermatological Surgical History: Reports: None Social & Family History - Family History Cardiac: Reports: CAD - Caffeine Use Caffeine Use: Reports: Coffee ED ROS GENERAL - Review of Systems Review Of Systems: See Below Constitutional: Denies: Fever, Chills HEENT: Denies: Vision Change Respiratory: Denies: Shortness of Breath Cardiovascular: Denies: Chest Pain, Palpitations GI/Abdominal: Denies: Abdominal Pain, Nausea, Vomiting Skin: Reports: No Symptoms Neurological: Reports: Confusion. Denies: Headache Psychiatric: Reports: No Symptoms ED EXAM, NEURO - Physical Exam Exam: See Below Exam Limited By: No Limitations General Appearance: Alert, No Apparent Distress Eye Exam: Bilateral Eye: Normal Inspection Head Exam: Atraumatic Neck: Supple, Non-Tender Respiratory/Chest: Lungs Clear Cardiovascular: Irregularly Irregular GI/Abdominal: Non-Tender Neurological: Alert, Normal Mood/Affect, Other (Patient has obvious right facial droop, and significant expressive aphasia and confusion. She has no significant weakness or asymmetries of the arms or legs). No: Oriented x 3 ( Patient is oriented to place and person but is very confused on time) Extremities: No: Pedal Edema Psychiatric: Normal Affect, Normal Mood Skin Exam: Warm, Dry Course - Vital Signs Last Recorded V/S: Last Vital Signs Temp 98 F 12/10/19 11:39 Pulse 90 12/10/19 13:31 Resp 14 12/10/19 13:31 BP 171/92 H 12/10/19 13:31 Pulse Ox 96 12/10/19 13:31 - Orders/Labs/Meds Labs: Laboratory Tests 12/10/19 12/10/19 12/10/19 Range/Units 11:53 11:53 11:53 WBC 8.1 (4.5-11.0) K/uL RBC 4.73 (3.30-5.50) M/uL Hgb 14.0 D (12.0-15.0) g/dL Hct 41.9 (36.0-48.0) % MCV 89 (80-98) fL MCH 30 (27-31) pg MCHC 33 (32-36) % Plt Count 221 (150-400) K/uL Neut % (Auto) 60 (36-66) % Lymph % (Auto) 28 (24-44) % [place] % (Auto) 9 H (2-6) % Eos % (Auto) 3 (2-4) % Baso % (Auto) 1 (0-1) % PT 16.4 H (9.5-12.0) sec INR 1.56 H (0.80-1.20) Sodium 143 (140-148) mmol/L Potassium 4.1 (3.6-5.2) mmol/L Chloride 106 (100-108) mmol/L Carbon Dioxide 27 (21-32) mmol/L Anion Gap 10.4 (5.0-14.0) mmol/L BUN 15 (7-18) mg/dL Creatinine 0.9 (0.6-1.0) mg/dL Est Cr Clr Drug Dosing 39.50 mL/min Estimated GFR (MDRD) > 60 (>60) Glucose 103 (74-106) mg/dL Calcium 8.7 (8.5-10.1) mg/dL Total Bilirubin 0.5 D (0.2-1.0) mg/dL AST 25 (15-37) U/L ALT 34 (12-78) U/L Alkaline Phosphatase 72 (46-116) U/L Total Protein 7.2 (6.4-8.2) g/dL Albumin 3.9 (3.4-5.0) g/dL Globulin 3.3 (2.3-3.5) g/dL Albumin/Globulin Ratio 1.2 (1.2-2.2) - Re-Assessments/Exams Free Text/Narrative Re-Assessment/Exam: 12/10/19 11:58 CT of the head without contrast was obtained, as well as a CBC CMP and INR. 12/10/19 12:[address] showed no acute findings. INR is 1.56. Patient continued to have significant confusion, expressive aphasia and disorientation. Dr. Atkins, interventional neurology in [place] agreed to accept the patient for further evaluation including an urgent MRI. Acceptance obtained at 12:20 PM. EMS was consulted for transfer. Departure - Departure Time of Disposition: 12:45 Disposition: DC/Tfer to Other Clinical Impression: Neurologic deficit due to acute ischemic cerebrovascular accident (CVA), Expressive aphasia Atrial fibrillation Qualifiers: Atrial fibrillation type: longstanding persistent Qualified Code(s): I48.11 - Longstanding persistent atrial fibrillation - Discharge Information Referrals: PCP,None [Primary Care Provider] - Forms: ED Department Discharge Care Plan Goals: Patient is to be transferred to [place] for further evaluation of a likely ischemic CVA. Sepsis Event Note - Evaluation Sepsis Screening Result: No Definite Risk - Focused Exam Vital Signs: Vital Signs Temp Pulse Resp BP Pulse Ox 12/10/19 13:31 90 14 171/92 H 96 12/10/19 12:46 77 16 159/77 H 96 12/10/19 12:35 95 14 171/76 H 96 12/10/19 12:05 95 16 153/79 H 97 12/10/19 11:39 98 F 97 20 172/78 H 98 12/10/19 11:37 98 F 97 20 172/78 H 98 Date Exam was Performed: 12/10/19 Time Exam was Performed: 15:45
--- NOTE | 2019-12-10 12:14 | CT ---
Head wo Cont CLINICAL HISTORY: Expressive aphasia, facial weakness COMPARISON: December 2017 TECHNIQUE: Transverse scans were obtained from the base of the skull through the vertex without IV contrast on a multislice, multidetector CT scanner. Auto dosage reduction and iterative reconstruction techniques employed. FINDINGS: There is a region of encephalomalacia in the right parietal occipital junction. This is unchanged since 2018.. There is no mass effect, hemorrhage, or extraaxial collection. There is moderate scattered periventricular lucency The basal cisterns and sulci over the convexities are prominent. The ventricles are normal for age. IMPRESSION: Previous ischemic infarct in the right proximal occipital junction unchanged since 2018 Moderate atrophy Moderate chronic ischemic microvascular changes No acute intracranial findings
[2019-12-10 13:40] VITALS: BP 171/92; PULSE 90
== END 2019-12-10 13:48 | disposition other institution (70) ==
LOC: JP.ED 11:30
DX: I63.9 Cerebral infarction, unspecified (principal); I48.11 Longstanding persistent atrial fibrillation; I10 Essential (primary) hypertension; I25.10 Atherosclerotic heart disease of native coronary artery without angina pectoris; I25.2 Old myocardial infarction; Z91.030 Bee allergy status; Z91.018 Allergy to other foods; Z79.82 Long term (current) use of aspirin; Z79.899 Other long term (current) drug therapy
CPT/HCPCS: 36415; 70450; 70450-26; 80053; 85025; 85610; 99285; 99285-25

== ENCOUNTER 2019-12-16 16:28 | Emergency (ER) | payer MEDICARE ==
[2019-12-16 16:45] VITALS: BP 177/105; PULSE 70
--- NOTE | 2019-12-16 17:16 | EDM.PDOC ---
ED HPI GENERAL MEDICAL PROBLEM - General Chief Complaint: Lower Extremity Injury/Pain Stated Complaint: PAIN IN LT LEG Time Seen by Provider: 12/16/19 17:05 Source of Information: Reports: Patient History Limitations: Reports: No Limitations - History of Present Illness INITIAL COMMENTS - FREE TEXT/NARRATIVE: 79-year-old female who was just evaluated for an ischemic CVA last week presents with a pain in her left lower leg for the past couple of hours. It felt like a charley horse or cramp but has been persistent. No swelling, she is on Coumadin. The significant expressive aphasia she had has largely resolved and she is doing very well post CVA. She has a follow-up appointment with her primary provider tomorrow. According to her daughter the pain was significant enough where she looked pale and ashen and was extremely uncomfortable. Now she actually looks good. There was some numbness but that has improved. Onset: Gradual Duration: Hour(s): (Over the past 4 to 5 hours pain has slowly worsened in her left lower leg but now it seems to be improving) - Related Data Allergies Allergy/AdvReac Type Severity Reaction Status Date / Time venom-honey bee Allergy Severe Difficulty Verified 12/16/19 16:53 [bee venom (honey bee)] Breathing *avocodo Allergy Severe Difficulty Uncoded 12/16/19 16:53 Breathing *salmon Allergy Severe Difficulty Uncoded 12/16/19 16:53 Breathing Home Meds: Home Meds Aspirin [Halfprin] 81 mg PO DAILY 06/18/14 [History] Metoprolol Succinate [Toprol Xl] 100 mg PO DAILY 06/18/14 [History] Warfarin [Coumadin] 3 mg PO SUTUTHSA 06/19/14 [History] Warfarin [Coumadin] 4.5 mg PO MOWEFR 06/19/14 [History] Lisinopril [Prinivil] 20 mg PO DAILY 07/28/16 [History] Diltiazem [Cardizem CD] 120 mg PO DAILY #90 cap.cd 07/26/18 [Rx] Enoxaparin Sodium [Lovenox] 80 mg SQ DAILY #4 ml 07/26/18 [Rx] Clopidogrel Bisulfate [Clopidogrel] 1 tab PO DAILY 12/16/19 [History] atorvaSTATin [Lipitor] 1 tab PO DAILY 12/16/19 [History] Past Medical History HEENT History: Reports: Impaired Vision Cardiovascular History: Reports: Afib, Blood Clots/VTE/DVT, CAD, High Cholesterol, Hypertension, [place] Gastrointestinal History: Reports: None Genitourinary History: Reports: None 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: Neurological History: Reports: TIA Psychiatric History: Reports: Anxiety Hematologic History: Reports: Anticoagulation Therapy Dermatologic History: Reports: None - Infectious Disease History Infectious Disease History: Reports: Chicken Pox, Measles, Mumps, Rheumatic Fever - Past Surgical History Head Surgeries/Procedures: Reports: None HEENT Surgical History: Reports: Cataract Surgery Cardiovascular Surgical History: Reports: Coronary Artery Bypass, Other (See Below) Other Cardiovascular Surgeries/Procedures: angiogram GI Surgical History: Reports: Cholecystectomy, Colonoscopy Female Surgical History: Reports: Hysterectomy Neurological Surgical History: Reports: None Dermatological Surgical History: Reports: None Social & Family History - Family History Cardiac: Reports: CAD - Tobacco Use Smoking Status *Q: Never Smoker - Caffeine Use Caffeine Use: Reports: Coffee Review of Systems - Review of Systems Review Of Systems: See Below Constitutional: Denies: Fever Respiratory: Denies: Shortness of Breath, Cough Cardiovascular: Denies: Chest Pain Musculoskeletal: Reports: Leg Pain Skin: Reports: No Symptoms Neurological: Denies: Dizziness, Headache Psychiatric: Reports: No Symptoms ED EXAM, GENERAL - Physical Exam Exam: See Below Exam Limited By: No Limitations General Appearance: Alert, No Apparent Distress Eye Exam: Bilateral Eye: Normal Inspection Head: Atraumatic Neck: Supple Respiratory/Chest: No Respiratory Distress, Lungs Clear Cardiovascular: Regular Rate, Rhythm Extremities: Other (Lower extremities are symmetric, no edema. She has some mild palpation tenderness to the calf area of the lower left leg but no pain in the popliteal area or thigh. The foot feels slightly cooler on the left than right, and the dorsalis pedis is not as bounding on the left as the right but her capillary refill is equal.) Course - Vital Signs Last Recorded V/S: Last Vital Signs Temp 96.3 F L 12/16/19 17:01 Pulse 70 12/16/19 17:01 Resp 16 12/16/19 17:01 BP 177/105 H 12/16/19 17:01 Pulse Ox 98 12/16/19 17:01 - Re-Assessments/Exams Free Text/Narrative Re-Assessment/Exam: 12/16/19 17:38 There is a concern for some ischemia to the left foot but she is already on anticoagulants, symptoms seem to be markedly improving and she is coming back tomorrow for occupational therapy. The family will return tonight if the foot becomes ashen, discolored with the pain worsens. If the same symptoms are still persistent tomorrow, a vascular study of the left lower extremity will be warranted. The symptoms are not critical enough at this time to warrant urgent transfer for evaluation. Patient will warm the leg with heating pads tonight and recheck tomorrow as planned. Departure - Departure Time of Disposition: 17:36 Disposition: Home, Self-Care 01 Clinical Impression: Pain of left leg - Discharge Information Instructions: Muscle Pain, Adult Referrals: Cipriano Bliss MD [Primary Care Provider] - Forms: ED Department Discharge Care Plan Goals: Recheck tomorrow as scheduled, increase activity as tolerated and consider a heating pad on the sore area and elevation. Sepsis Event Note - Evaluation Sepsis Screening Result: No Definite Risk - Focused Exam Date Exam was Performed: 12/17/19 Time Exam was Performed: 07:01
== END 2019-12-16 17:36 | disposition home or self-care (01) ==
LOC: JP.ED 16:28
DX: M79.662 Pain in left lower leg (principal); I48.91 Unspecified atrial fibrillation; E78.00 Pure hypercholesterolemia, unspecified; I10 Essential (primary) hypertension; I25.10 Atherosclerotic heart disease of native coronary artery without angina pectoris; I25.2 Old myocardial infarction; Z86.73 Personal history of transient ischemic attack (TIA), and cerebral infarction without residual deficits; Z79.82 Long term (current) use of aspirin; Z79.01 Long term (current) use of anticoagulants; Z79.02 Long term (current) use of antithrombotics/antiplatelets; Z79.899 Other long term (current) drug therapy; Z91.030 Bee allergy status; Z91.018 Allergy to other foods
CPT/HCPCS: 99282; 99283